=== PATIENT | male | born 1960 | race Caucasian/White ===

== ENCOUNTER 2023-10-08 18:15 | Inpatient (IN) | payer OTHER, SELFPAY ==
[2023-10-08] VITALS (28 sets, daily range): BP systolic 122–166; BP diastolic 83–121; PULSE 79–109; RESP 13–27; TEMP 36.3–37.8; O2SAT 91–95; BMI 25.8; BMI 25.7
--- NOTE | 2023-10-08 18:34 | ECG_ITS ---
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
--- NOTE | 2023-10-08 18:34 | XR_ITS ---
The [address] [address] Patient Name: CAYLA WORRELL MRN: [id number] date: 1960 Sex: M Assigned Patient Location: ER Current Patient Location: ED.MAIN Accession/Order Number: [id number] Exam Date: 10/08/2023 18:40 Report Date: 10/08/2023 19:39 At the request of: ERIC BURGESS Procedure: XR chest 1V EXAM: XR chest 1V REASON FOR EXAM: Male, 63 years, Chest pain. TECHNIQUE: A single AP view of the chest is performed. COMPARISON: None. FINDINGS: Cardiac monitoring leads overlie the chest. The lungs are underinflated. There appears to be mild bilateral lower lobe atelectasis. Normal pleura. Normal size heart. Normal mediastinum and dolly. Normal visualized pulmonary arteries. Normal visualized aortic arch and descending thoracic aorta. Normal visualized thoracic spine. Postoperative changes are seen to the proximal right humerus. There is no demonstrated abnormality of the visualized soft tissue structures of the upper abdomen. XR/XR chest 1V IMPRESSION: Low lung volumes with bibasilar atelectasis. Electronically authenticated by: DELORIS DING Date: 10/08/2023 19:39
--- NOTE | 2023-10-08 18:34 | ED.CHESTPAI1 ---
HPI - Chest Pain General Chief Complaint: Chest Pain Stated Complaint: Chest Pain Time Seen by Provider: 10/08/23 18:20 Source: patient and family Mode of arrival: Wheelchair Limitations: no limitations History of Present Illness HPI narrative: 63-year-old male presents to the emergency department for pain to the left upper chest area. It started about noon time today and was not precipitated by any injury. He has not had a fever or cough. No unusual activity. Its gotten worse as the day has gone on. He had a blood clot a few years ago following COVID and he was taken off of the blood thinner. The pain is severe and worse if he takes in a deep breath. Related Data Home Medications Medication Instructions Recorded Confirmed No Known Home Medications 10/08/23 10/08/23 Allergies Allergy/AdvReac Type Severity Reaction Status Date / Time No Known Drug Allergies Allergy Verified 10/08/23 18:25 Review of Systems ROS Narrative A ten point review of systems is negative except as noted above. PFSH PFSH Social History Smoking status: Never smoker Exam Narrative Exam Narrative: Nurses note and vital signs reviewed and patient is not hypoxic. General: The patient appears uncomfortable. He is frequently moving around on the cart. Skin: Warm, dry, no pallor noted. There is no rash noted. Head: Normocephalic, atraumatic Eye: Normal conjunctiva, no drainage Ears, Nose, Mouth, and Throat: oral mucosa is moist. Nares patent. Cardiovascular: Regular Rate and Rhythm; chest wall has no crepitus bruises rash or palpable tenderness Respiratory: Patient is in no distress, no accessory muscle use, lungs are clear to auscultation, no wheezing, rales or rhonchi; breath sounds are equal Back: non-tender GI: Soft and nontender Musculoskeletal: The patient has no evidence of calf tenderness, no pitting edema, symmetrical pulses noted bilaterally Neurological: A&O, normal speech Psychiatric: Cooperative Constitutional Vital Signs, click to edit/add: Last Vital Signs Temp 100.1 F 10/08/23 18:26 Pulse 108 H 10/08/23 18:26 Resp 26 H 10/08/23 18:26 BP 166/110 H 10/08/23 18:26 Pulse Ox 94 L 10/08/23 18:26 Course Vital Signs Vital signs: Vital Signs Temperature 100.1 F 10/08/23 18:26 Pulse Rate 108 H 10/08/23 18:26 Respiratory Rate 26 H 10/08/23 18:26 Blood Pressure 166/110 H 10/08/23 18:26 Pulse Oximetry 94 L 10/08/23 18:26 Temperature 100.1 F 10/08/23 18:26 Pulse Rate 108 H 10/08/23 18:26 Respiratory Rate 26 H 10/08/23 18:26 Blood Pressure 166/110 H 10/08/23 18:26 Pulse Oximetry 94 L 10/08/23 18:26 MDM - Chest Pain MDM Narrative Medical decision making narrative: Test are ordered and the patient is signed out to Dr. Do at change of shift. Differential Diagnosis Differential diagnosis: Likely pneumothorax, unstable angina pectoris, atypical chest pain, st elevation myocardial infarction, costochondritis and other (Pulmonary embolism) ECG Data Attestation: I personally reviewed and interpreted this ECG as follows: (EKG on my interpretation shows sinus tachycardia with a rate of 101.) Discharge Plan Discharge Patient Disposition: Still a Patient
[2023-10-08] MEDS: ACETAMINOPHEN 325 MG TABLET 650 MG PO (19:01)
[2023-10-08] MEDS: MORPHINE SULFATE 4 MG/ML VIAL IV (19:03)
[2023-10-08 19:15] LABS: Basophils Percent Auto 0.6 % (0.2-2.0); Eosinophils Absolute Auto 0.1 10^3/uL (0.0-0.7); Eosinophils Percent Auto 2.1 % (0.9-7.0); Hematocrit 43.6 % (42.0-54.0); Hemoglobin 14.7 g/dL (14.0-18.0); Immature Granulocytes Abs Auto 0.02 10^3/uL (0.00-0.03); Immature Granulocytes Pct Auto 0.3 % (0.0-0.5); Lymphocytes Absolute Auto 0.7 10^3/uL (1.2-3.8); Lymphocytes Percent Auto 10.7 % (20.5-60.0); Mean Corpuscular HGB Conc 33.7 g/dL (29.9-35.2); Mean Corpuscular Hemoglobin 31.5 pg (25.9-34.0); Mean Corpuscular Volume 93.4 fL (80.0-94.0); Mean Platelet Volume 9.3 fL (9.5-13.5); Monocytes Absolute Auto 0.7 10^3/uL (0.3-0.8); Monocytes Percent Auto 10.7 % (1.7-12.0); Neutrophils Percent Auto 75.6 % (43.0-75.0); Platelet Count 205 10^3/uL (150-450); Red Blood Count 4.67 10^6/uL (4.70-6.10); Red Cell Distribution Width 11.9 % (11.0-15.0); White Blood Count 6.6 10^3/uL (4.0-11.0)
[2023-10-08 19:16] LABS: Adenovirus NOT DETECTED (NOT DETECTE); Bordetella parapertussis NOT DETECTED (NOT DETECTE); Coronavirus 229E NOT DETECTED (NOT DETECTE); Coronavirus NL63 NOT DETECTED (NOT DETECTE); Coronavirus OC43 NOT DETECTED (NOT DETECTE); Human Metapneumovirus NOT DETECTED (NOT DETECTE); Human Rhinovirus/Enterovirus NOT DETECTED (NOT DETECTE); Influenza A NOT DETECTED (NOT DETECTE); Influenza B NOT DETECTED (NOT DETECTE); Mycoplasma pneumoniae NOT DETECTED (NOT DETECTE); Parainfluenza Virus 1 NOT DETECTED (NOT DETECTE); Parainfluenza Virus 2 NOT DETECTED (NOT DETECTE); Parainfluenza Virus 3 NOT DETECTED (NOT DETECTE); Parainfluenza Virus 4 NOT DETECTED (NOT DETECTE); Respiratory Syncytial Virus NOT DETECTED (NOT DETECTE); SARS-CoV-2 NOT DETECTED (NOT DETECTE)
--- NOTE | 2023-10-08 19:18 | PC.NURSE ---
complains of pain to left upper chest with inspiration and has SOB. Lungs sounds have crackles noted in left upper lobe. Improvement with pain and SOB after receiving Morphine.
[2023-10-08 19:37] LABS: Anion Gap 13.4; Calcium 8.9 mg/dL (8.5-10.1); Carbon Dioxide 24.5 mmol/L (21.0-32.0); Chloride 104 mmol/L (98-107); Estimated GFR (African America >60 (>=60); Estimated GFR (Non-African Ame >60 (>=60); Glucose 104 mg/dL (74-106); Potassium 3.9 mmol/L (3.5-5.1); Sodium 138 mmol/L (136-145); Troponin I High Sensitivity <4.0 pg/mL (4.0-76.1)
--- NOTE | 2023-10-08 19:46 | CT_ITS ---
The [address] [address] Patient Name: CAYLA WORRELL MRN: [id number] date: 1960 Sex: M Assigned Patient Location: ED.MAIN Current Patient Location: ED.MAIN Accession/Order Number: [id number] Exam Date: 10/08/2023 19:56 Report Date: 10/08/2023 20:39 At the request of: GRAEME DO Procedure: CT angio chest EXAM: CT angio chest HISTORY: chest pain COMPARISON: None available at the time of dictation. TECHNIQUE: CT angiography of the chest was performed without IV contrast followed by IV contrast, including 3D post processing CTA image reconstruction. CT dose reduction technique was used, including Automated Exposure Control. IV CONTRAST: 96 mL Omnipaque 350 FINDINGS: Diagnostic quality: Adequate Scattered subsegmental pulmonary emboli are seen throughout a few arteries of the lower lobes bilaterally, as well as involving a subsegmental artery in the lingula. Asymmetric dilation of the right ventricle relative to the left, with an RV/LV ratio of approximately 1.2. The heart does appear mildly grossly enlarged especially of the right cardiac chambers. There is no pericardial effusion. There are no abnormally enlarged hilar or mediastinal lymph nodes. No substantial coronary calcification detected. The central tracheobronchial tree is clear. No focal consolidation. There is bibasilar subsegmental atelectasis.. There is no pleural effusion. No acute process identified in the visualized upper abdomen. No destructive osseous changes are seen. CT/CT angio chest IMPRESSION: Pulmonary emboli involving the subsegmental arteries of the lower lobes and lingula. There is evidence of right heart strain, as above. Critical results were NOTIFIED by TELEPHONE BY Dr. Dr. Cristina Temple, DO to Dr. Do At 10/08/2023 8:31 PM EST. Electronically authenticated by: CRISTINA TEMPLE Date: 10/08/2023 20:39
[2023-10-08 20:11] LABS: Coronavirus HKU1 DETECTED (NOT DETECTE)
[2023-10-08] MEDS: HEPARIN SODIUM (PORCINE) 5,000 UNIT/ML VIAL 6700 UNIT IV (23:06)
[2023-10-08] MEDS: HEPARIN SODIUM,PORCINE/D5W 25,000 UNIT/500 ML IV.SOLN 30.209 UNIT IV (23:07)
[2023-10-09] VITALS (9 sets, daily range): BP systolic 135–148; BP diastolic 90–104; PULSE 80–98; RESP 16–18; TEMP 36.2–36.7; O2SAT 91–93
--- NOTE | 2023-10-09 04:00 | ECG_ITS ---
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
[2023-10-09 06:03] LABS: Basophils Percent Auto 0.5 % (0.2-2.0); Eosinophils Absolute Auto 0.1 10^3/uL (0.0-0.7); Eosinophils Percent Auto 2.3 % (0.9-7.0); Hematocrit 42.3 % (42.0-54.0); Hemoglobin 14.2 g/dL (14.0-18.0); Immature Granulocytes Abs Auto 0.02 10^3/uL (0.00-0.03); Immature Granulocytes Pct Auto 0.3 % (0.0-0.5); Lymphocytes Absolute Auto 0.7 10^3/uL (1.2-3.8); Lymphocytes Percent Auto 11.1 % (20.5-60.0); Mean Corpuscular HGB Conc 33.6 g/dL (29.9-35.2); Mean Corpuscular Hemoglobin 31.3 pg (25.9-34.0); Mean Corpuscular Volume 93.4 fL (80.0-94.0); Mean Platelet Volume 9.3 fL (9.5-13.5); Monocytes Absolute Auto 0.7 10^3/uL (0.3-0.8); Monocytes Percent Auto 10.6 % (1.7-12.0); Neutrophils Absolute Auto 4.6 10^3/uL (1.4-6.5); Neutrophils Percent Auto 75.2 % (43.0-75.0); Platelet Count 183 10^3/uL (150-450); Red Blood Count 4.53 10^6/uL (4.70-6.10); Red Cell Distribution Width 11.9 % (11.0-15.0); White Blood Count 6.1 10^3/uL (4.0-11.0)
[2023-10-09 06:16] LABS: Alanine Aminotransferase 24 U/L (16-63); Albumin Globulin Ratio 0.9; Albumin Level 3.1 g/dL (3.4-5.0); Alkaline Phosphatase 100 U/L (46-116); Aspartate Amino Transferase 15 U/L (15-37); BUN Creatinine Ratio 21.6; Bilirubin Total 0.9 mg/dL (0.2-1.0); Calcium 8.8 mg/dL (8.5-10.1); Carbon Dioxide 26.6 mmol/L (21.0-32.0); Chloride 104 mmol/L (98-107); Estimated GFR (African America >60 (>=60); Estimated GFR (Non-African Ame >60 (>=60); Globulin 3.6 g/dL; Glucose 112 mg/dL (74-106); Potassium 3.6 mmol/L (3.5-5.1); Sodium 138 mmol/L (136-145); Total Protein 6.7 g/dL (6.4-8.2)
--- NOTE | 2023-10-09 06:20 | CA_ITS ---
Patient Name: CAYLA WORRELL MR#: [id number] : 1960 Exam Date: 10/09/2023 Ordering Doctor: DR MADDY VARGAS . ECHOCARDIOGRAM REPORT PROCEDURE: CA ECHO DOPPLER COMPLETE INDICATIONS: Pulmonary Embolism, Chest pain, Covid positive COMPARISON: None. DESCRIPTION: COMPLETE ECHOCARDIOGRAM Real-time transthoracic echocardiography with 2D, M-mode, spectral and color flow Doppler performed. QUALITY: Technical quality was good. LEFT VENTRICLE: Normal chamber size. Moderate concentric left ventricular hypertrophy. LV EF: Global left ventricular systolic function is normal. Visual estimation of left ventricular ejection fraction is 60-65%. No wall motion abnormalities. DIASTOLIC: Normal diastolic function. ATRIAL SEPTUM: Inadequately seen. LEFT ATRIUM: Normal chamber size. RIGHT ATRIUM: Normal chamber size. RIGHT VENTRICLE: Normal chamber size. Normal right ventricular systolic function. TRICUSPID VALVE: Normal mobility and thickness. No stenosis with trivial regurgitation. No evidence of pulmonary hypertension. RVSP 23mmHg MITRAL VALVE: Normal mobility and thickness. No evidence of mitral valve stenosis. There is no mitral annular calcification. Trivial mitral regurgitation. AORTIC VALVE: Normal trileaflet appearance. No visible sclerosis. Normal leaflet mobility. No evidence of aortic valve stenosis. Trivial aortic regurgitation. AORTIC ROOT: Normal diameter and appearance. PULMONIC VALVE: Normal thickness and mobility. No stenosis. No regurgitation. PERICARDIUM: No evidence of pericardial effusion. IVC: Collapses with inspirations. Normal size. CONCLUSION: 1. Global left ventricular systolic function is normal; visually estimated ejection fraction is 60 to 65% 2. Normal right ventricular size and systolic function 3. Moderately increased left ventricular wall thickness 4. Normal diastolic function 5. No significant valvular abnormalities Adult Echocardiography Procedure Report Left Ventricle LVEDD (3.7 - 5.6 cm): 4.64 cm LVESD (2.2 - 4.0 cm): 2.98 cm LVIVS thickness (0.6 - 1.2 cm): 1.55 cm LVPW thickness (0.5 - 1.0 cm): 1.50 cm e': 0.11 m/s E - e': 5.29 LVOT Max Gradient: 2.33 mm[Hg] LVOT Area (cm2): 0.76 m/s Peak Velocity (LVOT): 0.76 m/s Mean Velocity (LVOT): 0.49 m/s LVOT Diameter 2.20 cm Left Ventricular Ejection Fraction: 71.32 % Left Atrium LA Volume Index (2D A2C): 29.58 ml/m2 Left Atrium Systolic Dimension: 3.93 cm Mitral Valve MV E to A Ratio: 0.94 Mitral Valve A-Wave Peak Velocity: 0.60 m/s Mitral Valve E-Wave Peak Velocity: 0.57 m/s Right Ventricle RV Internal Diastolic Dimension: 3.62 cm Aorta AO Root Diam: 3.61 cm Ascending Ao Diam: 3.40 cm Aortic Valve AoV Area (Peak Fadi): 2.81 cm2, 2.76 cm2 AoV Area (VTI): 2.85 cm2, 2.78 cm2 Peak Velocity(Antegrade Flow): 1.05 m/s, 1.02 m/s Peak Gradient(Antegrade Flow): 4.39 mm[Hg], 4.13 mm[Hg] Mean Velocity(Antegrade Flow): 0.74 m/s, 0.70 m/s Mean Gradient(Antegrade Flow): 2.52 mm[Hg], 2.24 mm[Hg] Velocity Time Integral: 20.97 cm, 19.92 cm Tricuspid Valve Peak Velocity (Regurgitant Flow): 2.05 m/s, 2.25 m/s Pulmonic Valve Mean Gradient: 1.31 mm[Hg], 1.38 mm[Hg] Mean Velocity: 0.54 m/s, 0.55 m/s Peak Velocity: 0.82 m/s Peak Gradient: 2.59 mm[Hg], 2.80 mm[Hg] Right Atrium Right Atrium Systolic Pressure: 37.30 ml, 37.30 ml Dictated by: Amber Kaye M.D. on 10/09/2023 at 11:57 Approved by: Amber Kaye M.D. on 10/09/2023 at 12:00
[2023-10-09 06:22] LABS: INR 0.97; Prothrombin Time 10.3 sec (9.0-11.6)
[2023-10-09 06:41] LABS: Troponin I High Sensitivity 5.7 pg/mL (4.0-76.1)
[2023-10-09 06:44] LABS: PTT Heparin Monitor 77.7 sec (48.2-68.6)
--- NOTE | 2023-10-09 08:34 | CM.NOTE ---
Rounds made with Dr. Lozada, pt continues on IV Heparin. Discussed with pt about starting Eliquis. Pt verbalizes understanding. Consult mover helper for further recommendations.
--- NOTE | 2023-10-09 08:46 | P.HP_ITS ---
H&P: HPI History of Present Illness Chief complaint: CHEST PAIN/PE Narrative: Patient with a history of pulmonary embolism while he had COVID has been off his anticoagulant for some time. Had increasing shortness of breath and left-sided chest pain. In ER workup found patient to have recurrence of his subsegmental pulmonary emboli. Question of right heart strain. Will check on echocardiogram later this morning. Patient currently on heparin protocol. I saw patient up in the ICU. He is breathing was overall improved. But still having some left-sided chest wall pain. Especially with rotating to the left side. Review of Systems ROS Status of ROS 10 or more systems reviewed and unremark able except as noted in history and below [facility] Medical History (Updated 10/09/23 @ 13:15 by LAYLA COVARRUBIAS) COVID ?U07.1 - COVID-19 (ICD-10) Fracture dislocation of cervical spine ?S12.9XXA - Fracture of neck, unspecified, initial encounter (ICD-10) ACL injury tear ?S83.519A - Sprain of anterior cruciate ligament of unspecified knee, initial encounter (ICD-10) Surgical History (Updated 10/09/23 @ 02:39 by Valentina Albright) History of rotator cuff surgery ?Z98.890 - Other specified postprocedural states (ICD-10) Social History (Updated 10/09/23 @ 00:16 by Valentina Albright) Within the past year, how often did you have a drink containing alcohol: never Score interpretation: A score less than 4 is consistent with normal alcohol consumption. 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 Highest level of school completed/degree received: high school graduate Are you now , , , , never or living with a partner: Little interest or pleasure in doing things: not at all Feeling down, depressed, or hopeless: not at all Feel stressed/tense/nervous/anxious/difficulty sleeping: not at all Meds Home Medications and Allergies Home Medications Medication Instructions Recorded Confirmed Type No Known Home Medications 10/08/23 10/08/23 History apixaban 5 mg tablet (Eliquis) 10 mg (2 x 5 mg) PO BID #60 tabs 10/09/23 Rx metoprolol tartrate 25 mg tablet 25 mg PO BID #60 tabs 10/09/23 Rx Allergies Allergy/AdvReac Type Severity Reaction Status Date / Time No Known Drug Allergies Allergy Verified 10/08/23 18:25 Exam Constitutional Vital Signs, click to edit/add: Last Vital Signs Temp 97.1 F L 10/09/23 06:16 Pulse 87 10/09/23 08:00 Resp 16 10/09/23 06:16 BP 148/104 H 10/09/23 06:16 Pulse Ox 91 L 10/09/23 06:16 O2 Del Method Room Air 10/09/23 06:16 Documenting provider has reviewed patient's vital signs: yes Common normals: no apparent distress Chest Common normals: inspection of chest normal Respiratory Common normals: normal respiratory effort and no retractions Cardio Common normals: regular rate and regular rhythm Extremity Common normals: normal to inspection, full ROM and no calf tenderness General: no edema Results Labs Labs: Short CBC 10/08/23 10/09/23 Range/Units 18:56 05:37 WBC 6.6 6.1 (4.0-11.0) 10^3/uL Hgb 14.7 14.2 (14.0-18.0) g/dL Hct 43.6 42.3 (42.0-54.0) % Plt Count 205 183 (150-450) 10^3/uL BMP 10/08/23 10/09/23 18:56 05:37 Sodium 138 138 Potassium 3.9 3.6 Chloride 104 104 Carbon Dioxide 24.5 26.6 BUN 23.0 H 19.0 H Creatinine 0.96 0.88 Glucose 104 112 H Calcium 8.9 8.8 Liver Function 10/09/23 Range/Units 05:37 Total Bilirubin 0.9 (0.2-1.0) mg/dL AST 15 (15-37) U/L ALT 24 (16-63) U/L Alkaline Phosphatase 100 (46-116) U/L Albumin 3.1 L (3.4-5.0) g/dL Assessment and Plan Assessment and Plan (1) Pulmonary embolism: Plan Uncontrolled hypertension, fever, sinus tachycardia, acute respiratory distress secondary to acute subsegmental pulmonary emboli complicated by acute coronavirus infection, not COVID. Echocardiogram did not show any significant strain. Case was discussed with cardiology who recommended going with oral anticoagulation. He does have a ultrasound of his lower extremities that showed DVT as well. Despite exam being normal. Treatment would be the same. Could do workup for coagulopathy as an outpatient. Patient remained stable and ambulating without difficulty or hypoxia he can be discharged home later today in improving condition. Medications see list. Recommend anticoagulation for life secondary to recurrent DVT and pulmonary emboli x 2. Fever likely secondary to acute coronavirus infection-just viral, continue to follow. Just supportive care. With patient regarding heparin drip and intensity of services patient was admitted to the intensive care unit due to the right heart strain noted on CT scan. By time echo was obtained and showed no right heart strain. Patient will be changed to oral medication. If tolerates that we will be discharged home later today. Follow-up with PCP within the next week.
[2023-10-09] MEDS: METOPROLOL TARTRATE 25 MG TABLET PO (09:59)
--- NOTE | 2023-10-09 10:02 | CM.NOTE ---
Spoke with pt regarding Eliquis and reason for Eliquis at discharge. Pt verbalizes understanding, pt states I was on Xarelto after my last blood clot. Pt given free 30 day trial for Eliquis and 10 dollar co-pay card. now at bedside and both verbalize understanding of use of 30 day free trial and co-pay card. Both verbalize if pt would need to be transferred they would prefer to go to [facility] if procedure could be done at [facility]. [place] txt sent to Dr. Lozada, he felt as procedure could not be done at [facility] and is waiting on echo to be completed before decision would be made. Information from Dr. Lozada discussed with pt and and they both verbalize understanding. Called Cardiopulmonary for time that echo would be completed, time would be around 11:00. Provided this information to pt and Dr. Lozada.
--- NOTE | 2023-10-09 10:51 | US_ITS ---
The [address] [address] Patient Name: CAYLA WORRELL MRN: [id number] date: 1960 Sex: M Assigned Patient Location: ICU Current Patient Location: MS Accession/Order Number: [id number] Exam Date: 10/09/2023 12:20 Report Date: 10/09/2023 13:00 At the request of: MADDY VARGAS Procedure: US venous doppler LE BI Ultrasound venous duplex scan, bilateral lower extremities CLINICAL: Pulmonary embolism, now currently complaints. TECHNIQUE: [place]-scale, color-flow, and Doppler examination of both legs was performed with and without provocative maneuvers. FINDINGS: Comparison: Chest CT 10/08/2023. There is normal compressibility and color flow of the right common femoral vein and the superficial femoral vein. Popliteal vein also demonstrates normal compressibility and color flow. Normal compressibility of the proximal deep femoral vein and the greater saphenous vein. There is lack of compressibility and color flow involving the peroneal vein throughout the right calf. There is normal compressibility of the posterior tibial vein and the anterior tibial vein. There is normal compressibility of the small saphenous vein in the calf. Ultrasound of the left lower extremity deep venous system to include the common femoral, superficial femoral and popliteal veins, demonstrates normal compressibility, color-flow, respiratory variation, and augmentation. The origin of the greater saphenous vein demonstrates normal compression, and there is normal color-flow in the proximal profunda femoral vein. There is normal color-flow in the peroneal, posterior tibial, and anterior tibial veins. US/US venous doppler LE BI IMPRESSION: 1. Positive for below-knee deep venous thrombosis of the right peroneal vein. The posterior tibial and anterior tibial veins in the right calf are patent. Negative for above-knee deep venous thrombosis in the right leg. 2. Negative for deep venous thrombosis in the left leg. Remarks: Patient has known positive pulmonary emboli by chest CT yesterday and currently being treated. Report placed into call report status for the radiology operations staff to notify referring clinician of results. Electronically authenticated by: VIRIDIANA NUR Date: 10/09/2023 13:00
--- NOTE | 2023-10-09 11:43 | P.CACN_ITS ---
<Statement entered by Sree Angelo MD - 11/06/23 12:51> This documentation has been reviewed and approved. .Agree with statement above History of Present Illness History of Present Illness Chief complaint: CHEST PAIN/PE Narrative: Is a 63-year-old male with past medical history of dilated aortic root, htn, DVT provoked by COVID, recent left upper shoulder repair about 2 months ago and was treated with aspirin for DVT prophylaxis which she was post to be on for 3 weeks but only took it for 2 weeks, presented to the [facility] complaining of chest pain and shortness of breath. He had CT of his chest was found to have subsegmental PE with concerns for RV strain TTE done 10/09/2023 shows normal RV function and size with no concerns for strain, LVEF is normal as well, no valvular concerns and actually aortic diameter appears normal He has been on heparin infusion and has been slightly hypoxic with sats sitting in low 90s and patient's not on any O2. He states he does still feel little bit of chest pain and feels as though he cannot take deep breaths and has been takin g shallow breaths. Discussed with patient given his recurrent DVT issue he may need to be on long- term low-dose anticoagulation once PE is resolved Review of Systems ROS Cardiovascular Reports: chest pain; Denies: edema or lightheadedness Respiratory Reports: shortness of breath [facility] Medical History (Updated 10/09/23 @ 13:15 by LAYLA COVARRUBIAS) COVID ?U07.1 - COVID-19 (ICD-10) Fracture dislocation of cervical spine ?S12.9XXA - Fracture of neck, unspecified, initial encounter (ICD-10) ACL injury tear ?S83.519A - Sprain of anterior cruciate ligament of unspecified knee, initial encounter (ICD-10) Surgical History (Updated 10/09/23 @ 02:39 by Valentina Albright) History of rotator cuff surgery ?Z98.890 - Other specified postprocedural states (ICD-10) Social History (Updated 10/09/23 @ 00:16 by Valentina Albright) Within the past year, how often did you have a drink containing alcohol: never Score interpretation: A score less than 4 is consistent with normal alcohol consumption. 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 Highest level of school completed/degree received: high school graduate Are you now , , , , never or living with a partner: Little interest or pleasure in doing things: not at all Feeling down, depressed, or hopeless: not at all Feel stressed/tense/nervous/anxious/difficulty sleeping: not at all Meds Home Medications and Allergies Home Medications Medication Instructions Recorded Confirmed Type No Known Home Medications 10/08/23 10/08/23 History apixaban 5 mg tablet (Eliquis) 10 mg (2 x 5 mg) PO BID #60 tabs 10/09/23 Rx metoprolol tartrate 25 mg tablet 25 mg PO BID #60 tabs 10/09/23 Rx Allergies Allergy/AdvReac Type Severity Reaction Status Date / Time No Known Drug Allergies Allergy Verified 10/08/23 18:25 Exam Constitutional Vital Signs, click to edit/add: Last Vital Signs Temp 97.1 F L 10/09/23 06:16 Pulse 85 10/09/23 09:59 Resp 16 10/09/23 06:16 BP 148/104 H 10/09/23 06:16 Pulse Ox 91 L 10/09/23 06:16 O2 Del Method Room Air 10/09/23 06:16 Common normals: no apparent distress and oriented x3 Orientation/consciousness: Yes awake, Yes oriented to person, Yes oriented to place and Yes oriented to time Respiratory Effort & inspection: able to speak in complete sentences and tachypneic; no retractions Auscultation: clear to auscultation bilaterally Cardio Common normals: no JVD, regular rate and regular rhythm Rate: regular rate Rhythm: regular rhythm Results Labs and Meds Lab results: Cardiac Enzymes 10/09/23 Range/Units 05:37 AST 15 (15-37) U/L Coagulation 10/09/23 Range/Units 05:37 PT 10.3 (9.0-11.6) sec CBC 10/08/23 10/09/23 Range/Units 18:56 05:37 WBC 6.6 6.1 (4.0-11.0) 10^3/uL RBC 4.67 L 4.53 L (4.70-6.10) 10^6/uL Hgb 14.7 14.2 (14.0-18.0) g/dL Hct 43.6 42.3 (42.0-54.0) % Plt Count 205 183 (150-450) 10^3/uL Neut # (Auto) 5.0 4.6 (1.4-6.5) 10^3/uL Lymph # (Auto) 0.7 L 0.7 L (1.2-3.8) 10^3/uL [place] # (Auto) 0.7 0.7 (0.3-0.8) 10^3/uL Eos # (Auto) 0.1 0.1 (0.0-0.7) 10^3/uL Baso # (Auto) 0.0 0.0 (0.0-0.1) 10^3/uL Comprehensive Metabolic Panel 10/08/23 10/09/23 Range/Units 18:56 05:37 Sodium 138 138 (136-145) mmol/L Potassium 3.9 3.6 (3.5-5.1) mmol/L Chloride 104 104 (98-107) mmol/L Carbon Dioxide 24.5 26.6 (21.0-32.0) mmol/L BUN 23.0 H 19.0 H (7.0-18.0) mg/dL Creatinine 0.96 0.88 (0.70-1.30) mg/dL Glucose 104 112 H (74-106) mg/dL Calcium 8.9 8.8 (8.5-10.1) mg/dL AST 15 (15-37) U/L ALT 24 (16-63) U/L Alkaline Phosphatase 100 (46-116) U/L Total Protein 6.7 (6.4-8.2) g/dL Albumin 3.1 L (3.4-5.0) g/dL Intake and Output 10/08/23 10/09/23 10/09/23 23:59 07:59 15:59 Intake Total 500 / 750 250 / 750 Output Total 500 / 500 350 / 350 Balance 500 / 250 -250 / 250 -350 / -350 Intake: Oral 500 / 750 250 / 750 Output: Urine 500 / 500 350 / 350 Other: # Voids 1 # Bowel Movements 1 Weight 83.7 kg Assessment and Plan Assessment and Plan (1) Pulmonary embolism: Plan PE -Will transition to Eliquis 10 mg twice daily for 7 days and then 5 mg twice daily for minimum of 3 months -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 anticoagulation as long as he is able to get out of bed and continue with basic ADLs prior to discharge, this would be my only concern for discharge, would not recommend unless patient is stable enough to maintain O2 sats and able to do basic ADLs; if for some reason this becomes a concern would consider transfer for vascular consult -Patient may likely be on lifelong anticoagulation given recurrent blood clots despite the first being provoked and this current one being questionably provoked -will schedule follow up in with our clinic
[2023-10-09 13:20] LABS: PTT Heparin Monitor 58.1 sec (48.2-68.6)
[2023-10-09] MEDS: APIXABAN 5 MG TABLET 10 MG PO (14:31)
== END 2023-10-09 15:51 | disposition home or self-care (01) | DRG 176 ==
LOC: ER 20:10 → ICU 23:34 → MS 10-09 13:00
PROVIDERS: Emergency Medicine; Nurse Practitioner Acute Care; Admitting Provider Family Medicine; Emergency Provider Internal Medicine; Visit Provider Family Medicine
DX: I26.94 Multiple subsegmental thrombotic pulmonary emboli without acute cor pulmonale (principal); I82.451 Acute embolism and thrombosis of right peroneal vein; Z86.16 Personal history of COVID-19; Z86.711 Personal history of pulmonary embolism; I10 Essential (primary) hypertension; R06.03 Acute respiratory distress; B97.29 Other coronavirus as the cause of diseases classified elsewhere
CPT/HCPCS: 0202U; 36415; 71045; 71275; 80048; 80053; 83880; 84484; 85025; 85610; 85730; 93005; 93306; 93970; 96365; 96375; 96376; 99285; J1644; J2270; Q9967

== ENCOUNTER 2023-10-31 18:57 | Emergency (ER) | payer OTHER, SELFPAY ==
[2023-10-31 19:03] VITALS: BP 140/80; PULSE 60; RESP 16; TEMP 36.4; O2SAT 95; BMI 25.7
--- OUTSIDE RECORDS SUMMARY | 2023-10-31 19:46 | XMS_ITS | CCD ---
Author Name Unknown Address [address] [place] [address] Organization [facility] Care Team Providers Care Solar Energy Installation Manager Name Role Phone ELIA, DR JUNE Primary Care Unavailable LACHO AMBRIZ Admitting Unavailable DIMITRY REGAN Consulting Unavailable LACHO AMBRIZ Attending Unavailable HUBERT REYES Consulting Unavailable CLARA, DR CHACHO Amos Attending Unavailable CLARA, DR CHACHO Amos Admitting Unavailable GWEN, DR MACY Trejo Consulting Unavailable ELIA, DR JUNE Primary Care Unavailable CLARA, DR CHACHO Amos Consulting Unavailable Rolando Cortes Unavailable DO Rolando Cortes Primary Care Provider [phone] DO Rolando Cortes Attending Provider [phone] MD Jorge Luis Tompkins Attending Provider [phone] DO Rolando Cortes Primary Care Provider [phone] DO Rolando Cortes Attending Provider [phone] Rolando Cortes Amarjit Primary Care Unavailable DO Rolando Cortes Primary Care Provider MD Jorge Luis Tompkins Attending Provider DO Rolando Cortes Attending Provider [phone] DO Rolando Cortes Primary Care Provider MD Tyra Panda Attending Provider Tyra Panda Unavailable Kelli Doss Unavailable DO Rolando Cortes Primary Care Provider [phone] MD Kushal Bateman Attending Provider Olexa, Kushal Unavailable DO Rolando Cortes Primary Care Provider [phone] MD Kushal Bateman Attending Provider [phone] JAY Lerner Emergency Provider MD Orion Mondragon Emergency Provider Kuns, Rolando Primary Care Unavailable Olexa, Kushal Admitting Unavailable Olexa, Kushal Attending Unavailable Olexa, Kushal Admitting Unavailable Olexa, Kushal Attending Unavailable Kuns, Orlando Primary Care Unavailable Olexa, Kushal Admitting Unavailable Kuns, Rolando Primary Care Unavailable Olexa, Kushal Attending Unavailable Kuns, Rolando Primary Care Unavailable Olexa, Kushal Admitting Unavailable Olexa, Kushal Attending Unavailable Olexa, Kushal Admitting Unavailable Olexa, Kushal Attending Unavailable Kuns, Rolando Primary Care Unavailable Kuns, Rolando Primary Care Unavailable Asaad, Imad Admitting Unavailable Asaad, Imad Attending Unavailable Olexa, Kushal Admitting Unavailable Olexa, Kushal Attending Unavailable Jeralds, Rolando Primary Care Unavailable Lisa Lerner Admitting Unavailable Lisa Lerner Attending Unavailable Kuns, Rolando Primary Care Unavailable Orion Mondragon Admitting Unavailable Giancarlo, Orion Attending Unavailable Kuns, Rolando Primary Care Unavailable Kuns, Rolando Attending Unavailable Kuns, Rolando Admitting Unavailable Kuns, Rolando Primary Care Unavailable Unavailable Primary Care Provider Unavailabl e NIKITA NICOLE Attending Unavailable OLEXA, KUSHAL Referring Unavailable SALLIE ESPINAL Attending Unavailable OLEXA, KUSHAL Referring Unavailable NIKITA NICOLE Attending Unavailable OLEXA, KUSHAL Referring Unavailable RUBY VERA Attending Unavailable OLEXA, KUSHAL Referring Unavailable NIKITA NICOLE Attending Unavailable OLEXA, KUSHAL Referring Unavailable DO Rolando Cortes Primary Care Provider MD Kushal Bateman Attending Provider [phone] Allergies Allergy Classification Reported Allergen(s) Allergy Type Date of Onset Reaction(s) Facility (9 sources) patient allergy list reviewed by nurse or physicia Propensity to adverse reactions 7 Comment:Done enGreet Other (9 sources) Allergies Reconciled Propensity to adverse reactions Unknown enGreet Other (3 sources) Cephalexin; Translations: [cephalexin] Drug Allergy 3 [facility] Medications Current Medications Medication Drug Class(es) Dates Sig (Normalized) Sig (Original) acetaminophen 325 mg / oxyCODONE hydrochloride 5 mg oral tablet (1 source) Opioid Agonist Start: 08-06-2023 take 1 tablet by mouth every four hours as needed for pain Percocet 5-325 MG 1 tablet as needed for pain Orally up to every 4 hrs for 5 days AKASH: [id number] Jul, Active cephalexin 500 mg oral capsule (2 sources) Cephalosporin Antibacterial Start: 08-06-2023 take 1 capsule by mouth every eight hours Cephalexin 500 MG 1 capsule Orally every 8 hrs for 2 days Jul, Active Start: 07-24-2023 take 1 capsule by mo uth every eight hours Cephalexin 500 MG 1 capsule Orally TID for 10 days Jun, Active metoprolol tartrate 25 mg oral tablet (2 sources) beta-Adrenergic Maria Luisa Start: 10-18-2023 End: 10-18-2023 take 25 mg by mouth twice daily Metoprolol Tartrate Active 25 MG PO Twice daily October 18, 2023 2:53pm [place] (No Known Home Meds) (3 sources) Start: 10-23-2022 [place] (No Kn own Home Meds) Active October 23, 2022 1:00am Start: 10-23-2022 [place] (No Kn own Home Meds) Active October 23, 2022 12:00am Completed/Discontinued Medications Medication Drug Class(es) Dates Sig (Normalized) Sig (Original) acetaminophen 325 mg / HYDROcodone bitartrate 5 mg oral tablet (14 sources) Opioid Agonist Start: 06-03-2021 End: 08-17-2021 take 1 tablet by mouth every six hours Hydrocodone-Acetam inophen Discontinued 1 TAB PO Q6H 15 4 June 03, 2021 August 17, 2021 2:56pm [id number] 200 actuat albuterol 0.09 mg/actuat metered dose inhaler (14 sources) beta2-Adrenergic Agonist Start: 05-04-2021 End: 06-03-2021 Albuterol Sulfate (Ventolin Hfa) 90 mcg/actuation HFA aerosol inhaler Discontinued 2 INH INHALATION EVERY 4-6 HOURS 6.7 May 03, 2021 11:00pm June 03, 2021 2:50am amoxicillin 500 mg oral capsule (11 sources) Penicillin-class Antibacterial Start: 07-26-2023 End: 10-11-2023 take 500 mg by mouth twice daily Amoxicillin Discontinued 500 MG PO Twice daily July 26, 2023 12:00am October 11, 2023 11:51am Start: 07-25-2023 take 1 tablet by srinivasan th every twelve hours Amoxicillin 500 MG 1 tablet Orally Twice a day for 10 days Jun, Active apixaban 5 mg oral tablet (3 sources) Factor Xa Inhibitor Start: 10-11-2023 End: 10-18-2023 take 1 tablet by mouth twice daily Apixaban (Eliquis) 5 mg tablet Discontinued 5 MG PO Twice daily October 18, 2023 2:52pm October 18, 2023 3:23pm aspirin 81 mg delayed release oral tablet (3 sources) Platelet Aggregation Inhibitor, Nonsteroidal Anti-inflammatory Drug Start: 10-11-2023 End: 10-18-2023 take 81 mg by mouth once daily Aspirin Discontinued 81 MG PO Daily October 11, 2023 12:00am October 18, 2023 2:53pm Aspirin Active doxycycline hyclate 100 mg oral tablet (20 sources) Tetracycline-class Drug Start: 08-17-2021 End: 10-23-2022 take 100 mg by mouth twice daily Doxycycline Hyclate Discontinued 100 MG PO Twice daily 14 August 17, 2021 12:00am October 23, 2022 10:25am Start: 05-04-2021 End: 06-03-2021 take 100 mg by mouth twice daily Doxycycline Hyclate Discontinued 100 MG PO Twice daily 14 May 03, 2021 11:00pm June 03, 2021 2:51am ibuprofen 200 mg oral capsule (7 sources) Nonsteroidal Anti-inflammatory Drug Start: 07-26-2023 End: 10-11-2023 take 600 mg by mouth every six hours Ibuprofen Discontinued 600 MG PO Q6H July 26, 2023 12:00am October 11, 2023 11:51am ondansetron 4 mg disintegrating oral tablet (20 sources) Serotonin-3 Receptor Antagonist Start: 07-26-2023 End: 08-08-2023 take 4 mg by mouth every eight hours Ondansetron Discontinued 4 MG PO Q8H 9 July 26, 2023 12:00am August 08, 2023 7:16am Start: 05-04-2021 End: 06-03-2021 Ondansetron Hcl (Zofran) 4 m g tablet Discontinued 4 MG PO every 6 to 8 hours May 03, 2021 11:00pm June 03, 2021 2:51am rivaroxaban 20 mg oral tablet (20 sources) Factor Xa Inhibitor Start: 08-17-2021 End: 10-23-2022 take 1 tablet by mouth once daily Rivaroxaban (Xarelto) 20 mg Tablet Discontinued 20 MG PO Daily August 17, 2021 12:00am October 23, 2022 10:25am Start: 06-20-2021 take 0.5 tablet by m outh once daily Xarelto 15 MG 1/2 tablet Orally Once a day May, Active Start: 06-20-2021 take 1 tablet by srinivasan th every twenty-four hours Xarelto 20 MG 1 tablet with food Orally Once a day May, Active Start: 06-03-2021 End: 08-17-2021 take 1 tablet by mouth twice daily at mealtime Rivaroxaban (Xarelto Dvt-Pe Treat 30d Start) 15 mg (42)- 20 mg (9) tablets,dose pack Discontinued 0 PO .COMPLEX 51 June 02, 2021 11:00pm August 17, 2021 2:56pm Take one-15 mg tablet twice daily for 21 days, then one-20 mg tablet once daily; must take with meal/food take 1 tablet by srinivasan th every twelve hours Xarelto 15 MG 1 tablet with food Orally Twice a day Active Problems Active Problems Problem Classification Problem Date Documented Da te Episodic/Chronic Acute bronchitis (14 sources) Acute bacterial bronchitis; Translations: [Acute bronchitis due to other specified organisms] 08-17-2021 Episodic Aortic; peripheral; and visceral artery aneurysms (20 sources) Aortic aneurysm; Translations: [Aortic aneurysm of unspecified site, without rupture] Onset: 08-29-2021 Resolved: 04-14-2022 Chronic Blindness and vision defects (17 sources) 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; 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, both eyes] Onset: 08-29-2021 Resolved: 08-29-2021 Chronic Disorders of lipid metabolism (20 sources) Hyperlipidemia; Translations: [Hyperlipidemia, unspecified] Onset: 09-18-2022 Chronic Malaise and fatigue (1 source) Other fatigue; Translations: [Other fatigue] Onset: 07-26-2023 Episodic Nausea and vomiting (14 sources) Nausea; Translations: [Nausea] 05-04-2021 Episodic Open wounds of head; neck; and trunk (20 sources) Laceration without foreign body of scalp, initial encounter; Translations: [Scalp laceration] Onset: 07-04-2021 Resolved: 07-11-2021 Episodic Osteoarthritis (20 sources) Arthritis of right wrist; Translations: [Primary osteoarthritis, 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 Other aftercare (18 sources) Surgical follow-up; Translations: [Encounter for removal of sutures] Episodic Other bone disease and musculoskeletal deformities (14 sources) Mass of chest wall; Translations: [Other specified disorders of bone, other site] Episodic Other circulatory disease (14 sources) Pulmonary congestion ; Translations: [Other specified symptoms and signs involving the circulatory and respiratory systems] 05-04-2021 Episodic Other circulatory disease (9 sources) Elevated blood-pressure reading without diagnosis of hypertension; Translations: [Elevated blood-pressure reading, without diagnosis of hypertension] Episodic Other connective tissue disease (1 source) History of left shoulder arthroplasty; Translations: [Presence of left artificial shoulder joint] 10-18-2023 Chronic Other connective tissue disease (2 sources) Pain in right foot; Translations: [PAIN IN RIGHT FOOT] Onset: 01-19-2022 Episodic Other connective tissue disease (1 source) Pain in right finger(s); Translations: [PAIN IN RIGHT FINGERS] Onset: 01-19-2022 Episodic Other connective tissue disease (20 sources) Supraspinatus tear; Translations: [Unspecified rotator cuff tear or rupture of left shoulder, not specified as traumatic] Episodic Other connective tissue disease (8 sources) Pain in right foot; Translations: [Pain in right foot] Episodic Other connective tissue disease (9 sources) Pain in limb; Translations: [Pain in right finger(s)] Episodic Other connective tissue disease (4 sources) Unspecified rotator cuff tear or rupture of left shoulder, not specified as traumatic Episodic Other ear and sense organ disorders (16 sources) Bilateral tinnitus; Translations: [Tinnitus, bilateral] Episodic Other lower respiratory disease (13 sources) Cough; Translations: [Subacute cough] Episodic Other lower respiratory disease (7 sources) History of bacterial infection; Translations: [Personal history of other diseases of the respiratory system] 07-26-2023 Episodic Other non-traumatic joint disorders (9 sources) Derangement of left shoulder joint; Translations: [Other specific joint derangements of left shoulder, not elsewhere classified] Chronic Other non-traumatic joint disorders (5 sources) Pain in unspecified joint; Translations: [PAIN IN UNSPECIFIED JOINT] Onset: 01-17-2022 Episodic Other non-traumatic joint disorders (7 sources) Pain in left shoulder; Translations: [Pain in joint, shoulder region] Episodic Other non-traumatic joint disorders (8 sources) Joint pain; Translations: [Pain in unspecified joint] Episodic Other nutritional; endocrine; and metabolic disorders (9 sources) Body mass index 25-29 - overweight; Translations: [Body mass index (BMI) 25.0-25.9, adult] Episodic Other skin disorders (12 sources) Night sweats; Translations: [Generalized hyperhidrosis] 07-26-2023 Episodic Other upper respiratory infections (9 sources) Chronic sinusitis; Translations: [Chronic sinusitis, unspecified] Chronic Phlebitis; thrombophlebitis and thromboembolism (2 sources) Deep venous thrombosis of peroneal vein; Translations: [Acute embolism and thrombosis of unspecified peroneal vein] 10-11-2023 Episodic Pneumonia (except that caused by tuberculosis or sexually transmitted disease) (14 sources) Pneumonia; Translations: [Pneumonia, unspecified organism] 05-04-2021 Episodic Pulmonary heart disease (20 sources) Acute pulmonary embolism; Translations: [Other pulmonary embolism without acute cor pulmonale] Onset: 06-03-2021 Resolved: 08-29-2021 Episodic Residual codes; unclassified (8 sources) Tobacco user; Translations: [Tobacco use] Episodic Residual codes; unclassified (8 sources) Family history of diabetes mellitus; Translations: [Family history of diabetes mellitus] Episodic Residual codes; unclassified (1 source) Tobacco use; Translations: [Tobacco use] Episodic Residual codes; unclassified (1 source) Family history of diabetes mellitus; Translations: [Family history of diabetes mellitus] Episodic Residual codes; unclassified (6 sources) Chill; Translations: [Chills (without fever)] Onset: 07-28-2023 07-28-2023 Episodic Residual codes; unclassified (3 sources) Other specified postprocedural states Episodic Skin and subcutaneous tissue infections (20 sources) Abscess; Translations: [Cellulitis and abscess of other specified site] Onset: 09-23-2014 Episodic Unclassified (9 sources) Multiple subsegmental pulmonary emboli without acute cor pulmonale; Translations: [Multiple subsegmental pulmonary emboli without acute cor pulmonale] Onset: 06-03-2021 Unclassified (1 source) Unspecified rotator cuff tear or rupture of left shoulder, not specified as traumatic; Translations: [Unspecified rotator cuff tear or rupture of left shoulder, not specified as traumatic] Onset: 08-16-2023 Unclassified (1 source) Encounter for other preprocedural examination; Translations: [Encounter for other preprocedural examination] Onset: 08-03-2023 Unclassified (1 source) Encounter for preprocedural laboratory examination; Translations: [Encounter for preprocedural laboratory examination] Onset: 07-26-2023 Unclassified (1 source) Other specific joint derangements of left shoulder, not elsewhere classified; Translations: [Other specific joint derangements of left shoulder, not elsewhere classified] Onset: 05-31-2023 Unclassified (1 source) Pain in left shoulder; Translations: [Pain in left shoulder] Onset: 03-12-2023 Unclassified (1 source) Encounter for screening for malignant neoplasm of colon; Translations: [Encounter for screening for malignant neoplasm of colon] Onset: 10-23-2022 Viral infection (15 sources) Disease caused by 2019-nCoV; Translations: [COVID-19] 06-03-2021 Episodic Viral infection (10 sources) COVID-19; Translations: [Disease caused by 2019-nCoV] Onset: 06-20-2021 Resolved: 06-20-2021 Past or Other Problems Problem Classification Problem Date Documented Da te Episodic/Chronic Administrative/social admission (1 source) Persons encountering health services in other specified circumstances; Translations: [Encounter to establish care with new doctor Z76.89] Onset: 06-20-2021 Resolved: 06-20-2021 Episodic Bacterial infection; unspecified site (8 sources) Bacterial infectious disease; Translations: [Bacterial infection, unspecified, in conditions classified elsewhere and of unspecified site] Onset: 11-24-2016 Episodic Chronic obstructive pulmonary disease and bronchiectasis (1 source) Bronchitis, not specified as acute or chronic Onset: 08-29-2021 Resolved: 08-29-2021 Episodic Conditions associated with dizziness or vertigo (1 source) Dizziness and giddiness Onset: 08-29-2021 Resolved: 08-29-2021 Episodic E Codes: Struck by; against (1 source) Striking against or struck by other objects, initial encounter; Translations: [STRIKING AGNST/STRUCK OTH OBJ INIT] Onset: 07-05-2021 Episodic Other aftercare (1 source) 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; Translations: [RESIDENTIAL CURRNT USE ANTICOAGULANTS] Onset: 07-05-2021 Episodic Other aftercare (2 sources) Encounter for removal of sutures Onset: 07-11-2021 Resolved: 08-29-2021 Episodic Other bone disease and musculoskeletal deformities (1 source) Other specified disorders of bone, other site Onset: 04-14-2022 Resolved: 04-14-2022 Episodic Other injuries and conditions due to external causes (1 source) Unspecified injury of head, initial encounter; Translations: [UNSPECIFIED INJURY HEAD INITIAL ENC] Onset: 07-05-2021 Episodic Other lower respiratory disease (1 source) Shortness of breath; Translations: [Shortness of breath R06.02] Onset: 06-20-2021 Resolved: 06-20-2021 Episodic Other lower respiratory disease (1 source) Other nonspecific abnormal finding of lung field Onset: 04-14-2022 Resolved: 04-14-2022 Episodic Other screening for suspected conditions (not mental disorders or infectious disease) (4 sources) Encounter for screening for malignant neoplasm of prostate; Translations: [Encounter for screening for malignant neoplasm of colon] Onset: 09-18-2022 Episodic Other skin disorders (8 sources) Localized superficial swelling of skin; Translations: [Localized superficial swelling, mass, or lump] Onset: 07-02-2013 Episodic Other upper respiratory infections (18 sources) Acute upper respiratory infection; Translations: [Acute upper respiratory infections of unspecified site] Onset: 10-29-2014 Resolved: 06-13-2021 Episodic Otitis media and related conditions (9 sources) Obstruction of Eustachian tube; Translations: [Unspecified obstruction of Eustachian tube] Onset: 10-29-2014 Episodic Unclassified (2 sources) History of COVID-19 Z86.16 Onset: 08-29-2021 Resolved: 04-14-2022 Unclassified (14 sources) Unclassified (1 source) Subacute cough R05.2 Unclassified (9 sources) Need for prophylactic vaccination with tetanus toxoid alone; Translations: [Need for prophylactic vaccination with tetanus toxoid alone] Onset: 04-06-2015 Unclassified (1 source) Localized superficial swelling, mass, or lump; Translations: [Localized superficial swelling, mass, or lump] Onset: 07-02-2013 Unclassified (1 source) Bacterial infection, unspecified, in conditions classified elsewhere and of unspecified site; Translations: [Bacterial infection, unspecified, in conditions classified elsewhere and of unspecified site] Onset: 11-24-2016 Results Test Name Value Interpretation Reference Range Facility XR shoulder LT min 2V*on XR shoulder LT min 2V* [facility] [place] [address] XRay Report Signed Patient: Cayla Worrell MR#: [id number] : 1960 Acct:[id number] Age/Sex: 63 / M ADM Date: 08/16/23 [place] [facility]: Type: [facility] Attending Dr: Kushal Bateman MD Copies to: Kushal Bateman MD Ordering Provider: Kushal Bateman MD Date of Service: 08/16/23 XR/XR shoulder LT min 2V*: Tear of left supraspinatus tendon XR shoulder LT min 2V* 08/16/2023 10:51 AM SIGNS AND SYMPTOMS: Tear of left supraspinatus tendon, status post repair PROTOCOL: Frontal, Grashey, and scapular Y views of the left shoulder COMPARISON: 03/12/2023 FINDINGS: There is mild hypertrophy of the acromioclavicular joint with mild narrowing of the glenohumeral joint. There is no evidence of fracture or dislocation. There is cortical irregularity along the greater tuberosity of the femoral head suspicious for prior rotator cuff abnormalities. This is consistent with the history of supraspinatus tendon repair. The visualized left hemithorax is grossly intact. XR/XR shoulder LT min 2V* IMPRESSION: No fracture or dislocation. Findings are consistent with underlying rotator cuff abnormalities with degenerative changes redemonstrated, as above. Impression dictated by: Flavio Dove M.D.08/16/2023 3:02 PM Dictation Location: RADIO-PC-14 Transcribed By: [facility] 08/16/23 1502 Dictated By: Flavio Dove II, MD 08/16/23 1500 Signed By: 08/16/23 150 [facility] XR chest 2V*on 08-03-2023 XR chest 2V* [facility] Main Agency [address] [place] [address] XRay Report Signed Patient: Cayla Worrell MR#: [id number] : 1960 Acct:[id number] Age/Sex: 63 / M ADM Date: 08/03/23 Loc: [facility] [place]: Type: [facility] Attending Dr: Kushal Bateman MD Copies to: Kushal Bateman MD Ordering Provider: Kushal Bateman MD Date of Service: 08/03/23 XR/XR chest 2V*: Pre-op exam;Personal history of pulmonary embolism PA AND LATERAL CHEST: CLINICAL HISTORY: Presurgical testing for shoulder surgery. History of pulmonary embolism. COMPARISON: 07/28/2023 There is no focal parenchymal consolidation, effusion or pneumothorax. The cardiac, hilar and mediastinal silhouettes are within normal limits. There is no vascular congestion. The visualized bony thorax is intact. Is mild endplate spurring at the spine. An anchor pin is again visualized at the right humeral head. XR/XR chest 2V* IMPRESSION: NO ACUTE CARDIOPULMONARY ABNORMALITY. Impression dictated by: Niki Parker M.D.08/03/2023 3:13 PM Dictation Location: RADIO-PC-12 Transcribed By: [facility] 08/03/23 151 Dictated By: Niki Parker MD 08/03/23 1512 Signed By: 08/03/231512 [facility] Alanine aminotransferase [En zymatic activity/volume] in Serum or PlasmaOrdered By: Orion Mondragon on 07-28-2023 ALT [Catalytic activity/Vol] 55 U/L 7-[address] [facility] Albumin [Mass/volume] in Ser um or Plasma by Bromocresol green (BCG) dye binding methoOrdered By: Orion Mondragon on 07-28-2023 Albumin BCG dye [Mass/Vol] 3.5 g/dL 3.5-5.[address] [facility] Alkaline phosphatase [Enzyma tic activity/volume] in Serum or PlasmaOrdered By: Orion Mondragon on 07-28-2023 ALP [Catalytic activity/Vol] 98 U/L 34-[address] [facility] Aspartate aminotransferase [ Enzymatic activity/volume] in Serum or PlasmaOrdered By: Orion Mondragon on 07-28-2023 AST [Catalytic activity/Vol] 29 U/L 13-[address] [facility] Bacterial blood cultureOrder ed By: Orion Mondragon on 07-28-2023 Bacteria identified Cx Nom (Bld) NO GROWTH [address] [facility] Bacteria identified Cx Nom (Bld) NO GROWTH [address] [facility] Basophils Auto (Bld) [#/Vol] Ordered By: Orion Mondragon on 07-28-2023 Basophils (Bld) [#/Vol] 0.1 10*3/uL 0.0-0.[address] [facility] Basophils/100 WBC Auto (Bld) Ordered By: Orion Mondragon on 07-28-2023 Basophils/100 WBC (Bld) 0.8 % . [facility] Bilirubin Test strip Ql (U)O rdered By: Orion Mondragon on 07-28-2023 Bilirubin Ql (U) Negative Negative [facility] Bilirubin.total [Mass/volume ] in Serum or PlasmaOrdered By: Orion Mondragon on 07-28-2023 Bilirubin [Mass/Vol] 0.8 mg/dL 0.3-1.0 [facility] BioFire Not Detectedon 07-28 BioFire Not Detected Not detected Normal Not Detecte [facility] Comment on above: Result Comment: This is a duplicate RP2.1 COVID (PCR) result to be used for statistical tracking purpose only. PERFORMED BY: [facility] [address] [place] [address] PATHOLOGIST FAN RUNNER ATRAH MAYER M.D. Performed By: #### R ANGELA PANEL UPP., BIOFIRECOVNOTDE ####[address] Blood Cultureon 07-28-2023 Bacteria identified Cx Nom (Bld) NO GROWTH 5 DAYS PERFORMED BY: [place] [address] PATHOLOGIST FAN RUNNER TARAH MAYER M.D. [facility] Comment on above: Performed By: #### C UBLD, CMP, CBC, ESR ####[address] Bacteria identified Cx Nom (Bld) NO GROWTH 5 DAYS PERFORMED BY: [place] [address] PATHOLOGIST FAN RUNNER TARAH MAYER M.D. [facility] Comment on above: Performed By: #### C UBLD, CMP, CBC, ESR ####[address] COVID-19 Detected/Not Detect edOrdered By: Orion Mondragon on 07-28-2023 SARS-CoV-2 (COVID-19) RNA CAROLINA+non-probe Ql (Nph) Not detected Not Detecte [facility] Comment on above: This is a duplicate RP2.1 COVID (PCR) result to be used for statistical tracking purpose only. Calcium [Mass/volume] in Ser um or PlasmaOrdered By: Orion Mondragon on 07-28-2023 Calcium [Mass/Vol] 8.6 mg/dL 8.6-10.3 [facility] Carbon dioxide, total [Moles /volume] in Serum or PlasmaOrdered By: Orion Mondragon on 07-28-2023 CO2 [Moles/Vol] 24.6 mmol/L 21.0-31.0 [facility] Chloride [Moles/volume] in S brad or PlasmaOrdered By: Orion Mondragon on 07-28-2023 Chloride [Moles/Vol] 106 mmol/L 98-107 [facility] Color Auto (U)Ordered By: Yessy Mondragon on 07-28-2023 Color (U) Yellow Yellow [facility] Complete Blood Count Auto Di ffon 07-28-2023 Basophils (Bld) [#/Vol] 0.1 10*3/uL Normal 0.0-0.[address] [facility] Comment on above: Performed By: #### C UBLD, CMP, CBC, ESR ####[address] Basophils/100 WBC (Bld) 0.8 % Normal . [facility] Comment on above: Performed By: #### C UBLD, CMP, CBC, ESR ####[address] Eosinophils (Bld) [#/Vol] 0.1 10*3/uL Normal 0.0-0.[address] [facility] Comment on above: Performed By: #### C UBLD, CMP, CBC, ESR ####[address] Eosinophils/100 WBC (Bld) 1.6 % Normal . [facility] Comment on above: Performed By: #### C UBLD, CMP, CBC, ESR ####[address] Erythrocyte distribution width (RBC) [Ratio] 12.4 % Normal 12.0-14.[address] [facility] Comment on above: Performed By: #### C UBLD, CMP, CBC, ESR ####[address] Hematocrit (Bld) [Volume fraction] 39.2 % Normal 38.8-50.[address] [facility] Comment on above: Performed By: #### C UBLD, CMP, CBC, ESR ####[address] Hemoglobin (Bld) [Mass/Vol] 13.8 g/dL Normal 13.0-17.[address] [facility] Comment on above: Performed By: #### C UBLD, CMP, CBC, ESR ####[address] Lymphocytes (Bld) [#/Vol] 0.9 10*3/uL Low 1.00-4.[address] [facility] Comment on above: Performed By: #### C UBLD, CMP, CBC, ESR ####[address] Lymphocytes/100 WBC (Bld) 11.5 % Normal . [facility] Comment on above: Performed By: #### C UBLD, CMP, CBC, ESR ####[address] MCH (RBC) [Entitic mass] 32.7 pg Normal 27.5-35.[address] [facility] Comment on above: Performed By: #### C UBLD, CMP, CBC, ESR ####[address] MCV (RBC) [Entitic vol] 93.0 fL Normal 83.5-101 [facility] Comment on above: Performed By: #### C UBLD, CMP, CBC, ESR ####[address] Mean Corpuscular HGB Conc 35.1 g/dL Normal 32.5-35.[address] [facility] Comment on above: Performed By: #### C UBLD, CMP, CBC, ESR ####[address] Monocytes (Bld) [#/Vol] 1.1 10*3/uL High 0.0-0.[address] [facility] Comment on above: Performed By: #### C UBLD, CMP, CBC, ESR ####[address] Monocytes/100 WBC (Bld) 22.65 % High 0.00-20.00 [facility] Comment on above: Result Comment: For adults in ED, MDW > 20.0 may be associated with a higher risk of sepsis during the first 12 hrs of hospital admission Performed By: #### C UBLD, CMP, CBC, ESR ####[address] Monocytes/100 WBC (Bld) 14.2 % Normal . [facility] Comment on above: Performed By: #### C UBLD, CMP, CBC, ESR ####[address] Neutrophils (Bld) [#/Vol] 5.6 10*3/uL Normal 1.8-7.[address] [facility] Comment on above: Performed By: #### C UBLD, CMP, CBC, ESR ####[address] Neutrophils/100 WBC (Bld) 71.9 % Normal . [facility] Comment on above: Performed By: #### C UBLD, CMP, CBC, ESR ####[address] NRBC% 0.1 /100{WBC} Normal 0-0.[address] [facility] Comment on above: Performed By: #### C UBLD, CMP, CBC, ESR ####[address] Platelet mean volume (Bld) [Entitic vol] 7.3 fL Normal 6.6-10.[address] [facility] Comment on above: Performed By: #### C UBLD, CMP, CBC, ESR ####[place] [id number] [facility] Platelets (Bld) [#/Vol] 282 10*3/uL Normal 150-[address] [facility] Comment on above: Performed By: #### C UBLD, CMP, CBC, ESR ####[place] [id number] [facility] RBC (Bld) [#/Vol] 4.22 10*6/uL Normal 3.90-5.60 [facility] Comment on above: Performed By: #### C UBLD, CMP, CBC, ESR ####[place] [id number] [facility] WBC (Bld) [#/Vol] 7.8 10*3/uL Normal 4.1-10.5 [facility] Comment on above: Performed By: #### C UBLD, CMP, CBC, ESR ####[place] [address] [place] [address] [facility] Comprehensive Metabolic Pane edna 07-28-2023 Albumin [Mass/Vol] 3.5 g/dL Normal 3.5-5.7 [facility] Comment on above: Performed By: #### C UBLD, CMP, CBC, ESR ####[place] [address] [place] [address] [facility] Albumin/Globulin [Mass ratio] 1.3 {ratio} Normal [facility] Comment on above: Performed By: #### C UBLD, CMP, CBC, ESR ####[place] [address] [place] [address] [facility] ALP [Catalytic activity/Vol] 98 U/L Normal 34-[address] [facility] Comment on above: Performed By: #### C UBLD, CMP, CBC, ESR ####[place] [address] [place] [address] [facility] ALT [Catalytic activity/Vol] 55 U/L High 7-[address] [facility] Comment on above: Performed By: #### C UBLD, CMP, CBC, ESR ####[place] [address] [place] [address] [facility] Anion gap [Moles/Vol] 14.5 mmol/L Normal 6.0-15.0 [facility] Comment on above: Performed By: #### C UBLD, CMP, CBC, ESR ####[address] [address] [facility] AST [Catalytic activity/Vol] 29 U/L Normal 13-[address] [facility] Comment on above: Performed By: #### C UBLD, CMP, CBC, ESR ####[place] [address] [place] [address] [facility] Bilirubin [Mass/Vol] 0.8 mg/dL Normal 0.3-1.0 [facility] Comment on above: Performed By: #### C UBLD, CMP, CBC, ESR ####[place] [address] [place] [address] [facility] Calcium [Mass/Vol] 8.6 mg/dL Normal 8.6-10.3 [facility] Comment on above: Performed By: #### C UBLD, CMP, CBC, ESR ####[place] [address] [place] [address] [facility] Chloride [Moles/Vol] 106 mmol/L Normal 98-107 [facility] Comment on above: Performed By: #### C UBLD, CMP, CBC, ESR ####[place] [address] [place] [address] [facility] CO2 [Moles/Vol] 24.6 mmol/L Normal 21.0-31.0 [facility] Comment on above: Performed By: #### C UBLD, CMP, CBC, ESR ####[place] [id number] [facility] Creatinine [Mass/Vol] 0.99 mg/dL Normal 0.70-1.30 [facility] Comment on above: Performed By: #### C UBLD, CMP, CBC, ESR ####[place] [id number] [facility] Creatinine Clr Calc Pharmacy 79.23 [facility] Comment on above: Result Comment: PERF ORMED BY: [facility] [address] [facility] [place] [address] PATHOLOGIST FAN RUNNER TARAH MAYER M.D. Performed By: #### C UBLD, CMP, CBC, ESR ####[place] [address] [place] [id number] [facility] GFR/1.73 sq M.predicted MDRD (S/P/Bld) [Vol rate/Area] mL/min/{1.73_m2} [facility] Comment on above: Performed By: #### C UBLD, CMP, CBC, ESR ####[place] [address] [place] [address] [facility] Globulin (S) [Mass/Vol] 2.7 g/dL Normal [facility] Comment on above: Performed By: #### C UBLD, CMP, CBC, ESR ####[facility] [address] [place] [address] [facility] Glucose [Mass/Vol] 99 mg/dL Normal 70-100 [facility] Comment on above: Result Comment: [place] Glucose Reference Range is dependent on time and content of last meal. Glucose of more than 200 mg/dL in a nonstressed, ambulatory subject supports the diagnosis of Diabetes Mellitus. ADA recommended reference range Performed By: #### C UBLD, CMP, CBC, ESR ####[facility] [address] [place] [address] [facility] Potassium [Moles/Vol] 4.1 mmol/L Normal 3.5-5.1 [facility] Comment on above: Performed By: #### C UBLD, CMP, CBC, ESR ####[place] [address] [place] [address] [facility] Protein [Mass/Vol] 6.2 g/dL Low 6.4-8.9 [facility] Comment on above: Performed By: #### C UBLD, CMP, CBC, ESR ####[place] [address] [place] [id number] [facility] Sodium [Moles/Vol] 141 mmol/L Significant change down 136-[address] [facility] Comment on above: Performed By: #### C UBLD, CMP, CBC, ESR ####[facility] [place] [address] [facility] Urea nitrogen [Mass/Vol] 21 mg/dL Normal 7-[address] [facility] Comment on above: Performed By: #### C UBLD, CMP, CBC, ESR ####[place] [address] [place] [address] [facility] Creatinine [Mass/volume] in Serum or PlasmaOrdered By: Orion Mondragon on 07-28-2023 Creatinine [Mass/Vol] 0.99 mg/dL 0.70-1.30 [facility] Eosinophils Auto (Bld) [#/Vo l]Ordered By: Orion Mondragon on 07-28-2023 Eosinophils (Bld) [#/Vol] 0.1 10*3/uL 0.0-0.[address] [facility] Eosinophils/100 WBC Auto (Bl d)Ordered By: Orion Mondragon on 07-28-2023 Eosinophils/100 WBC (Bld) 1.6 % . [facility] Erythrocyte Sedimentation Ra olga 07-28-2023 ESR (Bld) [Velocity] 28 mm/h High 0-19 [facility] Comment on above: Result Comment: PERF ORMED BY: [facility] [address] [facility] [place] [address] PATHOLOGIST FAN RUNNER TARAH MAYER M.D. Performed By: #### C UBLD, CMP, CBC, ESR ####[facility] Erythrocyte distribution wid th Auto (RBC) [Ratio]Ordered By: Orion Mondragon on 07-28-2023 Erythrocyte distribution width (RBC) [Ratio] 12.4 % 12.0-14.[address] [facility] Erythrocyte sedimentation ra te by Photometric methodOrdered By: Orion Mondragon on 07-28-2023 ESR Photometric method (Bld) [Velocity] 28 mm/hr 0-[address] [facility] Globulin Calc (S) [Mass/Vol] Ordered By: Orion Mondragon on 07-28-2023 Globulin (S) [Mass/Vol] 2.7 g/dL [facility] Glucose [Mass/volume] in Ser um or PlasmaOrdered By: Orion Mondragon on 07-28-2023 Glucose [Mass/Vol] 99 mg/dL 70-100 [facility] Comment on above: ADA recommended refe rence rangeRandom Glucose Reference Range is dependent on time and content of last meal. Glucose of more than 200 mg/dL in a nonstressed, ambulatory subject supports the diagnosis of Diabetes Mellitus. Hematocrit Auto (Bld) [Volum e fraction]Ordered By: Orion Mondragon on 07-28-2023 Hematocrit (Bld) [Volume fraction] 39.2 % 38.8-50.[address] [facility] Hemoglobin [Mass/volume] in BloodOrdered By: Orion Mondragon on 07-28-2023 Hemoglobin (Bld) [Mass/Vol] 13.8 g/dL 13.0-17.[address] [facility] Ketones Auto test strip (U) [Mass/Vol]Ordered By: Orion Mondragon on 07-28-2023 Ketones (U) [Mass/Vol] Negative Negative Fi [facility] Lactate [Moles/volume] in Se rum or PlasmaOrdered By: Orion Mondragon on 07-28-2023 Lactate [Moles/Vol] 0.9 mmol/L 0.5-2.2 [facility] Lactic Acidon 07-28-2023 Lactate [Moles/Vol] 0.9 mmol/L Normal 0.5-2.2 [facility] Comment on above: Result Comment: PERF ORMED BY: [facility] [address] [place] [address] PATHOLOGIST FAN RUNNER TARAH MAYER M.D. Performed By: #### L ACTIC ####[facility] [place] [id number] [facility] Leukocytes [#/volume] correc bere for nucleated erythrocytes in Blood by Automated counOrdered By: Orion Mondragon on 07-28-2023 WBC corrected for nucl RBC Auto (Bld) [#/Vol] 7.8 10*3/uL 4.1-10.[address] [facility] Lymphocytes Auto (Bld) [#/Vo l]Ordered By: Orion Mondragon on 07-28-2023 Lymphocytes (Bld) [#/Vol] 0.9 10*3/uL 1.00-4.[address] [facility] Lymphocytes/100 WBC Auto (Bl d)Ordered By: Orion Mondragon on 07-28-2023 Lymphocytes/100 WBC (Bld) 11.5 % . [facility] MCH Auto (RBC) [Entitic mass ]Ordered By: Orion Mondragon on 07-28-2023 MCH (RBC) [Entitic mass] 32.7 pg 27.5-35.[address] [facility] MCHC Auto (RBC) [Mass/Vol]Or dered By: Orion Mondragon on 07-28-2023 MCHC (RBC) [Mass/Vol] 35.1 g/dL 32.5-35.6 [facility] MCV Auto (RBC) [Entitic vol] Ordered By: Orion Mondragon on 07-28-2023 MCV (RBC) [Entitic vol] 93.0 fL 83.5-101 [facility] Monocyte distribution width [Entitic volume] in Blood by AutomatedOrdered By: Orion Mondragon on 07-28-2023 Monocyte distribution width Auto (Bld) [Entitic vol] 22.65 % 0.00-20.[address] [facility] Comment on above: For adults in ED, MD W > 20.0 may be associated with a higher risk of sepsis during the first 12 hrs of hospital admission Monocytes Auto (Bld) [#/Vol] Ordered By: Orion Mondragon on 07-28-2023 Monocytes (Bld) [#/Vol] 1.1 10*3/uL 0.0-0.[address] [facility] Monocytes/100 WBC Auto (Bld) Ordered By: Orion Mondragon on 07-28-2023 Monocytes/100 WBC (Bld) 14.2 % . [facility] Neutrophils Auto (Bld) [#/Vo l]Ordered By: Orion Mondragon on 07-28-2023 Neutrophils (Bld) [#/Vol] 5.6 10*3/uL 1.8-7.[address] [facility] Neutrophils/100 WBC Auto (Bl d)Ordered By: Orion Mondragon on 07-28-2023 Neutrophils/100 WBC (Bld) 71.9 % . [facility] Nitrite Test strip Ql (U)Ord ered By: Orion Mondragon on 07-28-2023 Nitrite Ql (U) Negative Negative [facility] No Panel InformationOrdered By: Orion Mondragon on 07-28-2023 Estimated GFR (CKD-EPI) > 60.0 mL/Min [facility] Creatinine Clearance (Chem 79.[address] [facility] Nucleated erythrocytes [Pres ence] in Blood by Automated countOrdered By: Orion Mondragon on 07-28-2023 Nucleated RBC Auto Ql (Bld) 0.1 /100{WBC} 0-0.[address] [facility] Platelet mean volume Auto (B ld) [Entitic vol]Ordered By: Orion Mondragon on 07-28-2023 Platelet mean volume (Bld) [Entitic vol] 7.3 fL 6.6-10.[address] [facility] Platelets Auto (Bld) [#/Vol] Ordered By: Orion Mondragon on 07-28-2023 Platelets (Bld) [#/Vol] 282 10*3/uL 150-[address] [facility] Potassium [Moles/volume] in Serum or PlasmaOrdered By: Orion Mondragon on 07-28-2023 Potassium [Moles/Vol] 4.1 mmol/L 3.5-5.1 [facility] Protein Auto test strip (U) [Mass/Vol]Ordered By: Orion Mondragon on 07-28-2023 Protein (U) [Mass/Vol] Negative Negative [facility] Protein [Mass/volume] in Ser um or PlasmaOrdered By: Orion Mondragon on 07-28-2023 Protein [Mass/Vol] 6.2 g/dL 6.4-8.9 [facility] RBC Auto (Bld) [#/Vol]Ordere d By: Orion Mondragon on 07-28-2023 RBC (Bld) [#/Vol] 4.22 10*6/uL 3.90-5.60 [facility] Respiratory (Upper) Panel, P CRon 07-28-2023 Respiratory (Upper) Panel, PCR Adenovirus Not detected Bordetella parapertussis Not detected Chlamydia pneumoniae Not detected Coronavirus 229E Not detected Coronavirus HKU1 Not detected Coronavirus NL63 Not detected Coronavirus OC43 Not detected Influenza A Not detected Influenza B Not detected Human Metapneumovirus Not detected Mycoplasma pneumoniae Not detected Parainfluenza Virus 1 Not detected Parainfluenza Virus 2 Not detected Parainfluenza Virus 3 Not detected Parainfluenza Virus 4 Not detected Bordetella pertussis-ptxP Not detected Human Rhino/Enterovirus Not detected Resp. Syncytial Virus Not detected COVID-19 Detected/Not Detected Not detected Blank Space FLUA TEST INCLUDES Influenza A tests for the following clinically FLUA TEST INCLUDES significant subtypes: FLUA TEST INCLUDES - Influenza A FLUA TEST INCLUDES - Influenza A H1 FLUA TEST INCLUDES - Influenza A H1 2008 FLUA TEST INCLUDES - Influenza A H3 Blank Space PERFORMED BY: [facility] [address] [place] [address] PATHOLOGIST FAN RUNNER TARAH MAYER M.D. Normal [facility] Comment on above: Performed By: #### R ANGELA PANEL UPP., BIOFIRECOVNOTDE ####[facility] [address] Respiratory pathogens DNA an d RNA panel - Nasopharynx by CAROLINA with non-probe detectionOrdered By: Orion Mondragon on 07-28-2023 Respiratory pathogens DNA and RNA panel CAROLINA+non-probe (Nph) [facility] Serum or plasma albumin/glob ulin mass ratioOrdered By: Orion Mondragon on 07-28-2023 Albumin/Globulin [Mass ratio] 1.3 {ratio} [facility] Serum or plasma anion gap de terminationOrdered By: Orion Mondragon on 07-28-2023 Anion gap [Moles/Vol] 14.5 mmol/L 6.0-15.0 [facility] Sodium [Moles/volume] in Ser um or PlasmaOrdered By: Orion Mondragon on 07-28-2023 Sodium [Moles/Vol] 141 mmol/L 136-145 [facility] Comment on above: Delta: 135 on -1336 Specific gravity Auto test s trip (U) [Rel density]Ordered By: Orion Mondragon on 07-28-2023 Specific gravity (U) [Rel density] 1.013 1.001-1.[address] [facility] Urea nitrogen [Mass/volume] in Serum or PlasmaOrdered By: Orion Mondragon on 07-28-2023 Urea nitrogen [Mass/Vol] 21 mg/dL 7-[address] [facility] Urinalysison 07-28-2023 Appearance (U) Clear Normal Clear [facility] Comment on above: Order Comment: Name Collection Type:: Clean-Voided Midstream Performed By: #### U A ####[facility] [address] Bilirubin,Urine Negative Normal Negative [facility] Comment on above: Order Comment: Name Collection Type:: Clean-Voided Midstream Performed By: #### U A ####[address] [address] [facility] Color (U) Yellow Normal Yellow [facility] Comment on above: Order Comment: Name Collection Type:: Clean-Voided Midstream Performed By: #### U A ####[address] [address] [facility] Glucose Ql (U) Normal Normal Normal [facility] Comment on above: Order Comment: Name Collection Type:: Clean-Voided Midstream Performed By: #### U A ####[address] [address] [facility] Ketones Ql (U) Negative Normal Negative [facility] Comment on above: Order Comment: Name Collection Type:: Clean-Voided Midstream Performed By: #### U A ####[address] [address] [facility] Leukocyte esterase Test strip Ql (U) Negative Normal Negative [facility] Comment on above: Order Comment: Name Collection Type:: Clean-Voided Midstream Performed By: #### U A ####[address] [address] [facility] Nitrite,Urine Negative Normal Negative [facility] Comment on above: Order Comment: Name Collection Type:: Clean-Voided Midstream Performed By: #### U A ####[address] [address] [facility] Occult Blood,Urine Negative Normal Negative [facility] Comment on above: Order Comment: Name Collection Type:: Clean-Voided Midstream Result Comment: PERF ORMED BY: [facility] [address] [place] [id number] PATHOLOGIST FAN RUNNER TARAH MAYER M.D. Performed By: #### U A ####[address] [address] [facility] pH (U) 6.0 [pH] Normal 5.0-9.[address] [facility] Comment on above: Order Comment: Name Collection Type:: Clean-Voided Midstream Performed By: #### U A ####[place] [address] [place] [address] [facility] Protein,Urine Negative Normal Negative [facility] Comment on above: Order Comment: Name Collection Type:: Clean-Voided Midstream Performed By: #### U A ####[place] [id number] [facility] Specificy [place],Urine 1.013 Normal 1.001-1.[address] [facility] Comment on above: Order Comment: Name Collection Type:: Clean-Voided Midstream Performed By: #### U A ####[place] [id number] [facility] Urobilinogen,Urine Normal Normal Normal [facility] Comment on above: Order Comment: Name Collection Type:: Clean-Voided Midstream Performed By: #### U A ####[place] [id number] [facility] Urine clarity by refractomet ry automatedOrdered By: Orion Mondragon on 07-28-2023 Clarity Refractometry automated (U) Clear Clear [facility] Urine glucose measurement by automated test strip (mass/volume)Ordered By: Orion Mondragon on 07-28-2023 Glucose Auto test strip (U) [Mass/Vol] Normal mg/dL Normal [facility] Urine hemoglobin detection b y automated test stripOrdered By: Orion Mondragon on 07-28-2023 Hemoglobin Auto test strip Ql (U) Negative Negative [facility] Urine leukocyte esterase det ection by automated test stripOrdered By: Orion Mondragon on 07-28-2023 Leukocyte esterase Auto test strip Ql (U) Negative Negative [facility] Urobilinogen Auto test strip (U) [Mass/Vol]Ordered By: Orion Mondragon on 07-28-2023 Urobilinogen (U) [Mass/Vol] Normal mg/dL Normal [facility] WBC Auto (Bld) [#/Vol]Ordere d By: Orion Mondragon on 07-28-2023 WBC (Bld) [#/Vol] 7.8 10*3/uL 4.1-10.5 [facility] XR chest 2V*on 07-28-2023 XR chest 2V* [facility] [place] [address] XRay Report Signed Patient: Cayla Worrell MR#: [id number] : 1960 Acct:[id number] Age/Sex: 63 / M ADM Date: 07/28/23 Loc: ER Room: Type: [facility] ER Attending Dr: Copies to: Orion Mondragon MD Ordering Provider: Orion Mondragon MD Date of Service: 07/28/23 XR/XR chest 2V*: Nausea/Vomiting/Diarr hea PA AND LATERAL CHEST: CLINICAL HISTORY: Nausea, vomiting, headache and chills. COMPARISON: 07/26/2023 A similar nodular asymmetry is noted at the right upper chest overlying the anterior first rib. There is minimal basilar scarring or atelectasis. There is no additional consolidation, effusion or pneumothorax. The cardiac, hilar and mediastinal silhouettes are within normal limits. There is no vascular congestion. The visualized bony thorax is intact. There is endplate spurring and scoliosis at the spine. There is an anchor pin at the right humeral head. XR/XR chest 2V* IMPRESSION: NO ACUTE CARDIOPULMONARY ABNORMALITY. Impression dictated by: Niki Parker M.D.07/28/2023 1:07 PM Dictation Location: [place] [address] Transcribed By: [facility] 07/28/23 1307 Dictated By: Niki Parker MD 07/28/23 1305 Signed By: 07/28/23 [address] [facility] pH Auto test strip (U)Ordere d By: Orion Mondragon on 07-28-2023 pH (U) 6.0 [pH] 5.0-9.[address] [facility] Alanine aminotransferase [En zymatic activity/volume] in Serum or PlasmaOrdered By: Lisa Lerner on 07-26-2023 ALT [Catalytic activity/Vol] 40 U/L [facility] Alanine aminotransferase [En zymatic activity/volume] in Serum or PlasmaOrdered By: Kushal Bateman on 07-26-2023 ALT [Catalytic activity/Vol] 42 U/L [facility] Albumin [Mass/volume] in Ser um or Plasma by Bromocresol green (BCG) dye binding methoOrdered By: Lisa Lerner on 07-26-2023 Albumin BCG dye [Mass/Vol] 3.8 g/dL 3.5-5.[address] [facility] Albumin [Mass/volume] in Ser um or Plasma by Bromocresol green (BCG) dye binding methoOrdered By: Kushal Bateman on 07-26-2023 Albumin BCG dye [Mass/Vol] 3.7 g/dL 3.5-5.[address] [facility] Alkaline phosphatase [Enzyma tic activity/volume] in Serum or PlasmaOrdered By: Lisa Lerner on 07-26-2023 ALP [Catalytic activity/Vol] 98 U/L 34-[address] [facility] Alkaline phosphatase [Enzyma tic activity/volume] in Serum or PlasmaOrdered By: Kushal Bateman on 07-26-2023 ALP [Catalytic activity/Vol] 98 U/L 34-[address] [facility] Aspartate aminotransferase [ Enzymatic activity/volume] in Serum or PlasmaOrdered By: Lisa Lerner on 07-26-2023 AST [Catalytic activity/Vol] 24 U/L 13-[address] [facility] Aspartate aminotransferase [ Enzymatic activity/volume] in Serum or PlasmaOrdered By: Kushal Bateman on 07-26-2023 AST [Catalytic activity/Vol] 25 U/L 13-[address] [facility] Automated erythrocytes count in urine sediment (number/area)Ordered By: Lisa Lerner on 07-26-2023 RBC Auto (Urine sed) [#/Area] 1-2 [HPF] 0-[address] [facility] Automated leukocytes count i n urine sediment (number/area)Ordered By: Lisa Lerner on 07-26-2023 WBC Auto (Urine sed) [#/Area] 0-1 [HPF] 0-[address] [facility] Basophils Auto (Bld) [#/Vol] Ordered By: Lisa Lerner on 07-26-2023 Basophils (Bld) [#/Vol] 0.0 10*3/uL 0.0-0.[address] [facility] Basophils Auto (Bld) [#/Vol] Ordered By: Kushal Batemna on 07-26-2023 Basophils (Bld) [#/Vol] 0.0 10*3/uL 0.0-0.[address] [facility] Basophils/100 WBC Auto (Bld) Ordered By: Lisa Lerner on 07-26-2023 Basophils/100 WBC (Bld) 0.5 % . [facility] Basophils/100 WBC Auto (Bld) Ordered By: Kushal Bateman on 07-26-2023 Basophils/100 WBC (Bld) 0.6 % . [facility] Bilirubin Test strip Ql (U)O rdered By: Lisa Lerner on 07-26-2023 Bilirubin Ql (U) Negative Negative [facility] Bilirubin.total [Mass/volume ] in Serum or PlasmaOrdered By: Lisa Lerner on 07-26-2023 Bilirubin [Mass/Vol] 1.1 mg/dL 0.3-1.0 [facility] Bilirubin.total [Mass/volume ] in Serum or PlasmaOrdered By: Kushal Bateman on 07-26-2023 Bilirubin [Mass/Vol] 1.0 mg/dL 0.3-1.0 [facility] CMP with reflex to A1Con Albumin [Mass/Vol] 3.7 g/dL Normal 3.5-5.7 [facility] Comment on above: Performed By: #### E BS A1C, CMP wRFX A1C, CBC #### [facility] [address] [place] [address] [place] Albumin/Globulin [Mass ratio] 1.5 {ratio} Normal [facility] Comment on above: Performed By: #### E BS A1C, CMP wRFX A1C, CBC #### [facility] [address] [place] [address] [place] ALP [Catalytic activity/Vol] 98 U/L Normal 34-[address] [facility] Comment on above: Result Comment: PERF ORMED BY: [address] [address] PATHOLOGIST FAN RUNNER TARAH MAYER M.D. Performed By: #### E BS A1C, CMP wRFX A1C, CBC #### [facility] [address] [place] [id number] [place] ALT [Catalytic activity/Vol] 42 U/L Normal 7-[address] [facility] Comment on above: Performed By: #### E BS A1C, CMP wRFX A1C, CBC #### [facility] [address] [place] [id number] [facility] Anion gap [Moles/Vol] 8.1 mmol/L Normal 6.0-15.0 [facility] Comment on above: Performed By: #### E BS A1C, CMP wRFX A1C, CBC #### [facility] [address] [place] [id number] [place] AST [Catalytic activity/Vol] 25 U/L Normal 13-[address] [facility] Comment on above: Performed By: #### E BS A1C, CMP wRFX A1C, CBC #### [facility] [address] [place] [address] [place] Bilirubin [Mass/Vol] 1.0 mg/dL Normal 0.3-1.0 [facility] Comment on above: Performed By: #### E BS A1C, CMP wRFX A1C, CBC #### [facility] [address] [place] [phone] [place] Calcium [Mass/Vol] 8.6 mg/dL Normal 8.6-10.3 [facility] Comment on above: Performed By: #### E BS A1C, CMP wRFX A1C, CBC #### [facility] [address] [place] [id number] [place] Chloride [Moles/Vol] 103 mmol/L Normal 98-107 [facility] Comment on above: Performed By: #### E BS A1C, CMP wRFX A1C, CBC #### [facility] [address] [place] [phone] [place] CO2 [Moles/Vol] 29.3 mmol/L Normal 21.0-31.0 [facility] Comment on above: Performed By: #### E BS A1C, CMP wRFX A1C, CBC #### [facility] [address] [place] [phone] [place] Creatinine [Mass/Vol] 1.02 mg/dL Normal 0.70-1.30 [facility] Comment on above: Performed By: #### E BS A1C, CMP wRFX A1C, CBC #### [facility] [address] [place] [address] [place] GFR/1.73 sq M.predicted MDRD (S/P/Bld) [Vol rate/Area] mL/min/{1.73_m2} Normal [facility] Comment on above: Performed By: #### E BS A1C, CMP wRFX A1C, CBC #### [facility] [address] Globulin (S) [Mass/Vol] 2.4 g/dL Normal [facility] Comment on above: Performed By: #### E BS A1C, CMP wRFX A1C, CBC #### [address] Glucose [Mass/Vol] 108 mg/dL High 70-100 [facility] Comment on above: Result Comment: ADA recommended reference range Performed By: #### E BS A1C, CMP wRFX A1C, CBC #### [address] Potassium [Moles/Vol] 4.4 mmol/L Normal 3.5-5.1 [facility] Comment on above: Performed By: #### E BS A1C, CMP wRFX A1C, CBC #### [place] [address] [place] Protein [Mass/Vol] 6.1 g/dL Low 6.4-8.9 [facility] Comment on above: Performed By: #### E BS A1C, CMP wRFX A1C, CBC #### [place] [address] [place] Sodium [Moles/Vol] 136 mmol/L Normal 136-145 [facility] Comment on above: Performed By: #### E BS A1C, CMP wRFX A1C, CBC #### [place] [address] [place] Urea nitrogen [Mass/Vol] 19 mg/dL Normal 7-[address] [facility] Comment on above: Performed By: #### E BS A1C, CMP wRFX A1C, CBC #### [facility] [address] Calcium [Mass/volume] in Ser um or PlasmaOrdered By: Lisa Lerner on 07-26-2023 Calcium [Mass/Vol] 8.8 mg/dL 8.6-10.3 [facility] Calcium [Mass/volume] in Ser um or PlasmaOrdered By: Kushal Bateman on 07-26-2023 Calcium [Mass/Vol] 8.6 mg/dL 8.6-10.3 [facility] Carbon dioxide, total [Moles /volume] in Serum or PlasmaOrdered By: Lisa Lerner on 07-26-2023 CO2 [Moles/Vol] 27.5 mmol/L 21.0-31.0 [facility] Carbon dioxide, total [Moles /volume] in Serum or PlasmaOrdered By: Kushal Bateman on 07-26-2023 CO2 [Moles/Vol] 29.3 mmol/L 21.0-31.0 [facility] Chloride [Moles/volume] in S brad or PlasmaOrdered By: Lisa Lerner on 07-26-2023 Chloride [Moles/Vol] 102 mmol/L 98-107 [facility] Chloride [Moles/volume] in S brad or PlasmaOrdered By: Kushal Bateman on 07-26-2023 Chloride [Moles/Vol] 103 mmol/L 98-107 [facility] Color Auto (U)Ordered By: Jignesh Lerner on 07-26-2023 Color (U) Dark yellow Yellow [facility] Complete Blood Count Auto Di ffon 07-26-2023 Basophils (Bld) [#/Vol] 0.0 10*3/uL Normal 0.0-0.[address] [facility] Comment on above: Result Comment: PERF ORMED BY: [place] [address] PATHOLOGIST FAN RUNNER TARAH MAYER M.D. Performed By: #### C BC, HS TROP, CMP #### [facility] [address] [place] [address] [place] Basophils/100 WBC (Bld) 0.5 % Normal . [facility] Comment on above: Performed By: #### C BC, HS TROP, CMP #### [facility] [address] [place] [address] [place] Eosinophils (Bld) [#/Vol] 0.2 10*3/uL Normal 0.0-0.[address] [facility] Comment on above: Performed By: #### C BC, HS TROP, CMP #### [facility] [address] Eosinophils/100 WBC (Bld) 1.9 % Normal . [facility] Comment on above: Performed By: #### C BC, HS TROP, CMP #### [address] Erythrocyte distribution width (RBC) [Ratio] 12.5 % Normal 12.0-14.[address] [facility] Comment on above: Performed By: #### C BC, HS TROP, CMP #### [address] Hematocrit (Bld) [Volume fraction] 42.3 % Normal 38.8-50.[address] [facility] Comment on above: Performed By: #### C BC, HS TROP, CMP #### [address] Hemoglobin (Bld) [Mass/Vol] 14.6 g/dL Normal 13.0-17.[address] [facility] Comment on above: Performed By: #### C BC, HS TROP, CMP #### [place] [address] [place] Lymphocytes (Bld) [#/Vol] 1.2 10*3/uL Normal 1.00-4.[address] [facility] Comment on above: Performed By: #### C BC, HS TROP, CMP #### [place] [address] [place] Lymphocytes/100 WBC (Bld) 14.0 % Normal . [facility] Comment on above: Performed By: #### C BC, HS TROP, CMP #### [facility] [address] MCH (RBC) [Entitic mass] 32.3 pg Normal 27.5-35.[address] [facility] Comment on above: Performed By: #### C BC, HS TROP, CMP #### [facility] [address] MCV (RBC) [Entitic vol] 93.6 fL Normal 83.5-101 [facility] Comment on above: Performed By: #### C BC, HS TROP, CMP #### [address] Mean Corpuscular HGB Conc 34.6 g/dL Normal 32.5-35.[address] [facility] Comment on above: Performed By: #### C BC, HS TROP, CMP #### [address] Monocytes (Bld) [#/Vol] 1.1 10*3/uL High 0.0-0.[address] [facility] Comment on above: Performed By: #### C BC, HS TROP, CMP #### [address] Monocytes/100 WBC (Bld) 20.40 % High 0.00-20.00 [facility] Comment on above: Result Comment: For adults in ED, MDW > 20.0 may be associated with a higher risk of sepsis during the first 12 hrs of hospital admission Performed By: #### C BC, HS TROP, CMP #### [address] Monocytes/100 WBC (Bld) 13.4 % Normal . [facility] Comment on above: Performed By: #### C BC, HS TROP, CMP #### [place] [address] [place] Neutrophils (Bld) [#/Vol] 5.9 10*3/uL Normal 1.8-7.[address] [facility] Comment on above: Performed By: #### C BC, HS TROP, CMP #### [place] [id number] [place] Neutrophils/100 WBC (Bld) 70.2 % Normal . [facility] Comment on above: Performed By: #### C BC, HS TROP, CMP #### [address] NRBC% 0.1 /100{WBC} Normal 0-0.[address] [facility] Comment on above: Performed By: #### C BC, HS TROP, CMP #### [address] Platelet mean volume (Bld) [Entitic vol] 7.1 fL Normal 6.6-10.[address] [facility] Comment on above: Performed By: #### C BC, HS TROP, CMP #### [address] Platelets (Bld) [#/Vol] 252 10*3/uL Normal 150-[address] [facility] Comment on above: Performed By: #### C BC, HS TROP, CMP #### [address] RBC (Bld) [#/Vol] 4.51 10*6/uL Normal 3.90-5.60 [facility] Comment on above: Performed By: #### C BC, HS TROP, CMP #### [address] WBC (Bld) [#/Vol] 8.4 10*3/uL Normal 4.1-10.5 [facility] Comment on above: Performed By: #### C BC, HS TROP, CMP #### [place] [address] [place] Basophils (Bld) [#/Vol] 0.0 10*3/uL Normal 0.0-0.[address] [facility] Comment on above: Result Comment: PERF ORMED BY: [place] [address] PATHOLOGIST FAN RUNNER TARAH MAYER M.D. Performed By: #### E BS A1C, CMP wRFX A1C, CBC #### [facility] [address] Basophils/100 WBC (Bld) 0.6 % Normal . [facility] Comment on above: Performed By: #### E BS A1C, CMP wRFX A1C, CBC #### [address] Eosinophils (Bld) [#/Vol] 0.1 10*3/uL Normal 0.0-0.[address] [facility] Comment on above: Performed By: #### E BS A1C, CMP wRFX A1C, CBC #### [address] Eosinophils/100 WBC (Bld) 1.1 % Normal . [facility] Comment on above: Performed By: #### E BS A1C, CMP wRFX A1C, CBC #### [address] Erythrocyte distribution width (RBC) [Ratio] 12.4 % Normal 12.0-14.[address] [facility] Comment on above: Performed By: #### E BS A1C, CMP wRFX A1C, CBC #### [address] Hematocrit (Bld) [Volume fraction] 41.1 % Normal 38.8-50.[address] [facility] Comment on above: Performed By: #### E BS A1C, CMP wRFX A1C, CBC #### [place] [address] [place] Hemoglobin (Bld) [Mass/Vol] 14.3 g/dL Normal 13.0-17.[address] [facility] Comment on above: Performed By: #### E BS A1C, CMP wRFX A1C, CBC #### [place] [address] [place] Lymphocytes (Bld) [#/Vol] 1.0 10*3/uL Normal 1.00-4.[address] [facility] Comment on above: Performed By: #### E BS A1C, CMP wRFX A1C, CBC #### [place] [address] [place] Lymphocytes/100 WBC (Bld) 12.9 % Normal . [facility] Comment on above: Performed By: #### E BS A1C, CMP wRFX A1C, CBC #### [facility] [address] MCH (RBC) [Entitic mass] 32.5 pg Normal 27.5-35.[address] [facility] Comment on above: Performed By: #### E BS A1C, CMP wRFX A1C, CBC #### [facility] [address] MCV (RBC) [Entitic vol] 93.3 fL Normal 83.5-101 [facility] Comment on above: Performed By: #### E BS A1C, CMP wRFX A1C, CBC #### [facility] [address] Mean Corpuscular HGB Conc 34.8 g/dL Normal 32.5-35.[address] [facility] Comment on above: Performed By: #### E BS A1C, CMP wRFX A1C, CBC #### [facility] [address] [place] [address] [place] Monocytes (Bld) [#/Vol] 1.3 10*3/uL High 0.0-0.[address] [facility] Comment on above: Performed By: #### E BS A1C, CMP wRFX A1C, CBC #### [place] [address] [place] Monocytes/100 WBC (Bld) 15.6 % Normal . [facility] Comment on above: Performed By: #### E BS A1C, CMP wRFX A1C, CBC #### [facility] [address] [place] [address] [place] Neutrophils (Bld) [#/Vol] 5.6 10*3/uL Normal 1.8-7.[address] [facility] Comment on above: Performed By: #### E BS A1C, CMP wRFX A1C, CBC #### [facility] [address] [place] [address] [place] Neutrophils/100 WBC (Bld) 69.8 % Normal . [facility] Comment on above: Performed By: #### E BS A1C, CMP wRFX A1C, CBC #### [facility] [address] [place] [address] NRBC% 0.1 /100{WBC} Normal 0-0.[address] [facility] Comment on above: Performed By: #### E BS A1C, CMP wRFX A1C, CBC #### [facility] [address] [place] [address] Platelet mean volume (Bld) [Entitic vol] 7.3 fL Normal 6.6-10.[address] [facility] Comment on above: Performed By: #### E BS A1C, CMP wRFX A1C, CBC #### [address] Platelets (Bld) [#/Vol] 241 10*3/uL Normal 150-[address] [facility] Comment on above: Performed By: #### E BS A1C, CMP wRFX A1C, CBC #### [address] RBC (Bld) [#/Vol] 4.41 10*6/uL Normal 3.90-5.60 [facility] Comment on above: Performed By: #### E BS A1C, CMP wRFX A1C, CBC #### [address] WBC (Bld) [#/Vol] 8.0 10*3/uL Normal 4.1-10.5 [facility] Comment on above: Performed By: #### E BS A1C, CMP wRFX A1C, CBC #### [facility] [address] [place] [address] Comprehensive Metabolic Pane edna 07-26-2023 Albumin [Mass/Vol] 3.8 g/dL Normal 3.5-5.7 [facility] Comment on above: Performed By: #### C BC, HS TROP, CMP #### [facility] [address] [place] [address] Albumin/Globulin [Mass ratio] 1.3 {ratio} Normal [facility] Comment on above: Performed By: #### C BC, HS TROP, CMP #### [facility] [address] [place] [phone] [place] ALP [Catalytic activity/Vol] 98 U/L Normal 34-[address] [facility] Comment on above: Performed By: #### C BC, HS TROP, CMP #### [facility] [address] [place] [address] [place] ALT [Catalytic activity/Vol] 40 U/L Normal 7-[address] [facility] Comment on above: Performed By: #### C BC, HS TROP, CMP #### [facility] [address] [place] [phone] [facility] Anion gap [Moles/Vol] 9.7 mmol/L Normal 6.0-15.0 [facility] Comment on above: Performed By: #### C BC, HS TROP, CMP #### [facility] [address] AST [Catalytic activity/Vol] 24 U/L Normal 13-[address] [facility] Comment on above: Performed By: #### C BC, HS TROP, CMP #### [facility] [address] [place] [address] [place] Bilirubin [Mass/Vol] 1.1 mg/dL High 0.3-1.0 [facility] Comment on above: Performed By: #### C BC, HS TROP, CMP #### [facility] [address] [place] [phone] [place] Calcium [Mass/Vol] 8.8 mg/dL Normal 8.6-10.3 [facility] Comment on above: Performed By: #### C BC, HS TROP, CMP #### [facility] [address] [place] [phone] [place] Chloride [Moles/Vol] 102 mmol/L Normal 98-107 [facility] Comment on above: Performed By: #### C BC, HS TROP, CMP #### [facility] [address] [place] [phone] [place] CO2 [Moles/Vol] 27.5 mmol/L Normal 21.0-31.0 [facility] Comment on above: Performed By: #### C BC, HS TROP, CMP #### [facility] [address] Creatinine [Mass/Vol] 0.99 mg/dL Normal 0.70-1.30 [facility] Comment on above: Performed By: #### C BC, HS TROP, CMP #### [facility] [address] [place] [address] [place] Creatinine Clr Calc Pharmacy 76.[address] [facility] Comment on above: Result Comment: PERF ORMED BY: [place] [address] PATHOLOGIST FAN RUNNER TARAH MAYER M.D. Performed By: #### C BC, HS TROP, CMP #### [address] GFR/1.73 sq M.predicted MDRD (S/P/Bld) [Vol rate/Area] mL/min/{1.73_m2} [facility] Comment on above: Performed By: #### C BC, HS TROP, CMP #### [facility] [address] Globulin (S) [Mass/Vol] 2.9 g/dL Normal [facility] Comment on above: Performed By: #### C BC, HS TROP, CMP #### [address] Glucose [Mass/Vol] 103 mg/dL High 70-100 [facility] Comment on above: Result Comment: [place] Glucose Reference Range is dependent on time and content of last meal. Glucose of more than 200 mg/dL in a nonstressed, ambulatory subject supports the diagnosis of Diabetes Mellitus. ADA recommended reference range Performed By: #### C BC, HS TROP, CMP #### [facility] [address] Potassium [Moles/Vol] 4.2 mmol/L Normal 3.5-5.1 [facility] Comment on above: Performed By: #### C BC, HS TROP, CMP #### [facility] [address] Protein [Mass/Vol] 6.7 g/dL Normal 6.4-8.9 [facility] Comment on above: Performed By: #### C BC, HS TROP, CMP #### [facility] [address] [place] [address] [place] Sodium [Moles/Vol] 135 mmol/L Low 136-145 [facility] Comment on above: Performed By: #### C BC, HS TROP, CMP #### [facility] [address] [place] [address] [place] Urea nitrogen [Mass/Vol] 19 mg/dL Normal 7-[address] [facility] Comment on above: Performed By: #### C BC, HS TROP, CMP #### [facility] [address] [place] [address] [place] Creatinine [Mass/volume] in Serum or PlasmaOrdered By: Lisa Lerner on 07-26-2023 Creatinine [Mass/Vol] 0.99 mg/dL 0.70-1.30 [facility] Creatinine [Mass/volume] in Serum or PlasmaOrdered By: Kushal Bateman on 07-26-2023 Creatinine [Mass/Vol] 1.02 mg/dL 0.70-1.30 [facility] Dipstick and Microscopicon 1 09-25-2022 Appearance (U) Clear Normal Clear [facility] Comment on above: Order Comment: Name Collection Type:: Clean-Voided Midstream Performed By: #### A DDONUAPLUS #### [facility] [address] [place] [address] [place] Bacteria,Urine None Seen Normal None Seen [facility] Comment on above: Order Comment: Name Collection Type:: Clean-Voided Midstream Performed By: #### A DDONUAPLUS #### [place] [address] [place] Bilirubin,Urine Negative Normal Negative [facility] Comment on above: Order Comment: Name Collection Type:: Clean-Voided Midstream Performed By: #### A DDONUAPLUS #### [facility] [address] [place] [address] [place] Color (U) Dark Yellow Critically abnormal Yellow [facility] Comment on above: Order Comment: Name Collection Type:: Clean-Voided Midstream Performed By: #### A DDONUAPLUS #### [place] [address] [place] Glucose Ql (U) Normal Normal Normal [facility] Comment on above: Order Comment: Name Collection Type:: Clean-Voided Midstream Performed By: #### A DDONUAPLUS #### [place] [address] [place] Hyaline Casts,Urine 0-8 Normal 0-8 [facility] Comment on above: Order Comment: Name Collection Type:: Clean-Voided Midstream Result Comment: PERF ORMED BY: [place] [address] PATHOLOGIST FAN RUNNER TARAH MAYER M.D. Performed By: #### A DDONUAPLUS #### [facility] [address] [place] [address] [place] Ketones Ql (U) Trace High Negative [facility] Comment on above: Order Comment: Name Collection Type:: Clean-Voided Midstream Performed By: #### A DDONUAPLUS #### [facility] [address] [place] [address] Leukocyte esterase Test strip Ql (U) Negative Normal Negative [facility] Comment on above: Order Comment: Name Collection Type:: Clean-Voided Midstream Performed By: #### A DDONUAPLUS #### [facility] [address] [place] [address] [place] Nitrite,Urine Negative Normal Negative [facility] Comment on above: Order Comment: Name Collection Type:: Clean-Voided Midstream Performed By: #### A DDONUAPLUS #### [place] [address] [place] Occult Blood,Urine Negative Normal Negative [facility] Comment on above: Order Comment: Name Collection Type:: Clean-Voided Midstream Result Comment: PERF ORMED BY: [place] [address] PATHOLOGIST FAN RUNNER TARAH MAYER M.D. Performed By: #### A DDONUAPLUS #### [address] pH (U) 5.5 [pH] Normal 5.0-9.[address] [facility] Comment on above: Order Comment: Name Collection Type:: Clean-Voided Midstream Performed By: #### A DDONUAPLUS #### [address] Protein,Urine Trace High Negative [facility] Comment on above: Order Comment: Name Collection Type:: Clean-Voided Midstream Performed By: #### A DDONUAPLUS #### [address] RBC,Urine 1-2 Normal 0-[address] [facility] Comment on above: Order Comment: Name Collection Type:: Clean-Voided Midstream Performed By: #### A DDONUAPLUS #### [address] Specificy [place],Urine 1.023 Normal 1.001-1.[address] [facility] Comment on above: Order Comment: Name Collection Type:: Clean-Voided Midstream Performed By: #### A DDONUAPLUS #### [address] Squamous Epithelial Cell,Urine None Seen Normal 0-[address] [facility] Comment on above: Order Comment: Name Collection Type:: Clean-Voided Midstream Performed By: #### A DDONUAPLUS #### [address] Urobilinogen,Urine Normal Normal Normal [facility] Comment on above: Order Comment: Name Collection Type:: Clean-Voided Midstream Performed By: #### A DDONUAPLUS #### [address] WBC LM.HPF (Urine sed) [#/Area] 0 /[HPF] Normal 0-[address] [facility] Comment on above: Order Comment: Name Collection Type:: Clean-Voided Midstream Performed By: #### A DDONUAPLUS #### [facility] [address] EBS A1C with Estimated Avbette valdovinos 07-26-2023 Glucose [Mass/Vol] 120 mg/dL Normal [facility] Comment on above: Result Comment: PERF ORMED BY: [address] [place] [address] PATHOLOGIST FAN RUNNER TARAH MAYER M.D. Performed By: #### E BS A1C, CMP wRFX A1C, CBC #### [facility] [address] HbA1c (Bld) [Mass fraction] 5.8 % High 4.3-5.[address] [facility] Comment on above: Result Comment: Incr eased risk for diabetes: 5.7 - 6.4 diabetes: >6.4 glycemic control for adults with diabetes: <7.0 Performed By: #### E BS A1C, CMP wRFX A1C, CBC #### [facility] [address] ECG 12 lead ECGon 07-26-2023 ECG 12 lead ECG [facility] Main Agency [address] [place] [address] Electrocardiograph Report Signed Patient: Cayla Worrell MR#: [id number] 945 : 1960 Acct:[id number] Age/Sex: 63 / M ADM Date: 07/26/23 Loc: ER Room: Type: [facility] ER Attending Dr: Ordering Provider: Lisa Lerner APRN Date of Service: 07/26/23 ECG/ECG 12 lead ECG: Recheck/Abnormal Lab/Rx Copies to: Test Reason : Blood Pressure : 141/069 mmHG Vent. Rate : 095 BPM Atrial Rate : 095 BPM P-R Int : 146 ms QRS Dur : 082 ms QT Int : 336 ms P-R-T Axes : 034 002 054 degrees QTc Int : 422 ms Normal sinus rhythm Normal ECG When compared with ECG of 26-JUL-2023 10:39, (Unconfirmed) No significant change was found Confirmed by JEAN-PIERRE LE DO ([id number]) on 07/26/2023 3:51:38 PM Referred By: Electronically Signed By:JEAN-PIERRE LE DO Transcribed By: CAMILO Signed By Jean-Pierre Le DO 07/26 1551 [facility] ECG 12 lead ECG [facility] Main Agency [address] [place], [place] [id number] Electrocardiograph Report Signed Patient: Cayla Worrell MR#: [id number] 945 : 1960 Acct:[id number] Age/Sex: 63 / M ADM Date: 07/26/23 Loc: PS Room: Type: [facility] Attending Dr: Kushal Bateman MD Ordering Provider: Kushal Bateman MD Date of Service: 07/26/23 ECG/ECG 12 lead ECG: Pre op Copies to: Test Reason : Blood Pressure : / mmHG Vent. Rate : 098 BPM Atrial Rate : 098 BPM P-R Int : 150 ms QRS Dur : 090 ms QT Int : 332 ms P-R-T Axes : 029 -01 042 degrees QTc Int : 423 ms Normal sinus rhythm Normal ECG When compared with ECG of 17-AUG-2021 15:11, No significant change was found Confirmed by LILA PANG [facility] ([id number]) on 07/26/2023 2:23:00 PM Referred By: LEÓN Electronically Signed By:AMARJIT SHARP MD FAC Transcribed By: CAMILO Signed By Elijah Sharp MD 07/26/23 1423 [facility] Eosinophils Auto (Bld) [#/Vo l]Ordered By: Lisa Lerner on 07-26-2023 Eosinophils (Bld) [#/Vol] 0.2 10*3/uL 0.0-0.[address] [facility] Eosinophils Auto (Bld) [#/Vo l]Ordered By: Kushal Bateman on 07-26-2023 Eosinophils (Bld) [#/Vol] 0.1 10*3/uL 0.0-0.[address] [facility] Eosinophils/100 WBC Auto (Bl d)Ordered By: Lisa Lerner on 07-26-2023 Eosinophils/100 WBC (Bld) 1.9 % . [facility] Eosinophils/100 WBC Auto (Bl d)Ordered By: Kushal Bateman on 07-26-2023 Eosinophils/100 WBC (Bld) 1.1 % . [facility] Erythrocyte distribution wid th Auto (RBC) [Ratio]Ordered By: Lisa Lerner on 07-26-2023 Erythrocyte distribution width (RBC) [Ratio] 12.5 % 12.0-14.[address] [facility] Erythrocyte distribution wid th Auto (RBC) [Ratio]Ordered By: Kushal Bateman on 07-26-2023 Erythrocyte distribution width (RBC) [Ratio] 12.4 % 12.0-14.[address] [facility] Globulin Calc (S) [Mass/Vol] Ordered By: Lisa Lerner on 07-26-2023 Globulin (S) [Mass/Vol] 2.9 g/dL [facility] Globulin Calc (S) [Mass/Vol] Ordered By: Kushal Bateman on 07-26-2023 Globulin (S) [Mass/Vol] 2.4 g/dL [facility] Glucose [Mass/volume] in Ser um or PlasmaOrdered By: Lisa Lerner on 07-26-2023 Glucose [Mass/Vol] 103 mg/dL 70-100 [facility] Comment on above: ADA recommended refe rence rangeRandom Glucose Reference Range is dependent on time and content of last meal. Glucose of more than 200 mg/dL in a nonstressed, ambulatory subject supports the diagnosis of Diabetes Mellitus. Glucose [Mass/volume] in Ser um or PlasmaOrdered By: Kushal Bateman on 07-26-2023 Glucose [Mass/Vol] 108 mg/dL 70-100 [facility] Comment on above: ADA recommended refe rence range Glucose mean value [Mass/vol ume] in Blood Estimated from glycated hemoglobinOrdered By: Kushal Bateman on 07-26-2023 Average glucose Estimated from glycated hemoglobin (Bld) [Mass/Vol] 120 mg/dL [facility] Hematocrit Auto (Bld) [Volum e fraction]Ordered By: Lisa Lerner on 07-26-2023 Hematocrit (Bld) [Volume fraction] 42.3 % 38.8-50.[address] [facility] Hematocrit Auto (Bld) [Volum e fraction]Ordered By: Kushal Bateman on 07-26-2023 Hematocrit (Bld) [Volume fraction] 41.1 % 38.8-50.[address] [facility] Hemoglobin [Mass/volume] in BloodOrdered By: Lisa Lerner on 07-26-2023 Hemoglobin (Bld) [Mass/Vol] 14.6 g/dL 13.0-17.[address] [facility] Hemoglobin [Mass/volume] in BloodOrdered By: Kushal Bateman on 07-26-2023 Hemoglobin (Bld) [Mass/Vol] 14.3 g/dL 13.0-17.[address] [facility] Ketones Auto test strip (U) [Mass/Vol]Ordered By: Lisa Lerner on 07-26-2023 Ketones (U) [Mass/Vol] Trace Negative [facility] Laboratory - Hematology and Cell countsOrdered By: Kushal Bateman on 07-26-2023 HbA1c (Bld) [Mass fraction] 5.8 % 4.3-5.[address] [facility] Comment on above: Increased risk for d iabetes: 5.7 - 6.4diabetes: >6.4glycemic control for adults with diabetes: <7.0 Laboratory - UrinalysisOrder ed By: Lisa Lerner on 07-26-2023 Hyaline casts LM Ql (Urine sed) 0-8 [LPF] 0-[address] [facility] Leukocytes [#/volume] correc bere for nucleated erythrocytes in Blood by Automated counOrdered By: Lisa Lerner on 07-26-2023 WBC corrected for nucl RBC Auto (Bld) [#/Vol] 8.4 10*3/uL 4.1-10.[address] [facility] Leukocytes [#/volume] correc bere for nucleated erythrocytes in Blood by Automated counOrdered By: Kushal Bateman on 07-26-2023 WBC corrected for nucl RBC Auto (Bld) [#/Vol] 8.0 10*3/uL 4.1-10.[address] [facility] Lymphocytes Auto (Bld) [#/Vo l]Ordered By: Lisa Lerner on 07-26-2023 Lymphocytes (Bld) [#/Vol] 1.2 10*3/uL 1.00-4.[address] [facility] Lymphocytes Auto (Bld) [#/Vo l]Ordered By: Kushal Bateman on 07-26-2023 Lymphocytes (Bld) [#/Vol] 1.0 10*3/uL 1.00-4.[address] [facility] Lymphocytes/100 WBC Auto (Bl d)Ordered By: Lisa Lerner on 07-26-2023 Lymphocytes/100 WBC (Bld) 14.0 % . [facility] Lymphocytes/100 WBC Auto (Bl d)Ordered By: Kushal Bateman on 07-26-2023 Lymphocytes/100 WBC (Bld) 12.9 % . [facility] MCH Auto (RBC) [Entitic mass ]Ordered By: Lisa Lerner on 07-26-2023 MCH (RBC) [Entitic mass] 32.3 pg 27.5-35.[address] [facility] MCH Auto (RBC) [Entitic mass ]Ordered By: Kushal Bateman on 07-26-2023 MCH (RBC) [Entitic mass] 32.5 pg 27.5-35.[address] [facility] MCHC Auto (RBC) [Mass/Vol]Or dered By: Lisa Lerner on 07-26-2023 MCHC (RBC) [Mass/Vol] 34.6 g/dL 32.5-35.6 [facility] MCHC Auto (RBC) [Mass/Vol]Or dered By: Kushal Bateman on 07-26-2023 MCHC (RBC) [Mass/Vol] 34.8 g/dL 32.5-35.6 [facility] MCV Auto (RBC) [Entitic vol] Ordered By: Lisa Lerner on 07-26-2023 MCV (RBC) [Entitic vol] 93.6 fL 83.5-101 [facility] MCV Auto (RBC) [Entitic vol] Ordered By: Kushal Bateman on 07-26-2023 MCV (RBC) [Entitic vol] 93.3 fL 83.5-101 [facility] Monocyte distribution width [Entitic volume] in Blood by AutomatedOrdered By: Lisa Lerner on 07-26-2023 Monocyte distribution width Auto (Bld) [Entitic vol] 20.40 % 0.00-20.[address] [facility] Comment on above: For adults in ED, MD W > 20.0 may be associated with a higher risk of sepsis during the first 12 hrs of hospital admission Monocytes Auto (Bld) [#/Vol] Ordered By: Lisa Lerner on 07-26-2023 Monocytes (Bld) [#/Vol] 1.1 10*3/uL 0.0-0.[address] [facility] Monocytes Auto (Bld) [#/Vol] Ordered By: Kushal Bateman on 07-26-2023 Monocytes (Bld) [#/Vol] 1.3 10*3/uL 0.0-0.[address] [facility] Monocytes/100 WBC Auto (Bld) Ordered By: Lisa Lerner on 07-26-2023 Monocytes/100 WBC (Bld) 13.4 % . [facility] Monocytes/100 WBC Auto (Bld) Ordered By: Kushal Bateman on 07-26-2023 Monocytes/100 WBC (Bld) 15.6 % . [facility] Neutrophils Auto (Bld) [#/Vo l]Ordered By: Lisa Lerner on 07-26-2023 Neutrophils (Bld) [#/Vol] 5.9 10*3/uL 1.8-7.[address] [facility] Neutrophils Auto (Bld) [#/Vo l]Ordered By: Kushal Bateman on 07-26-2023 Neutrophils (Bld) [#/Vol] 5.6 10*3/uL 1.8-7.[address] [facility] Neutrophils/100 WBC Auto (Bl d)Ordered By: Lisa Lerner on 07-26-2023 Neutrophils/100 WBC (Bld) 70.2 % . [facility] Neutrophils/100 WBC Auto (Bl d)Ordered By: Kushal Bateman on 07-26-2023 Neutrophils/100 WBC (Bld) 69.8 % . [facility] Nitrite Test strip Ql (U)Ord ered By: Lisa Lerner on 07-26-2023 Nitrite Ql (U) Negative Negative [facility] No Panel InformationOrdered By: Lisa Lerner on 07-26-2023 Estimated GFR (CKD-EPI) > 60.0 mL/Min [facility] Creatinine Clearance (Chem 76.[address] [facility] No Panel InformationOrdered By: Kushal Bateman on 07-26-2023 Estimated GFR (CKD-EPI) > 60.0 mL/Min [facility] Creatinine Clearance (Chem N/A [facility] Nucleated erythrocytes [Pres ence] in Blood by Automated countOrdered By: Lisa Lerner on 07-26-2023 Nucleated RBC Auto Ql (Bld) 0.1 /100{WBC} 0-0.[address] [facility] Nucleated erythrocytes [Pres ence] in Blood by Automated countOrdered By: Kushal Bateman on 07-26-2023 Nucleated RBC Auto Ql (Bld) 0.1 /100{WBC} 0-0.[address] [facility] Platelet mean volume Auto (B ld) [Entitic vol]Ordered By: Lisa Lerner on 07-26-2023 Platelet mean volume (Bld) [Entitic vol] 7.1 fL 6.6-10.[address] [facility] Platelet mean volume Auto (B ld) [Entitic vol]Ordered By: Kushal Bateman on 07-26-2023 Platelet mean volume (Bld) [Entitic vol] 7.3 fL 6.6-10.[address] [facility] Platelets Auto (Bld) [#/Vol] Ordered By: Lisa Lerner on 07-26-2023 Platelets (Bld) [#/Vol] 252 10*3/uL 150-[address] [facility] Platelets Auto (Bld) [#/Vol] Ordered By: Kushal Bateman on 07-26-2023 Platelets (Bld) [#/Vol] 241 10*3/uL 150-[address] [facility] Potassium [Moles/volume] in Serum or PlasmaOrdered By: Lisa Lerner on 07-26-2023 Potassium [Moles/Vol] 4.2 mmol/L 3.5-5.1 [facility] Potassium [Moles/volume] in Serum or PlasmaOrdered By: Kushal Bateman on 07-26-2023 Potassium [Moles/Vol] 4.4 mmol/L 3.5-5.1 [facility] Protein Auto test strip (U) [Mass/Vol]Ordered By: Lisa Lerner on 07-26-2023 Protein (U) [Mass/Vol] Trace mg/dL [facility] Protein [Mass/volume] in Ser um or PlasmaOrdered By: Lisa Lerner on 07-26-2023 Protein [Mass/Vol] 6.7 g/dL 6.4-8.9 [facility] Protein [Mass/volume] in Ser um or PlasmaOrdered By: Kushal Bateman on 07-26-2023 Protein [Mass/Vol] 6.1 g/dL 6.4-8.9 [facility] RBC Auto (Bld) [#/Vol]Ordere d By: Lisa Lerner on 07-26-2023 RBC (Bld) [#/Vol] 4.51 10*6/uL 3.90-5.60 [facility] RBC Auto (Bld) [#/Vol]Ordere d By: Kushal Bateman on 07-26-2023 RBC (Bld) [#/Vol] 4.41 10*6/uL 3.90-5.60 [facility] Serum or plasma albumin/glob ulin mass ratioOrdered By: Lisa Lerner on 07-26-2023 Albumin/Globulin [Mass ratio] 1.3 {ratio} [facility] Serum or plasma albumin/glob ulin mass ratioOrdered By: Kushal Bateman on 07-26-2023 Albumin/Globulin [Mass ratio] 1.5 {ratio} [facility] Serum or plasma anion gap de terminationOrdered By: Lisa Lerner on 07-26-2023 Anion gap [Moles/Vol] 9.7 mmol/L 6.0-15.0 [facility] Serum or plasma anion gap de terminationOrdered By: Kushal Bateman on 07-26-2023 Anion gap [Moles/Vol] 8.1 mmol/L 6.0-15.0 [facility] Sodium [Moles/volume] in Ser um or PlasmaOrdered By: Lisa Lerner on 07-26-2023 Sodium [Moles/Vol] 135 mmol/L 136-145 [facility] Sodium [Moles/volume] in Ser um or PlasmaOrdered By: Kushal Bateman on 07-26-2023 Sodium [Moles/Vol] 136 mmol/L 136-145 [facility] Specific gravity Auto test s trip (U) [Rel density]Ordered By: Lisa Lerner on 07-26-2023 Specific gravity (U) [Rel density] 1.023 1.001-1.[address] [facility] Squamous epithelial cells de tection in urine sediment by light microscopyOrdered By: Lisa Lerner on 07-26-2023 Epithelial cells.squamous LM Ql (Urine sed) None seen [HPF] 0-[address] [facility] Troponin I High Sensitivityo n 07-26-2023 Troponin I High Sensitivity 4.2 pg/mL Normal 0.0-20.[address] [facility] Comment on above: Result Comment: PERF ORMED BY: [place] [address] PATHOLOGIST FAN RUNNER TARAH MAYER M.D. Performed By: #### C BC, HS TROP, CMP #### [address] Troponin I.cardiac [Mass/vol ume] in Serum or Plasma by Detection limit <= 0.01 ng/Ordered By: Lisa Lerner on 07-26-2023 Troponin I.cardiac DL <= 0.01 ng/mL [Mass/Vol] 4.2 pg/mL 0.0-20.[address] [facility] Urea nitrogen [Mass/volume] in Serum or PlasmaOrdered By: Lisa Lerner on 07-26-2023 Urea nitrogen [Mass/Vol] 19 mg/dL 03-[address] [facility] Urea nitrogen [Mass/volume] in Serum or PlasmaOrdered By: Kushal Bateman on 07-26-2023 Urea nitrogen [Mass/Vol] 19 mg/dL 03-[address] [facility] Urine bacteria detection by automated methodOrdered By: Lisa Lerner on 07-26-2023 Bacteria Auto Ql (U) None seen None Seen [facility] Urine clarity by refractomet ry automatedOrdered By: Lisa Lerner on 07-26-2023 Clarity Refractometry automated (U) Clear Clear [facility] Urine glucose measurement by automated test strip (mass/volume)Ordered By: Lisa Lerner on 07-26-2023 Glucose Auto test strip (U) [Mass/Vol] Normal mg/dL Normal [facility] Urine hemoglobin detection b y automated test stripOrdered By: Lisa Lerner on 07-26-2023 Hemoglobin Auto test strip Ql (U) Negative Negative [facility] Urine leukocyte esterase det ection by automated test stripOrdered By: Lisa Lerenr on 07-26-2023 Leukocyte esterase Auto test strip Ql (U) Negative Negative [facility] Urobilinogen Auto test strip (U) [Mass/Vol]Ordered By: Lisa Lerner on 07-26-2023 Urobilinogen (U) [Mass/Vol] Normal mg/dL Normal [facility] WBC Auto (Bld) [#/Vol]Ordere d By: Lisa Lerner on 07-26-2023 WBC (Bld) [#/Vol] 8.4 10*3/uL 4.1-10.5 [facility] WBC Auto (Bld) [#/Vol]Ordere d By: Kushal Bateman on 07-26-2023 WBC (Bld) [#/Vol] 8.0 10*3/uL 4.1-10.5 [facility] XR chest 1V portableon 07-26 XR chest 1V portable [facility] [place] [address] XRay Report Signed Patient: Cayla Worrell MR#: [id number] 945 : 1960 Acct:[id number] Age/Sex: 63 / M ADM Date: 07/26/23 Loc: ER Room: Type: [facility] ER Attending Dr: Copies to: Lisa Lerner APRN Ordering Provider: Lisa Lerner APRN Date of Service: 07/26/23 XR/XR chest 1V portable: Recheck/Abnormal Lab/Rx SINGLE VIEW CHEST CLINICAL HISTORY: Strep throat on Sunday COMPARISON: Chest 05/09/2022 FINDINGS: Heart normal in size. Mild lung scarring. No consolidation pneumothorax pleural effusion or free air. XR/XR chest 1V portable IMPRESSION: NO ACUTE FINDINGS Impression dictated by: Ketan Dover Jr., DDustinODustin07/26/2023 2:06 PM Dictation Location: [facility]--15 Transcribed By: [facility] 07/26/231405 Dictated By: Ketan Dover Jr, DO 07/26/231404 Signed By: 07/26/[address] [facility] pH Auto test strip (U)Ordere d By: Lisa Lerner on 07-26-2023 pH (U) 5.5 [pH] 5.0-9.[address] [facility] MR shoulder LT wo conon 10-0 MR shoulder LT wo con [facility] [place] [address] MRI Report Signed Patient: Cayla Worrell MR#: [id number] 945 : 1960 Acct:[id number] Age/Sex: 63 / M ADM Date: 05/31/23 [facility]: [facility] Room: Type: [facility] Attending Dr: Kushal Bateman MD Copies to: Kushal Bateman MD Ordering Provider: Kushal Bateman MD Date of Service: 05/31/23 MR/MR shoulder LT wo con: Internal derangement of left shoulder MRI LEFT Shoulder without contrast TECHNIQUE: Multiplanar T1 and T2-weighted imaging obtained without contrast. HISTORY: Chronic LEFT shoulder pain. Limited range of motion. COMPARISON: 03/12/23 BONE MARROW EDEMA: None FRACTURE: None AC JOINT: Moderate degeneration SHOULDER ROOF LIGAMENTS: The coracoacromial and coracoclavicular ligaments are intact. ROTATOR CUFF: Mildly retracted full-thickness tear of the anterior portion of supraspinatus tendon near the greater tuberosity insertion present. Retraction is approximately 1 cm. Infraspinatus, teres minor and subscapularis tendons intact. ROTATOR CUFF INTERVAL: Unremarkable BURSAL FLUID: No subacromial subdeltoid bursal fluid identified. GLENOID: Intact BICEPS LABRAL COMPLEX: Intact LONG HEAD OF BICEPS TENDON: Intact GLENOHUMERAL LIGAMENTS: The superior glenohumeral ligament is intact. The middle glenohumeral ligament is intact. The anterior and posterior glenohumeral ligaments are intact. JOINT EFFUSION: No significant joint effusion is seen. MUSCLES: Normal signal intensity of the muscles. NO SUBCUTANEOUS TISSUES: No subcutaneous abnormalities identified. MR/MR shoulder LT wo con IMPRESSION: Mildly retracted full-thickness tear of the anterior portion of supraspinatus tendon arising from the greater tuberosity insertion. 1 cm retraction. Moderate acromioclavicular degeneration. Impression dictated by: Sudhir Vega M.D.05/31/2023 1:20 PM Dictation Location: [facility]01 Transcribed By: [facility] 05/31/23 1320 Dictated By: Sudhir Vega DO 05/31/23 1304 Signed By: 05/31/231319 [facility] XR shoulder LT min 2V*on XR shoulder LT min 2V* [facility] [place] [address] XRay Report Signed Patient: Cayla Worrell MR#: [id number] 945 : 1960 Acct:[id number] Age/Sex: 63 / M ADM Date: 03/12/23 Loc: [facility] Room: Type: [facility] Attending Dr: Kushal Bateman MD Copies to: Kushal Bateman MD Ordering Provider: Kushal Bateman MD Date of Service: 03/12/23 XR/XR shoulder LT min 2V*: Acute pain of left shoulder LEFT SHOULDER - - 4 views CLINICAL HISTORY: Chronic left shoulder pain with limited range of motion. COMPARISON: Left shoulder 03/31/2021 FINDINGS: Mild degenerative changes of the AC and glenohumeral joints without acute bony process. XR/XR shoulder LT min 2V* IMPRESSION: MILD DEGENERATIVE CHANGES WITHOUT ACUTE BONY PROCESS. Impression dictated by: Ketan Dover Jr., D.ODustin03/12/2023 3:49 PM Dictation Location: [facility]15 Transcribed By: [facility] 03/12/23 1549 Dictated By: Ketan Dover Jr, DO 03/12/23 1549 Signed By: 03/12/23 1549 [facility] Albumin [Mass/volume] in Ser um or PlasmaOrdered By: Rolando Cortes on 09-18-2022 Albumin [Mass/Vol] 4.1 g/dL 3.2-5.5 [facility] Basophils Auto (Bld) [#/Vol] Ordered By: Rolando Cortes on 09-18-2022 Basophils (Bld) [#/Vol] 0.0 10*3/uL 0.0-0.[address] [facility] Basophils/100 WBC Auto (Bld) Ordered By: Rolando Cortes on 09-18-2022 Basophils/100 WBC (Bld) 0.8 % . [facility] Cholesterol [Mass/volume] in Serum or PlasmaOrdered By: Rolando Cortes on 09-18-2022 Cholesterol [Mass/Vol] 215 mg/dL High 140-2 00 mg/dL [facility] Comment on above: Chol less than 200 m g/dl low riskChol 201-239 mg/dl borderline riskChol 240 mg/dl and greater high risk Cholesterol in LDL Calc [Mas s/Vol]Ordered By: Rolando Cortes on 09-18-2022 Cholesterol in LDL [Mass/Vol] 157 mg/dL 0-[address] [facility] Comment on above: LDL ATP III CLASSIFI CATIONLDL less than 100 mg/dL OptimalLDL 100-129 mg/dL Near or above optimalLDL 130-159 mg/dL Borderline highLDL 160-189 mg/dL HighLDL greater than 189 mg/dL Very high Cholesterol in VLDL Calc [Ma ss/Vol]Ordered By: Rolando Cortes on 09-18-2022 Cholesterol in VLDL [Mass/Vol] 9 mg/dL [facility] Complete Blood Count Auto Di ffon 09-18-2022 Basophils (Bld) [#/Vol] 0.602572211 10*3/uL Normal 0.0-0.2 10*3/uL [employer] Other Basophils/100 WBC (Bld) 0.800 % . % [employer] Other Eosinophils (Bld) [#/Vol] 0.075031890 10*3/uL Normal 0.0-0.45 10*3/uL [employer] Other Eosinophils/100 WBC (Bld) 5.100 % . % [employer] Other Erythrocyte distribution width (RBC) [Ratio] 13.000 % Normal 12.0-14.8 % [employer] Other Hematocrit (Bld) [Volume fraction] 48.000 % Normal 38.8-50.0 % [employer] Other Hemoglobin (Bld) [Mass/Vol] 16.783819 g/dL Normal 13.0-17.0 g/dL [employer] Other Lymphocytes (Bld) [#/Vol] 0.841440069 10*3/uL Low 1.00-4.8 10*3/uL [employer] Other Lymphocytes/100 WBC (Bld) 17.100 % . % [employer] Other MCH (RBC) [Entitic mass] 32.0000 pg Normal 27.5-35.2 pg [employer] Other MCV (RBC) [Entitic vol] 95.2000 fL Normal 83.5-101 fL [employer] Other Monocytes (Bld) [#/Vol] 0.927901627 10*3/uL Normal 0.0-0.8 10*3/uL [employer] Other Monocytes/100 WBC (Bld) 9.400 % . % [facility] [employer] Other Neutrophils (Bld) [#/Vol] 2.117015471 10*3/uL Normal 1.8-7.7 10*3/uL [employer] Other Neutrophils/100 WBC (Bld) 67.600 % . % [employer] Other Platelet mean volume (Bld) [Entitic vol] 8.0000 fL Normal 6.6-10.1 fL [employer] Other WBC (Bld) [#/Vol] 4.499095945 10*3/uL Normal 4.1 -10.5 10*3/uL [employer] Other Complete Blood Count Auto Diff 4.1 10*3/uL Normal 4.1-10.5 10*3/uL [employer] Other Complete Blood Count Auto Diff 33.7 g/dL Normal 32.5-35.6 g/dL [employer] Other Complete Blood Count Auto Diff 0.1 /100{WBC} Normal 0-0.5 /100{WBC} [facility] [employer] Other Basophils (Bld) [#/Vol] 0.0 10*3/uL Normal 0.0-0.[address] [facility] Comment on above: Order Comment: Reaso n for Exam Hyperlipidemia, unspecified hyperlipidemia type;Wellness exa Result Comment: PERF ORMED BY: [facility] [address] [facility] [place] [address] PATHOLOGIST FAN RUNNER TARAH MAYER M.D. Performed By: #### L IPID, PSAS, TSH3, CBC, CMP ####[place] [id number] [facility] Basophils/100 WBC (Bld) 0.8 % Normal . [facility] Comment on above: Order Comment: Reaso n for Exam Hyperlipidemia, unspecified hyperlipidemia type;Wellness exa Performed By: #### L IPID, PSAS, TSH3, CBC, CMP ####[place] [id number] [place] [id number] [place] Eosinophils (Bld) [#/Vol] 0.2 10*3/uL Normal 0.0-0.[address] [facility] Comment on above: Order Comment: Reaso n for Exam Hyperlipidemia, unspecified hyperlipidemia type;Wellness exa Performed By: #### L IPID, PSAS, TSH3, CBC, CMP ####[facility] [place] [id number] [place] Eosinophils/100 WBC (Bld) 5.1 % Normal . [facility] Comment on above: Order Comment: Reaso n for Exam Hyperlipidemia, unspecified hyperlipidemia type;Wellness exa Performed By: #### L IPID, PSAS, TSH3, CBC, CMP ####[address] Erythrocyte distribution width (RBC) [Ratio] 13.0 % Normal 12.0-14.[address] [facility] Comment on above: Order Comment: Reaso n for Exam Hyperlipidemia, unspecified hyperlipidemia type;Wellness exa Performed By: #### L IPID, PSAS, TSH3, CBC, CMP ####[address] Hematocrit (Bld) [Volume fraction] 48.0 % Normal 38.8-50.[address] [facility] Comment on above: Order Comment: Reaso n for Exam Hyperlipidemia, unspecified hyperlipidemia type;Wellness exa Performed By: #### L IPID, PSAS, TSH3, CBC, CMP ####[address] Hemoglobin (Bld) [Mass/Vol] 16.1 g/dL Normal 13.0-17.[address] [facility] Comment on above: Order Comment: Reaso n for Exam Hyperlipidemia, unspecified hyperlipidemia type;Wellness exa Performed By: #### L IPID, PSAS, TSH3, CBC, CMP ####[address] Lymphocytes (Bld) [#/Vol] 0.7 10*3/uL Low 1.00-4.[address] [facility] Comment on above: Order Comment: Reaso n for Exam Hyperlipidemia, unspecified hyperlipidemia type;Wellness exa Performed By: #### L IPID, PSAS, TSH3, CBC, CMP ####[address] Lymphocytes/100 WBC (Bld) 17.1 % Normal . [facility] Comment on above: Order Comment: Reaso n for Exam Hyperlipidemia, unspecified hyperlipidemia type;Wellness exa Performed By: #### L IPID, PSAS, TSH3, CBC, CMP ####[address] MCH (RBC) [Entitic mass] 32.0 pg Normal 27.5-35.[address] [facility] Comment on above: Order Comment: Reaso n for Exam Hyperlipidemia, unspecified hyperlipidemia type;Wellness exa Performed By: #### L IPID, PSAS, TSH3, CBC, CMP ####[address] MCV (RBC) [Entitic vol] 95.2 fL Normal 83.5-101 [facility] Comment on above: Order Comment: Reaso n for Exam Hyperlipidemia, unspecified hyperlipidemia type;Wellness exa Performed By: #### L IPID, PSAS, TSH3, CBC, CMP ####[address] Mean Corpuscular HGB Conc 33.7 g/dL Normal 32.5-35.[address] [facility] Comment on above: Order Comment: Reaso n for Exam Hyperlipidemia, unspecified hyperlipidemia type;Wellness exa Performed By: #### L IPID, PSAS, TSH3, CBC, CMP ####[address] Monocytes (Bld) [#/Vol] 0.4 10*3/uL Normal 0.0-0.[address] [facility] Comment on above: Order Comment: Reaso n for Exam Hyperlipidemia, unspecified hyperlipidemia type;Wellness exa Performed By: #### L IPID, PSAS, TSH3, CBC, CMP ####[address] Monocytes/100 WBC (Bld) 9.4 % Normal . [facility] Comment on above: Order Comment: Reaso n for Exam Hyperlipidemia, unspecified hyperlipidemia type;Wellness exa Performed By: #### L IPID, PSAS, TSH3, CBC, CMP ####[address] Neutrophils (Bld) [#/Vol] 2.8 10*3/uL Normal 1.8-7.[address] [facility] Comment on above: Order Comment: Reaso n for Exam Hyperlipidemia, unspecified hyperlipidemia type;Wellness exa Performed By: #### L IPID, PSAS, TSH3, CBC, CMP ####[place] [id number] [facility] Neutrophils/100 WBC (Bld) 67.6 % Normal . [facility] Comment on above: Order Comment: Reaso n for Exam Hyperlipidemia, unspecified hyperlipidemia type;Wellness exa Performed By: #### L IPID, PSAS, TSH3, CBC, CMP ####[address] NRBC% 0.1 /100{WBC} Normal 0-0.[address] [facility] Comment on above: Order Comment: Reaso n for Exam Hyperlipidemia, unspecified hyperlipidemia type;Wellness exa Performed By: #### L IPID, PSAS, TSH3, CBC, CMP ####[address] Platelet mean volume (Bld) [Entitic vol] 8.0 fL Normal 6.6-10.[address] [facility] Comment on above: Order Comment: Reaso n for Exam Hyperlipidemia, unspecified hyperlipidemia type;Wellness exa Performed By: #### L IPID, PSAS, TSH3, CBC, CMP ####[address] Platelets (Bld) [#/Vol] 247 10*3/uL Normal 150-[address] [facility] Comment on above: Order Comment: Reaso n for Exam Hyperlipidemia, unspecified hyperlipidemia type;Wellness exa Performed By: #### L IPID, PSAS, TSH3, CBC, CMP ####[address] RBC (Bld) [#/Vol] 5.04 10*6/uL Normal 3.90-5.60 [facility] Comment on above: Order Comment: Reaso n for Exam Hyperlipidemia, unspecified hyperlipidemia type;Wellness exa Performed By: #### L IPID, PSAS, TSH3, CBC, CMP ####[address] [address] [facility] WBC (Bld) [#/Vol] 4.1 10*3/uL Normal 4.1-10.5 [facility] Comment on above: Order Comment: Reaso n for Exam Hyperlipidemia, unspecified hyperlipidemia type;Wellness exa Performed By: #### L IPID, PSAS, TSH3, CBC, CMP ####[facility] [id number] [place] [address] [facility] Comprehensive Metabolic Pane [facility] 09-18-2022 Albumin [Mass/Vol] 4.448040 g/dL Normal 3.2-5.5 g/dL [facility] Other Bilirubin [Mass/Vol] 0.8316707 mg/dL Normal 0.3- 1.2 mg/dL [facility] Other Calcium [Mass/Vol] 9.4900273 mg/dL Normal 8.2-10 .2 mg/dL [facility] Other CO2 [Moles/Vol] 26.74518227 mmol/L Normal 22.0-3 0.0 mmol/L [facility] Other Creatinine [Mass/Vol] 1.31359830 mg/dL Normal 0. 64-1.27 mg/dL [facility] Other Potassium [Moles/Vol] 4.57644921 mmol/L Normal 3 .5-5.1 mmol/L [facility] Other Protein [Mass/Vol] 6.317213 g/dL Normal 6.1-7.9 g/dL [facility] Other Comprehensive Metabolic Panel > 60 [facility] Other Comprehensive Metabolic Panel 2.3 g/dL [facility] Other Albumin [Mass/Vol] 4.1 g/dL Normal 3.2-5.5 [facility] Comment on above: Order Comment: Reaso n for Exam Hyperlipidemia, unspecified hyperlipidemia type;Wellness exa Performed By: #### L IPID, PSAS, TSH3, CBC, CMP ####[facility] [id number] [place] [address] [facility] Albumin/Globulin [Mass ratio] 1.8 {ratio} Normal [facility] Comment on above: Order Comment: Reaso n for Exam Hyperlipidemia, unspecified hyperlipidemia type;Wellness exa Performed By: #### L IPID, PSAS, TSH3, CBC, CMP ####[place] [id number] [place] [address] [facility] ALP [Catalytic activity/Vol] 73 U/L Normal 32-[address] [facility] Comment on above: Order Comment: Reaso n for Exam Hyperlipidemia, unspecified hyperlipidemia type;Wellness exa Performed By: #### L IPID, PSAS, TSH3, CBC, CMP ####[place] [id number] [place] [id number] [facility] ALT [Catalytic activity/Vol] 25 U/L Normal 10-60 [facility] Other Comment on above: Order Comment: Reaso n for Exam Hyperlipidemia, unspecified hyperlipidemia type;Wellness exa Performed By: #### L IPID, PSAS, TSH3, CBC, CMP ####[place] [id number] [facility] Anion gap [Moles/Vol] 11.7 mmol/L Normal 6.0-15.0 [facility] Comment on above: Order Comment: Reaso n for Exam Hyperlipidemia, unspecified hyperlipidemia type;Wellness exa Performed By: #### L IPID, PSAS, TSH3, CBC, CMP ####[place] [id number] [facility] AST [Catalytic activity/Vol] 23 U/L Normal 10-[address] [facility] Comment on above: Order Comment: Reaso n for Exam Hyperlipidemia, unspecified hyperlipidemia type;Wellness exa Performed By: #### L IPID, PSAS, TSH3, CBC, CMP ####[place] [id number] [facility] Bilirubin [Mass/Vol] 0.8 mg/dL Normal 0.3-1.2 [facility] Comment on above: Order Comment: Reaso n for Exam Hyperlipidemia, unspecified hyperlipidemia type;Wellness exa Performed By: #### L IPID, PSAS, TSH3, CBC, CMP ####[place] [id number] [facility] Calcium [Mass/Vol] 9.3 mg/dL Normal 8.2-10.2 [facility] Comment on above: Order Comment: Reaso n for Exam Hyperlipidemia, unspecified hyperlipidemia type;Wellness exa Performed By: #### L IPID, PSAS, TSH3, CBC, CMP ####[place] [id number] [facility] Chloride [Moles/Vol] 106 mmol/L Normal 95-114 [facility] Comment on above: Order Comment: Reaso n for Exam Hyperlipidemia, unspecified hyperlipidemia type;Wellness exa Performed By: #### L IPID, PSAS, TSH3, CBC, CMP ####[address] CO2 [Moles/Vol] 26.6 mmol/L Normal 22.0-30.0 [facility] Comment on above: Order Comment: Reaso n for Exam Hyperlipidemia, unspecified hyperlipidemia type;Wellness exa Performed By: #### L IPID, PSAS, TSH3, CBC, CMP ####[address] Creatinine [Mass/Vol] 1.03 mg/dL Normal 0.64-1.27 [facility] Comment on above: Order Comment: Reaso n for Exam Hyperlipidemia, unspecified hyperlipidemia type;Wellness exa Performed By: #### L IPID, PSAS, TSH3, CBC, CMP ####[place] [id number] [facility] Estimated GFR ( Zoraida > [address] [facility] Comment on above: Order Comment: Reaso n for Exam Hyperlipidemia, unspecified hyperlipidemia type;Wellness exa Result Comment: GFR estimated reference range: According to KDOQI guidelines, <60 ml/min/1.73m2 is sufficient to diagnose a patient with chronic kidney disease. Performed By: #### L IPID, PSAS, TSH3, CBC, CMP ####[place] [id number] [facility] Estimated GFR (Non- Am > [address] [facility] Comment on above: Order Comment: Reaso n for Exam Hyperlipidemia, unspecified hyperlipidemia type;Wellness exa Performed By: #### L IPID, PSAS, TSH3, CBC, CMP ####[facility] [id number] [place] [address] [facility] Globulin (S) [Mass/Vol] 2.3 g/dL Normal [facility] Comment on above: Order Comment: Reaso n for Exam Hyperlipidemia, unspecified hyperlipidemia type;Wellness exa Performed By: #### L IPID, PSAS, TSH3, CBC, CMP ####[place] [id number] Glucose [Mass/Vol] 99 mg/dL Normal 70-100 [facility] Comment on above: Order Comment: Reaso n for Exam Hyperlipidemia, unspecified hyperlipidemia type;Wellness exa Result Comment: [facility] Glucose Reference Range is dependent on time and content of last meal. Glucose of more than 200 mg/dL in a nonstressed, ambulatory subject supports the diagnosis of Diabetes Mellitus. ADA recommended reference range Performed By: #### L IPID, PSAS, TSH3, CBC, CMP ####[place] [address] [place] [id number] [facility] Potassium [Moles/Vol] 4.3 mmol/L Normal 3.5-5.1 [facility] Comment on above: Order Comment: Reaso n for Exam Hyperlipidemia, unspecified hyperlipidemia type;Wellness exa Performed By: #### L IPID, PSAS, TSH3, CBC, CMP ####[facility] [place] [id number] [facility] Protein [Mass/Vol] 6.4 g/dL Normal 6.1-7.9 [facility] Comment on above: Order Comment: Reaso n for Exam Hyperlipidemia, unspecified hyperlipidemia type;Wellness exa Performed By: #### L IPID, PSAS, TSH3, CBC, CMP ####[place] [address] [place] [id number] [facility] Sodium [Moles/Vol] 140 mmol/L Normal 136-146 [facility] Comment on above: Order Comment: Reaso n for Exam Hyperlipidemia, unspecified hyperlipidemia type;Wellness exa Performed By: #### L IPID, PSAS, TSH3, CBC, CMP ####[facility] [id number] [place] [id number] [facility] Urea nitrogen [Mass/Vol] 20 mg/dL Normal 05-[address] [facility] Comment on above: Order Comment: Reaso n for Exam Hyperlipidemia, unspecified hyperlipidemia type;Wellness exa Performed By: #### L IPID, PSAS, TSH3, CBC, CMP ####[facility] [id number] Creatinine and Glomerular fi ltration rate.predicted panel (S/P/Bld)Ordered By: Rolando Cortes on 09-18-2022 Creatinine [Mass/Vol] 1.03 mg/dL 0.64-1.27 [facility] Eosinophils Auto (Bld) [#/Vo l]Ordered By: Rolando Cortes on 09-18-2022 Eosinophils (Bld) [#/Vol] 0.2 10*3/uL 0.0-0.[address] [facility] Eosinophils/100 WBC Auto (Bl d)Ordered By: Rolando Cortes on 09-18-2022 Eosinophils/100 WBC (Bld) 5.1 % . [facility] Erythrocyte distribution wid th Auto (RBC) [Ratio]Ordered By: Rolando Cortes on 09-18-2022 Erythrocyte distribution width (RBC) [Ratio] 13.0 % 12.0-14.[address] [facility] Erythrocytes [#/volume] in B lood by Automated countOrdered By: Rolando Cortes on 09-18-2022 RBC (Bld) [#/Vol] 5.04 10*6/uL Normal 3.90-5.60 [facility] Estimated glomerular filtrat ion rate (GFR) non- AmericanOrdered By: Rolando Cortes on 09-18-2022 GFR/1.73 sq M.predicted among non-blacks MDRD (S/P/Bld) [Vol rate/Area] > 60 mL/Min [facility] Globulin Calc (S) [Mass/Vol] Ordered By: Rolando Cortes on 09-18-2022 Globulin (S) [Mass/Vol] 2.3 g/dL [facility] Hematocrit Auto (Bld) [Volum e fraction]Ordered By: Rolando Cortes on 09-18-2022 Hematocrit (Bld) [Volume fraction] 48.0 % 38.8-50.[address] [facility] Hemoglobin [Mass/volume] in BloodOrdered By: Rolando Cortes on 09-18-2022 Hemoglobin (Bld) [Mass/Vol] 16.1 g/dL 13.0-17.[address] [facility] Leukocytes [#/volume] correc bere for nucleated erythrocytes in Blood by Automated counOrdered By: Rolando Cortes on 09-18-2022 WBC corrected for nucl RBC Auto (Bld) [#/Vol] 4.1 10*3/uL 4.1-10.[address] [facility] Lipid Panelon 09-18-2022 Cholesterol in LDL Elph Qn 157 mg/dL High 0-100 mg/dL [facility] [employer] Other Lipid Panel 45 mg/dL Normal 35-149 mg/dL [facility] [employer] Other Lipid Panel 9 mg/dL [facility] [employer] Other Cholesterol [Mass/Vol] 215 mg/dL High 140-200 [facility] Comment on above: Order Comment: Reaso n for Exam Hyperlipidemia, unspecified hyperlipidemia type;Wellness exa Result Comment: Chol less than 200 mg/dl low risk Chol 201-239 mg/dl borderline risk Chol 240 mg/dl and greater high risk Performed By: #### L IPID, PSAS, TSH3, CBC, CMP ####[facility] [id number] [place] [id number] [facility] Cholesterol in HDL [Mass/Vol] 49 mg/dL Normal 29-[address] [facility] Comment on above: Order Comment: Reaso n for Exam Hyperlipidemia, unspecified hyperlipidemia type;Wellness exa Result Comment: HDL CHOL ATP-III CLASSIFICATION Cardiovascular Risk HDL > or equal to 60 mg/dL LOW HDL < 40 mg/dL HIGH Performed By: #### L IPID, PSAS, TSH3, CBC, CMP ####[facility] [id number] Cholesterol.total/Karishma sterol in HDL [Mass ratio] 4.4 {ratio} Normal <5.[address] [facility] Comment on above: Order Comment: Reaso n for Exam Hyperlipidemia, unspecified hyperlipidemia type;Wellness exa Performed By: #### L IPID, PSAS, TSH3, CBC, CMP ####[facility] [id number] LDL Cholesterol,Calculated 157 mg/dL High 0-[address] [facility] Comment on above: Order Comment: Reaso n for Exam Hyperlipidemia, unspecified hyperlipidemia type;Wellness exa Result Comment: LDL ATP III CLASSIFICATION LDL less than 100 mg/dL Optimal LDL 100-129 mg/dL Near or above optimal LDL 130-159 mg/dL Borderline high LDL 160-189 mg/dL High LDL greater than 189 mg/dL Very high Performed By: #### L IPID, PSAS, TSH3, CBC, CMP ####[place] [id number] Triglyceride w/Reflex 45 mg/dL Normal 35-149 [facility] Comment on above: Order Comment: Reaso n for Exam Hyperlipidemia, unspecified hyperlipidemia type;Wellness exa Result Comment: TRIG ATP III CLASSIFICATION TRIG less than 150 mg/dL Normal TRIG 150-199 mg/dL Borderline high TRIG 200-500 mg/dL High TRIG greater than 500 mg/dL Very high Standard traceable to the Center for Disease Conrtrol and Prevention (CDC) test method. Performed By: #### L IPID, PSAS, TSH3, CBC, CMP ####[facility] [place] [id number] [facility] VLDL CHOLESTEROL 9 mg/dL Normal [facility] Comment on above: Order Comment: Reaso n for Exam Hyperlipidemia, unspecified hyperlipidemia type;Wellness exa Performed By: #### L IPID, PSAS, TSH3, CBC, CMP ####[facility] [id number] [place] [id number] [facility] Lymphocytes Auto (Bld) [#/Vo l]Ordered By: Rolando Cortes on 09-18-2022 Lymphocytes (Bld) [#/Vol] 0.7 10*3/uL 1.00-4.[address] [facility] Lymphocytes/100 WBC Auto (Bl d)Ordered By: Rolando Cortes on 09-18-2022 Lymphocytes/100 WBC (Bld) 17.1 % . [facility] MCH Auto (RBC) [Entitic mass ]Ordered By: Rolando Cortes on 09-18-2022 MCH (RBC) [Entitic mass] 32.0 pg 27.5-35.[address] [facility] MCHC Auto (RBC) [Mass/Vol]Or dered By: Rolando Cortes on 09-18-2022 MCHC (RBC) [Mass/Vol] 33.7 g/dL 32.5-35.6 [facility] MCV Auto (RBC) [Entitic vol] Ordered By: Rolando Cortes on 09-18-2022 MCV (RBC) [Entitic vol] 95.2 fL 83.5-101 [facility] Monocytes Auto (Bld) [#/Vol] Ordered By: Rolando Cortes on 09-18-2022 Monocytes (Bld) [#/Vol] 0.4 10*3/uL 0.0-0.[address] [facility] Monocytes/100 WBC Auto (Bld) Ordered By: Rolando Cortes on 09-18-2022 Monocytes/100 WBC (Bld) 9.4 % . [facility] Neutrophils Auto (Bld) [#/Vo l]Ordered By: Rolando Cortes on 09-18-2022 Neutrophils (Bld) [#/Vol] 2.8 10*3/uL 1.8-7.[address] [facility] Neutrophils/100 WBC Auto (Bl d)Ordered By: Rolando Cortes on 09-18-2022 Neutrophils/100 WBC (Bld) 67.6 % . [facility] No Panel InformationOrdered By: Rolando Cortes on 09-18-2022 Estimated GFR () > 60 mL/Min [facility] Comment on above: GFR estimated refere nce range: According to KDOQI guidelines, <60 ml/min/1.73m2 is sufficient to diagnose a patient with chronic kidney disease. Pharmacy Creatinine Clearance (Chem N/A [facility] Prostate Specific Antigen Screen 1.780 ng/mL 0.000-4.[address] [facility] Nucleated erythrocytes [Pres ence] in Blood by Automated countOrdered By: Rolando Cortes on 09-18-2022 Nucleated RBC Auto Ql (Bld) 0.1 /100{WBC} 0-0.[address] [facility] PSA Screen (Yearly Only)on 0 09-18-2022 PSA Screen (Yearly Only) 1.780 ng/mL Normal 0.000-4.000 ng/mL [facility] Other PSA Screen (Yearly Only) 1.780 ng/mL Normal 0.000-4.[address] [facility] Comment on above: Order Comment: Reaso n for Exam Screening for prostate cancer Is patient <50 yrs? Medicare does not pay <50.: N What is the date of the last PSA Screen?: NONE Is Medicare the insurance?: N Did you verify eligibility (Dx Time) check TestViewGp: YES TO ALL Result Comment: PERF ORMED BY: [facility] [address] [facility] [place] [address] PATHOLOGIST FAN RUNNER TARAH MAYER M.D. Performed By: #### L IPID, PSAS, TSH3, CBC, CMP ####[facility] [id number] [place] [id number] [facility] Platelet mean volume Auto (B ld) [Entitic vol]Ordered By: Rolando Cortes on 09-18-2022 Platelet mean volume (Bld) [Entitic vol] 8.0 fL 6.6-10.[address] [facility] Platelets [#/volume] in Bloo d by Automated countOrdered By: Rolando Cortes on 09-18-2022 Platelets (Bld) [#/Vol] 247 10*3/uL Normal 150- 450 10*3/uL [facility] Protein [Mass/volume] in Ser um or PlasmaOrdered By: Rolando Cortes on 09-18-2022 Protein [Mass/Vol] 6.4 g/dL 6.1-7.9 [facility] Serum or plasma alanine alatorre otransferase measurement without P-5'-P (enzymatic activiOrdered By: Rolando Cortes on 09-18-2022 ALT No additional P-5'-P [Catalytic activity/Vol] 25 U/L 10-[address] [facility] Serum or plasma albumin/glob ulin mass ratioOrdered By: Rolando Cortes on 09-18-2022 Albumin/Globulin [Mass ratio] 1.8 {ratio} [facility] Serum or plasma alkaline yehuda sphatase measurement (enzymatic activity/volume)Ordered By: Rolando Cortes on 09-18-2022 ALP [Catalytic activity/Vol] 73 U/L Normal 32-92 U/L [facility] Serum or plasma anion gap de terminationOrdered By: Rolando Cortes on 09-18-2022 Anion gap [Moles/Vol] 11.7 mmol/L 6.0-15.0 [facility] Serum or plasma aspartate am inotransferase measurement (enzymatic activity/volume)Ordered By: Rolando Cortes on 09-18-2022 AST [Catalytic activity/Vol] 23 U/L Normal 10-42 U/L [facility] Serum or plasma calcium haydee urement (mass/volume)Ordered By: Rolando Cortes on 09-18-2022 Calcium [Mass/Vol] 9.3 mg/dL 8.2-10.2 [facility] Serum or plasma chloride stacie surement (moles/volume)Ordered By: Rolando Cortes on 09-18-2022 Chloride [Moles/Vol] 106 mmol/L Normal 95-114 mmol/L [facility] Serum or plasma glucose haydee urement (mass/volume)Ordered By: Rolando Cortes on 09-18-2022 Glucose [Mass/Vol] 99 mg/dL Normal 70-100 mg/dL [facility] Comment on above: ADA recommended refe rence rangeRandom Glucose Reference Range is dependent on time and content of last meal. Glucose of more than 200 mg/dL in a nonstressed, ambulatory subject supports the diagnosis of Diabetes Mellitus. Serum or plasma high density lipoprotein (HDL) cholesterol measurementOrdered By: Rolando Cortes on 09-18-2022 Cholesterol in HDL [Mass/Vol] 49 mg/dL Normal 29-71 mg/dL [facility] Comment on above: HDL CHOL ATP-III CLA SSIFICATION Cardiovascular RiskHDL > or equal to 60 mg/dL LOWHDL < 40 mg/dL HIGH Serum or plasma potassium me asurement (moles/volume)Ordered By: Rolando Cortes on 09-18-2022 Potassium [Moles/Vol] 4.3 mmol/L 3.5-5.1 [facility] Serum or plasma sodium measu rement (moles/volume)Ordered By: Rolando Cortes on 09-18-2022 Sodium [Moles/Vol] 140 mmol/L Normal 136-146 mmol/L [facility] Serum or plasma total biliru bin measurement (mass/volume)Ordered By: Rolando Cortes on 09-18-2022 Bilirubin [Mass/Vol] 0.8 mg/dL 0.3-1.2 [facility] Serum or plasma total carbon dioxide measurement (moles/volume)Ordered By: Rolando Cortes on 09-18-2022 CO2 [Moles/Vol] 26.6 mmol/L 22.0-30.0 [facility] Serum or plasma total choles terol/high density lipoprotein (HDL) cholesterol mass ratOrdered By: Rolando Cortes on 09-18-2022 Cholesterol.total/Karishma sterol in HDL [Mass ratio] 4.4 {ratio} <5.[address] [facility] Serum or plasma urea nitroge n measurement (mass/volume)Ordered By: Rolando Cortes on 09-18-2022 Urea nitrogen [Mass/Vol] 20 mg/dL Normal 9-23 mg/dL [facility] TSH DL <= 0.005 mIU/L QnOrde red By: Rolando Cortes on 09-18-2022 TSH Qn 4.99 m[IU]/L 0.45-5.[address] [facility] Thyroid Stimulating Hormoneo n 09-18-2022 TSH Qn 4.98948533777 m[IU]/L Normal 0.45-5 .33 u[iU]/mL [facility] Other TSH Qn 4.99 m[IU]/L Normal 0.45-5.[address] [facility] Comment on above: Order Comment: Reaso n for Exam Hyperlipidemia, unspecified hyperlipidemia type;Wellness exa Result Comment: PERF ORMED BY: [facility] [address] [place] [address] PATHOLOGIST FAN RUNNER TARAH MAYER M.D. Performed By: #### L IPID, PSAS, TSH3, CBC, CMP ####[facility] [id number] Triglyceride [Mass/volume] i n Serum or PlasmaOrdered By: Rolando Cortes on 09-18-2022 Triglyceride [Mass/Vol] 45 mg/dL 35-149 [facility] Comment on above: TRIG ATP III CLASSIF ICATIONTRIG less than 150 mg/dL NormalTRIG 150-199 mg/dL Borderline highTRIG 200-500 mg/dL High TRIG greater than 500 mg/dL Very highStandard traceable to the Center for Disease Conrtrol and Prevention (CDC) test method. WBC Auto (Bld) [#/Vol]Ordere d By: Rolando Cortes on 09-18-2022 WBC (Bld) [#/Vol] 4.1 10*3/uL 4.1-10.5 [facility] LYME DISEASE, WESTERN BLOTon 02-01-2022 IgG P18 Ab. Absent Normal [facility] Comment on above: Performed By: #### L YMWB #### [facility] [address] [place] [address] [address] Castillo Brown IgG P23 Ab. Absent [facility] Comment on above: Performed By: #### L YMWB #### [facility] [address] [address] [address] Castillo Brown IgG P28 Ab. Absent [facility] Comment on above: Performed By: #### L YMWB #### [facility] [address] [address] [address] Castillo Brown IgG P30 Ab. Absent [facility] Comment on above: Performed By: #### L YMWB #### [facility] [address] [address] [address] Castillo Brown IgG P39 Ab. Absent Normal [facility] Comment on above: Performed By: #### L YMWB #### [facility] [address] [address] [address] Castillo Brown IgG P41 Ab. Present Abnormal [facility] Comment on above: Performed By: #### L YMWB #### [facility] [address] [place] [address] Dr. Castillo Brown IgG P45 Ab. Absent Normal [facility] Comment on above: Performed By: #### L YMWB #### [facility] [address] [place] [address] Dr. Castillo Brown IgG P58 Ab. Absent Normal [facility] Comment on above: Performed By: #### L YMWB #### [facility] [address] [place] [address] Dr. Castillo Brown IgG P66 Ab. Absent [facility] Comment on above: Performed By: #### L YMWB #### [facility] [address] [place] [address] Dr. Castillo Brown IgG P93 Ab. Absent [facility] Comment on above: Performed By: #### L YMWB #### [facility] [address] [place] [address] Dr. Castillo Brown IgM P23 Ab. Absent [facility] Comment on above: Performed By: #### L YMWB #### [facility] [address] [place] [address] Dr. Castillo Brown IgM P39 Ab. Absent [facility] Comment on above: Performed By: #### L YMWB #### [facility] [address] [place] [address] Dr. Castillo Brown IgM P41 Ab. Absent [facility] Comment on above: Performed By: #### L YMWB #### [facility] [address] [place] [address] Dr. Castillo Brown Lyme IgG WB Interp. Negative Normal [facility] Comment on above: Result Comment: Posi tive: 5 of the following Borrelia-specific bands: 18,23,28,30,39,41,45,58, 66, and 93. Negative: No bands or banding patterns which do not meet positive criteria. Performed By: #### L YMWB #### [facility] [address] [place] [address] Dr. Castillo Brown Lyme IgM WB Interp. Negative Normal [facility] Comment on above: Result Comment: Note : An equivocal or positive EIA result followed by a negative Line Blot result is considered NEGATIVE. An equivocal or positive EIA result followed by a positive Line Blot is considered POSITIVE by the CDC. . Positive: 2 of the following bands: 23,39 or 41 Negative: No bands or banding patterns which do not meet positive criteria. Criteria for positivity are those recommended by CDC/ASTPHLD. p23=Osp C, a04=wxwuwplvs . Note: Sera from individuals with the following may cross react in the Lyme Line Blot assays: other spirochetal diseases (periodontal disease, leptospirosis, relapsing fever, yaws, and pinta); connective autoimmune (Rheumatoid Arthritis and Systemic Lupus Erythematosus and also individuals with Antinuclear Antibody); other infections ([place] Spotted Fever; Lizbeth-Rocha Virus, and Cytomegalovirus). . Please Note: Lyme immunoblot alone is not recommended for the diagnosis of Lyme disease. Current guidelines recommend the use of a two-tiered approach to Lyme serology testing to improve the sensitivity and specificity of testing. [facility] 694702 Lyme Disease Serology with Reflex to aid in the diagnosis of Lyme Disease. Performed By: #### L YMWB #### [facility] [address] [place] [address] Dr. Castillo Brown CBC AUTO DIFFon 01-17-2022 BASO # 0.0 103/ul Normal 0.0-0.1 [facility] Comment on above: Performed By: #### C BC #### [facility] [address] [place] [address] Dr. Castillo Brown Basophils/100 WBC (Bld) 0.5 % Normal 0.2-2.0 [facility] Comment on above: Performed By: #### C BC #### [facility] [address] [place] [address] Dr. Castillo Brown EO # 0.1 103/ul Normal 0.0-0.7 [facility] Comment on above: Performed By: #### C BC #### [facility] [address] [place] [address] Dr. Castillo Brown Eosinophils/100 WBC (Bld) 2.7 % Normal 0.9-7.0 [facility] Comment on above: Performed By: #### C BC #### [facility] [address] [place] [address] Dr. Castillo Brown Erythrocyte distribution width (RBC) [Ratio] 12.0 % Normal 11.0-15.0 [facility] Comment on above: Performed By: #### C BC #### [facility] [address] [place] [address] Dr. Castillo Brown Hematocrit (Bld) [Volume fraction] 47.5 % Normal 42.0-54.0 [facility] Comment on above: Performed By: #### C BC #### [facility] [address] [place] [address] Dr. Castillo Brown Hemoglobin (Bld) [Mass/Vol] 16.1 g/dL Normal 14.0-18.0 [facility] Comment on above: Performed By: #### C BC #### [facility] [address] [place] [address] Dr. Castillo Brown IG # 0.00 10e3/ul Normal 0.00-0.03 [facility] Comment on above: Performed By: #### C BC #### [facility] [address] [place] [address] Dr. Castillo Brown IG % 0.0 % Normal 0.0-0.5 [facility] Comment on above: Performed By: #### C BC #### [facility] [address] [place] [address] Dr. Castillo Brown LYMPH # 0.5 103/ul Critically low 1.2-3.8 [facility] Comment on above: Performed By: #### C BC #### [facility] [address] [place] [address] Dr. Castillo Brown Lymphocytes/100 WBC (Bld) 11.5 % Critically low 20.5-60.0 [facility] Comment on above: Performed By: #### C BC #### [facility] [address] [place] [address] Dr. Castillo Brown MANUAL DIFF REQ NO Normal [facility] Comment on above: Performed By: #### C BC #### [facility] [address] [place] [address] Dr. Castillo Brown MCH (RBC) [Entitic mass] 32.5 pg Normal 25.9-34.0 [facility] Comment on above: Performed By: #### C BC #### [facility] [address] [place] [address] Dr. Castillo Brown MCHC (RBC) [Mass/Vol] 33.9 g/dL Normal 29.9-35.2 [facility] Comment on above: Performed By: #### C BC #### [facility] [address] [place] [address] Dr. Castillo Brown MCV (RBC) [Entitic vol] 96.0 fL Critically high 80.0-94 .0 [facility] Comment on above: Performed By: #### C BC #### [facility] [address] [place] [address] Dr. Castillo Brown MONO # 0.4 103/ul Normal 0.3-0.8 [facility] Comment on above: Performed By: #### C BC #### [facility] [address] [place] [address] Dr. Castillo Brown Monocytes/100 WBC (Bld) 9.2 % Normal 1.7-12.0 [facility] Comment on above: Performed By: #### C BC #### [facility] [address] [place] [address] Dr. Castillo Brown NEUT # 3.1 103/ul Normal 1.4-6.5 [facility] Comment on above: Performed By: #### C BC #### [facility] [address] [place] [address] Dr. Castillo Brown Neutrophils/100 WBC (Bld) 76.1 % Critically high 43.0-75.0 [facility] Comment on above: Performed By: #### C BC #### [facility] [address] [place] [address] Dr. Castillo Brown Platelet mean volume (Bld) [Entitic vol] 9.0 fL Critically low 9.5-13.5 [facility] Comment on above: Performed By: #### C BC #### [facility] [address] [place] [address] Dr. Castillo Brown PLT 229 103/ul Normal 150-450 [facility] Comment on above: Performed By: #### C BC #### [facility] [address] [place] [address] Dr. Castillo Brown RBC 4.95 106/ul Normal 4.70-6.10 [facility] Comment on above: Performed By: #### C BC #### [facility] [address] [place] [address] Dr. Castillo Brown WBC 4.0 103/ul Normal 4.0-11.0 [facility] Comment on above: Performed By: #### C BC #### [facility] [address] [place] [address] Dr. Castillo Brown CRPon 01-17-2022 CRP [Mass/Vol] mg/L Normal <=1.0 [facility] Comment on above: Performed By: #### C RP #### [facility] [address] [place] [address] Dr. Castillo Brown [facility] 4 mm/hr Normal <=20 [facility] Comment on above: Performed By: #### S EDR #### [facility] [address] [place] [address] HEAD WO CONon 07-04-2021 CT HEAD WO CON EXAMINATION: CT HEAD WO CON HISTORY: HEADACHE COMPARISON: None. TECHNIQUE: CT examination of the head without IV contrast. Dose reduction techniques were achieved by using automated exposure control and/or adjustment of mA and/or kV according to patient size and/or use of iterative reconstruction technique. FINDINGS: No evidence of acute trauma. The ventricles, sulci, and basilar cisterns are normal in appearance. The cerebral hemispheres, brain stem and cerebellar hemispheres are normal. Herndon-white interface is intact. No evidence of acute infarct. No evidence of mass, hemorrhage or density abnormality. The osseous structures are intact. Orbital apices normal. IMPRESSION: Normal examination. Electronically authenticated by: Flaco REYES Date: 2021-07-04 20:34 Normal [facility] Vital Signs Date Time Vital Sign Value Performing Clinician Facility 10-18-2023 14:57-0500 Body height 180.34 cm DO Rolando Kuns Work Phone: [facility] 10-18-2023 14:57-0500 Body mass index (BMI) [Ratio] 25.7 kg/m2 DO Rolando Kuns Work Phone: [facility] 10-18-2023 14:57-0500 Body weight 83.46 kg DO Rolando Kuns Work Phone: [facility] 10-18-2023 14:57-0500 Diastolic blood pressure 76 mm[Hg] DO Rolando Kuns Work Phone: [facility] 10-18-2023 14:57-0500 Heart rate 71 /min DO Rolando Kuns Work Phone: [facility] 10-18-2023 14:57-0500 Respiratory rate 16 /min DO Rolando Kuns Work Phone: [facility] 10-18-2023 14:57-0500 SaO2% (BldA) [Mass fraction] 97 % DO Rolando Kuns Work Phone: [facility] 10-18-2023 14:57-0500 Systolic blood pressure 120 mm[Hg] DO Rolando Kuns Work Phone: [facility] 08-08-2023 12:33-0500 Diastolic blood pressure 92 mm[Hg] DO Rolando Kuns Work Phone: [facility] 08-08-2023 12:33-0500 Heart rate 78 /min DO Rolando Kuns Work Phone: [facility] 08-08-2023 12:33-0500 Respiratory rate 16 /min DO Rolando Kuns Work Phone: [facility] 08-08-2023 12:33-0500 SaO2% (BldA) [Mass fraction] 94 % DO Rolando Cortes Work Phone: [facility] 08-08-2023 12:33-0500 Systolic blood pressure 126 mm[Hg] DO Rolando Cortes Work Phone: [facility] 08-08-2023 11:20-0500 Inhaled oxygen flow rate 4 L/min DO Rolando Cortes Work Phone: [facility] 08-08-2023 11:10-0500 Body temperature 97 [degF] DO Rolando Cortes Work Phone: [facility] 08-08-2023 07:43-0500 Body height 177.8 cm DO Rolando Cortes Work Phone: [facility] 08-08-2023 07:43-0500 Body mass index (BMI) [Ratio] 25.9 kg/m2 DO Rolando Cortes Work Phone: [facility] 08-08-2023 07:43-0500 Body weight 82 kg DO Rolando Cortes Work Phone: [facility] 07-31-2023 09:15-0500 Body height 180.34 cm Kushal Olexa Other [facility] 07-28-2023 10:52-0500 Diastolic blood pressure 80 mm[Hg] DO Rolando Cortes Work Phone: [facility] 07-28-2023 10:52-0500 Heart rate 76 /min DO Rolando Cortes Work Phone: [facility] 07-28-2023 10:52-0500 Respiratory rate 18 /min DO Rolando Cortes Work Phone: [facility] 07-28-2023 10:52-0500 SaO2% (BldA) [Mass fraction] 96 % DO Rolando Kuns Work Phone: [facility] 07-28-2023 10:52-0500 Systolic blood pressure 130 mm[Hg] DO Rolando Kuns Work Phone: [facility] 07-28-2023 08:37-0500 Body temperature 98.2 [degF] DO Rolando Kuns Work Phone: [facility] 07-28-2023 08:36-0500 Body height 180.34 cm DO Rolando Kuns Work Phone: [facility] 07-28-2023 08:36-0500 Body weight 82.75 kg DO Rolando Kuns Work Phone: [facility] 07-26-2023 14:54-0500 Diastolic blood pressure 89 mm[Hg] DO Rolando Kuns Work Phone: [facility] 07-26-2023 14:54-0500 Heart rate 90 /min DO Rolando Kuns Work Phone: [facility] 07-26-2023 14:54-0500 Respiratory rate 18 /min DO Rolando Kuns Work Phone: [facility] 07-26-2023 14:54-0500 SaO2% (BldA) [Mass fraction] 97 % DO Rolando Kuns Work Phone: [facility] 07-26-2023 14:54-0500 Systolic blood pressure 137 mm[Hg] DO Rolando Kuns Work Phone: [facility] 07-26-2023 11:38-0500 Body height 177.8 cm DO Rolando Kuns Work Phone: [facility] 07-26-2023 11:38-0500 Body weight 82.4 kg DO Rolando Kuns Work Phone: [facility] 07-26-2023 11:37-0500 Body temperature 99.5 [degF] DO Rolando Kuns Work Phone: [facility] 06-18-2023 11:15-0400 Body height 180.34 cm Kushal Olexa Other [employer] Other 06-18-2023 11:15-0400 Body mass index (BMI) [Ratio] 25.1 kg/m2 Kushal Olexa Other [employer] Other 06-18-2023 11:15-0400 Body weight 81.65 kg Kushal Olexa Other [employer] Other 03-12-2023 12:00-0400 Body height 180.34 cm Kelli Doss Other [employer] Other 03-12-2023 12:00-0400 Body mass index (BMI) [Ratio] 25.1 kg/m2 Kelli Doss Other [employer] Other 03-12-2023 12:00-0400 Body weight 81.65 kg Kelli Doss Other [employer] Other 10-23-2022 11:38-0500 Diastolic blood pressure 84 mm[Hg] DO Rolando KargoCards Work Phone: [facility] 10-23-2022 11:38-0500 Heart rate 68 /min DO Rolando [employer]argo[employer]ards Work Phone: [facility] 10-23-2022 11:38-0500 Respiratory rate 16 /min DO Rolando Kuns Work Phone: [facility] 10-23-2022 11:38-0500 SaO2% (BldA) [Mass fraction] 98 % DO Rolando Kuns Work Phone: [facility] 10-23-2022 11:38-0500 Systolic blood pressure 111 mm[Hg] DO Rolando Kuns Work Phone: [facility] 10-23-2022 10:17-0500 Body height 180.34 cm DO Rolando Cortes Work Phone: [facility] 10-23-2022 10:17-0500 Body temperature 97.9 [degF] DO Rolando Cortes Work Phone: [facility] 10-23-2022 10:17-0500 Body weight 81.64 kg DO Rolando Cortes Work Phone: [facility] 09-20-2022 08:30-0500 Body height 180.34 cm Rolando Marqueskimmie Other [facility] [employer] Other 09-20-2022 08:30-0500 Body mass index (BMI) [Ratio] 25.8 kg/m2 Rolando Cortes Other [employer] Other 09-20-2022 08:30-0500 Body weight 83.92 kg Rolando Sophia Other [employer] Other 09-20-2022 08:30-0500 Diastolic blood pressure 83 mm[Hg] Rolando Cortes Other [employer] Other 09-20-2022 08:30-0500 Respiratory rate 16 /min Rolando Cortes Other [employer] Other 09-20-2022 08:30-0500 SaO2% (BldA) [Mass fraction] 95 % Rolando Cortes Other [employer] Other 09-20-2022 08:30-0500 Systolic blood pressure 122 mm[Hg] Rolando Cortes Other [employer] Other 04-14-2022 10:45-0400 Body height 180.34 cm Rolandopradeep Marqueskimmie Other [employer] Other 04-14-2022 10:45-0400 Body mass index (BMI) [Ratio] 24.68 kg/m2 Rolando Sophia Other [employer] Other 04-14-2022 10:45-0400 Body weight 80.29 kg Rolando Sophia Other [employer] Other 04-14-2022 10:45-0400 Diastolic blood pressure 78 mm[Hg] Rolando Cortes Other [employer] Other 04-14-2022 10:45-0400 Respiratory rate 16 /min Rolando Cortes Other [employer] Other 04-14-2022 10:45-0400 SaO2% (BldA) [Mass fraction] 95 % Rolando Cortes Other [employer] Other 04-14-2022 10:45-0400 Systolic blood pressure 118 mm[Hg] Rolando Cortes Other [employer] Other 08-29-2021 11:00-0500 Body height 180.34 cm Rolando Cortes Other [employer] Other 08-29-2021 11:00-0500 Body mass index (BMI) [Ratio] 25.66 kg/m2 Rolando Cortes Other [employer] Other 08-29-2021 11:00-0500 Body weight 83.46 kg Rolando Cortes Other [employer] Other 08-29-2021 11:00-0500 Diastolic blood pressure 80 mm[Hg] Rolando Cortes Other [employer] Other 08-29-2021 11:00-0500 Respiratory rate 16 /min Rolando Cortes Other [employer] Other 08-29-2021 11:00-0500 SaO2% (BldA) [Mass fraction] 96 % Rolando Cortes Other [employer] Other 08-29-2021 11:00-0500 Systolic blood pressure 126 mm[Hg] Rolando Cortes Other [employer] Other 07-11-2021 12:00-0500 Body height 180.34 cm Rolando Cortes Other [employer] Other 07-11-2021 12:00-0500 Body mass index (BMI) [Ratio] 24.82 kg/m2 Rolando Cortes Other [employer] Other 07-11-2021 12:00-0500 Body weight 80.74 kg Rolando Cortes Other [employer] Other 07-11-2021 12:00-0500 Diastolic blood pressure 58 mm[Hg] Rolando Cortes Other [employer] Other 07-11-2021 12:00-0500 Respiratory rate 16 /min Rolando Cortes Other [employer] Other 07-11-2021 12:00-0500 SaO2% (BldA) [Mass fraction] 97 % Rolando Cortes Other [employer] Other 07-11-2021 12:00-0500 Systolic blood pressure 116 mm[Hg] Rolando Cortes Other [employer] Other 06-20-2021 10:30-0400 Body height 180.34 cm Rolando Cortes Other [employer] Other 06-20-2021 10:30-0400 Body mass index (BMI) [Ratio] 24.96 kg/m2 Rolando Cortes Other [employer] Other 06-20-2021 10:30-0400 Body weight 81.19 kg Rolando Cortes Other [employer] Other 06-20-2021 10:30-0400 Diastolic blood pressure 76 mm[Hg] Rolando Cortes Other [employer] Other 06-20-2021 10:30-0400 Respiratory rate 16 /min Rolando Cortes Other [employer] Other 06-20-2021 10:30-0400 SaO2% (BldA) [Mass fraction] 98 % Rolando Cortes Other [employer] Other 06-20-2021 10:30-0400 Systolic blood pressure 110 mm[Hg] Rolando Cortes Other [employer] Other Encounters Encounter Date Encounter Type Care Provider Facility Start: 10-23-2023 ambulatory RUBY Goins A cody Start: 10-18-2023 End: 10-18-2023 ambulatory DO Rolando Cortes Work Phone: [facility] Work Phone: Start: 10-18-2023 End: 10-18-2023 Patient encounter procedure DO Rolando Cortes Work Phone: [facility] [place] Work Phone: Start: 10-17-2023 End: 10-17-2023 ambulatory NIKITA NICOLE Not Available Start: 10-11-2023 Non-patient / Non-visit DO Ernesto Cortes Work Phone: [facility] [employer] Work Phone: Start: 10-10-2023 Non-patient / Non-visit DO Ernesto Cortes Work Phone: [facility] [employer] Work Phone: Start: 10-09-2023 Telephone encounter Ruby coughlin [employer] [facility] Comment on above: re: PT today (She ca lled noting Don is currently in hospital and not going to be in today; I noted and as of now she confirmed 10/16. She said she'd keep us updated.) Start: 10-04-2023 End: 10-04-2023 ambulatory SALLIE ESPINAL Not Available Start: 10-04-2023 End: 10-04-2023 ambulatory Sallie Espinal [employer] [facility] Comment on above: Acute pain of left s houlder (Primary Dx); S/P left rotator cuff repair; Status post left rotator cuff repair Start: 10-03-2023 End: 10-03-2023 ambulatory NIKITA NICOLE Not Available Start: 10-02-2023 End: 10-03-2023 ambulatory Nikita Nicole PT Work Phone: [facility] Comment on above: Acute pain of left s houlder (Primary Dx); S/P left rotator cuff repair Start: 09-20-2023 End: 09-20-2023 ambulatory Kelli Doss Other [facility] [employer] Other Start: 09-20-2023 Postop follow up vis it related to original px Kelli Doss [facility] Start: 08-16-2023 Postop follow up vis it related to original px Kushal Vincentxa [facility] Start: 08-16-2023 End: 08-16-2023 ambulatory Kushal Olexa Facility:[facility] Start: 08-16-2023 End: 08-16-2023 ambulatory DO Rolando Cortes Work Phone: [facility] Work Phone: Start: 08-16-2023 End: 08-16-2023 Patient encounter procedure DO Rolando Cortes Work Phone: [facility] Start: 08-16-2023 Patient encounter procedure DO Rolando Cortes Work Phone: [facility]- Start: 08-09-2023 End: 08-09-2023 ambulatory NIKITA NICOLE Not Available Start: 08-08-2023 End: 08-08-2023 ambulatory Kushal Olexa Facility:[facility] Start: 08-08-2023 End: 08-08-2023 Admission to same day surgery center DO Rolando Cortes Work Phone: [facility] Start: 08-08-2023 End: 08-08-2023 ambulatory DO Rolando Cortes Work Phone: [facility] Work Phone: Start: 08-06-2023 End: 08-06-2023 ambulatory Kushal Olexa Other [employer] Other Start: 08-06-2023 Telephone encounter Kushal Vincentxa [facility] Start: 08-03-2023 End: 08-03-2023 ambulatory Kushal Olexa Facility:[facility] Start: 08-03-2023 End: 08-03-2023 ambulatory DO Rolando Cortes Work Phone: [facility] Work Phone: Start: 08-03-2023 End: 08-03-2023 Patient encounter procedure DO Rolando Cortes Work Phone: [facility] Start: 07-31-2023 End: 07-31-2023 ambulatory Kushal Bateman Other [employer] Other Start: 07-31-2023 Encounter for other preprocedural examination Kushal Bateman [facility] Start: 07-31-2023 Office outpatient vi sit 25 minutes Kushal Kaurfigueroa [facility] Start: 07-31-2023 End: 07-31-2023 Patient encounter procedure DO Rolandopradeep Cortes Work Phone: [facility] Work Phone: Start: 07-28-2023 End: 07-28-2023 Emergency department patient visit Orion Mondragon Facility:[facility] Start: 07-28-2023 End: 07-28-2023 Emergency department patient visit DO Rolando Cortes Work Phone: [facility] Work Phone: Start: 07-26-2023 Telephone encounter Rolando Cortes [facility] [place] Start: 07-26-2023 End: 07-26-2023 Emergency department patient visit Lisa Lerner Facility:[facility] Start: 07-26-2023 End: 07-26-2023 Emergency department patient visit DO Rolando Jeraldkimmie Work Phone: [facility] Work Phone: Start: 07-26-2023 End: 07-26-2023 ambulatory DO Rolandopradeep Cortes Work Phone: [employer] Other Start: 07-26-2023 End: 07-26-2023 Patient encounter procedure DO Rolandopradeep Cortes Work Phone: [facility] Work Phone: Start: 07-25-2023 End: 07-25-2023 ambulatory Rolando Cortes Other [employer] Other Start: 07-25-2023 Telephone encounter Rolandopradeep Cortes [facility] [place] Start: 07-24-2023 End: 07-24-2023 ambulatory Rolandopradeep Cortes Other [employer] Other Start: 07-24-2023 Telephone encounter Rolando Cortes [facility] [place] Start: 06-18-2023 End: 06-18-2023 ambulatory Kushal Bateman Other [employer] Other Start: 06-18-2023 Encounter for other preprocedural examination Kushal Vincentfigueroa [facility] Start: 06-18-2023 Office outpatient vi sit 25 minutes Kushal Vincetnfigueroa [facility] Start: 05-31-2023 End: 05-31-2023 ambulatory Rolandopradeep Cortes Facility:[facility] Start: 05-31-2023 End: 05-31-2023 ambulatory DO Rolando Cortes Work Phone: [facility] Work Phone: Start: 05-31-2023 End: 05-31-2023 Patient encounter procedure DO Rolando Cortes Work Phone: [facility] [address] Work Phone: Start: 04-11-2023 End: 04-11-2023 ambulatory Kelli Doss Other [employer] Other Start: 04-11-2023 Telephone encounter Kelli Doss [facility] Start: 03-12-2023 Office outpatient vi sit 15 minutes Kelli Doss [facility] Start: 03-12-2023 End: 03-12-2023 ambulatory DO Rolandopradeep Cortes Work Phone: [facility] Work Phone: Start: 03-12-2023 End: 03-12-2023 Patient encounter procedure DO Rolando Cortes Work Phone: [facility] Start: 10-23-2022 End: 10-23-2022 ambulatory Rolando Cortes Facility:[facility] Start: 10-23-2022 End: 10-23-2022 Admission to same day surgery center DO Rolando Cortes Work Phone: [facility] Work Phone: Start: 10-23-2022 End: 10-23-2022 ambulatory DO Rolando Cortes Work Phone: [facility] Work Phone: Start: 10-03-2022 End: 10-03-2022 ambulatory Imad Asaad Other [facility] Other Start: 10-03-2022 Telephone encounter Imad Asaad [facility] Start: 09-20-2022 End: 09-20-2022 ambulatory Rolando Cortes Other [facility] Other Start: 09-20-2022 Encounter for genera l adult medical examination without abnormal findings Rolando Cortes [facility] [place] Start: 09-20-2022 Periodic preventive med est patient 40-64yrs Rolando Cortes [facility] [place] Start: 09-18-2022 End: 09-18-2022 ambulatory Rolando Cortes Facility:[facility] Start: 09-18-2022 Encounter for genera l adult medical examination without abnormal findings Rolando Cortes [facility] Start: 09-18-2022 End: 09-18-2022 ambulatory DO Rolando Cortes Work Phone: [facility] Work Phone: Start: 09-18-2022 End: 09-18-2022 Patient encounter procedure DO Rolando Cortes Work Phone: [facility] [place] Work Phone: Start: 09-15-2022 End: 09-15-2022 ambulatory Rolando Cortes Other [employer] Other Start: 09-15-2022 Encounter for genera l adult medical examination without abnormal findings Rolando Cortes [facility] Start: 09-15-2022 Telephone encounter Rolando Cortes [facility] Start: 06-27-2022 ambulatory Rolando Cortes Faci lity:[facility] Start: 06-26-2022 End: 06-26-2022 ambulatory DO Rolando Cortes Work Phone: [facility] Work Phone: Start: 06-26-2022 End: 06-26-2022 Patient encounter procedure DO Rolando Cortes Work Phone: [facility] Start: 06-26-2022 ambulatory Facility:9 0 Start: 05-09-2022 End: 05-09-2022 Patient encounter procedure DO Rolando Cortes Work Phone: [facility] Start: 04-14-2022 End: 04-14-2022 ambulatory Rolando Cortes Other [employer] Other Start: 04-14-2022 Office outpatient vi sit 15 minutes Rolando Cortes [facility] Start: 04-05-2022 ambulatory Facility:[facility] Start: 04-04-2022 End: 04-04-2022 Patient encounter procedure DO Rolando Cortes Work Phone: [facility] Start: 04-04-2022 ambulatory Facility:9 0 Start: 03-01-2022 End: 03-01-2022 ambulatory Rolando Cortes Other [employer] Other Start: 03-01-2022 Telephone encounter Rolando Cortes [facility] Start: 02-28-2022 End: 02-28-2022 Patient encounter procedure DO Rolando Sophia Work Phone: [facility] Start: 01-17-2022 End: 01-18-[address] CHACHO ELIZABETH Facility:[facility] Start: 08-29-2021 End: 08-29-2021 ambulatory Rolando Cortes Other [employer] Other Start: 08-29-2021 Office outpatient vi sit 25 minutes Rolando Cortes [facility] Start: 07-29-2021 End: 07-29-2021 ambulatory Rolando Cortes Other [employer] Other Start: 07-29-2021 Telephone encounter Rolando Cortes [facility] Start: 07-11-2021 End: 07-11-2021 ambulatory Rolando Cortes Other [employer] Other Start: 07-11-2021 Office outpatient vi sit 15 minutes Rolando Cortes [facility] [place] Start: 07-04-2021 End: 07-04-[address] SLADE PATEL Facility:[facility] Start: 06-21-2021 Telephone encounter Rolando Cortes [facility] Start: 06-20-2021 Office outpatient ne w 30 minutes Rolando Cortes [facility] Procedures Date Procedure Procedure Detail Performing Clinician Start: 08-16-2023 Plain X-ray of left shoulder DO Rolando smyth Work Phone: Start: 08-08-2023 Procedure on shoulder joint DO Rolando burks Work Phone: Start: 08-03-2023 Plain chest X-ray DO Rolando Cortes Work Phone: Start: 07-28-2023 Blood culture for bacteria, including anaerobic screen DO Rolando Cortes Work Phone: Start: 07-28-2023 Respiratory Panel (PCR) DO Rolando Cortes Work Phone: Start: 07-28-2023 Plain chest X-ray DO Rolando Cortes Work Phone: Start: 07-26-2023 Plain chest X-ray DO Rolando Cortes Work Phone: Start: 05-31-2023 MRI of left shoulder DO Rolando Cortes Work Phone: Start: 03-12-2023 Plain X-ray of left shoulder DO Rolando smyth Work Phone: Start: 10-23-2022 Screening colonoscopy DO Rolando Cortes Work Phone: Start: 06-26-2022 CT of chest without contrast DO Rolando smyth Work Phone: Start: 05-09-2022 Plain chest X-ray DO Rolando Cortes Work Phone: Start: 02-28-2022 CT of chest without contrast DO Rolando smyth Work Phone: History of repair of musculotendinous cuff of shoulder S/P left rotator cuff repair Nikita Nicole PT Work Phone: History of repair of musculotendinous cuff of shoulder S/P left rotator cuff repair Sallie Sharadbley [employer] Screening for malign ant neoplasm of colon Rolando Cortes Other Screening for malign ant neoplasm of prostate Rolando Cortes Other Viral screening Kelli singh Other Plan of Treatment Date Care Activity Detail Author Start: 10-18-2023 Patient referral [facility] Work Phone: Start: 10-16-2023 End: 10-16-2023 ambulatory 10/16/2023 5:30 PM EST Treatment [facility] [address] [facility] [address] [place] [address] Nikita Nicole, PT [address] [place] [address] [facility] Start: 10-11-2023 End: 10-11-2023 ambulatory 10/11/2023 4:00 PM EST Treatment [facility] [address] [facility] [address] [place] [id number] Nikita Nicole, PT [address] [facility] [address] [place] [address] [facility] Start: 10-09-2023 End: 10-09-2023 ambulatory 10/09/2023 4:00 PM EST Treatment [facility] [address] [facility] [address] [place] [id number] Ruby Vear, EMPLOYMENT LAW ATTORNEY [facility] Start: 10-04-2023 End: 10-04-2023 ambulatory 10/04/2023 2:30 PM EST Treatment [facility] [address] [facility] [address] [place] [id number] Sallie Espinal, EMPLOYMENT LAW ATTORNEY [facility] Start: 08-08-2023 End: 08-08-[address] [facility] Start: 07-28-2023 Bacteria identified in Blood by Culture [facility] Start: 07-28-2023 Plain chest X-ray XR chest 2V* [facility] Start: 07-28-2023 XR Chest 2 Views [facility] Start: 10-23-[address] [facility] Patient Education [facility] Work Phone: Patient referral [facility] Work Phone: [facility] Immunizations Immunization Date Immunization Notes Care Provider Fa boaz 04-06-2015 diphtheria, tetanus toxoids and acellular pertussis vaccine, unspecified formulation Kelli Doss Other [facility] Payers Date Payer Category Payer Private Health Insurance [id number] 2023 Unknown [employer] [id number] 2023-Present [address] [place] [address] [id number] 2022 Self-pay [id number] 1959 Unknown [id number] 1958 Unknown [id number] 2.16.840.1.136812.3.579.2 .593 1958 Unknown [id number] 2.16.840.1.578762.3.579.2 .593 1958 Unknown [id number] 2.16.840.1.875029.3.579.2 .356 1958 Unknown [id number] 2.16.840.1.889159.3.579.2 .356 1958 Unknown [id number] 2.16.840.1.344266.3.579.2 .1259 1958 Unknown [id number] 2.16.840.1.144911.3.579.2 .1259 1958 Unknown [id number] 2.16.840.1.465428.3.579.2 .1259 1958 Unknown [id number] 2.16.840.1.359001.3.579.2 .1259 1958 Unknown [id number] 2.16.840.1.630844.3.579.2 .1259 Unknown [id number] 2.16.840.1.902797.3.579.2 .531 Unknown [id number] 2.16.840.1.378693.3.579.2 .531 Unknown [id number] 2.16.840.1.363761.3.579.2 .531 Unknown [id number] 2.16.840.1.049465.3.579.2 .531 Unknown [id number] 2.16.840.1.511253.3.579.2 .531 Unknown [id number] 2.16.840.1.160136.3.579.2 .531 Unknown [id number] 2.16.840.1.453653.3.579.2 .531 Unknown [id number] 2.16.840.1.635204.3.579.2 .531 Unknown [id number] 2.16.840.1.929223.3.579.2 .531 Unknown [id number] 2.16.840.1.057155.3.579.2 .531 Social History Date Type Detail Facility Unknown if ever smoked [facility] [employer] Other Sex Assigned At [facility] [employer] Other Start: 08-17-2021 End: 08-08-2023 Tobacco smoking status [facility] Never smoked tobacco (finding) [facility] Start: 1960 Sex Assigned At Male [facility] Tobacco smoking status [facility] Tobacco smoking consumption unknown [facility] Start: 1960 Sex Assigned At Not on file [facility] Medical Equipment Procedure Code Equipment Code Equipment Origin al Text Equipment Identifier Dates Arthroscopy, shoulder Tendon/ligament bone anchor, bioabsorbable [id number] FDA Start: 08-08-2023 Arthroscopy, shoulder Tendon/ligament bone anchor, bioabsorbable [id number] FDA Start: 08-08-2023 Arthroscopy, shoulder Tendon/ligament bone anchor, bioabsorbable ()[id number] FDA Start: 08-08-2023 Arthroscopy, shoulder Tendon/ligament bone anchor, bioabsorbable ()[id number] FDA Start: 08-08-2023 Goals Date Patient Goal Desired Activity /State Clinical Notes 04-27-2021 to 10-18-2023 Telephone Encounter - Valentina Ramirez - 10/09/2023 8:46 AM ESTTelephone Encounter - Valentina Ashley - 10/09/2023 8:46 AM Chase Nicole, PT - 10/02/2023 6:00 PM EST Note Date & Type Note Facility 10-18-2023 Hospital Discharg e instructions Ambulatory OrdersReferral to Vascular Surgery Time Frame: 10/18/23, Location: None [facility] Work Phone: 10-09-2023 Telephone encounter Note Cx [facility] 10-09-2023 Miscellaneous Notes Cx documented in this encounter [facility] 10-02-2023 History of Presen t illness Narrative Physical Therapy Physical Therapy Evaluation Visit Patient Name: Cayla Worrell Today's Date: 10/03/2023 Encounter Diagnoses Name Primary? Acute pain of left shoulder Yes S/P left rotator cuff repair Visit number: 1 Supervised Time: 50 minutes Total Time: 50 minutes Time IN: 6:00 pm Time OUT: 6:50 pm History: Pt. Presents to PT PO left shoulder RCR. DOS 08/08/23. Pt. Has been compliant with home exercises. Precautions: RCR protocol Subjective/Pain: 0/10 to 4/10 Objective: PT Evaluation (10/02/23) Left shoulder AROM: flexion 150 deg, abduction 140 deg, ER C5, IR L5 Left shoulder PROM: flexion 160 deg, abduction 145 deg, ER 60 deg, IR 50 deg Joint: normal Flexibility: posterior should muscle tightness Strength: 3+/5 in left shoulder grossly Observation: pt. Demonstrates stick in left shoulder at 110 to 125 deg with shoulder elevation due to cuff muscle weakness UEFS: 34/80 Goals: To be met by 8 weeks 1) Pt. Will report of 0/10 left shoulder pain while reaching/lifting objects overhead to help improve his functional mobility and perform work tasks. 2) Pt. Will demonstrate normal left shoulder ROM grossly in all planes to allow him to perform daily work tasks without limitations. 3) Pt. Will demonstrate 5/5 left shoulder strength grossly in all planes to allow him to lift/carry objects to help him perform work tasks without limitations. 4) Pt. Will demonstrate normal left shoulder muscle flexibility to help him achieve full shoulder ROM in all planes to return to prior level of function. 5) Pt. Will score 70 or greater on UEFS to help improve his functional mobility. TREATMENT: PT evaluation (20 minutes) Manual: supine: MFR, PROM to left shoulder all planes (12 minutes) Therapeutic Exercise: guided patient through skilled therapeutic exercises, exercises in grid (16 minutes) Therapeutic Activity: Neuromuscular Re-education: Modalities: IFC with ice for pain/inflammation (PRN) Assessment: The patient has participated in 1 outpatient PT sessions since start of care on 10/02/23. Pt. Will benefit from skilled PT services. PT treatment to focus on improving shoulder ROM/flexibility/strength to return to PLOF. Plan: Recommend outpatient PT 1-2x/week for 6-8 weeks per above PT POC pending patient progress and medical necessity standards I hereby deem this POC medically necessary. Please sign below and fax back to the number below. Physician Signature: Date: documented in this encounter [facility] 09-20-2023 Evaluation note Encounter Date Diagnosis Assessment Notes Aug, Acute pain of left shoulder (ICD-10 - M25.512) Aug, Tear of left supraspinatus tendon (ICD-10 - M75.102) Patient instructed on discontinuing the sling. Begin gentle acitve assisted motion exercise including table and wall walks. This was demonstrated. Instructed on progression of motion exercise in flexion, internal rotation and external rotation. Instructed on use of heat to help with motion. PT ordered Examination and assessment of this patient was performed by Kelli Doss NP and patient will continue with the treatment plan per Dr. Bateman, who initiated this treatment plan. Dr. Bateman is present in the office today and providing supervision. Aug, Other specified postprocedural states (ICD-10 - Z98.890) Aug, Other This documentation is being amended on 09/24/23 due to an internal data corruption event that occurred on 09/20/23. This data corruption event was NOT the result of any breach, fraud, or malicious third constitution party actors and no personal patient information was compromised. [employer] Other 12-21-2023 Evaluation note* Encounter Date Diagnosis Assessment Notes Treatment Notes Treatment Clinical Notes Jul, Acute pain of left shoulder (ICD-10 - M25.512) Jul, Tear of left supraspinatus tendon (ICD-10 - M75.102) Intraoperative pictures and performed procedure reviewed in detail with patient. Patient instructed to continue use of sling. Instructed on gentle passive pendulum shoulder motion and active elbow and wrist exercise multiple times a day. Discussed limiting use of narcotic if possible. Discussed use of ice and heat for pain relief. Jul, Other specified postprocedural states (ICD-10 - Z98.890) [facility] Other 12-11-2023 Evaluation note* Encounter Date Diagnosis Assessment Notes Treatment Notes Treatment Clinical Notes Jul, Other specified postprocedural states (ICD-10 - Z98.890) [facility] Other 12-05-2023 Evaluation note* Encounter Date Diagnosis Assessment Notes Treatment Notes Treatment Clinical Notes Jul, Acute pain of left shoulder (ICD-10 - M25.512) Jul, Tear of left supraspinatus tendon (ICD-10 - M75.102) Previous MRI again reviewed in detail with patient as left supraspinatus tear with possible subscapularis injury as well. We will plan on arthroscopic rotator cuff repair, possible biceps tenodesis. The patient has stated that they do not want to live in this condition any longer and would like to proceed with surgery. I feel that this is a reasonable option at this point and we may be able to improve function and decrease pain. We have discussed the process and procedure in detail including not eating or drinking 8 hrs prior to surgery, the need for general anesthesia and associated respiratory, cardiac, and patient position complications (such as nerve traction and compression). The benefit of regional block anesthesia and complications of arm numbness and neck pain. We discussed that pain and stifffness can be expected after surgery for months. 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 Patient is fully aware that this shoulder may never be the same. We discussed that our team will do everything we can to help achieve the best outcome. 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 If not, would recommend a daily aspirin post op. Jul, Pre-op exam (ICD-10 - Z01.818) [facility] Other 11-30-2023 Hospital Discharge instructions Additional Instructions You can take Tylenol every 4-6 hours if needed for fever or pain You can take Motrin every 6-8 hours if needed for fever or pain Salt water gargles to soothe your throat Flonase may be beneficial Rest Push fluids Follow with your PCP for recheck in 3 to 5 days Please return here if you have any trouble swallowing, shortness of breath, chest pain or any other concerns Continue antibiotic amoxicillin as ordered [facility]: [phone]) 398-118010-23-2023 Evaluation note* Encounter Date Diagnosis Assessment Notes Treatment Notes Treatment Clinical Notes May, Acute pain of left shoulder (ICD-10 - M25.512) May, Tear of left supraspinatus tendon (ICD-10 - M75.102) MRI reviewed in detail with patient as left supraspinatus tear with possible subscapularis injury as well. We will plan on arthroscopic rotator cuff repair, possible biceps tenodesis. The patient has stated that they do not want to live in this condition any longer and would like to proceed with surgery. I feel that this is a reasonable option at this point and we may be able to improve function and decrease pain. We have discussed the process and procedure in detail including not eating or drinking 8 hrs prior to surgery, the need for general anesthesia and associated respiratory, cardiac, and patient position complications (such as nerve traction and compression). The benefit of regional block anesthesia and complications of arm numbness and neck pain. We discussed that pain and stifffness can be expected after surgery for months. The complications of infection, hardware pullout, cuff repair failure, fpc pain and stiffness are well known problems that can require repeat surgeries. Patient is fully aware that this shoulder may never be the same. We discussed that our team will do everything we can to help achieve the best outcome. Patient wishes to wait until July to have surgery. Continue motion and rotator cuff strengthening exercises in the meantime. May, Pre-op exam (ICD-10 - Z01.818) [facility] Other 07-17-2023 Evaluation note* Encounter Date Diagnosis Assessment Notes Treatment Notes Treatment Clinical Notes Feb, Acute pain of left shoulder (ICD-10 - M25.512) Cayla presents with complaints of left shoulder pain. Radiographs reviewed and discussed in detail with patient. I am concerned about partial or full thickness rotator cuff tear. MRI can be helpful in diagnosis as well as planning future surgical options. We will submit to patient's insurance for approval and follow up to review results. Patient voices understanding and is agreeable to treatment plan. [facility] Other 02-27-[address] [facility]* Encounter Date Diagnosis Assessment Notes Treatment Notes Treatment Clinical Notes Aug, Wellness examination (ICD-10 - Z00.00) Personalized health advice was given to the beneficiary to health education of preventative counseling services or programs aimed at reducing identified risk factors and improving self-management or community-based lifestyle interventions to reduce health risks and promote self-management and wellness, including physical activity and nutrition. A written plan for screenings was discussed, flu vaccination, routine lab studies, eye exams, as well as risk factors for other medical problems. I have reviewed all preventative health recommendations to include immunizations. He is current on PSA. I am ordering colonoscopy for him to have to done for colo-rectal cancer screening. Blood pressure is within normal limits. Aug, Hyperlipidemia, unspecified hyperlipidemia type (ICD-10 - E78.5) Lipid panel reviewed with patient. This has improved from the past testing. I have encouraged patient to work on diet, increase activity as tolerated. He admits to not really following a specific diet. Encouraged to decrease his dairy and egg intake as these are high in cholesterol. Low fat/ low cholesterol diet encouraged and provided for review.. Statin therapy was discussed and these levels will continue to be monitored. Remainder of lab results reviewed with patient and his thyroid level is normal, CBC looks good, chemestries are normal along with renal function and glucose. Aug, Screening for prostate cancer (ICD-10 - Z12.5) Review of PSA level which was WNL, therefore, we will continue to monitor. Pt denies any urinary issues at this time. Aug, Screening for colon cancer (ICD-10 - Z12.11) I have ordered screening colonoscopy Aug, Ascending aortic aneurysm (ICD-10 - I71.2) Patient has been following with vascular for this and he is stable at this time. Patient states vascular has turned case over to me to continue to monitor. I am okay with this, but I have educated patient that this will need to be monitored. Educated on s/s to watch for example sudden severe back pain or extreme fatigue or feeling faint. If any of those symptoms to happen he is to proceed to ER Aug, Subacute cough (ICD-10 - R05.2) Patient reports that he has been having a cough for over the past 2 weeks or so. Increase colored mucous. Patient reports this is improving. He is to monitor this and advise if anything changes. [facility] Other 01-20-2023 Evaluation note* Encounter Date Diagnosis Assessment Notes Treatment Notes Treatment Clinical Notes Aug, Hyperlipidemia, unspecified hyperlipidemia type (ICD-10 - E78.5) Aug, Screening for prostate cancer (ICD-10 - Z12.5) Aug, Wellness examination (ICD-10 - Z00.00) [facility] Other 08-19-2022 Evaluation note* Encounter Date Diagnosis Assessment Notes Treatment Notes Treatment Clinical Notes Mar, Ascending aortic aneurysm (ICD-10 - I71.2) The patient has consulted with vascular specialist and had an echocardogram 04/04/22, results reviewed today. Mar, Mass of sternum (ICD-10 - M89.8X8) At this time we will monitor for changes, upon examination this is likey a cyst. We will continue to monitor. Mar, History of COVID-19 (ICD-10 - Z86.16) Mar, Right pulmonary infiltrate on CXR (ICD-10 - R91.8) Review of chest CT obtained 02/28/22 noting right basilar infiltrate, the patient states he continues to bring up phlegm post covid. A repeat chest x-ray orderd to be done in the next two - three weeks. Will call back for the x-ray results 1 to 2 days after having the x-ray. [facility] Other 07-06-2022 Evaluation note* Encounter Date Diagnosis Assessment Notes Treatment Notes Treatment Clinical Notes Feb, Ascending aortic aneurysm (ICD-10 - I71.2) [facility] Other 05-24-2022 NotePROCEDURE: XR FOOT RT MIN 3 VIEWS HISTORY: Pain in right foot ; acute right heel pain without injury COMPARISON: None. FINDINGS: BONES:Slight cortical irregularity involving a small calcaneal plantar spur which may represent fracture. Unremarkable appearance of the rest of the foot. SOFT TISSUES:No visible soft tissue swelling. EFFUSION:None visible. OTHER: Negative. IMPRESSION: 1. Fracture of a small calcaneal plantar spur versus calcium deposition within the plantar aponeurosis at its insertion. Correlate for focal pain over this area. Electronically authenticated by: MACY HIDALGO Date: 2022-01-17 10:14[facility]05-24-2022 NotePROCEDURE: XR HAND RT MIN 3V HISTORY: Pain in finger of right hand ; acute right thumb pain without injury COMPARISON: None. FINDINGS: BONES:No fracture, acute abnormality, or significant arthropathy. SOFT TISSUES:No visible soft tissue swelling. EFFUSION:None visible. OTHER: Negative. IMPRESSION: 1. No acute bone abnormality or significant degenerative changes. Electronically authenticated by: MACY HIDALGO Date: 2022-01-17 10:12[facility] Encounter Date Diagnosis Assessment Notes Treatment Notes Treatment Clinical Notes Aug, Vision loss, bilateral (ICD-10 - H54.3) Symptoms are improving. He continues to follow up with [facility]. Aug, Light-headedness (ICD-10 - R42) Aug, History of COVID-19 (ICD-10 - Z86.16) Aug, Acute pulmonary embolism, unspecified pulmonary embolism type, unspecified whether acute cor pulmonale present (ICD-10 - I26.99) Reviewed CT scan from 08/17/21, there is no further evidence of PE. Due to the nature of the previous PE, patient is to stay on the xarelto for 6 months. I did provide samples of xarelto 15 mg to get him through october. Aug, Bronchitis (ICD-10 - J40) Reviewed ER report from 08/17/21. Patient had CT scan done. Patient was discharged on doxycycline . Patient is feeling significantly better. Aug, Aortic aneurysm (ICD-10 - I71.9) Reviewed CT scan with patient, this shows a brodeline ascending aortic aneurysm. Aug, Encounter for staple removal (ICD-10 - Z48.02) Aug, Other I did review his emergency room evaluation including blood work and a CTA of the chest. All is essentially within normal limits. He therefore is going to continue with the Xarelto for an additional 8 weeks and then discontinue that totally. Once again the pulmonary embolism appears to have resolved in the CTA of the chest that was performed in the emergency room [facility] Other 10-26-2021 Evaluation note* Encounter Date Diagnosis Assessment Notes Treatment Notes Treatment Clinical Notes May, Acute pulmonary embolism, unspecified pulmonary embolism type, unspecified whether acute cor pulmonale present (ICD-10 - I26.99) [facility] Other 10-25-2021 Evaluation note* Encounter Date Diagnosis Assessment Notes Treatment Notes Treatment Clinical Notes May, Acute pulmonary embolism, unspecified pulmonary embolism type, unspecified whether acute cor pulmonale present (ICD-10 - I26.99) [place] [facility] [place], patient did develop a right lung PE following COVID illness the beginning of 04/2021. Patient was started on Xarelto 15mg BID while in the ER and was recommended to stay on this for three months. He does admit he only took this once per day for the first two weeks starting BID last week. Patient does report some continued shortness of breath and mild pressure on the right side of his chest. I do recommend he start on Xarelto 20mg starting 06/24 and remain on this for six months at least. Samples provided. I did also recommend repeating a CT scan with PE protocol in six months to be sure his lungs have improved. Education provided with safety precautions while on a blood thinner. Patient is in agreement with the above treatment plan. We will continue to monitor. May, COVID-19 (ICD-10 - U07.1) Patient was diagnosed with COVID the beginning of April 2021. May, Shortness of breath (ICD-10 - R06.02) Patient does report ongoing shortness of breath since his covid diagnosis as well as his PE. I did order the above imaging to ensure this is resolved in six months. May, Encounter to establish care with new doctor (ICD-10 - Z76.89) Patient previously followed with Dr. Patel for his PCP. He has not had any recent blood work, I did suggest we hold off on any blood work until he is feeling better. We will discuss a colonocopy at that time as well. May, Other Very lengthy discussion was had discussing Anticoagulation therapy, COVID-19, prevention for further blood clots, etc. This discussion took place for around 15-20 minutes. [facility] Other 09-01-2021 History general Narrative - Reported* Type Description Date Medical History Right PE s/p Covid-19 illness Medical History Right rotator cuff tear with rep air Medical History arthritis of the right wrist Medical History COVID-19 04/2021 Medical History 06/03/2021 Right lung PE- xarelt o initiated Surgical History rotator cuff repair- right Surgical History left knee acl repair Surgical History low back surgery Surgical History c-spine surgery Hospitalization History surgeries [facility] Other 09-01-2021 History general Narrative - Reported* Type Description Date Medical History Right PE s/p Covid-19 illness Medical History Right rotator cuff tear with rep air Medical History arthritis of the right wrist Medical History COVID-19 04/2021 Medical History 06/03/2021 Right lung PE- xarelt o initiated Surgical History rotator cuff repair- right Surgical History left knee acl repair Surgical History low back surgery Surgical History c-spine surgery Surgical History left shoulder arthro scopy with supraspinatus rotator cuff repair 08/08/23 Hospitalization History surgeries [facility] [employer] Other Evaluation noteNort [employer] Other Evaluation noteNo InformationNortLancaster Rehabilitation Hospital [employer] Other Evaluation noteNo assessment information available [facility] Work Phone: Evaluation note* Diagnosis Acute pain of left shoulder- Primary S/P left rotator cuff repair documented in this encounter [facility] HealthcareEvaluation note* Diagnosis Acute pain of left shoulder- Primary S/P left rotator cuff repair Status post left rotator cuff repair documented in this encounter [facility] HealthcareEvaluation note* Diagnosis Onset Date Resolution Status Ascending aortic aneurysm ac [place] Deep vein thrombosis of peroneal vein acute Pulmonary embolism acute [facility] Work Phone: History and physical note Author Tyra Panda [facility] October 23, 2022 11:05am Note Date/Time October 23, 2022 10:46am [facility] [address] [place] [address] Gastroenterology H&P Signed Patient: Cayla Worrell MR#: [id number] : 1960 Acct:[id number] Age/Sex: 62 / M Adm Date: 3 Loc: Room: Type: [facility] Attending Dr: Tyra Panda MD Copies to: Rolando Cortes,DO Tyra Panda MD~ Date of Service: 10/23/2022 HISTORY & PHYSICAL: Patient's history with special attention to the cardiovascular, pulmonary systems and the current problem was reviewed with the patient immediately prior to the procedure. Present medications and doses reviewed in the EMR. Allergies and pertinent laboratory tests were also reviewedat this time in the EMR. The physical examination, as below, was then performed. Indication, assessment and HPI: 62-year-old man here for screening colonoscopy Family history of GI malignancy? No PHYSICAL EXAMINATION Mouth and Pharynx : Moist mucus membranes, normal dentition Cardiac: Regular rate, regular rhythm Pulmonary: Clear to auscultation bilaterally, no wheezing Neurological: Alert and oriented x3, no focal deficits noted Abdomen: Abdomen soft, non-tender REVIEW OF SYSTEMS Constitutional: Denies malaise, fevers Cardiovascular: Denies chest pain, palpitations Respiratory: Denies shortness of breath, wheezing Gastrointestinal: Per HPI Genitourinary: Denies dysuria, polyuria Musculoskeletal: Denies joint swelling, joint stiffness Neurological: Denies numbness, tingling Integumentary: Denies rashes, skin lesions Endocrine: Denies fatigue, weight loss Written informed consent obtained from the patient. Risks (including but not limited to perforation, infection, bloating, bleeding, need for emergent surgeryand loss of life), benefits and alternatives explained and questions answered. The patient verbalized understanding. Based on history patient is an appropriate candidate for the procedure. Tyra Panda M.D. Documented By: Tyra Panda MD 10/23/22 1045 Signed By: <Electronically signed by Tyra Panda MD> 10/23/[address] [facility] Work Phone: History general Narrative - ReportedNew [place] [employer] Other Hospital Discharge instructions Additional Instructions DISCHARGE INSTRUCTIONS FOR COLONOSCOPY WHAT TO EXPECT: - You may feel full, gassy or cramping after your procedure. In some cases, this may be from a few hours to a day. Walking may help relieve the discomfort. - If you have polyp(s) removed you may note some minor bloody discharge after your first bowel movements. - You should begin to recover from anesthesia within 1 hour of the procedure, however may feel groggy for the next 24 hours. DO's AND DON'Ts: - Call your doctor right away if you have a hard abdomen, severe pain, are passing lots of bright red blood or clots. - Call your doctor if you develop any rashes, hives or difficulty breathing. - Let your doctor know if you have not had a bowel movement by 3 days after your procedure. - If you take 81 mg aspirin for your heart it is safe to resume this medication. - If you take other blood thinner medications your doctor will instruct you when these can safely be resumed. - Do NOT drive for 24 hours. - Do NOT operate machinery such as power tools, lawn mowers, snow blowers, sewing machines, etc. for 24 hours. - Avoid alcoholic beverages and drugs for allergies, nerves, or sleep. - Do NOT stay alone. Do NOT leave your child unattended. - Do NOT make important personal or business decisions or sign any legal documents. - Eat solid foods and drink liquids in smaller amounts than usual until normal appetite returns. If you should experience an upset stomach, liquids high in sugar content (soda, Ronnie-Aid, non-acid juices) are recommended. - You can resume normal activities tomorrow. FOLLOW UP & RECOMMENDATIONS: -Notify the doctor if you have any problems. -Repeat colonoscopy in 10 years -Follow up with PCP. -Office number [phone]. [facility] Work Phone: Hospital Discharge instructions Additional Instructions HERE ARE SOME IMPORTANT POST-OPERATIVE INSTRUCTIONS FOR YOU: Rotator Cuff Repair/Labrum Repair ACTIVITY 1. Begin gentle shoulder pendulum exercises today. 2. Progress to active elbow/wrist motion as tolerated. 3. Utilize your sling during activity. It is ok to remove sling when sitting. 4. You may need to sleep sitting up to prevent pain. 5. Ice shoulder for 20 minutes every hour as tolerated. DRESSING 1. OK to remove dressings in 24 hours. Apply Band-Aids, and the OK to shower. 2. If there are tape strips over the incision line, do not remove them. MEDICATION 1. Take pain medications as directed every 4-6 hours as needed for pain. 2. Progressively decrease pain medication use as soon as possible. POST-OPERATIVE APPOINTMENT: 1. Return in ONE week for re-evaluation. 2. Call [phone] for further questions.[facility] Work Phone: Summary Purpose Family History Relationship Condition Age at Onset Recorded Date/T fernando father Diabetes mellitus Unknown Hypertension Unknown Atrial fibrillation Unknown Not Specified Atrial fibrillation Unknown Relationship Condition Age at Onset Recorded Date/T fernando father Diabetes mellitus Unknown Hypertension Unknown Atrial fibrillation Unknown Not Specified Atrial fibrillation Unknown Not Specified Heart disease Unknown Advance Directives Advance Directive Response Recorded Date/ Time Advance Directives No April 6:31pm Advance Directive Response Recorded Date/ Time Advance Directives No April 5:31pm Reason for Referral Reason [place]/23[place] [facility] [place] [place] Dimitry coral is needing screening colonoscopy. Please call patient to get scheduled. Thank you Diagnosis 1 Screening for colon cancer (Z12.11) Referral Organization [facility] [place] Referring Provider First Name Rolando Referring Provider Last Name Sophia Referring Provider Specialty Family Ulisses barrientos Referred Organization [facility] Gastroenterolo gy Referred Provider Tyra Panda Referred Address [address] [place] [address],[address] ,[place], [place],[address] Referred Provider Specialty Gastroentero logy Referral Priority Routine Referral Appointment Date 2022-10-23 General Notes [facility], [facility] 023 11:19:36 AM >Received today and sent P2P [facility] 10/05/2022 01:28:04 PM >Patient has been scheduled [facility] 10/23/2022 01:10:27 PM >Operative report in chart Reason *FU 03/09 consult and treat; ascending thoracic aortic aneurysm increased in size Diagnosis 1 Ascending aortic ane urysm (I71.2) Referral Organization [facility] [place] Referring Provider First Name Rolando Referring Provider Last Name Sophia Referring Provider Specialty [facility] Ulisses barrientos Referred Organization [facility], [facility] Referred Provider Jorge Luis Armas II Referred Address [address] [place] [address] [address],[place], [place],[address] Referred Provider Specialty Thoracic Britt soumya Referral Priority Routine General Notes [facility] 022 07:27:32 AM >Received today and sent referral P2P and fax. They will review and call patient to schedule Chief Complaint and Reason for Visit Chief Complaint Aortic Aneurysm i26.09 Chief Complaint Aortic Aneurysm i26.09 R91.8 Chief Complaint i26.09 R91.8 i71.2 i26.99 Chief Complaint i71.2 i26.99 Chief Complaint Hyperlipidemia, unsp ecified hyperlipidemia type, w Screening Chief Complaint M25.512 M24.812 Chief Complaint M24.812 Shoulder pain night sweats,vomiting,lightheaded Chief Complaint M24.812 Shoulder pain night sweats,vomiting,lightheaded chills, Chief Complaint M24.812 Shoulder pain night sweats,vomiting,lightheaded chills, Shoulder pain Chief Complaint M24.812 Shoulder pain night sweats,vomiting,lightheaded chills, Z01.818/Z86.711 Shoulder pain Chief Complaint Shoulder pain night sweats,vomiting,lightheaded chills, H & P Left Shoulder Arthroscopy With Rot Z01.818/Z86.711 Shoulder pain m75.102 Amb Documentation Amb Documentation Hospital f/u- dandy Reason for Visit Ascending aortic ane urysm Deep vein thrombosis of peroneal vein Pulmonary embolism Additional Source Comments (unrecognized sect ion and content) No Status Records FoundNo Status Records FoundNo Status Records FoundNo Status Records FoundNo Status Records Found INFORMATION SOURCE (unrecogn ized section and content) DATE CREATED AUTHOR 02/02/2022 [facility] DATE CREATED AUTHOR AUTHOR'S ORGANIZ ATION 06/28/2022 [facility] [place] DATE CREATED AUTHOR AUTHOR'S ORGANIZ ATION 07/06/2022 [facility] [place] DATE CREATED AUTHOR AUTHOR'S ORGANIZ ATION 09/10/2023 [facility] DATE CREATED AUTHOR AUTHOR'S ORGANIZ ATION 10/24/2023 [facility] dical Specialists EPIC REASON FOR VISIT (unrecogniz ed section and content) Specialty Diagnoses / Procedures Referred By Wendie wilson Referred To Contact Physical Therapy Diagnoses Unspecified rotator cuff tear or rupture of left shoulder, not specified as traumatic Pain in left shoulder Other specified postprocedural states Procedures ID PHYSICAL THERAPY EVALUATION LOW COMPLEX 20 MINS Kushal Bateman MD [address] [place] [address] Nikita Nicole, PT [address] [facility] [address] [place] [address] Referral ID Status Reason Start Date Expiration Date V isits Requested Visits Authorized [id number] Authorized 09/25/2023 03/23/2024 24 24 Reason Onset Date Comments re: PT today 10/09/2023 She called joon bowden Reji is currently in hospital and not going to be in today; I noted and as of now she confirmed 10/16. She said she'd keep us updated. Care Teams (unrecognized sec tion and content) Team Status: Inactive Member Role Status Dates Rolando Cortes , DO Primary Care Provider Active Jorge Luis Tompkins MD Attending Provider Active Team Status: Inactive Member Role Status Dates Rolando Cortes , DO Primary Care Provider, Attending Provi guy Active Team Status: Active Member Role Status Dates Rolando Cortes , DO Primary Care Provider Active Team Status: Inactive Member Role Status Dates Rolando Cortes , DO Primary Care Provider Active Tyra Panda MD Attending Provider Active Team Status: Inactive Member Role Status Dates Rolando Cortes , DO Primary Care Provider Active Kushal Bateman MD Attending Provider Active Team Status: Inactive Member Role Status Dates Rolando Cortes , DO Primary Care Provider Active Lisa Lerner APRN Emergency Provider Active Team Status: Active Member Role Status Dates Rolando Cortes , DO Primary Care Provider Active Kushal Bateman MD Attending Provider Active Team Status: Inactive Member Role Status Dates Rolando Cortes , DO Primary Care Provider Active Orion Mondragon MD Emergency Provider Active Team Status: Inactive Member Role Status Dates Rolando Cortes , DO Primary Care Provider Active Sta rt: July 26, 2023 End: July 26, 2023 Kushal Bateman MD Attending Provider Active Star t: July 26, 2023 End: July 26, 2023 Team Status: Inactive Member Role Status Dates Rolando Cortes , DO Primary Care Provider Active Sta rt: July 26, 2023 End: July 26, 2023 Lisa Lerner APRN Emergency Provider Active Start: July 26, 2023 End: July 26, 2023 Team Status: Inactive Member Role Status Dates Rolando Cortes DO Primary Care Provider Active Sta rt: July 28, 2023 End: July 28, 2023 Orion Mondragon MD Emergency Provider Active St art: July 28, 2023 End: July 28, 2023 Team Status: Inactive Member Role Status Dates Kushal Bateman MD Attending Provider Active Star t: July 31, 2023 End: July 31, 2023 Team Status: Inactive Member Role Status Dates Rolando Cortes DO Primary Care Provider Active Sta rt: August 03, 2023 End: August 03, 2023 Kushal Bateman MD Attending Provider Active Star t: August 03, 2023 End: August 03, 2023 Team Status: Inactive Member Role Status Dates Rolando Cortes , DO Primary Care Provider Active Sta rt: August 08, 2023 End: August 08, 2023 Kushal Bateman MD Attending Provider Active Star t: August 08, 2023 End: August 08, 2023 Team Status: Active Member Role Status Dates Provider Conversion Attending Provider Active St art: August 16, 2023 Team Status: Inactive Member Role Status Dates Rolando Cortes DO Primary Care Provider Active Sta rt: August 16, 2023 End: August 16, 2023 Kushal Bateman MD Attending Provider Active Star t: August 16, 2023 End: August 16, 2023 Team Status: Active Member Role Status Dates Rolando Cortes DO Primary Care Provider Active Sta rt: October 10, 2023 Jumana Horton LPN Attending Provider Active Sta rt: October 10, 2023 Team Status: Active Member Role Status Dates Rolando Cortes DO Primary Care Provider Active Sta rt: October 11, 2023 Jumana Horton LPN Attending Provider Active Sta rt: October 11, 2023 Team Status: Inactive Member Role Status Dates Rolando Cortes DO Primary Care Provide r, Attending Provider Active Start: October 18, 2023 End: October 18, 2023 Goals (unrecognized section and content) Goals may be documented in a n alternate section FOR RECORDS PERTAINING TO PATIENTS WHO ARE OR HAVE BEEN ENROLLED IN A CHEMICAL DEPENDENCY/SUBSTANCEABUSE PROGRAM, SOME INFORMATION MAY BE OMITTED. This clinical summary was aggregated from multiple sources. Caution should be exercised in using it in the provision of clinical care. This summary normalizes information from multiple sources, and as a consequence, information in this document may materially change the coding, format and clinical context of patient data. In addition, data may be omitted in some cases. CLINICAL DECISIONS SHOULD BE BASED ON THE PRIMARY CLINICAL RECORDS. [facility] [employer] [facility]. provides no warranty or guarantee of the accuracy or completeness of information in this document.
--- NOTE | 2023-10-31 20:02 | XR_ITS ---
The [address] [address] Patient Name: CAYLA WORRELL MRN: [id number] date: 1960 Sex: M Assigned Patient Location: ER Current Patient Location: ER Accession/Order Number: [id number] Exam Date: 10/31/2023 20:10 Report Date: 10/31/2023 20:38 At the request of: SYD WILL Procedure: XR hand RT min 3V EXAM: XR hand RT min 3V HISTORY: crush injury COMPARISON: None. TECHNIQUE: 3 views of the right hand FINDINGS: Linear lucency is seen involving the distal aspect of the distal phalanx of the right third digit, suggestive of an acute nondisplaced fracture. Additionally, a small linear lucency is seen about the radial base of the distal phalanx of the fourth digit, suspicious for a small nondisplaced intra-articular fracture. Joint alignment is normal. Joint spaces are preserved. Soft tissues appear unremarkable. XR/XR hand RT min 3V IMPRESSION: Linear lucency is seen involving the distal aspect of the distal phalanx of the right third digit, suggestive of an acute nondisplaced fracture. Additionally, a small linear lucency is seen about the radial base of the distal phalanx of the fourth digit, suspicious for a small nondisplaced intra-articular fracture. Electronically authenticated by: ASAD ALDANA Date: 10/31/2023 20:38
--- NOTE | 2023-10-31 20:28 | ED_ITS ---
HPI - Extremity Injury (Upper) General Chief Complaint: Extremity Injury, Upper Stated Complaint: Upper Extremity Injury Time Seen by Provider: 10/31/23 20:02 Source: patient Mode of arrival: walk-in History of Present Illness HPI narrative: Patient is a 63-year-old male who presents to the emergency department for the evaluation of an injury to the right hand. He reports a crushing injury from a barn door earlier today. He has no significant pain except in the left thumb where he is noted to have a large subungual hematoma of the entire fingernail. He is on Eliquis daily. No medications taken prior to arrival. Related Data Previous Rx's Medication Instructions Recorded apixaban 5 mg tablet (Eliquis) 10 mg (2 x 5 mg) PO BID #60 tabs 10/09/23 metoprolol tartrate 25 mg tablet 25 mg PO BID #60 tabs 10/09/23 cephalexin 500 mg capsule 500 mg PO Q8H 10 days #30 caps 10/31/23 hydrocodone 5 mg-acetaminophen 325 1 tab PO Q6H PRN pain 3 days #12 10/31/23 mg tablet tabs Allergies Allergy/AdvReac Type Severity Reaction Status Date / Time No Known Drug Allergies Allergy Verified 10/31/23 19:09 Review of Systems ROS Constitutional Denies: fever or chills Ears, nose, mouth, and throat Denies: throat pain Cardiovascular Denies: chest pain Respiratory Denies: shortness of breath or cough Gastrointestinal Denies: nausea or vomiting Musculoskeletal Reports: extremity pain; Denies: back pain or neck pain Integumentary/Breast Denies: rash Neurological Denies: headache Endocrine Denies: excessive urination Hematologic/Lymphatic Reports: easy bruising and easy bleeding PFSH PFS Medical History (Updated 10/31/23 @ 20:59 by DIMITRY Jerez) Chest pain ?R07.9 - Chest pain, unspecified (ICD-10) COVID ?U07.1 - COVID-19 (ICD-10) Fracture dislocation of cervical spine ?S12.9XXA - Fracture of neck, unspecified, initial encounter (ICD-10) ACL injury tear ?S83.519A - Sprain of anterior cruciate ligament of unspecified knee, initial encounter (ICD-10) Surgical History (Updated 10/09/23 @ 02:39 by Valentina Albright) History of rotator cuff surgery ?Z98.890 - Other specified postprocedural states (ICD-10) Social History Within the past year, how often did you have a drink containing alcohol: never Score interpretation: A score less than 4 is consistent with normal alcohol consumption. 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 Swelling and ecchymosis noted to the d istal phalanx of the right middle finger. 2 mm subungual hematoma noted of the right middle finger nail. No obvious deformity. No bleeding. Psych: Normal mood and affect Neuro: No focal neuro deficit Skin: Warm, dry, intact Constitutional Vital Signs, click to edit/add: Last Vital Signs Temp 97.5 F L 10/31/23 19:03 Pulse 60 10/31/23 19:03 Resp 16 10/31/23 19:03 BP 140/80 10/31/23 19:03 Pulse Ox 95 10/31/23 19:03 O2 Del Method Room Air 10/31/23 19:03 Course Vital Signs Vital signs: Vital Signs Temperature 97.5 F L 10/31/23 19:03 Pulse Rate 60 10/31/23 19:03 Respiratory Rate 16 10/31/23 19:03 Blood Pressure 140/80 10/31/23 19:03 Pulse Oximetry 95 10/31/23 19:03 Oxygen Delivery Method Room Air 10/31/23 19:03 Temperature 97.5 F L 10/31/23 19:03 Pulse Rate 60 10/31/23 19:03 Respiratory Rate 16 10/31/23 19:03 Blood Pressure 140/80 10/31/23 19:03 Pulse Oximetry 95 10/31/23 19:03 Oxygen Delivery Method Room Air 10/31/23 19:03 MDM - Extremity Injury (Upper) MDM Narrative Medical decision making narrative: The right thumb nail was trephinated with the Bovie, there was moderate bleeding and patient had instant improvement of pain. X-rays show a fracture of the distal phalanx of the right middle finger as well as a questionable lucency in the distal phalanx of the right fourth finger. Patient has no pain to the right fourth finger, no swelling or ecchymosis. He will be treated for fracture of the distal phalanx of the right third finger and subungual hematoma of the right thumb. Tetanus is updated and he was discharged home on pain medication and ant ibiotics. Follow-up with PCP and orthopedics and return to the ER if symptoms change or worsen. Medical Records Attestation: I reviewed the patient's medical records. Imaging Data XR Hand: Attestation: I have reviewed the pertinent imaging results. Radiologist's impression: ITS Impressions Hand X-Ray 10/31/23 20:02 IMPRESSION: Linear lucency is seen involving the distal aspect of the distal phalanx of the right third digit, suggestive of an acute nondisplaced fracture. Additionally, a small linear lucency is seen about the radial base of the distal phalanx of the fourth digit, suspicious for a small nondisplaced intra-articular fracture. Electronically authenticated by: ASAD ALDANA Date: 10/31/2023 20:38 Discharge Plan Discharge Chief Complaint: Extremity Injury, Upper Clinical Impression: Fracture of finger of right hand, Crushing injury of right hand, Subungual hematoma of finger Patient Disposition: Home, Self-Care Time of Disposition Decision: 20:58 Condition: Good Prescriptions / Home Meds: New hydrocodone-acetaminophen 5-325 mg tablet 1 tab PO Q6H PRN (Reason: pain) 3 Days Qty: 12 0RF Rx Instructions: DX: M79.641 cephalexin 500 mg capsule 500 mg PO Q8H 10 Days Qty: 30 0RF No Action Eliquis 5 mg Tablet 10 mg PO BID Qty: 60 11RF Rx Instructions: 2 po BID for 1 week then 1 po BID for life metoprolol tartrate 25 mg Tablet 25 mg PO BID Qty: 60 11RF Instructions: Subungual Hematoma (ED), Finger Fracture (ED), Crush Injury (ED) Referrals: Rolando Cortes DO [Primary Care Provider] - 1 week Kobe Benz MD [Physician] - 1 week Discharge Date/Time: 10/31/23 21:07 Stand Alone Forms: Portal Instructions
[2023-10-31] MEDS: ADACEL DIPH,PERTUSS(ACELL),TET VAC/PF 0.5 ML ADULT SYRINGE IM (20:37)
== END 2023-10-31 21:07 | disposition home or self-care (01) ==
PROVIDERS: Emergency Provider Internal Medicine; PCP Family Medicine
DX: S60.111A Contusion of right thumb with damage to nail, initial encounter (principal); S62.632A Displaced fracture of distal phalanx of right middle finger, initial encounter for closed fracture; S67.21XA Crushing injury of right hand, initial encounter; Z79.01 Long term (current) use of anticoagulants; Z86.16 Personal history of COVID-19; X58.XXXA Exposure to other specified factors, initial encounter; Z23 Encounter for immunization
CPT/HCPCS: 11740; 29130; 73130; 90471; 90715; 99284

== ENCOUNTER 2024-06-24 08:01 | Emergency (ER) | payer OTHER, SELFPAY ==
[2024-06-24 08:04] VITALS: BP 141/98; PULSE 69; TEMP 36.8; O2SAT 97; BMI 25.1
--- OUTSIDE RECORDS SUMMARY | 2024-06-24 08:12 | XMS_ITS | CCD ---
Author Organization [facility] Inform ion Partnership [facility] Care Team Providers Care Community Health Outreach Worker Name Role Phone ELIA, DR JUNE Primary [...] Unavailable DO Rolando Cortes Primary Care Provider DO Rolando Cortes Attending Provider [phone] MD Jorge Luis Tompkins Attending Provider DO Rolando Corets Primary Care Provider DO Rolando Cortes Attending Provider Rolando Cortes Primary Care Unavailable DO Rolando Cortes Primary Care Provider [phone] MD Jorge Luis Tompkins Attending Provider DO Rolando Cortes Attending Provider [phone] DO Rolando Cortes Primary Care Provider MD Tyra Panda Attending Provider [phone] Tyra Panda Unavailable Kelli Doss Unavailable DO Rolando Cortes Primary Care Provider MD Kushal Bateman Attending Provider Kushal Bateman Unavailable DO Rolando Cortes Primary Care Provider [phone] MD Kushal Bateman Attending Provider JAY Lerner Emergency Provider MD Orion Mondragon Emergency Provider Unavailable Primary Care Provider Unavailfang Cortes, Rolando Primary Care Provider MD Kushal Bateman Attending Provider [phone] MD Kushal Bateman Attending Provider Jeralds, Rolando Primary Care Provider [phone] DO Rolando Cortes Attending Provider Sophia, Rolando Primary Care Provider MD Gonzalo Oconnor Attending Provider Rolando Cortes Attending Unavailable Kuns, Rolando Admitting Unavailable Kuns, Rolando Primary Care Unavailable Olexa, Kushal Admitting Unavailable Kuns, Rolando Primary Care Unavailable Olexa, Kushal Attending Unavailable Olexa, Kushal Admitting Unavailable Kuns, Rolando Primary Care Unavailable Olexa, Kushal Attending Unavailable Olexa, Kushal Admitting Unavailable Olexa, Kushal Attending Unavailable Kuns, Rolando Primary Care Unavailable Kuns, Rolando Primary Care Unavailable Olexa, Kushal Admitting Unavailable Olexa, Kushal Attending Unavailable Olexa, Kushal Admitting Unavailable Olexa, Kushal Attending Unavailable Kuns, Rolando Primary Care Unavailable Kuns, Rolando Primary Care Unavailable Lisa Lerner Admitting Unavailable Lisa Lerner Attending Unavailable Orion Mondragon Admitting Unavailable Orion Mondragon Attending Unavailable Kuns, Rolando Primary Care Unavailable Kuns, Rolando Primary Care Unavailable Gonzalo Oconnor Admitting UnavailGonzalo Luna Attending Unavailabl e Jeralds, Orlando Primary Care Unavailable Olexa, Kushal Admitting Unavailable Olexa, Kushal Attending Unavailable NIKITA NICOLE Attending Unavailable OLEXA, KUSHAL Referring Unavailable SALLIE ESPINAL Attending Unavailable OLEXA, KUSHAL Referring Unavailable NIKITA NICOLE Attending Unavailable OLEXA, KUSHAL Referring Unavailable RUBY VERA Attending Unavailable OLEXA, KUSHAL Referring Unavailable RUBY VERA Attending Unavailable OLEXA, KUSHAL Referring Unavailable RUBY VERA Attending Unavailable OLEXA, KUSHAL Referring Unavailable NIKITA NICOLE Attending Unavailable OLEXA, KUSHAL Referring Unavailable NAPOLEON IVAN Attending Unavailable NAPOLEON IVAN Referring Unavailable NAPOLEON IVAN Attending Unavailable NIKITA NICOLE Attending Unavailable KUSHAL BATEMAN Referring Unavailable Allergies Allergy Classification Reported Allergen(s) Allergy Type Date of Onset Reaction(s) Facility (9 sources) patient allergy list reviewed by nurse or physicia Propensity to adverse reactions 7 Comment:Done [employer] Other (9 sources) Allergies Reconciled Propensity to adverse reactions Unknown [employer] Other (3 sources) Cephalexin; Translations: [cephalexin] Drug Allergy 3 [facility] Medications Current Medications Medication Drug Class(es) Dates Sig (Normalized) Sig (Original) acetaminophen 325 mg / oxyCODONE hydrochloride 5 mg oral tablet (1 source) Opioid Agonist Start: 08-06-2023 take 1 tablet by mouth every four hours as needed for pain Percocet 5-325 MG 1 tablet as needed for pain Orally up to every 4 hrs for 5 days AKASH: [id number] Jul, Active apixaban 5 mg oral tablet (20 sources) Factor Xa Inhibitor Start: 02-03-2024 take 1 tablet by mouth in the morning Eliquis 5 MG tablet Take 5 mg by mouth in the morning and 5 mg before bedtime. 02/03/2024 Active Start: 10-11-2023 End: 10-18-2023 take 1 tablet by mouth twice daily Apixaban (Eliquis) 5 mg tablet Discontinued 5 MG PO Twice daily October 18, 2023 3:52pm October 18, 2023 4:23pm cephalexin 500 mg oral capsule (2 sources) Cephalosporin Antibacterial Start: 08-06-2023 take 1 capsule by mouth every eight hours Cephalexin 500 MG 1 capsule Orally every 8 hrs for 2 days Jul, Active Start: 07-24-2023 take 1 capsule by mo [facility] every eight hours Cephalexin 500 MG 1 capsule Orally TID for 10 days Jun, Active meloxicam 15 mg oral tablet (3 sources) Nonsteroidal Anti-inflammatory Drug Start: 06-09-2024 take 1 tablet by mouth once daily meloxicam (Mobic) 15 MG tablet Indications: Capsulitis of metatarsophalangeal (MTP) joint of left foot TAKE 1 TABLET BY MOUTH EVERY DAY 30 tablet 06/09/2024 Active Start: 05-08-2024 End: 06-09-2024 Meloxicam Discontinued 15 MG PO May 12, 2024 12:00am May 12, 2024 8:51am methylPREDNISolone (1 source) Corticosteroid Start: 04-24-2024 methylPREDNISo lone (Medrol Dospak) 4 MG tablets Indications: Capsulitis of metatarsophalangeal (MTP) joint of left foot Follow schedule on MEDROL PACK package instructions to be used as directed 21 tablet 04/24/2024 Active [place] (No Known Home Meds) (3 sources) Start: 10-23-2022 [place] (No Kn own Home Meds) Active October 23, 2022 1:00am Start: 10-23-2022 [place] (No Kn own Home Meds) Active October 23, 2022 12:00am Completed/Discontinued Medications Medication Drug Class(es) Dates Sig (Normalized) Sig (Original) acetaminophen 325 mg / HYDROcodone bitartrate 5 mg oral tablet (20 sources) Opioid Agonist Start: 06-03-2021 End: 08-17-2021 take 1 tablet by mouth every six hours Hydrocodone-Acetam inophen Discontinued 1 TAB PO Q6H 15 4 June 03, 2021 August 17, 2021 3:56pm [id number] 200 actuat albuterol 0.09 mg/actuat metered dose inhaler (20 sources) beta2-Adrenergic Agonist Start: 05-04-2021 End: 06-03-2021 Albuterol Sulfate (Ventolin Hfa) 90 mcg/actuation HFA aerosol inhaler Discontinued 2 INH INHALATION EVERY 4-6 HOURS 6.7 May 04, 2021 12:00am June 03, 2021 3:50am Albuterol-Budesonide (Airsupra) 90-80 mcg/actuation HFA aerosol inhaler (7 sources) Start: 11-30-2023 End: 03-20-2024 Albuterol-Budesoni de (Airsupra) 90-80 mcg/actuation HFA aerosol inhaler Discontinued 2 INH INHALATION Twice daily 10.7 November 30, 2023 12:00am March 20, 2024 11:06am samples Start: 11-30-2023 Albuterol-[place] sonide (Airsupra) 90-80 mcg/actuation HFA aerosol inhaler Active 2 INH INHALATION Twice daily 10.7 November 30, 2023 12:00am samples amoxicillin 500 mg oral capsule (20 sources) Penicillin-class Antibacterial Start: 07-26-2023 End: 10-11-2023 take 500 mg by mouth twice daily Amoxicillin Discontinued 500 MG PO Twice daily July 26, 2023 1:00am October 11, 2023 12:51pm Start: 07-25-2023 take 1 tablet by srinivasan th every twelve hours Amoxicillin 500 MG 1 tablet Orally Twice a day for 10 days Jun, Active aspirin 81 mg delayed release oral tablet (13 sources) Platelet Aggregation Inhibitor, Nonsteroidal Anti-inflammatory Drug Start: 10-11-2023 End: 10-18-2023 take 81 mg by mouth once daily Aspirin Discontinued 81 MG PO Daily October 11, 2023 1:00am October 18, 2023 3:53pm Aspirin Active doxycycline hyclate 100 mg oral tablet (20 sources) Tetracycline-class Drug Start: 08-17-2021 End: 10-23-2022 take 100 mg by mouth twice daily Doxycycline Hyclate Discontinued 100 MG PO Twice daily 14 7 August 17, 2021 1:00am October 23, 2022 11:25am Start: 05-04-2021 End: 06-03-2021 take 100 mg by mouth twice daily Doxycycline Hyclate Discontinued 100 MG PO Twice daily 14 7 May 04, 2021 12:00am June 03, 2021 3:51am ibuprofen 200 mg oral capsule (17 sources) Nonsteroidal Anti-inflammatory Drug Start: 07-26-2023 End: 10-11-2023 take 600 mg by mouth every six hours Ibuprofen Discontinued 600 MG PO Q6H July 26, 2023 1:00am October 11, 2023 12:51pm metoprolol tartrate 25 mg oral tablet (20 sources) beta-Adrenergic Maria Luisa Start: 10-18-2023 End: 03-20-2024 take 25 mg by mouth twice daily Metoprolol Tartrate Discontinued 25 MG PO Twice daily October 18, 2023 3:53pm March 20, 2024 11:06am ondansetron 4 mg disintegrating oral tablet (20 sources) Serotonin-3 Receptor Antagonist Start: 07-26-2023 End: 08-08-2023 take 4 mg by mouth every eight hours Ondansetron Discontinued 4 MG PO Q8H 9 July 26, 2023 1:00am August 08, 2023 8:16am Start: 05-04-2021 End: 06-03-2021 Ondansetron Hcl (Zofran) 4 m g tablet Discontinued 4 MG PO every 6 to 8 hours May 04, 2021 12:00am June 03, 2021 3:51am rivaroxaban 20 mg oral tablet (20 sources) Factor Xa Inhibitor Start: 08-17-2021 End: 10-23-2022 take 1 tablet by mouth once daily Rivaroxaban (Xarelto) 20 mg Tablet Discontinued 20 MG PO Daily August 17, 2021 1:00am October 23, 2022 11:25am Start: 06-20-2021 take 0.5 tablet by m [...] (9) tablets,dose pack Discontinued 0 PO .COMPLEX June 03, 2021 12:00am August 17, 2021 3:56pm Take one-15 mg tablet twice daily for 21 days, then one-20 mg tablet once daily; must take with meal/food take 1 tablet by srinivasan th every twelve hours Xarelto 15 MG 1 tablet with food Orally Twice a day Active Problems Active Problems Problem Classification Problem Date Documented Date Episodic/Chronic Acute bronchitis (20 sources) Acute bacterial bronchitis; Translations: [Acute bronchitis due to other specified organisms] 08-17-2021 Episodic Aortic; peripheral; and visceral artery aneurysms (20 sources) Aortic aneurysm; Translations: [Aortic aneurysm of unspecified site, without rupture] Onset: 2 Resolved: 2 Chronic Blindness and vision defects (17 sources) 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; 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, both eyes] Onset: 2 Resolved: 2 Chronic Diabetes mellitus without complication (2 sources) Hyperglycemia; Translations: [Hyperglycemia, unspecified] 05-12-2024 Episodic Disorders of lipid metabolism (20 sources) Hyperlipidemia; Translations: [Hyperlipidemia, unspecified] Chronic Nausea and vomiting (20 sources) Nausea; Translations: [Nausea] 05-04-2021 Episodic Open wounds of head; neck; and trunk (20 sources) Laceration without foreign body of scalp, initial encounter; Translations: [Scalp laceration] Onset: 1 Resolved: 1 Episodic Osteoarthritis (20 sources) Arthritis of right wrist; Translations: [Primary osteoarthritis, 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 Other aftercare (18 sources) Surgical follow-up; Translations: [Encounter for removal of sutures] Episodic Other bone disease and musculoskeletal deformities (14 sources) Mass of chest wall; Translations: [Other specified disorders of bone, other site] Episodic Other circulatory disease (20 sources) Pulmonary congestion ; Translations: [Other specified [...] foot; Translations: [PAIN IN RIGHT FOOT] Onset: 2 Episodic Other connective tissue disease (1 source) Pain in right finger(s); Translations: [PAIN IN RIGHT FINGERS] Onset: 2 Episodic Other connective tissue disease (20 sources) Supraspinatus tear; Translations: [Unspecified rotator cuff tear or rupture of left shoulder, not specified as traumatic] 10-27-2023 Episodic Other connective tissue disease (8 sources) Pain in right foot; Translations: [Pain in right foot] Episodic Other connective tissue disease (9 sources) Pain in limb; Translations: [Pain in right finger(s)] Episodic Other connective tissue disease (20 sources) Unspecified rotator cuff tear or rupture of left shoulder, not specified as traumatic; Translations: [Supraspinatus (muscle) (tendon) sprain] Onset: 4 Episodic Other connective tissue disease (10 sources) Tear of left rotator cuff; Translations: [Unspecified rotator cuff tear or rupture of left shoulder, not specified as traumatic] 10-27-2023 Episodic Other connective tissue disease (1 source) Capsulitis of metatarsophalangeal joint of left foot; Translations: [Other enthesopathy of left foot and ankle] 06-08-2024 Episodic Other ear and sense organ disorders (16 sources) Bilateral tinnitus; Translations: [Tinnitus, bilateral] Episodic Other lower respiratory disease (13 sources) Cough; Translations: [Subacute cough] Episodic Other lower respiratory disease (17 sources) History of bacterial infection; Translations: [Personal history of other diseases of the respiratory system] 07-26-2023 Episodic Other non-traumatic joint disorders (9 sources) Derangement of left shoulder joint; Translations: [Other specific joint derangements of left shoulder, not elsewhere classified] Chronic Other non-traumatic joint disorders (5 sources) Pain in unspecified joint; Translations: [PAIN IN UNSPECIFIED JOINT] Onset: 2 Episodic Other non-traumatic joint disorders (7 sources) Pain in left shoulder; Translations: [Pain in joint, shoulder region] Episodic Other non-traumatic joint disorders (8 sources) Joint pain; Translations: [Pain in unspecified joint] Episodic Other nutritional; endocrine; and metabolic disorders (9 sources) Body mass index 25-29 - overweight; Translations: [Body mass index (BMI) 25.0-25.9, adult] Episodic Other screening for suspected conditions (not mental disorders or infectious disease) (4 sources) Encounter for screening for malignant neoplasm of prostate; Translations: [Encounter for screening for malignant neoplasm of colon] Episodic Other skin disorders (20 sources) Night sweats; Translations: [Generalized hyperhidrosis] 07-26-2023 Episodic Other upper respiratory infections (9 sources) Chronic sinusitis; Translations: [Chronic sinusitis, unspecified] Chronic Phlebitis; thrombophlebitis and thromboembolism (20 sources) Deep venous thrombosis of peroneal vein; Translations: [Acute embolism and thrombosis of unspecified peroneal vein] 10-11-2023 Episodic Pneumonia (except that caused by tuberculosis or sexually transmitted disease) (20 sources) Pneumonia; Translations: [Pneumonia, unspecified organism] 05-04-2021 Episodic Pulmonary heart disease (20 sources) Acute pulmonary embolism; Translations: [Other pulmonary embolism without acute cor pulmonale] Onset: 1 Resolved: 2 Episodic Residual codes; unclassified (8 sources) Tobacco user; Translations: [Tobacco use] Episodic Residual codes; unclassified (8 sources) Family history of diabetes mellitus; Translations: [Family history of diabetes mellitus] Episodic Residual codes; unclassified (1 source) Tobacco use; Translations: [Tobacco use] Episodic Residual codes; unclassified (1 source) Family history of diabetes mellitus; Translations: [Family history of diabetes mellitus] Episodic Residual codes; unclassified (16 sources) Chill; Translations: [Chills (without fever)] Onset: 3 07-28-2023 Episodic Residual codes; unclassified (20 sources) Other specified postprocedural states; Translations: [Other postprocedural status] Episodic Skin and subcutaneous tissue infections (20 sources) Abscess; Translations: [Cellulitis and abscess of other specified site] Onset: 5 Episodic Unclassified (9 sources) Multiple subsegmental pulmonary emboli without acute cor pulmonale; Translations: [Multiple subsegmental pulmonary emboli without acute cor pulmonale] Onset: 1 Unclassified (1 source) Acute embolism and thrombosis of unspecified peroneal vein; Translations: [Acute embolism and thrombosis of unspecified peroneal vein] Onset: 4 Unclassified (1 source) Unspecified rotator cuff tear or rupture of left shoulder, not specified as traumatic; Translations: [Unspecified rotator cuff tear or rupture of left shoulder, not specified as traumatic] Onset: 3 Unclassified (1 source) Encounter for other preprocedural examination; Translations: [Encounter for other preprocedural examination] Onset: 3 Unclassified (1 source) Encounter for preprocedural laboratory examination; Translations: [Encounter for preprocedural laboratory examination] Onset: 3 Unclassified (1 source) Other specific joint derangements of left shoulder, not elsewhere classified; Translations: [Other specific joint derangements of left shoulder, not elsewhere classified] Onset: 3 Viral infection (20 sources) Disease caused by 2019-nCoV; Translations: [COVID-19] 06-03-2021 Episodic Viral infection (10 sources) COVID-19; Translations: [Disease caused by 2019-nCoV] Onset: 1 Resolved: 1 Past or Other Problems Problem Classification Problem [...] AGNST/STRUCK OTH OBJ INIT] Onset: 07-05-2021 Episodic Malaise and fatigue (1 source) Other fatigue; Translations: [Other fatigue] Onset: 07-26-2023 Episodic Other aftercare (1 source) 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; Translations: [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 USE ANTICOAGULANTS] Onset: 07-05-2021 Episodic Other [...] field Onset: 04-14-2022 Resolved: 04-14-2022 Episodic Other skin disorders (8 sources) Localized [...] Test Name Value Interpretation Reference Range Facility US venous duplex LE RTon US venous duplex LE RT [facility] [address] [place] [address] Ultrasound Report Signed Patient: David Ozuna MR#: [id number] : 1960 Acct:[id number] Age/Sex: 64 / M ADM Date: 03/20/24 Loc: [facility] Room: Type: [facility] Attending Dr: Gonzalo Oconnor MD Ordering Provider: Gonzalo Oconnor MD Date of Service: 03/20/24 US/US venous duplex LE RT: I82.459 - Acute embolism and thrombosis of unspecified pe... Copies to: Gonzalo Oconnor MD RIGHT LOWER EXTREMITY VENOUS DUPLEX INDICATION: Right leg swelling and shortness of breath. Unilateral right lower extremity venous duplex Doppler study was obtained utilizing B-mode, color- flow and spectral Doppler. FINDINGS: The right common femoral, femoral, and popliteal veins showed adequate compressibility, color-flow and augmentation. The right posterior tibial and peroneal veins were compressible, as well as proximal greater saphenous vein. The contralateral left common femoral vein was compressible with color-flow and augmentation. US/US venous duplex LE RT IMPRESSION: NO EVIDENCE OF DEEP VENOUS THROMBOSIS IN THE RIGHT LOWER EXTREMITY. NO SUPERFICIAL THROMBOPHLEBITIS WAS NOTED. Impression dictated by: Gonzalo Oconnor MD03/26/2024 2:48 PM Dictation Location: [place] [address] Tech: Kelli Vincenzo Transcribed By: MARIA DEL CARMEN 03/26/24 1448 Dictated By: Gonzalo Oconnor MD 03/26/24 1448 Signed By: 03/26/24 1448 Normal [facility] A1C with Estimated Average [facility] 11-30-2023 Glucose [Mass/Vol] 117 mg/dL Normal [facility] Comment on above: Result Comment: PERF ORMED BY: [place] [address] PATHOLOGIST GLOST TILE SORTER TARAH MAYER M.D. Performed By: #### A 1C WT eA, PP #### [facility] [address] [place] [address] [place] #### FACV LEIDM #### [facility] , Activated partial thrombopla stin time (aPTT) in platelet poor plasma by coagulation aOrdered By: Rolando Cortes on 11-30-2023 aPTT Coag (PPP) [Time] 33.5 s 25.1-36.5 [facility] Comment on above: A hematocrit value g reater than 55% may lead to inaccurate results in coagulation testing. Patients having hematocrit values >55% require a special collection tube for coagulation studies. Please contact the laboratory at [phone] for redraw instructions. Alanine aminotransferase [En zymatic activity/volume] in Serum or PlasmaOrdered By: Rolando Cortes on 11-30-2023 ALT [Catalytic activity/Vol] 20 U/L Normal 7-52 [facility] Comment on above: Order Comment: Reaso n for Exam Wellness examination;Hyperlipidemia, unspecified hyperlipide Performed By: #### C MP, LIPID, TSH3 #### [address] Albumin [Mass/volume] in Ser um or Plasma by Bromocresol green (BCG) dye binding methoOrdered By: Rolando Cortes on 11-30-2023 Albumin BCG dye [Mass/Vol] 4.2 g/dL 3.5-5.7 [facility] Alkaline phosphatase [Enzyma tic activity/volume] in Serum or PlasmaOrdered By: Rolando Cortes on 11-30-2023 ALP [Catalytic activity/Vol] 78 U/L Normal 34-104 [facility] Comment on above: Order Comment: Reaso n for Exam Wellness examination;Hyperlipidemia, unspecified hyperlipide Performed By: #### C MP, LIPID, TSH3 #### [address] Aspartate aminotransferase [ Enzymatic activity/volume] in Serum or PlasmaOrdered By: Rolando Cortes on 11-30-2023 AST [Catalytic activity/Vol] 19 U/L Normal 13-39 [facility] Comment on above: Order Comment: Reaso n for Exam Wellness examination;Hyperlipidemia, unspecified hyperlipide Performed By: #### C MP, LIPID, TSH3 #### [facility] [address] [place] [address] [place] Automated basophil %Ordered By: Rolando Cortes on 11-30-2023 Basophils/100 WBC (Bld) 0.6 % Normal . [facility] Comment on above: Order Comment: Reaso n for Exam Wellness examination;Hyperlipidemia, unspecified hyperlipide Performed By: #### C MP, LIPID, TSH3 #### [place] [address] [place] Automated basophil countOrde red By: Rolando Cortes on 11-30-2023 Basophils (Bld) [#/Vol] 0.0 10*3/uL Normal 0.0-0.2 [facility] Comment on above: Order Comment: Reaso n for Exam Wellness examination;Hyperlipidemia, unspecified hyperlipide Result Comment: PERF ORMED BY: [place] [address] PATHOLOGIST GLOST TILE SORTER TARAH MAYER M.D. Performed By: #### C MP, LIPID, TSH3 #### [address] Automated blood monocyte cou ntOrdered By: Rolando Cortes on 11-30-2023 Monocytes (Bld) [#/Vol] 0.4 10*3/uL Normal 0.0-0.8 [facility] Comment on above: Order Comment: Reaso n for Exam Wellness examination;Hyperlipidemia, unspecified hyperlipide Performed By: #### C MP, LIPID, TSH3 #### [address] Automated eosinophil %Ordere d By: Rolando Cortes on 11-30-2023 Eosinophils/100 WBC (Bld) 1.8 % Normal . [facility] Comment on above: Order Comment: Reaso n for Exam Wellness examination;Hyperlipidemia, unspecified hyperlipide Performed By: #### C MP, LIPID, TSH3 #### [address] Automated eosinophil countOr dered By: Rolando Cortes on 11-30-2023 Eosinophils (Bld) [#/Vol] 0.1 10*3/uL Normal 0.0-0.45 [facility] Comment on above: Order Comment: Reaso n for Exam Wellness examination;Hyperlipidemia, unspecified hyperlipide Performed By: #### C MP, LIPID, TSH3 #### [address] Automated monocyte %Ordered By: Rolando Cortes on 11-30-2023 Monocytes/100 WBC (Bld) 8.6 % Normal . [facility] Comment on above: Order Comment: Reaso n for Exam Wellness examination;Hyperlipidemia, unspecified hyperlipide Performed By: #### C MP, LIPID, TSH3 #### [address] [place] [address] [place] Automated neutrophil %Ordere d By: Rolando Cortes on 11-30-2023 Neutrophils/100 WBC (Bld) 73.3 % Normal . [facility] Comment on above: Order Comment: Reaso n for Exam Wellness examination;Hyperlipidemia, unspecified hyperlipide Performed By: #### C MP, LIPID, TSH3 #### [facility] [address] Bilirubin.total [Mass/volume ] in Serum or PlasmaOrdered By: Rolando Cortes on 11-30-2023 Bilirubin [Mass/Vol] 0.8 mg/dL Normal 0.3-1.0 [facility] Comment on above: Order Comment: Reaso n for Exam Wellness examination;Hyperlipidemia, unspecified hyperlipide Performed By: #### C MP, LIPID, TSH3 #### [place] [address] [place] Calcium [Mass/volume] in Ser um or PlasmaOrdered By: Rolando Cortes on 11-30-2023 Calcium [Mass/Vol] 9.3 mg/dL Normal 8.6-10.3 [facility] Comment on above: Order Comment: Reaso n for Exam Wellness examination;Hyperlipidemia, unspecified hyperlipide Performed By: #### C MP, LIPID, TSH3 #### [address] Carbon dioxide, total [Moles /volume] in Serum or PlasmaOrdered By: Rolando Cortes on 11-30-2023 CO2 [Moles/Vol] 28.2 mmol/L Normal 21.0-31.0 [facility] Comment on above: Order Comment: Reaso n for Exam Wellness examination;Hyperlipidemia, unspecified hyperlipide Performed By: #### C MP, LIPID, TSH3 #### [facility] [address] [place] [address] [place] Chloride [Moles/volume] in S brad or PlasmaOrdered By: Rolando Cortes on 11-30-2023 Chloride [Moles/Vol] 108 mmol/L High 98-107 [facility] Comment on above: Order Comment: Reaso n for Exam Wellness examination;Hyperlipidemia, unspecified hyperlipide Performed By: #### C MP, LIPID, TSH3 #### [facility] [address] [id number] [facility] Cholesterol [Mass/volume] in Serum or PlasmaOrdered By: Rolando Cortes on 11-30-2023 Cholesterol [Mass/Vol] 204 mg/dL High 140-200 [facility] Comment on above: Chol less than 200 m g/dl low riskChol 201-239 mg/dl borderline riskChol 240 mg/dl and greater high risk Order Comment: Reaso n for Exam Wellness examination;Hyperlipidemia, unspecified hyperlipide Result Comment: Chol less than 200 mg/dl low risk Chol 201-239 mg/dl borderline risk Chol 240 mg/dl and greater high risk Performed By: #### C MP, LIPID, TSH3 #### [facility] [address] [place] [address] [place] Cholesterol in LDL Calc [Mas s/Vol]Ordered By: Rolando Cortes on 11-30-2023 Cholesterol in LDL [Mass/Vol] 141 mg/dL 0-100 [facility] Comment on above: LDL ATP III CLASSIFI CATIONLDL less than 100 mg/dL OptimalLDL 100-129 mg/dL Near or above optimalLDL 130-159 mg/dL Borderline highLDL 160-189 mg/dL HighLDL greater than 189 mg/dL Very high Cholesterol in VLDL Calc [Ma ss/Vol]Ordered By: Rolando Cortes on 11-30-2023 Cholesterol in VLDL [Mass/Vol] 14 mg/dL [facility] Coagulation Profileon 2023 aPTT Coag (Bld) [Time] 33.5 s Normal 25.1-36.5 [facility] Comment on above: Result Comment: A he matocrit value greater than 55% may lead to inaccurate results in coagulation testing. Patients having hematocrit values >55% require a special collection tube for coagulation studies. Please contact the laboratory at [phone] for redraw instructions. PERFORMED BY: [address] [place] [address] PATHOLOGIST GLOST TILE SORTER TARAH MAYER M.D. Performed By: #### A 1C [facility] eA, PP #### [address] #### FACV LEIDM #### [facility] , Complete Blood Count Auto Di ffon 11-30-2023 Mean Corpuscular HGB Conc 34.3 g/dL Normal 32.5-35.6 [facility] Comment on above: Order Comment: Reaso n for Exam Wellness examination;Hyperlipidemia, unspecified hyperlipide Performed By: #### C MP, LIPID, TSH3 #### [address] NRBC% 0.0 /100{WBC} Normal 0-0.5 [facility] Comment on above: Order Comment: Reaso n for Exam Wellness examination;Hyperlipidemia, unspecified hyperlipide Performed By: #### C MP, LIPID, TSH3 #### [address] Comprehensive Metabolic Pane edna 11-30-2023 Albumin [Mass/Vol] 4.2 g/dL Normal 3.5-5.7 [facility] Comment on above: Order Comment: Reaso n for Exam Wellness examination;Hyperlipidemia, unspecified hyperlipide Performed By: #### C MP, LIPID, TSH3 #### [address] GFR/1.73 sq M.predicted MDRD (S/P/Bld) [Vol rate/Area] mL/min/{1.73_m2} Normal [facility] Comment on above: Order Comment: Reaso n for Exam Wellness examination;Hyperlipidemia, unspecified hyperlipide Performed By: #### C MP, LIPID, TSH3 #### [address] Creatinine [Mass/volume] in Serum or PlasmaOrdered By: Rolando Cortes on 11-30-2023 Creatinine [Mass/Vol] 0.99 mg/dL Normal 0.70-1.30 [facility] Comment on above: Order Comment: Reaso n for Exam Wellness examination;Hyperlipidemia, unspecified hyperlipide Performed By: #### C MP, LIPID, TSH3 #### [address] [place] [address] [facility] Erythrocyte distribution wid th [Ratio] by Automated countOrdered By: Rolando Cortes on 11-30-2023 Erythrocyte distribution width (RBC) [Ratio] 13.5 % Normal 12.0-14.8 [facility] Comment on above: Order Comment: Reaso n for Exam Wellness examination;Hyperlipidemia, unspecified hyperlipide Performed By: #### C MP, LIPID, TSH3 #### [facility] [address] [id number] [facility] Erythrocytes [#/volume] in B lood by Automated countOrdered By: Rolando Cortes on 11-30-2023 RBC (Bld) [#/Vol] 4.95 10*6/uL Normal 3.90-5.60 [facility] Comment on above: Order Comment: Reaso n for Exam Wellness examination;Hyperlipidemia, unspecified hyperlipide Performed By: #### C MP, LIPID, TSH3 #### [facility] [address] [id number] [facility] F5 gene mutations found [Kelsey ntifier] in Blood or Tissue by Molecular genetics methodOrdered By: Rolando Cortes on 11-30-2023 F5 gene targeted mutation analysis [employer] Nom (Bld/Tiss) See comment . [facility] Comment on above: Result: c.1601G>A (p .[id number]) - Not DetectedThis result is not associated with an increased risk for venousthromboembolism. See Additional Clinical Information andComments.Additional Clinical Information:Venous thromboembolism is a multifactorial diseaseinfluenced by genetic, environmental, and circumstantialrisk factors. The c.1601G>A (p. [id number]) variant in theF5 gene, commonly referred to as Factor V Leiden, is agenetic risk factor for venous thromboembolism.Heterozygous carriers of this variant have a 6- to 8-foldincreased risk for venous thromboembolism. Individualshomozygous for this variant (ie, with a copy of the varianton each chromosome) have an approximately 80-fold increasedrisk for venous thromboembolism. Individuals who carry kyaw c.*97G>A variant in the F2 gene and Factor V Leiden havean approximately 20-fold increased risk for venousthromboembolism. Risks are likely to be even higher in morecomplex genotype combinations involving the F2 c.*97G>Avariant and Factor V Leiden (PMID: 54309308). Additionalrisk factors include but are not limited to: deficiency ofprotein C, protein S, or antithrombin III, age, male sex,personal or family history of deep vein thromboembolism,smoking, surgery, prolonged immobilization, malignantneoplasm, tamoxifen treatment, raloxifene treatment, oralcontraceptive use, hormone replacement therapy, andpregnancy. Management of thrombotic risk and thromboticevents should follow established guidelines and fit theclinical circumstance. This result cannot predict theoccurrence or recurrence of a thrombotic event.Comment:Genetic counseling is recommended to discuss thepotential clinical implications of positive results, aswell as recommendations for testing family members.Genetic Coordinators are available for health careproviders to discuss results at [phone] ([phone]).Test Details:Variant Analyzed: c.1601G>A (p. [id number]), referred toas Factor V LeidenMethods/Limitations:DNA analysis of the F5 gene (NM_000130.5) was performedby PCR amplification followed by restriction enzymeanalysis. The diagnostic sensitivity is >99%. Results mustbe combined with clinical information for the most accurateinterpretation. Molecular-based testing is highly accurate,but as in any laboratory test, diagnostic errors may occur.False positive or false negative results may occur forreasons that include genetic variants, blood transfusions,bone marrow transplantation, somatic or tissue-specificmosaicism, mislabeled samples, or erroneous representationof family relationships.This test was developed and its performance characteristicsdetermined by [employer]. It has not been cleared orapproved by the Food and Drug Administration.References:Steven S, Alvina AK, Luke R, Santos WW, Willem JH; ACMGProfessional Practice and Guidelines Committee. Addendum:[employer] consensus statement onfactor V Leiden mutation testing. Kinjal Med. 2020Oct 29.doi: 10.1038/[id number]-w. PMID: 21532908.Darrick BARRIENTOS. Factor V Leiden Thrombophilia. 1998January 07(Updated 2017Aug 30). In: Charlie MP, Butch HH, Simon RA,et al., editors. Nikko(MayaZodio (Internet). [employer]erinx ([place]):[facility], Nerinx; 3644-4098. Availablefrom: https://www.ncbi.nlm.nih.gov/books/YUJ3141/Bk S, Alvina AK, Uriel X, Young B, Giovanny EB, Suzan P,Ronan CS; ACMG Laboratory Cooker Loader Committee.Venous thromboembolism laboratory testing (factor V Leidenand factor II c.*97G>A), 2018 update: a technical standardof the [employer] and Genomics(ACMG). Kinjal Med. 2018 Jul;20(12):5386-5663. doi:10.1038/[id number]-s. Epub 2017May 31. PMID: 71804399. Factor V Leiden Mutationon 0 11-30-2023 Factor V Leiden Normal . The On license of [facility] Comment on above: Result Comment: Resu lt: c.1601G>A (p.[id number]) - Not Detected This result is not associated with an increased risk for venous thromboembolism. See Additional Clinical Information and Comments. Additional Clinical Information: Venous thromboembolism is a multifactorial disease influenced by genetic, environmental, and circumstantial risk factors. The c.1601G>A (p. Ktu409Jhl) variant in the F5 gene, commonly referred to as Factor V Leiden, is a genetic risk factor for venous thromboembolism. Heterozygous carriers of this variant have a 6- to 8-fold increased risk for venous thromboembolism. Individuals homozygous for this variant (ie, with a copy of the variant on each chromosome) have an approximately 80-fold increased risk for venous thromboembolism. Individuals who carry both a c.*97G>A variant in the F2 gene and Factor V Leiden have an approximately 20-fold increased risk for venous thromboembolism. Risks are likely to be even higher in more complex genotype combinations involving the F2 c.*97G>A variant and Factor V Leiden (PMID: 40195004). Additional risk factors include but are not limited to: deficiency of protein C, protein S, or antithrombin III, age, male sex, personal or family history of deep vein thromboembolism, smoking, surgery, prolonged immobilization, malignant neoplasm, tamoxifen treatment, raloxifene treatment, oral contraceptive use, hormone replacement therapy, and . Management of thrombotic risk and thrombotic events should follow established guidelines and fit the clinical circumstance. This result cannot predict the occurrence or recurrence of a thrombotic event. Comment: Genetic counseling is recommended to discuss the potential clinical implications of positive results, as well as recommendations for testing family members. Genetic Coordinators are available for health care providers to discuss results at [phone] Test Details: Variant Analyzed: c.1601G>A (p. [id number]), referred to as Factor V Leiden Methods/Limitations: DNA analysis of the F5 gene (NM_000130.5) was performed by PCR amplification followed by restriction enzyme analysis. The diagnostic sensitivity is >99%. Results must be combined with clinical information for the most accurate interpretation. Molecular-based testing is highly accurate, but as in any laboratory test, diagnostic errors may occur. False positive or false negative results may occur for reasons that include genetic variants, blood transfusions, bone marrow transplantation, somatic or tissue-specific mosaicism, mislabeled samples, or erroneous representation of family relationships. This test was developed and its performance characteristics determined by [employer]. It has not been cleared or approved by the Food and Drug Administration. References: Steven Burks, Alvina RUBIO, Luke R, Santos WW, Willem JH; ACMG Professional Practice and Guidelines Committee. Addendum: [employer] consensus statement on factor V Leiden mutation testing. Kinjal Med. 2020Oct 29. doi: 10.1038/[id number]-h. PMID: 41050866. Darrick BARRIENTOS. Factor V Leiden Thrombophilia. 1998January 07 (Updated 2017Aug 30). In: Charlie MP, Butch HH, Simon RA, et al., editors. Nikko(R) (Internet). [employer] ([place]): [facility], Nerinx; 7482-8841. Available from: https://www.ncbi.nlm.nih.gov/books/LSR4891/ Bk Burks, Alvina RUBIO, Uriel X, Young B, Giovanny EB, Suzan P, Ronan CS; ACMG Laboratory Cooker Loader Committee. Venous thromboembolism laboratory testing (factor V Leiden and factor II c.*97G>A), 2018 update: a technical standard of the [employer] and Genomics (ACMG). Kinjal Med. 2018 Jul;20(12):5687-7527. doi: 10.1038/[id number]-h. Epub 2017May 31. PMID: 22963092. Performed By: #### A 1C WT Cheri, PP #### [address] #### FACV LEIDM #### [facility] , Reviewed by: Lizzette . [facility] Comment on above: Result Comment: Tech [facility] Professional Component performed by: Narcisa Flores, Ph.D., [facility] Director, Molecular Genetics [address] [place] [address] [facility] [address] Performed at: - [facility] [address] [place], [place] [id number] Sulky Driver: Jesus Hernandez [facility], Phone: [phone] PERFORMED BY: [place] [address] PATHOLOGIST GLOST TILE SORTER TARAH MAYER M.D. Performed By: #### A 1C [facility] Cheri, PP #### [address] #### FACV LEIDM #### [facility] , Glucose [Mass/volume] in Ser um or PlasmaOrdered By: Rolando Cortes on 11-30-2023 Glucose [Mass/Vol] 89 mg/dL Normal 70-100 [facility] Comment on above: ADA recommended refe rence rangeRandom Glucose Reference Range is dependent on time and content of last meal. Glucose of more than 200 mg/dL in a nonstressed, ambulatory subject supports the diagnosis of Diabetes Mellitus. Order Comment: Reaso n for Exam Wellness examination;Hyperlipidemia, unspecified hyperlipide Result Comment: [place] om Glucose Reference Range is dependent on time and content of last meal. Glucose of more than 200 mg/dL in a nonstressed, ambulatory subject supports the diagnosis of Diabetes Mellitus. ADA recommended reference range Performed By: #### C MP, LIPID, TSH3 #### [address] Glucose mean value [Mass/vol ume] in Blood Estimated from glycated hemoglobinOrdered By: Rolando Cortes on 11-30-2023 Average glucose Estimated from glycated hemoglobin (Bld) [Mass/Vol] 117 mg/dL [facility] Hematocrit [Volume Fraction] of Blood by Automated countOrdered By: Rolando Cortes on 11-30-2023 Hematocrit (Bld) [Volume fraction] 46.0 % Normal 38.8-50.0 [facility] Comment on above: Order Comment: Reaso n for Exam Wellness examination;Hyperlipidemia, unspecified hyperlipide Performed By: #### C MP, LIPID, TSH3 #### [address] Hemoglobin A1c percentageOrd ered By: Rolando Cortes on 11-30-2023 HbA1c (Bld) [Mass fraction] 5.7 % High 4.3-5.6 [facility] Comment on above: Increased risk for d iabetes: 5.7 - 6.4diabetes: >6.4glycemic control for adults with diabetes: <7.0 Result Comment: Incr eased risk for diabetes: 5.7 - 6.4 diabetes: >6.4 glycemic control for adults with diabetes: <7.0 Performed By: #### A 1C [facility] eA, PP #### [address] #### FACV LEIDM #### [facility] , Hemoglobin [Mass/volume] in BloodOrdered By: Rolando Cortes on 11-30-2023 Hemoglobin (Bld) [Mass/Vol] 15.8 g/dL Normal 13.0-17.0 [facility] Comment on above: Order Comment: Reaso n for Exam Wellness examination;Hyperlipidemia, unspecified hyperlipide Performed By: #### C MP, LIPID, TSH3 #### [address] INR in Platelet poor plasma by Coagulation assayOrdered By: Rolando Cortes on 11-30-2023 INR Coag (PPP) [Relative time] 1.2 {INR} Normal [facility] Comment on above: INR Therapeutic Rang e A) Pre- and Peroperative OAT started two weeks before surgery. NOT HIP SURGERY: 1.5 - 2.5 HIP SURGERY: 2 - 3B) Primary and secondary prevention of venous THROMBOSIS: 2 - 3C) Active venous thrombosis, pulmonary embolismand prevention of recurrent venous thrombosis: 2 - 3D) Prevention of arterial thromboembolismincluding patients with mechanical heart valves: 3 - 4.5 Result Comment: INR Therapeutic Range A) Pre- and Peroperative OAT started two weeks before surgery. NOT HIP SURGERY: 1.5 - 2.5 HIP SURGERY: 2 - 3 B) Primary and secondary prevention of venous THROMBOSIS: 2 - 3 C) Active venous thrombosis, pulmonary embolism and prevention of recurrent venous thrombosis: 2 - 3 D) Prevention of arterial thromboembolism including patients with mechanical heart valves: 3 - 4.5 Performed By: #### A 1C [facility] eA, PP #### [facility] [address] #### FACV LEIDM #### [facility] , Leukocytes [#/volume] correc bere for nucleated erythrocytes in Blood by Automated counOrdered By: Rolando Cortes on 11-30-2023 WBC corrected for nucl RBC Auto (Bld) [#/Vol] 4.6 10*3/uL 4.1-10.5 [facility] Leukocytes [#/volume] in Blo od by Automated countOrdered By: Rolando Cortes on 11-30-2023 WBC (Bld) [#/Vol] 4.6 10*3/uL Normal 4.1-10.5 [facility] Comment on above: Order Comment: Reaso n for Exam Wellness examination;Hyperlipidemia, unspecified hyperlipide Performed By: #### C MP, LIPID, TSH3 #### [facility] [address] [place] [address] Lipid Panelon 11-30-2023 LDL Cholesterol,Calculate d 141 mg/dL High 0-100 [facility] Comment on above: Order Comment: Reaso n for Exam Wellness examination;Hyperlipidemia, unspecified hyperlipide Result Comment: LDL ATP III CLASSIFICATION LDL less than 100 mg/dL Optimal LDL 100-129 mg/dL Near or above optimal LDL 130-159 mg/dL Borderline high LDL 160-189 mg/dL High LDL greater than 189 mg/dL Very high Performed By: #### C MP, LIPID, TSH3 #### [facility] [address] Triglyceride w/Reflex 71 mg/dL Normal 0-149 [facility] Comment on above: Order Comment: Reaso n for Exam Wellness examination;Hyperlipidemia, unspecified hyperlipide Result Comment: TRIG ATP III CLASSIFICATION TRIG less than 150 mg/dL Normal TRIG 150-199 mg/dL Borderline high TRIG 200-500 mg/dL High TRIG greater than 500 mg/dL Very high Standard traceable to the Center for Disease Conrtrol and Prevention (CDC) test method. Performed By: #### C MP, LIPID, TSH3 #### [address] VLDL CHOLESTEROL 14 mg/dL Normal [facility] Comment on above: Order Comment: Reaso n for Exam Wellness examination;Hyperlipidemia, unspecified hyperlipide Performed By: #### C MP, LIPID, TSH3 #### [address] Lymphocytes [#/volume] in Bl ood by Automated countOrdered By: Rolando Cortes on 11-30-2023 Lymphocytes (Bld) [#/Vol] 0.7 10*3/uL Low 1.00-4.8 [facility] Comment on above: Order Comment: Reaso n for Exam Wellness examination;Hyperlipidemia, unspecified hyperlipide Performed By: #### C MP, LIPID, TSH3 #### [place] [address] [place] Lymphocytes/100 leukocytes i n Blood by Automated countOrdered By: Rolando Cortes on 11-30-2023 Lymphocytes/100 WBC (Bld) 15.7 % Normal . [facility] Comment on above: Order Comment: Reaso n for Exam Wellness examination;Hyperlipidemia, unspecified hyperlipide Performed By: #### C MP, LIPID, TSH3 #### [place] [address] [place] MCH [Entitic mass] by Automa bere countOrdered By: Rolando Cortes on 11-30-2023 MCH (RBC) [Entitic mass] 31.9 pg Normal 27.5-35.2 [facility] Comment on above: Order Comment: Reaso n for Exam Wellness examination;Hyperlipidemia, unspecified hyperlipide Performed By: #### C MP, LIPID, TSH3 #### [address] MCHC Auto (RBC) [Mass/Vol]Or dered By: Rolando Cortes on 11-30-2023 MCHC (RBC) [Mass/Vol] 34.3 g/dL 32.5-35.6 [facility] MCV [Entitic volume] by Auto mated countOrdered By: Rolando Cortes on 11-30-2023 MCV (RBC) [Entitic vol] 92.9 fL Normal 83.5-101 [facility] Comment on above: Order Comment: Reaso n for Exam Wellness examination;Hyperlipidemia, unspecified hyperlipide Performed By: #### C MP, LIPID, TSH3 #### [facility] [address] [place] [address] Neutrophils [#/volume] in Bl ood by Automated countOrdered By: Rolando Cortes on 11-30-2023 Neutrophils (Bld) [#/Vol] 3.4 10*3/uL Normal 1.8-7.7 [facility] Comment on above: Order Comment: Reaso n for Exam Wellness examination;Hyperlipidemia, unspecified hyperlipide Performed By: #### C MP, LIPID, TSH3 #### [facility] [address] [place] [address] No Panel InformationOrdered By: Rolando Cortes on 11-30-2023 Estimated GFR (CKD-EPI) > 60.0 mL/Min [facility] Factor V Leiden Interpretation See comment . [facility] Comment on above: Technical Component performed at [facility] RTPProfessional Component performed by:Narcisa Flores, Ph.D., FACMGDirector, Molecular Swihlega3090 [facility] Gretchen [place] [id number] at: - [facility] [id number] [facility], [facility], [place] [id number] Director: Jesus Hernandez [facility], Phone: [phone] Pharmacy Creatinine Clearance (Chem N/A [facility] Nucleated erythrocytes [Pres ence] in Blood by Automated countOrdered By: Rolando Cortes on 11-30-2023 Nucleated RBC Auto Ql (Bld) 0.0 /100{WBC} 0-0.5 [facility] PSA Screen (Yearly Only)on 0 11-30-2023 PSA Screen (Yearly Only) 1.650 ng/mL Normal 0.000-4.00 0 [facility] Comment on above: Order Comment: Reaso n for Exam Wellness examination;Hyperlipidemia, unspecified hyperlipide Result Comment: Seri al tumor marker results determined by assays using different manufacturers or methods may not be comparable. [facility] ornamental bronze worker and method: [employer] DXI, CHEMILUMINESCENT IMMUNOASSAY. PERFORMED BY: [place] [address] PATHOLOGIST GLOST TILE SORTER TARAH MAYER M.D. Performed By: #### C MP, LIPID, TSH3 #### [address] Platelet mean volume [Entiti c volume] in Blood by Automated countOrdered By: Rolando Cortes on 11-30-2023 Platelet mean volume (Bld) [Entitic vol] 7.7 fL Normal 6.6-10.1 [facility] Comment on above: Order Comment: Reaso n for Exam Wellness examination;Hyperlipidemia, unspecified hyperlipide Performed By: #### C MP, LIPID, TSH3 #### [facility] [address] [place] [address] [place] Platelets [#/volume] in Bloo d by Automated countOrdered By: Rolando Cortes on 11-30-2023 Platelets (Bld) [#/Vol] 234 10*3/uL Normal 150-450 [facility] Comment on above: Order Comment: Reaso n for Exam Wellness examination;Hyperlipidemia, unspecified hyperlipide Performed By: #### C MP, LIPID, TSH3 #### [facility] [address] [place] [address] [place] Potassium [Moles/volume] in Serum or PlasmaOrdered By: Rolando Cortes on 11-30-2023 Potassium [Moles/Vol] 4.4 mmol/L Normal 3.5-5.1 [facility] Comment on above: Order Comment: Reaso n for Exam Wellness examination;Hyperlipidemia, unspecified hyperlipide Performed By: #### C MP, LIPID, TSH3 #### [facility] [address] Prostate specific Ag [Mass/v olume] in Serum or PlasmaOrdered By: Rolando Cortes on 11-30-2023 Prostate specific Ag [Mass/Vol] 1.650 ng/mL 0.000-4.00 0 [facility] Comment on above: Serial tumor marker results determined by assays using different manufacturers or methods may not be comparable.[facility] ornamental bronze worker and method:[employer], CHEMILUMINESCENT IMMUNOASSAY. Protein [Mass/volume] in Ser um or PlasmaOrdered By: Rolando Cortes on 11-30-2023 Protein [Mass/Vol] 6.3 g/dL Low 6.4-8.9 [facility] Comment on above: Order Comment: Reaso n for Exam Wellness examination;Hyperlipidemia, unspecified hyperlipide Performed By: #### C MP, LIPID, TSH3 #### [address] Prothrombin time (PT)Ordered By: Rolando Cortes on 11-30-2023 PT Coag (PPP) [Time] 13.9 s High 9.0-12.9 [facility] Comment on above: A hematocrit value g reater than 55% may lead to inaccurate results in coagulation testing. Patients having hematocrit values >55% require a special collection tube for coagulation studies. Please contact the laboratory at [phone] for redraw instructions. Result Comment: A he matocrit value greater than 55% may lead to inaccurate results in coagulation testing. Patients having hematocrit values >55% require a special collection tube for coagulation studies. Please contact the laboratory at [phone] for redraw instructions. Performed By: #### A 1C WTH eA, PP #### [address] #### FACV LEIDM #### [facility] , Serum globulin measurement b y calculation (mass/volume)Ordered By: Rolando Cortes on 11-30-2023 Globulin (S) [Mass/Vol] 2.1 g/dL [facility] Comment on above: Order Comment: Reaso n for Exam Wellness examination;Hyperlipidemia, unspecified hyperlipide Performed By: #### C MP, LIPID, TSH3 #### [facility] [address] [place] [address] Serum or plasma albumin/glob ulin mass ratioOrdered By: Rolando Cortes on 11-30-2023 Albumin/Globulin [Mass ratio] 2.0 {ratio} [facility] Comment on above: Order Comment: Reaso n for Exam Wellness examination;Hyperlipidemia, unspecified hyperlipide Performed By: #### C MP, LIPID, TSH3 #### [facility] [address] [place] [address] Serum or plasma anion gap de terminationOrdered By: Rolando Cortes on 11-30-2023 Anion gap [Moles/Vol] 7.2 mmol/L Normal 6.0-15.0 [facility] Comment on above: Order Comment: Reaso n for Exam Wellness examination;Hyperlipidemia, unspecified hyperlipide Performed By: #### C MP, LIPID, TSH3 #### [facility] [address] [place] [address] Serum or plasma high density lipoprotein (HDL) cholesterol measurementOrdered By: Rolando Cortes on 11-30-2023 Cholesterol in HDL [Mass/Vol] 49 mg/dL Normal 23-92 [facility] Comment on above: HDL CHOL ATP-III CLA SSIFICATION Cardiovascular RiskHDL > or equal to 60 mg/dL LOWHDL < 40 mg/dL HIGH Order Comment: Reaso n for Exam Wellness examination;Hyperlipidemia, unspecified hyperlipide Result Comment: HDL CHOL ATP-III CLASSIFICATION Cardiovascular Risk HDL > or equal to 60 mg/dL LOW HDL < 40 mg/dL HIGH Performed By: #### C MP, LIPID, TSH3 #### [facility] [address] [place] [address] Serum or plasma total choles terol/high density lipoprotein (HDL) cholesterol mass ratOrdered By: Rolando Cortes on 11-30-2023 Cholesterol.total/Cho lesterol in HDL [Mass ratio] 4.2 {ratio} Normal <5.0 [facility] Comment on above: Order Comment: Reaso n for Exam Wellness examination;Hyperlipidemia, unspecified hyperlipide Performed By: #### C MP, LIPID, TSH3 #### [facility] [address] [place] [address] Sodium [Moles/volume] in Ser um or PlasmaOrdered By: Rolando Cortes on 11-30-2023 Sodium [Moles/Vol] 139 mmol/L Normal 136-145 [facility] Comment on above: Order Comment: Reaso n for Exam Wellness examination;Hyperlipidemia, unspecified hyperlipide Performed By: #### C MP, LIPID, TSH3 #### [facility] [address] [place] [address] Thyrotropin [Units/volume] i n Serum or PlasmaOrdered By: Rolando Cortes on 11-30-2023 TSH Qn 3.26 m[IU]/L Normal 0.45-5.33 [facility] Comment on above: Order Comment: Reaso n for Exam Wellness examination;Hyperlipidemia, unspecified hyperlipide Result Comment: PERF ORMED BY: [place] [address] PATHOLOGIST GLOST TILE SORTER TARAH MAYER M.D. Performed By: #### C MP, LIPID, TSH3 #### [address] Triglyceride [Mass/volume] i n Serum or PlasmaOrdered By: Rolando Cortes on 11-30-2023 Triglyceride [Mass/Vol] 71 mg/dL 0-149 [facility] Comment on above: TRIG ATP III CLASSIF ICATIONTRIG less than 150 mg/dL NormalTRIG 150-199 mg/dL Borderline highTRIG 200-500 mg/dL High TRIG greater than 500 mg/dL Very highStandard traceable to the Center for Disease Conrtrol and Prevention (CDC) test method. Urea nitrogen [Mass/volume] in Serum or PlasmaOrdered By: Rolando Cortes on 11-30-2023 Urea nitrogen [Mass/Vol] 20 mg/dL Normal 7-25 [facility] Comment on above: Order Comment: Reaso n for Exam Wellness examination;Hyperlipidemia, unspecified hyperlipide Performed By: #### C MP, LIPID, TSH3 #### [facility] [address] XR shoulder LT min 2V*on XR shoulder LT min 2V* [facility] [address] [place] [address] XRay Report Signed Patient: David Ozuna MR#: [id number] [id number] : 1960 Acct:[id number] Age/Sex: 63 / M ADM Date: 11/22/23 [facility]: [facility] Room: Type: REG CLI Attending Dr: Kushal Bateman MD Copies to: Kushal Bateman MD Ordering Provider: Kushal Bateman MD Date of Service: 11/22/23 XR/XR shoulder LT min 2V*: M75.102 - Unspecified rotator cuff tear or rupture of lef... 4 views left shoulder plain film HISTORY: Increasing left shoulder pain. Painful range of motion. COMPARISON: 08/16/2023 ACUTE FINDINGS: None DEGENERATIVE CHANGE: Marginal spurring. SOFT TISSUE FINDINGS: Unremarkable JOINT EFFUSION: None POSTOP CHANGES: None BONY MINERALIZATION: Adequate XR/XR shoulder LT min 2V* IMPRESSION: Degenerative change. Impression dictated by: Sudhir Vega M.D.11/22/2023 2:33 PM Dictation Location: [place] [address] Transcribed By: [facility] 11/22/23 1433 Dictated By: Sudhir Vega DO 11/22/23 1432 Signed By: 11/22/23 1433 Normal [facility] XR shoulder LT min 2V*on XR shoulder LT min 2V* [facility] [place] [address] [place] [id number] XRay Report Signed Patient: David Ozuna MR#: [id number] : 1960 Acct:[id number] Age/Sex: 63 / M ADM Date: 08/16/23 Loc: [facility] Room: Type: REG CLI Attending Dr: Kushal Bateman MD Copies to: [...] Flavio Dove M.D.08/16/2023 3:02 PM Dictation Location: [place] [address] Transcribed By: [facility] 08/16/23 1502 Dictated By: Flavio Dove II, MD 08/16/23 1500 Signed By: 08/16/23 1502 Normal [facility] XR chest 2V*on 08-03-2023 XR chest 2V* [facility] [place] [address] [place] [address] XRay Report Signed Patient: David Ozuna MR#: [id number] : 1960 Acct:[id number] Age/Sex: 63 / M ADM Date: 08/03/23 Loc: [facility] [place] [place] Room: Type: [facility] CLI Attending Dr: Kushal Bateman MD Copies to: [...] Niki Parker M.D.08/03/2023 3:13 PM Dictation Location: [place] [address] Transcribed By: MARIA DEL CARMEN 08/03/231512 Dictated By: Niki Parker MD 08/03/231511 Signed By: 08/03/231512 Normal [facility] Alanine aminotransferase [En zymatic activity/volume] in Serum or PlasmaOrdered By: Orion Mondragon on 07-28-2023 ALT [Catalytic activity/Vol] 55 U/L High 7-52 [facility] Comment on above: Performed By: #### C MP, LIPID, TSH3 #### [facility] [address] [place] [id number] [place] Albumin [Mass/volume] in Ser um or Plasma by Bromocresol green (BCG) dye binding methoOrdered By: Orion Mondragon on 07-28-2023 Albumin BCG dye [Mass/Vol] 3.5 g/dL 3.5-5.7 [facility] Alkaline phosphatase [Enzyma tic activity/volume] in Serum or PlasmaOrdered By: Orion Mondragon on 07-28-2023 ALP [Catalytic activity/Vol] 98 U/L Normal 34-104 [facility] Comment on above: Performed By: #### C MP, LIPID, TSH3 #### [facility] [address] [place] [address] [place] Aspartate aminotransferase [ Enzymatic activity/volume] in Serum or PlasmaOrdered By: Orion Mondragon on 07-28-2023 AST [Catalytic activity/Vol] 29 U/L Normal 13-39 [facility] Comment on above: Performed By: #### C MP, LIPID, TSH3 #### [facility] [address] [place] [id number] [place] Automated basophil %Ordered By: Orion Mondragon on 07-28-2023 Basophils/100 WBC (Bld) 0.8 % Normal . [facility] Comment on above: Performed By: #### C MP, LIPID, TSH3 #### [address] Automated basophil countOrde red By: Orion Mondragon on 07-28-2023 Basophils (Bld) [#/Vol] 0.1 10*3/uL Normal 0.0-0.2 [facility] Comment on above: Performed By: #### C MP, LIPID, TSH3 #### [address] Automated blood monocyte cou ntOrdered By: Orion Mondragon on 07-28-2023 Monocytes (Bld) [#/Vol] 1.1 10*3/uL High 0.0-0.8 [facility] Comment on above: Performed By: #### C MP, LIPID, TSH3 #### [address] Automated eosinophil %Ordere d By: Orion Mondragon on 07-28-2023 Eosinophils/100 WBC (Bld) 1.6 % Normal . [facility] Comment on above: Performed By: #### C MP, LIPID, TSH3 #### [address] Automated eosinophil countOr dered By: Orion Mondragon on 07-28-2023 Eosinophils (Bld) [#/Vol] 0.1 10*3/uL Normal 0.0-0.45 [facility] Comment on above: Performed By: #### C MP, LIPID, TSH3 #### [address] Automated monocyte %Ordered By: Orion Mondragon on 07-28-2023 Monocytes/100 WBC (Bld) 14.2 % Normal . [facility] Comment on above: Performed By: #### C MP, LIPID, TSH3 #### [address] Automated neutrophil %Ordere d By: Orion Mondragon on 12-02-2023 Neutrophils/100 WBC (Bld) 71.9 % Normal . [facility] Comment on above: Performed By: #### C MP, LIPID, TSH3 #### [address] Automated urine color determ inationOrdered By: Orion Mondragon on 07-28-2023 Color (U) Yellow Normal Yellow [facility] Comment on above: Order Comment: Name Collection Type:: Clean-Voided Midstream Performed By: #### U A #### [address] Bacterial blood cultureOrder ed By: Orion Mondragon on 07-28-2023 Bacteria identified Cx Nom (Bld) NO GROWTH 5 DAYS [facility] Bacteria identified Cx Nom (Bld) NO GROWTH 5 DAYS [facility] Bilirubin Test strip Ql (U)O rdered By: Orion Mondragon on 07-28-2023 Bilirubin Ql (U) Negative Negative [facility] Bilirubin.total [Mass/volume ] in Serum or PlasmaOrdered By: Orion Mondragon on 07-28-2023 Bilirubin [Mass/Vol] 0.8 mg/dL Normal 0.3-1.0 [facility] Comment on above: Performed By: #### C MP, LIPID, TSH3 #### [address] BioFire Not Detectedon 07-28 BioFire Not Detected Not detected Normal Not Detecte [facility] Comment on above: Result Comment: This is a duplicate RP2.1 COVID (PCR) result to be used for statistical tracking purpose only. PERFORMED BY: [place] [address] PATHOLOGIST GLOST TILE SORTER TARAH MAYER M.D. Performed By: #### R ANGELA PANEL UPP., BIOFIRECOVNOTDE #### [address] Blood Cultureon 07-28-2023 Bacteria identified Cx Nom (Bld) NO GROWTH 5 DAYS PERFORMED BY: [place] [address] PATHOLOGIST GLOST TILE SORTER TARAH MAYER M.D. Normal [facility] Comment on above: Performed By: #### C MP, LIPID, TSH3 #### [address] Bacteria identified Cx Nom (Bld) NO GROWTH 5 DAYS PERFORMED BY: [place] [address] PATHOLOGIST GLOST TILE SORTER TARAH MAYER M.D. Normal [facility] Comment on above: Performed By: #### C MP, LIPID, TSH3 #### [address] COVID-19 Detected/Not Detect edOrdered By: Orion Mondragon on 07-28-2023 SARS-CoV-2 (COVID-19) RNA CAROLINA+non-probe Ql (Nph) Not detected Not Detecte [facility] Comment on above: This is a duplicate RP2.1 COVID (PCR) result to be used for statistical tracking purpose only. Calcium [Mass/volume] in Ser um or PlasmaOrdered By: Orion Mondragon on 07-28-2023 Calcium [Mass/Vol] 8.6 mg/dL Normal 8.6-10.3 [facility] Comment on above: Performed By: #### C MP, LIPID, TSH3 #### [address] Carbon dioxide, total [Moles /volume] in Serum or PlasmaOrdered By: Orion Mondragon on 07-28-2023 CO2 [Moles/Vol] 24.6 mmol/L Normal 21.0-31.0 [facility] Comment on above: Performed By: #### C MP, LIPID, TSH3 #### [address] Chloride [Moles/volume] in S brad or PlasmaOrdered By: Orion Mondragon on 07-28-2023 Chloride [Moles/Vol] 106 mmol/L Normal 98-107 [facility] Comment on above: Performed By: #### C MP, LIPID, TSH3 #### [address] Complete Blood Count Auto Di ffon 07-28-2023 Mean Corpuscular HGB Conc 35.1 g/dL Normal 32.5-35.6 [facility] Comment on above: Performed By: #### C MP, LIPID, TSH3 #### [address] Monocytes/100 WBC (Bld) 22.65 % High 0.00-20.00 [facility] Comment on above: Result Comment: For adults in ED, MDW > 20.0 may be associated with a higher risk of sepsis during the first 12 hrs of hospital admission Performed By: #### C MP, LIPID, TSH3 #### [address] NRBC% 0.1 /100{WBC} Normal 0-0.5 [facility] Comment on above: Performed By: #### C MP, LIPID, TSH3 #### [address] Comprehensive Metabolic Pane edna 07-28-2023 Albumin [Mass/Vol] 3.5 g/dL Normal 3.5-5.7 [facility] Comment on above: Performed By: #### C MP, LIPID, TSH3 #### [address] Creatinine Clr Calc Pharmacy 79.23 Normal [facility] Comment on above: Result Comment: PERF ORMED BY: [place] [address] PATHOLOGIST GLOST TILE SORTER TARAH MAYER M.D. Performed By: #### C MP, LIPID, TSH3 #### [place] [address] [place] GFR/1.73 sq M.predicted MDRD (S/P/Bld) [Vol rate/Area] mL/min/{1.73_m2} Normal [facility] Comment on above: Performed By: #### C MP, LIPID, TSH3 #### [address] Creatinine [Mass/volume] in Serum or PlasmaOrdered By: Orion Mondragon on 07-28-2023 Creatinine [Mass/Vol] 0.99 mg/dL Normal 0.70-1.30 [facility] Comment on above: Performed By: #### C MP, LIPID, TSH3 #### [address] Erythrocyte Sedimentation Ra olga 07-28-2023 ESR (Bld) [Velocity] 28 mm/h High 0-19 [facility] Comment on above: Result Comment: PERF ORMED BY: [place] [address] PATHOLOGIST GLOST TILE SORTER TARAH MAYER M.D. Performed By: #### C MP, LIPID, TSH3 #### [address] Erythrocyte distribution wid th [Ratio] by Automated countOrdered By: Orion Mondragon on 07-28-2023 Erythrocyte distribution width (RBC) [Ratio] 12.4 % Normal 12.0-14.8 [facility] Comment on above: Performed By: #### C MP, LIPID, TSH3 #### [address] Erythrocyte sedimentation ra te by Photometric methodOrdered By: Orion Mondragon on 07-28-2023 ESR Photometric method (Bld) [Velocity] 28 mm/hr 0-19 [facility] Erythrocytes [#/volume] in B lood by Automated countOrdered By: Orion Mondragon on 07-28-2023 RBC (Bld) [#/Vol] 4.22 10*6/uL Normal 3.90-5.60 [facility] Comment on above: Performed By: #### C MP, LIPID, TSH3 #### [address] Glucose [Mass/volume] in Ser um or PlasmaOrdered By: Orion Mondragon on 07-28-2023 Glucose [Mass/Vol] 99 mg/dL Normal 70-100 [facility] Comment on above: ADA recommended refe rence rangeRandom Glucose Reference Range is dependent on time and content of last meal. Glucose of more than 200 mg/dL in a nonstressed, ambulatory subject supports the diagnosis of Diabetes Mellitus. Result Comment: [facility] Glucose Reference Range is dependent on time and content of last meal. Glucose of more than 200 mg/dL in a nonstressed, ambulatory subject supports the diagnosis of Diabetes Mellitus. ADA recommended reference range Performed By: #### C MP, LIPID, TSH3 #### [address] Hematocrit [Volume Fraction] of Blood by Automated countOrdered By: Orion Mondragon on 07-28-2023 Hematocrit (Bld) [Volume fraction] 39.2 % Normal 38.8-50.0 [facility] Comment on above: Performed By: #### C MP, LIPID, TSH3 #### [address] Hemoglobin [Mass/volume] in BloodOrdered By: Orion Mondragon on 07-28-2023 Hemoglobin (Bld) [Mass/Vol] 13.8 g/dL Normal 13.0-17.0 [facility] Comment on above: Performed By: #### C YOUNG LIPID, TSH3 #### [address] Ketones Auto test strip (U) [Mass/Vol]Ordered By: Orion Mondragon on 07-28-2023 Ketones (U) [Mass/Vol] Negative Negative [facility] Lactate [Moles/volume] in Se rum or PlasmaOrdered By: Orion Mondragon on 07-28-2023 Lactate [Moles/Vol] 0.9 mmol/L Normal 0.5-2.2 [facility] Comment on above: Result Comment: PERF ORMED BY: [place] [address] PATHOLOGIST GLOST TILE SORTER TARAH MAYER M.D. Performed By: #### C MP, LIPID, TSH3 #### [address] Leukocytes [#/volume] correc bere for nucleated erythrocytes in Blood by Automated counOrdered By: Orion Mnodragon on 07-28-2023 WBC corrected for nucl RBC Auto (Bld) [#/Vol] 7.8 10*3/uL 4.1-10.5 [facility] Leukocytes [#/volume] in Blo od by Automated countOrdered By: Orion Mondragon on 07-28-2023 WBC (Bld) [#/Vol] 7.8 10*3/uL Normal 4.1-10.5 [facility] Comment on above: Performed By: #### C MP, LIPID, TSH3 #### [facility] [address] [place] [address] Lymphocytes [#/volume] in Bl ood by Automated countOrdered By: Orion Mondragon on 07-28-2023 Lymphocytes (Bld) [#/Vol] 0.9 10*3/uL Low 1.00-4.8 [facility] Comment on above: Performed By: #### C MP, LIPID, TSH3 #### [address] Lymphocytes/100 leukocytes i n Blood by Automated countOrdered By: Orion Mondragon on 07-28-2023 Lymphocytes/100 WBC (Bld) 11.5 % Normal . [facility] Comment on above: Performed By: #### C MP, LIPID, TSH3 #### [address] MCH [Entitic mass] by Automa bere countOrdered By: Orion Mondragon on 07-28-2023 MCH (RBC) [Entitic mass] 32.7 pg Normal 27.5-35.2 [facility] Comment on above: Performed By: #### C MP, LIPID, TSH3 #### [address] MCHC Auto (RBC) [Mass/Vol]Or dered By: Orion Mondragon on 07-28-2023 MCHC (RBC) [Mass/Vol] 35.1 g/dL 32.5-35.6 [facility] MCV [Entitic volume] by Auto mated countOrdered By: Orion Mondragon on 07-28-2023 MCV (RBC) [Entitic vol] 93.0 fL Normal 83.5-101 [facility] Comment on above: Performed By: #### C MP, LIPID, TSH3 #### [facility] [address] Monocyte distribution width [Entitic volume] in Blood by AutomatedOrdered By: Orion Mondragon on 07-28-2023 Monocyte distribution width Auto (Bld) [Entitic vol] 22.65 % 0.00-20.00 [facility] Comment on above: For adults in ED, MD W > 20.0 may be associated with a higher risk of sepsis during the first 12 hrs of hospital admission Neutrophils [#/volume] in Bl ood by Automated countOrdered By: Orion Mondragon on 07-28-2023 Neutrophils (Bld) [#/Vol] 5.6 10*3/uL Normal 1.8-7.7 [facility] Comment on above: Performed By: #### C MP, LIPID, TSH3 #### [facility] [address] [place] [address] Nitrite Test strip Ql (U)Ord ered By: Orion Mondragon on 07-28-2023 Nitrite Ql (U) Negative Negative [facility] No Panel InformationOrdered By: Orion Mondragon on 07-28-2023 Estimated GFR (CKD-EPI) > 60.0 mL/Min [facility] Creatinine Clearance (Chem 79.23 [facility] Nucleated erythrocytes [Pres ence] in Blood by Automated countOrdered By: Orion Mondragon on 07-28-2023 Nucleated RBC Auto Ql (Bld) 0.1 /100{WBC} 0-0.5 [facility] Platelet mean volume [Entiti c volume] in Blood by Automated countOrdered By: Orion Mondragon on 07-28-2023 Platelet mean volume (Bld) [Entitic vol] 7.3 fL Normal 6.6-10.1 [facility] Comment on above: Performed By: #### C MP, LIPID, TSH3 #### [facility] [address] [place] [address] [place] Platelets [#/volume] in Bloo d by Automated countOrdered By: Orion Mondragon on 07-28-2023 Platelets (Bld) [#/Vol] 282 10*3/uL Normal 150-450 [facility] Comment on above: Performed By: #### C MP, LIPID, TSH3 #### [facility] [address] Potassium [Moles/volume] in Serum or PlasmaOrdered By: Orion Mondragon on 07-28-2023 Potassium [Moles/Vol] 4.1 mmol/L Normal 3.5-5.1 [facility] Comment on above: Performed By: #### C MP, LIPID, TSH3 #### [facility] [address] Protein Auto test strip (U) [Mass/Vol]Ordered By: Orion Mondragon on 07-28-2023 Protein (U) [Mass/Vol] Negative Negative [facility] Protein [Mass/volume] in Ser um or PlasmaOrdered By: Orion Mondragon on 07-28-2023 Protein [Mass/Vol] 6.2 g/dL Low 6.4-8.9 [facility] Comment on above: Performed By: #### C MP, LIPID, TSH3 #### [facility] [address] Respiratory (Upper) Panel, P CRon 07-28-2023 Respiratory [...] COVID-19 Detected/Not Detected Not detected Blank Space -- FLUA TEST INCLUDES Influenza A tests for the following clinically FLUA TEST INCLUDES significant subtypes: FLUA TEST INCLUDES - Influenza A FLUA TEST INCLUDES - Influenza A H1 FLUA TEST INCLUDES - Influenza A H1 2009 FLUA TEST INCLUDES - Influenza A H3 Blank Space -- PERFORMED BY: [place] [address] PATHOLOGIST GLOST TILE SORTER TARAH MAYER M.D. Normal [facility] Comment on above: Performed By: #### R ANGELA PANEL UPP., BIOFIRECOVNOTDE #### [address] Respiratory pathogens DNA an d RNA panel - Nasopharynx by CAROLINA with non-probe detectionOrdered By: Orion Mondragon on 07-28-2023 Respiratory pathogens DNA and RNA panel CAROLINA+non-probe (Nph) [facility] Serum globulin measurement b y calculation (mass/volume)Ordered By: Orion Mondragon on 07-28-2023 Globulin (S) [Mass/Vol] 2.7 g/dL [facility] Comment on above: Performed By: #### C MP, LIPID, TSH3 #### [address] Serum or plasma albumin/glob ulin mass ratioOrdered By: Orion Mondragon on 07-28-2023 Albumin/Globulin [Mass ratio] 1.3 {ratio} [facility] Comment on above: Performed By: #### C MP, LIPID, TSH3 #### [address] Serum or plasma anion gap de terminationOrdered By: Orion Mondragon on 07-28-2023 Anion gap [Moles/Vol] 14.5 mmol/L Normal 6.0-15.0 [facility] Comment on above: Performed By: #### C MP, LIPID, TSH3 #### [address] Sodium [Moles/volume] in Ser um or PlasmaOrdered By: Orion Mondragon on 07-28-2023 Sodium [Moles/Vol] 141 mmol/L Significant change down 136-145 [facility] Comment on above: Delta: 135 on Performed By: #### C MP, LIPID, TSH3 #### [address] Specific gravity Auto test s trip (U) [Rel density]Ordered By: Orion Mondragon on 07-28-2023 Specific gravity (U) [Rel density] 1.013 1.001-1.03 0 [facility] Urea nitrogen [Mass/volume] in Serum or PlasmaOrdered By: Orion Mondragon on 07-28-2023 Urea nitrogen [Mass/Vol] 21 mg/dL Normal 7-25 [facility] Comment on above: Performed By: #### C MP, LIPID, TSH3 #### [address] Urinalysison 07-28-2023 Appearance (U) Clear Normal Clear [facility] Comment on above: Order Comment: Name Collection Type:: Clean-Voided Midstream Performed By: #### U A #### [address] Bilirubin,Urine Negative Normal Negative [facility] Comment on above: Order Comment: Name Collection Type:: Clean-Voided Midstream Performed By: #### U A #### [address] Glucose Ql (U) Normal Normal Normal [facility] Comment on above: Order Comment: Name Collection Type:: Clean-Voided Midstream Performed By: #### U A #### [address] Ketones Ql (U) Negative Normal Negative [facility] Comment on above: Order Comment: Name Collection Type:: Clean-Voided Midstream Performed By: #### U A #### [address] Leukocyte esterase Test strip Ql (U) Negative Normal Negative [facility] Comment on above: Order Comment: Name Collection Type:: Clean-Voided Midstream Performed By: #### U A #### [address] Nitrite,Urine Negative Normal Negative [facility] Comment on above: Order Comment: Name Collection Type:: Clean-Voided Midstream Performed By: #### U A #### [address] Occult Blood,Urine Negative Normal Negative [facility] Comment on above: Order Comment: Name Collection Type:: Clean-Voided Midstream Result Comment: PERF ORMED BY: [place] [address] PATHOLOGIST GLOST TILE SORTER TARAH MAYER M.D. Performed By: #### U A #### [address] Protein,Urine Negative Normal Negative [facility] Comment on above: Order Comment: Name Collection Type:: Clean-Voided Midstream Performed By: #### U A #### [address] Specificy [place],Urine 1.013 Normal 1.001-1.03 0 [facility] Comment on above: Order Comment: Name Collection Type:: Clean-Voided Midstream Performed By: #### U A #### [address] Urobilinogen,Urine Normal Normal Normal [facility] Comment on above: Order Comment: Name Collection Type:: Clean-Voided Midstream Performed By: #### U A #### [address] Urine clarity by refractomet ry automatedOrdered By: Orion Mondragon on 07-28-2023 Clarity Refractometry automated (U) Clear Clear [facility] Urine glucose measurement by automated test strip (mass/volume)Ordered By: Orion Mondragon on 07-28-2023 Glucose Auto test strip (U) [Mass/Vol] Normal mg/dL Normal [facility] Urine hemoglobin detection b y automated test stripOrdered By: Orion Mondragon on 07-28-2023 Hemoglobin Auto test strip Ql (U) Negative Negative [facility] Urine leukocyte esterase det ection by automated test stripOrdered By: Orion Mondragon on 07-28-2023 Leukocyte esterase Auto test strip Ql (U) Negative Negative [facility] Urine pH measurement by auto mated test stripOrdered By: Orion Mondragon on 07-28-2023 pH (U) 6.0 [pH] Normal 5.0-9.0 [facility] Comment on above: Order Comment: Name Collection Type:: Clean-Voided Midstream Performed By: #### U A #### [address] Urobilinogen Auto test strip (U) [Mass/Vol]Ordered By: Orion Mondragon on 07-28-2023 Urobilinogen (U) [Mass/Vol] Normal mg/dL Normal [facility] XR chest 2V*on 07-28-2023 XR chest 2V* [facility] [place] [address] [place] [address] XRay Report Signed Patient: David Ozuna MR#: [id number] : 1960 Acct:[id number] Age/Sex: 63 / M ADM Date: 07/28/23 Loc: ER Room: Type: [facility] ER Attending Dr: Copies to: Orion Mondragon MD Ordering Provider: Orion Mondragon MD Date of Service: 07/28/23 XR/XR chest 2V*: Nausea/Vomiting/Diarrhea PA AND LATERAL CHEST: CLINICAL HISTORY: Nausea, [...] Niki Parker M.D.07/28/2023 1:07 PM Dictation Location: [place] [address] Transcribed By: MARIA DEL CARMEN 07/28/23 9945 Dictated By: Niki Parker MD 07/28/23 1305 Signed By: 07/28/23 1307 Normal [facility] Alanine aminotransferase [En zymatic activity/volume] in Serum or PlasmaOrdered By: Lisa Lerner on 07-26-2023 ALT [Catalytic activity/Vol] 40 U/L Normal [facility] Comment on above: Performed By: #### R ANGELA PANEL UPP., BIOFIRECOVNOTDE #### [facility] [address] [place] [address] [place] Alanine aminotransferase [En zymatic activity/volume] in Serum or PlasmaOrdered By: Kushal Bateman on 07-26-2023 ALT [Catalytic activity/Vol] 42 U/L Normal [facility] Comment on above: Performed By: #### C MP, LIPID, TSH3 #### [facility] [address] [place] [address] [place] Albumin [Mass/volume] in Ser um or Plasma by Bromocresol green (BCG) dye binding methoOrdered By: Lisa Lerner on 07-26-2023 Albumin BCG dye [Mass/Vol] 3.8 g/dL 3.5-5.7 [facility] Albumin [Mass/volume] in Ser um or Plasma by Bromocresol green (BCG) dye binding methoOrdered By: Kushal Bateman on 07-26-2023 Albumin BCG dye [Mass/Vol] 3.7 g/dL 3.5-5.7 [facility] Alkaline phosphatase [Enzyma tic activity/volume] in Serum or PlasmaOrdered By: Lisa Lerner on 07-26-2023 ALP [Catalytic activity/Vol] 98 U/L Normal 34-104 [facility] Comment on above: Performed By: #### R ANGELA PANEL UPP., BIOFIRECOVNOTDE #### [facility] [address] [place] [address] [place] Alkaline phosphatase [Enzyma tic activity/volume] in Serum or PlasmaOrdered By: Kushal Bateman on 07-26-2023 ALP [Catalytic activity/Vol] 98 U/L Normal 34-104 [facility] Comment on above: Result Comment: PERF ORMED BY: [place] [address] PATHOLOGIST GLOST TILE SORTER TARAH MAYER M.D. Performed By: #### C MP, LIPID, TSH3 #### [address] Aspartate aminotransferase [ Enzymatic activity/volume] in Serum or PlasmaOrdered By: Lisa Lerner on 07-26-2023 AST [Catalytic activity/Vol] 24 U/L Normal [facility] Comment on above: Performed By: #### R ANGELA PANEL UPP., BIOFIRECOVNOTDE #### [address] Aspartate aminotransferase [ Enzymatic activity/volume] in Serum or PlasmaOrdered By: Kushal Bateman on 07-26-2023 AST [Catalytic activity/Vol] 25 U/L Normal [facility] Comment on above: Performed By: #### C MP, LIPID, TSH3 #### [address] Automated basophil %Ordered By: Lisa Lerner on 07-26-2023 Basophils/100 WBC (Bld) 0.5 % Normal . [facility] Comment on above: Performed By: #### C MP, LIPID, TSH3 #### [address] Automated basophil %Ordered By: Kushal Bateman on 07-26-2023 Basophils/100 WBC (Bld) 0.6 % Normal . [facility] Comment on above: Performed By: #### C BC, CMP wRFX A1C, EBS A1C #### [address] Automated basophil countOrde red By: Lisa Lerner on 07-26-2023 Basophils (Bld) [#/Vol] 0.0 10*3/uL Normal 0.0-0.2 [facility] Comment on above: Result Comment: PERF ORMED BY: [place] [address] PATHOLOGIST GLOST TILE SORTER TARAH MAYER M.D. Performed By: #### C MP, LIPID, TSH3 #### [address] Automated basophil countOrde red By: Kushal Bateman on 07-26-2023 Basophils (Bld) [#/Vol] 0.0 10*3/uL Normal 0.0-0.2 [facility] Comment on above: Result Comment: PERF ORMED BY: [place] [address] PATHOLOGIST GLOST TILE SORTER TARAH MAYER M.D. Performed By: #### C BC, CMP wRFX A1C, EBS A1C #### [address] Automated blood monocyte cou ntOrdered By: Lisa Lerner on 07-26-2023 Monocytes (Bld) [#/Vol] 1.1 10*3/uL High 0.0-0.8 [facility] Comment on above: Performed By: #### C MP, LIPID, TSH3 #### [address] Automated blood monocyte cou ntOrdered By: Kushal Bateman on 07-26-2023 Monocytes (Bld) [#/Vol] 1.3 10*3/uL High 0.0-0.8 [facility] Comment on above: Performed By: #### C BC, CMP wRFX A1C, EBS A1C #### [address] Automated eosinophil %Ordere d By: Lisa Lerner on 07-26-2023 Eosinophils/100 WBC (Bld) 1.9 % Normal . [facility] Comment on above: Performed By: #### C MP, LIPID, TSH3 #### [address] Automated eosinophil %Ordere d By: Kushal Bateman on 07-26-2023 Eosinophils/100 WBC (Bld) 1.1 % Normal . [facility] Comment on above: Performed By: #### C BC, CMP wRFX A1C, EBS A1C #### [address] Automated eosinophil countOr dered By: Lisa Lerner on 07-26-2023 Eosinophils (Bld) [#/Vol] 0.2 10*3/uL Normal 0.0-0.45 [facility] Comment on above: Performed By: #### C MP, LIPID, TSH3 #### [address] Automated eosinophil countOr dered By: Kushal Bateman on 07-26-2023 Eosinophils (Bld) [#/Vol] 0.1 10*3/uL Normal 0.0-0.45 [facility] Comment on above: Performed By: #### C BC, CMP wRFX A1C, EBS A1C #### [address] Automated erythrocytes count in urine sediment (number/area)Ordered By: iLsa Lerner on 07-26-2023 RBC Auto (Urine sed) [#/Area] 1-2 [HPF] 0-4 [facility] Automated leukocytes count i n urine sediment (number/area)Ordered By: Lisa Lerner on 07-26-2023 WBC Auto (Urine sed) [#/Area] 0-1 [HPF] 0-4 [facility] Automated monocyte %Ordered By: Lisa Lerner on 07-26-2023 Monocytes/100 WBC (Bld) 13.4 % Normal . [facility] Comment on above: Performed By: #### C MP, LIPID, TSH3 #### [facility] [address] [place] [address] Automated monocyte %Ordered By: Kushal Bateman on 07-26-2023 Monocytes/100 WBC (Bld) 15.6 % Normal . [facility] Comment on above: Performed By: #### C BC, CMP wRFX A1C, EBS A1C #### [facility] [address] [place] [address] Automated neutrophil %Ordere d By: Lisa Lerner on 07-26-2023 Neutrophils/100 WBC (Bld) 70.2 % Normal . [facility] Comment on above: Performed By: #### C MP, LIPID, TSH3 #### [facility] [address] Automated neutrophil %Ordere d By: Kushal Bateman on 07-26-2023 Neutrophils/100 WBC (Bld) 69.8 % Normal . [facility] Comment on above: Performed By: #### C BC, CMP wRFX A1C, EBS A1C #### [facility] [address] Automated urine color determ inationOrdered By: Lisa Lerner on 07-26-2023 Color (U) Dark yellow Critically abnormal Yellow [facility] Comment on above: Order Comment: Name Collection Type:: Clean-Voided Midstream Performed By: #### R ANGELA PANEL UPP., BIOFIRECOVNOTDE #### [address] Bilirubin Test strip Ql (U)O rdered By: Lisa Lerner on 07-26-2023 Bilirubin Ql (U) Negative Negative [facility] Bilirubin.total [Mass/volume ] in Serum or PlasmaOrdered By: Lisa Lerner on 07-26-2023 Bilirubin [Mass/Vol] 1.1 mg/dL High 0.3-1.0 [facility] Comment on above: Performed By: #### R ANGELA PANEL UPP., BIOFIRECOVNOTDE #### [address] Bilirubin.total [Mass/volume ] in Serum or PlasmaOrdered By: Kushal Bateman on 07-26-2023 Bilirubin [Mass/Vol] 1.0 mg/dL Normal 0.3-1.0 [facility] Comment on above: Performed By: #### C MP, LIPID, TSH3 #### [address] CMP with reflex to A1Con Albumin [Mass/Vol] 3.7 g/dL Normal 3.5-5.7 [facility] Comment on above: Performed By: #### C MP, LIPID, TSH3 #### [facility] [address] [place] [address] [place] GFR/1.73 sq M.predicted MDRD (S/P/Bld) [Vol rate/Area] mL/min/{1.73_m2} Normal [facility] Comment on above: Performed By: #### C MP, LIPID, TSH3 #### [facility] [address] [place] [address] [place] Calcium [Mass/volume] in Ser um or PlasmaOrdered By: Lisa Lerner on 07-26-2023 Calcium [Mass/Vol] 8.8 mg/dL Normal 8.6-10.3 [facility] Comment on above: Performed By: #### R ANGELA PANEL UPP., BIOFIRECOVNOTDE #### [place] [address] [place] Calcium [Mass/volume] in Ser um or PlasmaOrdered By: Kushal Olexa on 07-26-2023 Calcium [Mass/Vol] 8.6 mg/dL Normal 8.6-10.3 [facility] Comment on above: Performed By: #### C MP, LIPID, TSH3 #### [place] [address] [place] Carbon dioxide, total [Moles /volume] in Serum or PlasmaOrdered By: Lisa Lerner on 07-26-2023 CO2 [Moles/Vol] 27.5 mmol/L Normal 21.0-31.0 [facility] Comment on above: Performed By: #### R ANGELA PANEL UPP., BIOFIRECOVNOTDE #### [place] [address] [place] Carbon dioxide, total [Moles /volume] in Serum or PlasmaOrdered By: Kushal Olexa on 07-26-2023 CO2 [Moles/Vol] 29.3 mmol/L Normal 21.0-31.0 [facility] Comment on above: Performed By: #### C MP, LIPID, TSH3 #### [place] [address] [place] Chloride [Moles/volume] in S brad or PlasmaOrdered By: Lisa Lerner on 07-26-2023 Chloride [Moles/Vol] 102 mmol/L Normal 98-107 [facility] Comment on above: Performed By: #### R ANGELA PANEL UPP., BIOFIRECOVNOTDE #### [address] Chloride [Moles/volume] in S brad or PlasmaOrdered By: Kushal Bateman on 07-26-2023 Chloride [Moles/Vol] 103 mmol/L Normal 98-107 [facility] Comment on above: Performed By: #### C MP, LIPID, TSH3 #### [address] Complete Blood Count Auto Di ffon 07-26-2023 Mean Corpuscular HGB Conc 34.6 g/dL Normal 32.5-35.6 [facility] Comment on above: Performed By: #### C MP, LIPID, TSH3 #### [address] Monocytes/100 WBC (Bld) 20.40 % High 0.00-20.00 [facility] Comment on above: Result Comment: For adults in ED, MDW > 20.0 may be associated with a higher risk of sepsis during the first 12 hrs of hospital admission Performed By: #### C MP, LIPID, TSH3 #### [address] NRBC% 0.1 /100{WBC} Normal 0-0.5 [facility] Comment on above: Performed By: #### C MP, LIPID, TSH3 #### [address] Mean Corpuscular HGB Conc 34.8 g/dL Normal 32.5-35.6 [facility] Comment on above: Performed By: #### C BC, CMP wRFX A1C, EBS A1C #### [address] NRBC% 0.1 /100{WBC} Normal 0-0.5 [facility] Comment on above: Performed By: #### C BC, CMP wRFX A1C, EBS A1C #### [place] [address] Comprehensive Metabolic Pane edna 07-26-2023 Albumin [Mass/Vol] 3.8 g/dL Normal 3.5-5.7 [facility] Comment on above: Performed By: #### R ANGELA PANEL UPP., BIOFIRECOVNOTDE #### [place] [address] [place] Creatinine Clr Calc Pharmacy 76.81 Normal [facility] Comment on above: Result Comment: PERF ORMED BY: [place] [address] PATHOLOGIST GLOST TILE SORTER TARAH MAYER M.D. Performed By: #### R ANGELA PANEL UPP., BIOFIRECOVNOTDE #### [address] GFR/1.73 sq M.predicted MDRD (S/P/Bld) [Vol rate/Area] mL/min/{1.73_m2} Normal [facility] Comment on above: Performed By: #### R ANGELA PANEL UPP., BIOFIRECOVNOTDE #### [place] [address] [place] Creatinine [Mass/volume] in Serum or PlasmaOrdered By: Lisa Lerner on 07-26-2023 Creatinine [Mass/Vol] 0.99 mg/dL Normal 0.70-1.30 [facility] Comment on above: Performed By: #### R ANGELA PANEL UPP., BIOFIRECOVNOTDE #### [place] [address] [place] Creatinine [Mass/volume] in Serum or PlasmaOrdered By: Kushal Bateman on 07-26-2023 Creatinine [Mass/Vol] 1.02 mg/dL Normal 0.70-1.30 [facility] Comment on above: Performed By: #### C MP, LIPID, TSH3 #### [place] [address] [place] Dipstick and Microscopicon 1 09-25-2022 Appearance (U) Clear Normal Clear [facility] Comment on above: Order Comment: Name Collection Type:: Clean-Voided Midstream Performed By: #### R ANGELA PANEL UPP., BIOFIRECOVNOTDE #### [address] Bacteria,Urine None Seen Normal None Seen [facility] Comment on above: Order Comment: Name Collection Type:: Clean-Voided Midstream Performed By: #### R ANGELA PANEL UPP., BIOFIRECOVNOTDE #### [address] Bilirubin,Urine Negative Normal Negative [facility] Comment on above: Order Comment: Name Collection Type:: Clean-Voided Midstream Performed By: #### R ANGELA PANEL UPP., BIOFIRECOVNOTDE #### [address] Glucose Ql (U) Normal Normal Normal [facility] Comment on above: Order Comment: Name Collection Type:: Clean-Voided Midstream Performed By: #### R ANGELA PANEL UPP., BIOFIRECOVNOTDE #### [address] Hyaline Casts,Urine 0-8 Normal 0-8 [facility] Comment on above: Order Comment: Name Collection Type:: Clean-Voided Midstream Result Comment: PERF ORMED BY: [place] [address] PATHOLOGIST GLOST TILE SORTER TARAH MAYER M.D. Performed By: #### R ANGELA PANEL UPP., BIOFIRECOVNOTDE #### [address] Ketones Ql (U) Trace High Negative [facility] Comment on above: Order Comment: Name Collection Type:: Clean-Voided Midstream Performed By: #### R ANGELA PANEL UPP., BIOFIRECOVNOTDE #### [address] Leukocyte esterase Test strip Ql (U) Negative Normal Negative [facility] Comment on above: Order Comment: Name Collection Type:: Clean-Voided Midstream Performed By: #### R ANGELA PANEL UPP., BIOFIRECOVNOTDE #### [place] [address] [place] Nitrite,Urine Negative Normal Negative [facility] Comment on above: Order Comment: Name Collection Type:: Clean-Voided Midstream Performed By: #### R ANGELA PANEL UPP., BIOFIRECOVNOTDE #### [address] Occult Blood,Urine Negative Normal Negative [facility] Comment on above: Order Comment: Name Collection Type:: Clean-Voided Midstream Result Comment: PERF ORMED BY: [place] [address] PATHOLOGIST GLOST TILE SORTER TARAH MAYER M.D. Performed By: #### R ANGELA PANEL UPP., BIOFIRECOVNOTDE #### [address] Protein,Urine Trace High Negative [facility] Comment on above: Order Comment: Name Collection Type:: Clean-Voided Midstream Performed By: #### R ANGELA PANEL UPP., BIOFIRECOVNOTDE #### [address] RBC,Urine 1-2 Normal 0-4 [facility] Comment on above: Order Comment: Name Collection Type:: Clean-Voided Midstream Performed By: #### R ANGELA PANEL UPP., BIOFIRECOVNOTDE #### [address] Specificy [place],Urine 1.023 Normal 1.001-1.03 0 [facility] Comment on above: Order Comment: Name Collection Type:: Clean-Voided Midstream Performed By: #### R ANGELA PANEL UPP., BIOFIRECOVNOTDE #### [address] Squamous Epithelial Cell,Urine None Seen Normal 0-2 [facility] Comment on above: Order Comment: Name Collection Type:: Clean-Voided Midstream Performed By: #### R ANGELA PANEL UPP., BIOFIRECOVNOTDE #### [address] Urobilinogen,Urine Normal Normal Normal [facility] Comment on above: Order Comment: Name Collection Type:: Clean-Voided Midstream Performed By: #### R ANGELA PANEL UPP., BIOFIRECOVNOTDE #### [address] WBC LM.HPF (Urine sed) [#/Area] 0 /[HPF] Normal 0-4 [facility] Comment on above: Order Comment: Name Collection Type:: Clean-Voided Midstream Performed By: #### R ANGELA PANEL UPP., BIOFIRECOVNOTDE #### [address] EBS A1C with Estimated Ave G luon 07-26-2023 Glucose [Mass/Vol] 120 mg/dL Normal [facility] Comment on above: Result Comment: PERF ORMED BY: [place] [address] PATHOLOGIST GLOST TILE SORTER TARAH MAYER M.D. Performed By: #### C MP, LIPID, TSH3 #### [address] EBS A1C with Estimated Ave G luOrdered By: Kushal Bateman on 07-26-2023 HbA1c (Bld) [Mass fraction] 5.8 % High 4.3-5.6 [facility] Comment on above: Increased risk for d iabetes: 5.7 - 6.4diabetes: >6.4glycemic control for adults with diabetes: <7.0 Result Comment: Incr eased risk for diabetes: 5.7 - 6.4 diabetes: >6.4 glycemic control for adults with diabetes: <7.0 Performed By: #### C MP, LIPID, TSH3 #### [address] ECG 12 lead ECGon 07-26-2023 ECG 12 lead ECG [facility] [address] [address] Electrocardiograph Report Signed Patient: David Ozuna MR#: [id number] : 1960 Acct:[id number] Age/Sex: 63 / M ADM Date: 07/26/23 Loc: ER Room: Type: [facility] ER Attending Dr: Ordering Provider: Lisa [...] was found Confirmed by JEAN-PIERRE LE DO ([id number]) on 07/26/2023 3:51:38 PM Referred By: Electronically Signed By:JEAN-PIERRE LE DO Transcribed By: MUS Signed By Jean-Pierre Le DO 07/26 1551 Normal [facility] ECG 12 lead ECG [place] [id number] Electrocardiograph Report Signed Patient: David Ozuna MR#: [id number] : 1960 Acct:[id number] Age/Sex: 63 / M ADM Date: 07/26/23 Loc: PS Room: Type: [facility] CLI Attending Dr: Kushal Bateman MD Ordering Provider: uKshal Bateman MD Date of Service: 07/26/23 ECG/ECG [...] change was found Confirmed by LILA PANG [facility], AMARJIT ([id number]) on 07/26/2023 2:23:00 PM Referred By: LEÓN Electronically Signed By:AMARJIT SHARP MD [facility] Transcribed By: MUS Signed By Elijah Sharp MD 07/26/23 1423 Normal [facility] Erythrocyte distribution wid th [Ratio] by Automated countOrdered By: Lisa Lerner on 07-26-2023 Erythrocyte distribution width (RBC) [Ratio] 12.5 % Normal 12.0-14.8 [facility] Comment on above: Performed By: #### C MP, LIPID, TSH3 #### [facility] [address] [place] [address] [place] Erythrocyte distribution wid th [Ratio] by Automated countOrdered By: Kushal Bateman on 07-26-2023 Erythrocyte distribution width (RBC) [Ratio] 12.4 % Normal 12.0-14.8 [facility] Comment on above: Performed By: #### C BC, CMP wRFX A1C, EBS A1C #### [facility] [address] [place] [id number] [place] Erythrocytes [#/volume] in B lood by Automated countOrdered By: Lisa Lerner on 07-26-2023 RBC (Bld) [#/Vol] 4.51 10*6/uL Normal 3.90-5.60 [facility] Comment on above: Performed By: #### C MP, LIPID, TSH3 #### [facility] [address] [place] [address] [place] Erythrocytes [#/volume] in B lood by Automated countOrdered By: Kushal Bateman on 07-26-2023 RBC (Bld) [#/Vol] 4.41 10*6/uL Normal 3.90-5.60 [facility] Comment on above: Performed By: #### C BC, CMP wRFX A1C, EBS A1C #### [facility] [address] [place] [id number] [place] Glucose [Mass/volume] in Ser um or PlasmaOrdered By: Lisa Lerner on 07-26-2023 Glucose [Mass/Vol] 103 mg/dL High 70-100 [facility] Comment on above: ADA recommended refe rence rangeRandom Glucose Reference Range is dependent on time and content of last meal. Glucose of more than 200 mg/dL in a nonstressed, ambulatory subject supports the diagnosis of Diabetes Mellitus. Result Comment: [place] om Glucose Reference Range is dependent on time and content of last meal. Glucose of more than 200 mg/dL in a nonstressed, ambulatory subject supports the diagnosis of Diabetes Mellitus. ADA recommended reference range Performed By: #### R ANGELA PANEL UPP., BIOFIRECOVNOTDE #### [facility] [address] [place] [address] [place] Glucose [Mass/volume] in Ser um or PlasmaOrdered By: Kushal Bateman on 07-26-2023 Glucose [Mass/Vol] 108 mg/dL High 70-100 [facility] Comment on above: ADA recommended refe rence range Result Comment: ADA recommended reference range Performed By: #### C MP, LIPID, TSH3 #### [facility] [address] [place] [address] [place] Glucose mean value [Mass/vol ume] in Blood Estimated from glycated hemoglobinOrdered By: Kushal Bateman on 07-26-2023 Average glucose Estimated from glycated hemoglobin (Bld) [Mass/Vol] 120 mg/dL [facility] Hematocrit [Volume Fraction] of Blood by Automated countOrdered By: Lisa Lerner on 07-26-2023 Hematocrit (Bld) [Volume fraction] 42.3 % Normal 38.8-50.0 [facility] Comment on above: Performed By: #### C MP, LIPID, TSH3 #### [place] [address] [place] Hematocrit [Volume Fraction] of Blood by Automated countOrdered By: Kushal Bateman on 07-26-2023 Hematocrit (Bld) [Volume fraction] 41.1 % Normal 38.8-50.0 [facility] Comment on above: Performed By: #### C BC, CMP wRFX A1C, EBS A1C #### [place] [id number] [place] Hemoglobin [Mass/volume] in BloodOrdered By: Lisa Lerner on 07-26-2023 Hemoglobin (Bld) [Mass/Vol] 14.6 g/dL Normal 13.0-17.0 [facility] Comment on above: Performed By: #### C MP, LIPID, TSH3 #### [facility] [address] [place] [address] [place] Hemoglobin [Mass/volume] in BloodOrdered By: Kushal Bateman on 07-26-2023 Hemoglobin (Bld) [Mass/Vol] 14.3 g/dL Normal 13.0-17.0 [facility] Comment on above: Performed By: #### C BC, CMP wRFX A1C, EBS A1C #### [facility] [address] Ketones Auto test strip (U) [Mass/Vol]Ordered By: Lisa Lerner on 07-26-2023 Ketones (U) [Mass/Vol] Trace Negative [facility] - UrinalysisOrder ed By: Lisa Lerner on 07-26-2023 Hyaline casts LM Ql (Urine sed) 0-8 [LPF] 0-8 [facility] Leukocytes [#/volume] correc bere for nucleated erythrocytes in Blood by Automated counOrdered By: Lisa Lerner on 07-26-2023 WBC corrected for nucl RBC Auto (Bld) [#/Vol] 8.4 10*3/uL 4.1-10.5 [facility] Leukocytes [#/volume] correc bere for nucleated erythrocytes in Blood by Automated counOrdered By: Kushal Bateman on 07-26-2023 WBC corrected for nucl RBC Auto (Bld) [#/Vol] 8.0 10*3/uL 4.1-10.5 [facility] Leukocytes [#/volume] in Blo od by Automated countOrdered By: Lisa Lerner on 07-26-2023 WBC (Bld) [#/Vol] 8.4 10*3/uL Normal 4.1-10.5 [facility] Comment on above: Performed By: #### C MP, LIPID, TSH3 #### [facility] [address] [place] [address] [place] Leukocytes [#/volume] in Blo od by Automated countOrdered By: Kushal Bateman on 07-26-2023 WBC (Bld) [#/Vol] 8.0 10*3/uL Normal 4.1-10.5 [facility] Comment on above: Performed By: #### C BC, CMP wRFX A1C, EBS A1C #### [facility] [address] [place] [address] [place] Lymphocytes [#/volume] in Bl ood by Automated countOrdered By: Lisa Lerner on 07-26-2023 Lymphocytes (Bld) [#/Vol] 1.2 10*3/uL Normal 1.00-4.8 [facility] Comment on above: Performed By: #### C MP, LIPID, TSH3 #### [place] [address] [place] Lymphocytes [#/volume] in Bl ood by Automated countOrdered By: Kushal Bateman on 07-26-2023 Lymphocytes (Bld) [#/Vol] 1.0 10*3/uL Normal 1.00-4.8 [facility] Comment on above: Performed By: #### C BC, CMP wRFX A1C, EBS A1C #### [place] [address] [place] Lymphocytes/100 leukocytes i n Blood by Automated countOrdered By: Lisa Lerner on 07-26-2023 Lymphocytes/100 WBC (Bld) 14.0 % Normal . [facility] Comment on above: Performed By: #### C MP, LIPID, TSH3 #### [facility] [address] [place] [address] [place] Lymphocytes/100 leukocytes i n Blood by Automated countOrdered By: Kushal Bateman on 07-26-2023 Lymphocytes/100 WBC (Bld) 12.9 % Normal . [facility] Comment on above: Performed By: #### C BC, CMP wRFX A1C, EBS A1C #### [place] [address] [place] MCH [Entitic mass] by Automa bere countOrdered By: Lisa Lerner on 07-26-2023 MCH (RBC) [Entitic mass] 32.3 pg Normal 27.5-35.2 [facility] Comment on above: Performed By: #### C MP, LIPID, TSH3 #### [facility] [address] [place] [address] MCH [Entitic mass] by Automa bere countOrdered By: Kushal Bateman on 07-26-2023 MCH (RBC) [Entitic mass] 32.5 pg Normal 27.5-35.2 [facility] Comment on above: Performed By: #### C BC, CMP wRFX A1C, EBS A1C #### [facility] [address] [place] [address] MCHC Auto (RBC) [Mass/Vol]Or dered By: Lisa Lerner on 07-26-2023 MCHC (RBC) [Mass/Vol] 34.6 g/dL 32.5-35.6 [facility] MCHC Auto (RBC) [Mass/Vol]Or dered By: Kushal Bateman on 07-26-2023 MCHC (RBC) [Mass/Vol] 34.8 g/dL 32.5-35.6 [facility] MCV [Entitic volume] by Auto mated countOrdered By: Lisa Lerner on 07-26-2023 MCV (RBC) [Entitic vol] 93.6 fL Normal 83.5-101 [facility] Comment on above: Performed By: #### C MP, LIPID, TSH3 #### [facility] [address] [place] [address] MCV [Entitic volume] by Auto mated countOrdered By: Kushal Bateman on 07-26-2023 MCV (RBC) [Entitic vol] 93.3 fL Normal 83.5-101 [facility] Comment on above: Performed By: #### C BC, CMP wRFX A1C, EBS A1C #### [address] Monocyte distribution width [Entitic volume] in Blood by AutomatedOrdered By: Lisa Lerner on 07-26-2023 Monocyte distribution width Auto (Bld) [Entitic vol] 20.40 % 0.00-20.00 [facility] Comment on above: For adults in ED, MD W > 20.0 may be associated with a higher risk of sepsis during the first 12 hrs of hospital admission Neutrophils [#/volume] in Bl ood by Automated countOrdered By: Lisa Lerner on 07-26-2023 Neutrophils (Bld) [#/Vol] 5.9 10*3/uL Normal 1.8-7.7 [facility] Comment on above: Performed By: #### C MP, LIPID, TSH3 #### [facility] [address] Neutrophils [#/volume] in Bl ood by Automated countOrdered By: Kushal Bateman on 07-26-2023 Neutrophils (Bld) [#/Vol] 5.6 10*3/uL Normal 1.8-7.7 [facility] Comment on above: Performed By: #### C BC, CMP wRFX A1C, EBS A1C #### [facility] [address] Nitrite Test strip Ql (U)Ord ered By: Lisa Lerner on 07-26-2023 Nitrite Ql (U) Negative Negative [facility] No Panel InformationOrdered By: Lisa Lerner on 07-26-2023 Estimated GFR (CKD-EPI) > 60.0 mL/Min [facility] Creatinine Clearance (Chem 76.81 [facility] No Panel InformationOrdered By: Kushal Bateman on 07-26-2023 Estimated GFR (CKD-EPI) > 60.0 mL/Min [facility] Creatinine Clearance (Chem N/A [facility] Nucleated erythrocytes [Pres ence] in Blood by Automated countOrdered By: Lisa Lerner on 07-26-2023 Nucleated RBC Auto Ql (Bld) 0.1 /100{WBC} 0-0.5 [facility] Nucleated erythrocytes [Pres ence] in Blood by Automated countOrdered By: Kushal Bateman on 07-26-2023 Nucleated RBC Auto Ql (Bld) 0.1 /100{WBC} 0-0.5 [facility] Platelet mean volume [Entiti c volume] in Blood by Automated countOrdered By: Lisa Lerner on 07-26-2023 Platelet mean volume (Bld) [Entitic vol] 7.1 fL Normal 6.6-10.1 [facility] Comment on above: Performed By: #### C MP, LIPID, TSH3 #### [place] [address] [place] Platelet mean volume [Entiti c volume] in Blood by Automated countOrdered By: Kushal Bateman on 07-26-2023 Platelet mean volume (Bld) [Entitic vol] 7.3 fL Normal 6.6-10.1 [facility] Comment on above: Performed By: #### C BC, CMP wRFX A1C, EBS A1C #### [place] [address] [place] Platelets [#/volume] in Bloo d by Automated countOrdered By: Lisa Lerner on 07-26-2023 Platelets (Bld) [#/Vol] 252 10*3/uL Normal 150-450 [facility] Comment on above: Performed By: #### C MP, LIPID, TSH3 #### [place] [address] [place] Platelets [#/volume] in Bloo d by Automated countOrdered By: Kushal Bateman on 07-26-2023 Platelets (Bld) [#/Vol] 241 10*3/uL Normal 150-450 [facility] Comment on above: Performed By: #### C BC, CMP wRFX A1C, EBS A1C #### [place] [address] [place] Potassium [Moles/volume] in Serum or PlasmaOrdered By: Lisa Lerner on 07-26-2023 Potassium [Moles/Vol] 4.2 mmol/L Normal 3.5-5.1 [facility] Comment on above: Performed By: #### R ANGELA PANEL UPP., BIOFIRECOVNOTDE #### [place] [address] [place] Potassium [Moles/volume] in Serum or PlasmaOrdered By: Kushal Bateman on 07-26-2023 Potassium [Moles/Vol] 4.4 mmol/L Normal 3.5-5.1 [facility] Comment on above: Performed By: #### C MP, LIPID, TSH3 #### [address] Protein Auto test strip (U) [Mass/Vol]Ordered By: Lisa Lerner on 07-26-2023 Protein (U) [Mass/Vol] Trace mg/dL Negative [facility] Protein [Mass/volume] in Ser um or PlasmaOrdered By: Lisa Lerner on 07-26-2023 Protein [Mass/Vol] 6.7 g/dL Normal 6.4-8.9 [facility] Comment on above: Performed By: #### R ANGELA PANEL UPP., BIOFIRECOVNOTDE #### [address] Protein [Mass/volume] in Ser um or PlasmaOrdered By: Kushal Bateman on 07-26-2023 Protein [Mass/Vol] 6.1 g/dL Low 6.4-8.9 [facility] Comment on above: Performed By: #### C MP, LIPID, TSH3 #### [address] Serum globulin measurement b y calculation (mass/volume)Ordered By: Lisa Lerner on 07-26-2023 Globulin (S) [Mass/Vol] 2.9 g/dL [facility] Comment on above: Performed By: #### R ANGELA PANEL UPP., BIOFIRECOVNOTDE #### [address] Serum globulin measurement b y calculation (mass/volume)Ordered By: Kushal Bateman on 07-26-2023 Globulin (S) [Mass/Vol] 2.4 g/dL [facility] Comment on above: Performed By: #### C MP, LIPID, TSH3 #### [address] Serum or plasma albumin/glob ulin mass ratioOrdered By: Lisa Lerner on 07-26-2023 Albumin/Globulin [Mass ratio] 1.3 {ratio} [facility] Comment on above: Performed By: #### R ANGELA PANEL UPP., BIOFIRECOVNOTDE #### [address] Serum or plasma albumin/glob ulin mass ratioOrdered By: Kushal Bateman on 07-26-2023 Albumin/Globulin [Mass ratio] 1.5 {ratio} [facility] Comment on above: Performed By: #### C MP, LIPID, TSH3 #### [address] Serum or plasma anion gap de terminationOrdered By: Lisa Lerner on 07-26-2023 Anion gap [Moles/Vol] 9.7 mmol/L Normal 6.0-15.0 [facility] Comment on above: Performed By: #### R ANGELA PANEL UPP., BIOFIRECOVNOTDE #### [address] Serum or plasma anion gap de terminationOrdered By: Kushal Bateman on 07-26-2023 Anion gap [Moles/Vol] 8.1 mmol/L Normal 6.0-15.0 [facility] Comment on above: Performed By: #### C MP, LIPID, TSH3 #### [address] Sodium [Moles/volume] in Ser um or PlasmaOrdered By: Lisa Lerner on 07-26-2023 Sodium [Moles/Vol] 135 mmol/L Low 136-145 [facility] Comment on above: Performed By: #### R ANGELA PANEL UPP., BIOFIRECOVNOTDE #### [place] [address] [place] Sodium [Moles/volume] in Ser um or PlasmaOrdered By: Kushal Olexa on 07-26-2023 Sodium [Moles/Vol] 136 mmol/L Normal 136-145 [facility] Comment on above: Performed By: #### C MP, LIPID, TSH3 #### [place] [address] [place] Specific gravity Auto test s trip (U) [Rel density]Ordered By: Lisa Chapmanmontse on 07-26-2023 Specific gravity (U) [Rel density] 1.023 1.001-1.03 0 [facility] Squamous epithelial cells de tection in urine sediment by light microscopyOrdered By: Lisatimo Lerner on 07-26-2023 Epithelial cells.squamous LM Ql (Urine sed) None seen [HPF] 0-2 [facility] Troponin I High Sensitivityo n 07-26-2023 Troponin I High Sensitivity 4.2 pg/mL Normal 0.0-20.0 [facility] Comment on above: Result Comment: PERF ORMED BY: [place] [address] PATHOLOGIST GLOST TILE SORTER TARAH MAYER M.D. Performed By: #### R ANGELA PANEL UPP., BIOFIRECOVNOTDE #### [facility] [address] [place] [address] Troponin I.cardiac [Mass/vol ume] in Serum or Plasma by Detection limit <= 0.01 ng/Ordered By: Lisa Lerner on 07-26-2023 Troponin I.cardiac DL <= 0.01 ng/mL [Mass/Vol] 4.2 pg/mL 0.0-20.0 [facility] Urea nitrogen [Mass/volume] in Serum or PlasmaOrdered By: Lisa Lerner on 07-26-2023 Urea nitrogen [Mass/Vol] 19 mg/dL Normal 03-20 [facility] Comment on above: Performed By: #### R ANGELA PANEL UPP., BIOFIRECOVNOTDE #### [facility] [address] [place] [address] Urea nitrogen [Mass/volume] in Serum or PlasmaOrdered By: Kushal Bateman on 07-26-2023 Urea nitrogen [Mass/Vol] 19 mg/dL Normal 03-20 [facility] Comment on above: Performed By: #### C MP, LIPID, TSH3 #### [facility] [address] [place] [address] Urine bacteria detection by automated methodOrdered By: Lisa Lerner on 07-26-2023 Bacteria Auto Ql (U) None seen None Seen [facility] Urine clarity by refractomet ry automatedOrdered By: Lisa Lerner on 07-26-2023 Clarity Refractometry automated (U) Clear Clear [facility] Urine glucose measurement by automated test strip (mass/volume)Ordered By: Lisa Lerner on 07-26-2023 Glucose Auto test strip (U) [Mass/Vol] Normal mg/dL Normal [facility] Urine hemoglobin detection b y automated test stripOrdered By: Lisa Lerner on 07-26-2023 Hemoglobin Auto test strip Ql (U) Negative Negative [facility] Urine leukocyte esterase det ection by automated test stripOrdered By: Lisa Lerner on 07-26-2023 Leukocyte esterase Auto test strip Ql (U) Negative Negative [facility] Urine pH measurement by auto mated test stripOrdered By: Lisa Lerner on 07-26-2023 pH (U) 5.5 [pH] Normal 5.0-9.0 [facility] Comment on above: Order Comment: Name Collection Type:: Clean-Voided Midstream Performed By: #### R ANGELA PANEL UPP., BIOFIRECOVNOTDE #### [address] Urobilinogen Auto test strip (U) [Mass/Vol]Ordered By: Lisa Lerner on 07-26-2023 Urobilinogen (U) [Mass/Vol] Normal mg/dL Normal [facility] XR chest 1V portableon 07-26 XR chest 1V portable [facility] [address] [place] [address] XRay Report Signed Patient: David Ozuna MR#: [id number] : 1960 Acct:[id number] Age/Sex: 63 / M ADM Date: 07/26/23 Loc: ER Room: Type: [facility] ER Attending Dr: Copies to: Lisa [...] FINDINGS Impression dictated by: Ketan Dover Jr., D.O.07/26/2023 2:06 PM Dictation Location: [id number] Transcribed By: [facility] 07/26/23 1406 Dictated By: Ketan Dover Jr, DO 07/26/23 1405 Signed By: 07/26/23 1406 Normal [facility] MR shoulder LT wo conon 10-0 MR shoulder LT wo con [facility] [address] [place] [address] MRI Report Signed Patient: David Ozuna MR#: [id number] : 1960 Acct:[id number] Age/Sex: 63 / M ADM Date: 05/31/23 Loc: [facility] Room: Type: [facility] Attending Dr: Kushal Bateman MD Copies to: [...] Sudhir Vega M.D.05/31/2023 1:20 PM Dictation Location: [place] [address] Transcribed By: MARIA DEL CARMEN 05/31/23 1320 Dictated By: Sudhir Vega DO 05/31/23 1304 Signed By: 05/31/23 1320 Normal [facility] Albumin [Mass/volume] in Ser um or PlasmaOrdered By: Rolando Cortes on 09-18-2022 Albumin [Mass/Vol] 4.1 g/dL 3.2-5.5 [facility] Basophils Auto (Bld) [#/Vol] Ordered By: Rolando Cortes on 09-18-2022 Basophils (Bld) [#/Vol] 0.0 10*3/uL 0.0-0.2 [facility] Basophils/100 WBC Auto (Bld) Ordered By: Rolando Cortes on 09-18-2022 Basophils/100 WBC (Bld) 0.8 % . [facility] Cholesterol [Mass/volume] in Serum or PlasmaOrdered By: Rolando Cortes on 09-18-2022 Cholesterol [Mass/Vol] 215 mg/dL High 140-200 mg/dL [facility] Comment on above: Chol less than 200 m g/dl low riskChol 201-239 mg/dl borderline riskChol 240 mg/dl and greater high risk Cholesterol in LDL Calc [Mas s/Vol]Ordered By: Rolando Cortes on 09-18-2022 Cholesterol in LDL [Mass/Vol] 157 mg/dL 0-100 [facility] Comment on above: LDL ATP III CLASSIFI CATIONLDL less than 100 mg/dL OptimalLDL 100-129 mg/dL Near or above optimalLDL 130-159 mg/dL Borderline highLDL 160-189 mg/dL HighLDL greater than 189 mg/dL Very high Cholesterol in VLDL Calc [Ma ss/Vol]Ordered By: Rolando Cortes on 09-18-2022 Cholesterol in VLDL [Mass/Vol] 9 mg/dL [facility] Complete Blood Count Auto Di ffon 09-18-2022 Basophils (Bld) [#/Vol] 0.866473807 10*3/uL Normal 0.0-0.2 10*3/uL [employer] Other Basophils/100 WBC (Bld) 0.800 % . % [employer] [facility] Eosinophils (Bld) [#/Vol] 0.622897127 10*3/uL Normal 0.0-0.45 10*3/uL [employer] [facility] Eosinophils/100 WBC (Bld) 5.100 % . % [employer] [facility] Erythrocyte distribution width (RBC) [Ratio] 13.000 % Normal 12.0-14.8 % [employer] [facility] Hematocrit (Bld) [Volume fraction] 48.000 % Normal 38.8-50.0 % [employer] [facility] Hemoglobin (Bld) [Mass/Vol] 16.156828 g/dL Normal 13.0-17.0 g/dL [employer] [facility] Lymphocytes (Bld) [#/Vol] 0.873725124 10*3/uL Low 1.00-4.8 10*3/uL [employer] [facility] Lymphocytes/100 WBC (Bld) 17.100 % . % [employer] [facility] MCH (RBC) [Entitic mass] 32.0000 pg Normal 27.5-35.2 pg [employer] [facility] MCV (RBC) [Entitic vol] 95.2000 fL Normal 83.5-101 fL [employer] [facility] Monocytes (Bld) [#/Vol] 0.221656744 10*3/uL Normal 0.0-0.8 10*3/uL [facility] Monocytes/100 WBC (Bld) 9.400 % . % [employer] [facility] Neutrophils (Bld) [#/Vol] 2.961688214 10*3/uL Normal 1.8-7.7 10*3/uL [employer] [facility] Neutrophils/100 WBC (Bld) 67.600 % . % [employer] [facility] Platelet mean volume (Bld) [Entitic vol] 8.0000 fL Normal 6.6-10.1 fL [employer] Other WBC (Bld) [#/Vol] 4.396298921 10*3/uL Normal 4.1 -10.5 10*3/uL [facility] Complete Blood Count Auto Diff 4.1 10*3/uL Normal 4.1-10.5 10*3/uL [facility] Complete Blood Count Auto Diff 33.7 g/dL Normal 32.5-35.6 g/dL [employer] [facility] Complete Blood Count Auto Diff 0.1 /100{WBC} Normal 0-0.5 /100{WBC} [employer] [facility] Comprehensive Metabolic Pane edna 09-18-2022 Albumin [Mass/Vol] 4.124261 g/dL Normal 3.2-5.5 g/dL [employer] [facility] ALT [Catalytic activity/Vol] 25 U/L Normal 10-60 U/L [employer] [facility] Bilirubin [Mass/Vol] 0.5208149 mg/dL Normal 0.3- 1.2 mg/dL [employer] [facility] Calcium [Mass/Vol] 9.3029079 mg/dL Normal 8.2-10 .2 mg/dL [employer] [facility] CO2 [Moles/Vol] 26.12317126 mmol/L Normal 22.0-3 0.0 mmol/L [employer] [facility] Creatinine [Mass/Vol] 1.79707679 mg/dL Normal 0. 64-1.27 mg/dL [employer] [facility] Potassium [Moles/Vol] 4.03760899 mmol/L Normal 3 .5-5.1 mmol/L [employer] [facility] Protein [Mass/Vol] 6.156507 g/dL Normal 6.1-7.9 g/dL [employer] [facility] Comprehensive Metabolic Panel > 60 [employer] [facility] Comprehensive Metabolic Panel 2.3 g/dL [employer] [facility] Creatinine and Glomerular fi ltration rate.predicted panel (S/P/Bld)Ordered By: Rolando Cortes on 09-18-2022 Creatinine [Mass/Vol] 1.03 mg/dL 0.64-1.27 [facility] Eosinophils Auto (Bld) [#/Vo l]Ordered By: Rolando Cortes on 09-18-2022 Eosinophils (Bld) [#/Vol] 0.2 10*3/uL 0.0-0.45 [facility] Eosinophils/100 WBC Auto (Bl d)Ordered By: Rolando Cortes on 09-18-2022 Eosinophils/100 WBC (Bld) 5.1 % . [facility] Erythrocyte distribution wid th Auto (RBC) [Ratio]Ordered By: Rolando Cortes on 09-18-2022 Erythrocyte distribution width (RBC) [Ratio] 13.0 % 12.0-14.8 [facility] Erythrocytes [#/volume] in B lood by Automated countOrdered By: Rolando Cortes on 09-18-2022 RBC (Bld) [#/Vol] 5.04 10*6/uL Normal 3.90-5.60 [facility] Estimated glomerular filtrat ion rate (GFR) non- AmericanOrdered By: Rolando Cortes on 09-18-2022 GFR/1.73 sq M.predicted among non-blacks MDRD (S/P/Bld) [Vol rate/Area] > 60 mL/Min [facility] Globulin Calc (S) [Mass/Vol] Ordered By: Rolando Cortes on 09-18-2022 Globulin (S) [Mass/Vol] 2.3 g/dL [facility] Hematocrit Auto (Bld) [Volum e fraction]Ordered By: Rolando Cortes on 09-18-2022 Hematocrit (Bld) [Volume fraction] 48.0 % 38.8-50.0 [facility] Hemoglobin [Mass/volume] in BloodOrdered By: Rolando Cortes on 09-18-2022 Hemoglobin (Bld) [Mass/Vol] 16.1 g/dL 13.0-17.0 [facility] Leukocytes [#/volume] correc bere for nucleated erythrocytes in Blood by Automated counOrdered By: Rolando Cortes on 09-18-2022 WBC corrected for nucl RBC Auto (Bld) [#/Vol] 4.1 10*3/uL 4.1-10.5 [facility] Lipid Panelon 09-18-2022 Cholesterol in LDL Elph Qn 157 mg/dL High 0-100 mg/dL [facility] [employer] Other Lipid Panel 45 mg/dL Normal 35-149 mg/dL [employer] Other Lipid Panel 9 mg/dL [facility] Other Lymphocytes Auto (Bld) [#/Vo l]Ordered By: Rolando Cortes on 09-18-2022 Lymphocytes (Bld) [#/Vol] 0.7 10*3/uL 1.00-4.8 [facility] Lymphocytes/100 WBC Auto (Bl d)Ordered By: Rolando Cortes on 09-18-2022 Lymphocytes/100 WBC (Bld) 17.1 % . [facility] MCH Auto (RBC) [Entitic mass ]Ordered By: Rolando Cortes on 09-18-2022 MCH (RBC) [Entitic mass] 32.0 pg 27.5-35.2 [facility] MCHC Auto (RBC) [Mass/Vol]Or dered By: Rolando Cortes on 09-18-2022 MCHC (RBC) [Mass/Vol] 33.7 g/dL 32.5-35.6 [facility] MCV Auto (RBC) [Entitic vol] Ordered By: Rolando Cortes on 09-18-2022 MCV (RBC) [Entitic vol] 95.2 fL 83.5-101 [facility] Monocytes Auto (Bld) [#/Vol] Ordered By: Rolando Cortes on 09-18-2022 Monocytes (Bld) [#/Vol] 0.4 10*3/uL 0.0-0.8 [facility] Monocytes/100 WBC Auto (Bld) Ordered By: Rolando Cortes on 09-18-2022 Monocytes/100 WBC (Bld) 9.4 % . [facility] Neutrophils Auto (Bld) [#/Vo l]Ordered By: Rolando Cortes on 09-18-2022 Neutrophils (Bld) [#/Vol] 2.8 10*3/uL 1.8-7.7 [facility] Neutrophils/100 WBC Auto (Bl d)Ordered By: Rolando Cortes on 09-18-2022 Neutrophils/100 WBC (Bld) 67.6 % . [facility] No Panel InformationOrdered By: Rolando Cortes on 09-18-2022 Estimated GFR () > 60 mL/Min [facility] Comment on above: GFR estimated refere nce range: According to KDOQI guidelines, <60 ml/min/1.73m2 is sufficient to diagnose a patient with chronic kidney disease. Pharmacy Creatinine Clearance (Chem N/A [facility] Prostate Specific Antigen Screen 1.780 ng/mL 0.000-4.00 0 [facility] Nucleated erythrocytes [Pres ence] in Blood by Automated countOrdered By: Rolando Cortes on 09-18-2022 Nucleated RBC Auto Ql (Bld) 0.1 /100{WBC} 0-0.5 [facility] PSA Screen (Yearly Only)on 0 09-18-2022 PSA Screen (Yearly Only) 1.780 ng/mL Normal 0.000-4.00 0 ng/mL [employer] Other Platelet mean volume Auto (B ld) [Entitic vol]Ordered By: Rolando Cortes on 09-18-2022 Platelet mean volume (Bld) [Entitic vol] 8.0 fL 6.6-10.1 [facility] Platelets [#/volume] in Bloo d by Automated countOrdered By: Rolando Cortes on 09-18-2022 Platelets (Bld) [#/Vol] 247 10*3/uL Normal 150-450 10*3/uL [facility] Protein [Mass/volume] in Ser um or PlasmaOrdered By: Rolando Cortes on 09-18-2022 Protein [Mass/Vol] 6.4 g/dL 6.1-7.9 [facility] Serum or plasma alanine alatorre otransferase measurement without P-5'-P (enzymatic activiOrdered By: Rolando Cortes on 09-18-2022 ALT No additional P-5'-P [Catalytic activity/Vol] 25 U/L 10-60 [facility] Serum or plasma albumin/glob ulin mass ratioOrdered By: Rolando Cortes on 09-18-2022 Albumin/Globulin [Mass ratio] 1.8 {ratio} [facility] Serum or plasma alkaline yehuda sphatase measurement (enzymatic activity/volume)Ordered By: Rolando Cortes on 09-18-2022 ALP [Catalytic activity/Vol] 73 U/L Normal 32-92 U/L [facility] Serum or plasma anion gap de terminationOrdered By: Rolando Cortes on 09-18-2022 Anion gap [Moles/Vol] 11.7 mmol/L 6.0-15.0 [facility] Serum or plasma aspartate am inotransferase measurement (enzymatic activity/volume)Ordered By: Rolando Cortes on 09-18-2022 AST [Catalytic activity/Vol] 23 U/L Normal 10-42 U/L [facility] Serum or plasma calcium haydee urement (mass/volume)Ordered By: Rolando Cortes on 09-18-2022 Calcium [Mass/Vol] 9.3 mg/dL 8.2-10.2 [facility] Serum or plasma chloride stacie surement (moles/volume)Ordered By: Rolando Cortes on 09-18-2022 Chloride [Moles/Vol] 106 mmol/L Normal 95-114 mmol/L [facility] Serum or plasma glucose haydee urement (mass/volume)Ordered By: Rolando Cortes on 09-18-2022 Glucose [Mass/Vol] 99 mg/dL Normal 70-100 mg/dL [facility] Comment on above: ADA recommended refe rence rangeRandom Glucose Reference Range is dependent on time and content of last meal. Glucose of more than 200 mg/dL in a nonstressed, ambulatory subject supports the diagnosis of Diabetes Mellitus. Serum or plasma high density lipoprotein (HDL) cholesterol measurementOrdered By: Rolando Cortes on 09-18-2022 Cholesterol in HDL [Mass/Vol] 49 mg/dL Normal 29-71 mg/dL [facility] Comment on above: HDL CHOL ATP-III CLA SSIFICATION Cardiovascular RiskHDL > or equal to 60 mg/dL LOWHDL < 40 mg/dL HIGH Serum or plasma potassium me asurement (moles/volume)Ordered By: Rolando Cortes on 09-18-2022 Potassium [Moles/Vol] 4.3 mmol/L 3.5-5.1 [facility] Serum or plasma sodium measu rement (moles/volume)Ordered By: Rolando Cortes on 09-18-2022 Sodium [Moles/Vol] 140 mmol/L Normal 136-146 mmol/L [facility] Serum or plasma total biliru bin measurement (mass/volume)Ordered By: Rolando Cortes on 09-18-2022 Bilirubin [Mass/Vol] 0.8 mg/dL 0.3-1.2 [facility] Serum or plasma total carbon dioxide measurement (moles/volume)Ordered By: Rolando Cortes on 09-18-2022 CO2 [Moles/Vol] 26.6 mmol/L 22.0-30.0 [facility] Serum or plasma total choles terol/high density lipoprotein (HDL) cholesterol mass ratOrdered By: Rolando Cortes on 09-18-2022 Cholesterol.total/Cho lesterol in HDL [Mass ratio] 4.4 {ratio} <5.0 [facility] Serum or plasma urea nitroge n measurement (mass/volume)Ordered By: Rolando Cortes on 09-18-2022 Urea nitrogen [Mass/Vol] 20 mg/dL Normal 9-23 mg/dL [facility] TSH DL <= 0.005 mIU/L QnOrde red By: Rolandopradeep Cortes on 09-18-2022 TSH Qn 4.99 m[IU]/L 0.45-5.33 [facility] Thyroid Stimulating Hormoneo n 09-18-2022 TSH Qn [id number] m[IU]/L Normal 0.45-5 .33 u[iU]/mL [employer] Other Triglyceride [Mass/volume] i n Serum or PlasmaOrdered By: Rolando Cortes on 09-18-2022 Triglyceride [Mass/Vol] 45 mg/dL 35-149 [facility] Comment on above: TRIG ATP III CLASSIF ICATIONTRIG less than 150 mg/dL NormalTRIG 150-199 mg/dL Borderline highTRIG 200-500 mg/dL High TRIG greater than 500 mg/dL Very highStandard traceable to the Center for Disease Conrtrol and Prevention (CDC) test method. WBC Auto (Bld) [#/Vol]Ordere d By: Rolando Cortes on 09-18-2022 WBC (Bld) [#/Vol] 4.1 10*3/uL 4.1-10.5 [facility] LYME DISEASE, WESTERN BLOTon 02-01-2022 IgG P18 Ab. Absent Normal [facility] Comment on above: Performed By: #### L YMWB #### [facility] [address] [place] [address] Dr. Castillo Brown IgG P23 Ab. Absent Normal [facility] Comment on above: Performed By: #### L YMWB #### [facility] [address] [address] [address] Castillo Brown IgG P28 Ab. Absent Normal [facility] Comment on above: Performed By: #### L YMWB #### [facility] [address] [address] [address] Castillo Brown IgG P30 Ab. Absent Normal [facility] Comment on above: Performed By: #### L YMWB #### [facility] [address] [address] [address] Castillo Brown IgG P39 Ab. Absent [facility] Comment on above: Performed By: #### L YMWB #### [facility] [address] [place] [address] Dr. Castillo Brown IgG P41 Ab. Present Abnormal [facility] Comment on above: Performed By: #### L YMWB #### [facility] [address] [place] [address] Dr. Castillo Brown IgG P45 Ab. Absent Normal [facility] Comment on above: Performed By: #### L YMWB #### [facility] [address] [place] [address] Dr. Castillo Brown IgG P58 Ab. Absent [facility] Comment on above: Performed By: #### L YMWB #### [facility] [address] [place] [address] Dr. Castillo Brown IgG P66 Ab. Absent [facility] Comment on above: Performed By: #### L YMWB #### [facility] [address] [place] [address] Dr. Castillo Brown IgG P93 Ab. Absent [facility] Comment on above: Performed By: #### L YMWB #### [facility] [address] [place] [address] Dr. Castillo Brown IgM P23 Ab. Absent [facility] Comment on above: Performed By: #### L YMWB #### [facility] [address] [place] [address] Dr. Castillo Brown IgM P39 Ab. Absent [facility] Comment on above: Performed By: #### L YMWB #### [facility] [address] [place] [address] Dr. Castillo Brown IgM P41 Ab. Absent [facility] Comment on above: Performed By: #### L YMWB #### [facility] [address] [place] [address] Dr. Castillo Brown Lyme IgG WB Interp. Negative Normal [facility] Comment on above: Result Comment: Posi tive: 5 of the following Borrelia-specific bands: 18,23,28,30,39,41,45,58, 66, and 93. Negative: No bands or banding patterns which do not meet positive criteria. Performed By: #### L YMWB #### [facility] [address] [place] [address] Dr. Castillo Brown Lyme IgM WB Interp. Negative Normal [facility] Comment on above: Result Comment: Note : [...] are those recommended by CDC/ASTPHLD. p23=Osp C, y06=[id number] . Note: Sera from individuals with the following may cross react in the Lyme Line Blot assays: other spirochetal diseases (periodontal disease, leptospirosis, relapsing fever, yaws, and pinta); connective autoimmune (Rheumatoid Arthritis and Systemic Lupus Erythematosus and also individuals with Antinuclear Antibody); other infections (Lihue Spotted Fever; Lizbeth-Rocha Virus, and Cytomegalovirus). . Please Note: Lyme immunoblot alone is not recommended for the diagnosis of Lyme disease. Current guidelines recommend the use of a two-tiered approach to Lyme serology testing to improve the sensitivity and specificity of testing. [facility] offers test code 599123 Lyme Disease Serology with Reflex to aid in the diagnosis of Lyme Disease. Performed By: #### L YMWB #### [facility] [address] [place] [address] Dr. Castillo Brown CBC AUTO DIFFon 01-17-2022 BASO # 0.0 103/ul Normal 0.0-0.1 [facility] Comment on above: Performed By: #### C BC #### [facility] [address] [place] [address] Dr. Castillo Brown Basophils/100 WBC (Bld) 0.5 % Normal 0.2-2.0 [facility] Comment on above: Performed By: #### C BC #### [facility] [address] [place] [address] Dr. Castillo Brown EO # 0.1 103/ul Normal 0.0-0.7 [facility] Comment on above: Performed By: #### C BC #### [facility] [address] [place] [address] Dr. Castillo Brown Eosinophils/100 WBC (Bld) 2.7 % Normal 0.9-7.0 [facility] Comment on above: Performed By: #### C BC #### [facility] [address] [place] [address] Dr. Castillo Bronw Erythrocyte distribution width (RBC) [Ratio] 12.0 % Normal 11.0-15.0 [facility] Comment on above: Performed By: #### C BC #### [facility] [address] [place] [address] Dr. Castillo Brown Hematocrit (Bld) [Volume fraction] 47.5 % Normal 42.0-54.0 [facility] Comment on above: Performed By: #### C BC #### [facility] [address] [place] [address] Dr. Castillo Brown Hemoglobin (Bld) [Mass/Vol] 16.1 g/dL Normal 14.0-18.0 [facility] Comment on above: Performed By: #### C BC #### [facility] [address] [place] [address] Dr. Castillo Brown IG # 0.00 10e3/ul Normal 0.00-0.03 [facility] Comment on above: Performed By: #### C BC #### [facility] [address] [place] [address] Dr. Castillo Brown IG % 0.0 % Normal 0.0-0.5 [facility] Comment on above: Performed By: #### C BC #### [facility] [address] [place] [address] Dr. Castillo Brown LYMPH # 0.5 103/ul Critically low 1.2-3.[address] [facility] Comment on above: Performed By: #### C BC #### [facility] [address] [place] [address] Dr. Castillo Brown Lymphocytes/100 WBC (Bld) 11.5 % Critically low 20.5-60.0 [facility] Comment on above: Performed By: #### C BC #### [facility] [address] [place] [address] Dr. Castillo Brown MANUAL DIFF REQ NO Normal [facility] Comment on above: Performed By: #### C BC #### [facility] [address] [place] [address] Dr. Castillo Brown MCH (RBC) [Entitic mass] 32.5 pg Normal 25.9-34.0 [facility] Comment on above: Performed By: #### C BC #### [facility] [address] [place] [address] Dr. Castillo Brown MCHC (RBC) [Mass/Vol] 33.9 g/dL Normal 29.9-35.2 [facility] Comment on above: Performed By: #### C BC #### [facility] [address] [place] [address] Dr. Castillo Brown MCV (RBC) [Entitic vol] 96.0 fL Critically high 80.0-94.0 [facility] Comment on above: Performed By: #### C BC #### [facility] [address] [place] [address] Dr. Castillo Brown MONO # 0.4 103/ul Normal 0.3-0.8 [facility] Comment on above: Performed By: #### C BC #### [facility] [address] [place] [address] Dr. Castillo Brown Monocytes/100 WBC (Bld) 9.2 % Normal 1.7-12.0 [facility] Comment on above: Performed By: #### C BC #### [facility] [address] [place] [address] Dr. Castillo Brown NEUT # 3.1 103/ul Normal 1.4-6.5 [facility] Comment on above: Performed By: #### C BC #### [facility] [address] [place] [address] Dr. Castillo Brown Neutrophils/100 WBC (Bld) 76.1 % Critically high 43.0-75.0 [facility] Comment on above: Performed By: #### C BC #### [facility] [address] [place] [address] Dr. Castillo Brown Platelet mean volume (Bld) [Entitic vol] 9.0 fL Critically low 9.5-13.5 [facility] Comment on above: Performed By: #### C BC #### [facility] [address] [place] [address] Dr. Castillo Brown PLT 229 103/ul Normal 150-450 [facility] Comment on above: Performed By: #### C BC #### [facility] [address] [place] [address] Dr. Castillo Brown RBC 4.95 106/ul Normal 4.70-6.10 [facility] Comment on above: Performed By: #### C BC #### [facility] [address] [place] [address] Dr. Castillo Brown WBC 4.0 103/ul Normal 4.0-11.0 [facility] Comment on above: Performed By: #### C BC #### [facility] [address] [place] [address] Dr. Castillo Brown CRPon 01-17-2022 CRP [Mass/Vol] mg/L Normal <=1.0 [facility] Comment on above: Performed By: #### C RP #### [facility] [address] [place] [address] Dr. Castillo Brown SED RATE [facility] 2021 SED RATE 4 mm/hr Normal <=20 [facility] Comment on above: Performed By: #### S EDR #### [facility] [address] [place] [address] HEAD WO CONon 07-04-2021 CT [...] by: Flaco REYES Date: 2021-07-04 20:34 Normal [facility] Vital Signs Date Time Vital Sign Value Performing Clinician Facility 05-12-2024 08:49-0400 Body height 180.34 cm DO Rolando Jeralds Work Phone: [facility] 05-12-2024 08:49-0400 Body mass index (BMI) [Ratio] 25.2 kg/m2 DO Rolando Kuns Work Phone: [facility] 05-12-2024 08:49-0400 Body weight 82.1 kg DO Rolando Jeralds Work Phone: [facility] 05-12-2024 08:49-0400 Diastolic blood pressure 82 mm[Hg] DO Rolando Kuns Work Phone: [facility] 05-12-2024 08:49-0400 Heart rate 84 /min DO Rolando Kuns Work Phone: [facility] 05-12-2024 08:49-0400 Respiratory rate 16 /min DO Rolando Kuns Work Phone: [facility] 05-12-2024 08:49-0400 SaO2% (BldA) [Mass fraction] 95 % DO Rolando Kuns Work Phone: [facility] 05-12-2024 08:49-0400 Systolic blood pressure 128 mm[Hg] DO Rolando Kuns Work Phone: [facility] 03-20-2024 11:10-0400 Body height 180.34 cm DO Rolando Kuns Work Phone: [facility] 03-20-2024 11:10-0400 Body mass index (BMI) [Ratio] 25.1 kg/m2 DO Rolando Jeralds Work Phone: [facility] 03-20-2024 11:10-0400 Body temperature 97.4 [degF] DO Rolando Kuns Work Phone: [facility] 03-20-2024 11:10-0400 Body weight 81.64 kg DO Rolando Jeralds Work Phone: [facility] 03-20-2024 11:10-0400 Diastolic blood pressure 78 mm[Hg] DO Rolando Kuns Work Phone: [facility] 03-20-2024 11:10-0400 Heart rate 71 /min DO Rolando Jeralds Work Phone: [facility] 03-20-2024 11:10-0400 SaO2% (BldA) [Mass fraction] 96 % DO Rolando Jeralds Work Phone: [facility] 03-20-2024 11:10-0400 Systolic blood pressure 120 mm[Hg] DO Rolando Jeralds Work Phone: [facility] 11-30-2023 08:27-0400 Body height 180.34 cm DO Rolando Jeralds Work Phone: [facility] 11-30-2023 08:27-0400 Body mass index (BMI) [Ratio] 25.7 kg/m2 DO Rolando Jeralds Work Phone: [facility] 11-30-2023 08:27-0400 Body weight 83.46 kg DO Rolando Kuns Work Phone: [facility] 11-30-2023 08:27-0400 Diastolic blood pressure 82 mm[Hg] DO Rolando Kuns Work Phone: [facility] 11-30-2023 08:27-0400 Heart rate 59 /min DO Rolando Kuns Work Phone: [facility] 11-30-2023 08:27-0400 Respiratory rate 16 /min DO Rolando Cortes Work Phone: [facility] 11-30-2023 08:27-0400 SaO2% (BldA) [Mass fraction] 95 % DO Rolando Cortes Work Phone: [facility] 11-30-2023 08:27-0400 Systolic blood pressure 120 mm[Hg] DO Rolando Cortes Work Phone: [facility] 11-08-2023 11:46-0400 Body height 180.34 cm [facility] 11-08-2023 11:46-0400 Body mass index (BMI) [Ratio] 25.7 kg/m2 [facility] 11-08-2023 11:46-0400 Body temperature 97.8 [degF] [facility] 11-08-2023 11:46-0400 Body weight 83.46 kg [facility] 11-08-2023 11:46-0400 Diastolic blood pressure 74 mm[Hg] [facility] 11-08-2023 11:46-0400 Heart rate 66 /min [facility] 11-08-2023 11:46-0400 Respiratory rate 16 /min [facility] 11-08-2023 11:46-0400 SaO2% (BldA) [Mass fraction] 98 % [facility] 11-08-2023 11:46-0400 Systolic blood pressure 118 mm[Hg] [facility] 10-18-2023 14:57-0500 Body height 180.34 cm DO Rolando Cortes Work Phone: [facility] 10-18-2023 14:57-0500 Body mass index (BMI) [Ratio] 25.7 kg/m2 DO Rolando Cortes Work Phone: [facility] 10-18-2023 14:57-0500 Body weight 83.46 kg DO Rolando Cortes Work Phone: [facility] 10-18-2023 14:57-0500 Diastolic blood pressure 76 mm[Hg] DO Rolandopradeep Marquess Work Phone: [facility] 10-18-2023 14:57-0500 Heart rate 71 /min DO Rolandopradeep Marquess Work Phone: [facility] 10-18-2023 14:57-0500 Respiratory rate 16 /min DO Rolandopradeep Marquess Work Phone: [facility] 10-18-2023 14:57-0500 SaO2% (BldA) [Mass fraction] 97 % DO Rolando Marquess Work Phone: [facility] 10-18-2023 14:57-0500 Systolic blood pressure 120 mm[Hg] DO Rolando Jeralds Work Phone: [facility] 08-08-2023 12:33-0500 Diastolic blood pressure 92 mm[Hg] DO Rolando Marquess Work Phone: [facility] 08-08-2023 12:33-0500 Heart rate 78 /min DO Rolando Marquess Work Phone: [facility] 08-08-2023 12:33-0500 Respiratory rate 16 /min DO Rolando Marquess Work Phone: [facility] 08-08-2023 12:33-0500 SaO2% (BldA) [Mass fraction] 94 % DO Rolando Marquess Work Phone: [facility] 08-08-2023 12:33-0500 Systolic blood pressure 126 mm[Hg] DO Rolandopradeep Marquess Work Phone: [facility] 08-08-2023 11:20-0500 Inhaled oxygen flow rate 4 L/min DO Rolandopradeep Marquess Work Phone: [facility] 08-08-2023 11:10-0500 Body temperature 97 [degF] DO Rolando Marquess Work Phone: [facility] 08-08-2023 07:43-0500 Body height 177.8 cm DO Rolando Kuns Work Phone: [facility] 08-08-2023 07:43-0500 Body mass index (BMI) [Ratio] 25.9 kg/m2 DO Rolando Kuns Work Phone: [facility] 08-08-2023 07:43-0500 Body weight 82 kg DO Rolando Kuns Work Phone: [facility] 07-31-2023 09:15-0500 Body height 180.34 cm Kushal Olexa Other [facility] 07-28-2023 10:52-0500 Diastolic blood pressure 80 mm[Hg] DO Rolando Kuns Work Phone: [facility] 07-28-2023 10:52-0500 Heart rate 76 /min DO Rolando Kuns Work Phone: [facility] 07-28-2023 10:52-0500 Respiratory rate 18 /min DO Rolando Kuns Work Phone: [facility] 07-28-2023 10:52-0500 SaO2% (BldA) [Mass fraction] 96 % DO Rolando Kuns Work Phone: [facility] 07-28-2023 10:52-0500 Systolic blood pressure 130 mm[Hg] DO Rolando Kuns Work Phone: [facility] 07-28-2023 08:37-0500 Body temperature 98.2 [degF] DO Rolando Kuns Work Phone: [facility] 07-28-2023 08:36-0500 Body height 180.34 cm DO Rolando Kuns Work Phone: [facility] 07-28-2023 08:36-0500 Body weight 82.75 kg DO Rolando Kuns Work Phone: [facility] 07-26-2023 14:54-0500 Diastolic blood pressure 89 mm[Hg] DO Rolando Kuns Work Phone: [facility] 07-26-2023 14:54-0500 Heart rate 90 /min DO Rolandopradeep Marquess Work Phone: [facility] 07-26-2023 14:54-0500 Respiratory rate 18 /min DO Rolando Cortes Work Phone: [facility] 07-26-2023 14:54-0500 SaO2% (BldA) [Mass fraction] 97 % DO Rolando Cortes Work Phone: [facility] 07-26-2023 14:54-0500 Systolic blood pressure 137 mm[Hg] DO Rolando Jeralds Work Phone: [facility] 07-26-2023 11:38-0500 Body height 177.8 cm DO Rolando Cortes Work Phone: [facility] 07-26-2023 11:38-0500 Body weight 82.4 kg DO Rolando Cortes Work Phone: [facility] 07-26-2023 11:37-0500 Body temperature 99.5 [degF] DO Rolando Cortes Work Phone: [facility] 06-18-2023 11:15-0400 Body height 180.34 cm Kushal Bateman Other [employer] Other 06-18-2023 11:15-0400 Body mass index (BMI) [Ratio] 25.1 kg/m2 Kushal Olexa Other [employer] Other 06-18-2023 11:15-0400 Body weight 81.65 kg Kushal Olexa Other [employer] Other 03-12-2023 12:00-0400 Body height 180.34 cm Kelli Doss Other [employer] Other 03-12-2023 12:00-0400 Body mass index (BMI) [Ratio] 25.1 kg/m2 Kelli Doss Other [facility] [employer] Other 03-12-2023 12:00-0400 Body weight 81.65 kg Kelli Doss Other [facility] [employer] Other 10-23-2022 11:38-0500 Diastolic blood pressure 84 mm[Hg] DO Rolando Kuns Work Phone: [facility] 10-23-2022 11:38-0500 Heart rate 68 /min DO Rolando Kuns Work Phone: [facility] 10-23-2022 11:38-0500 Respiratory rate 16 /min DO Rolando Kuns Work Phone: [facility] 10-23-2022 11:38-0500 SaO2% (BldA) [Mass fraction] 98 % DO Rolando Kuns Work Phone: [facility] 10-23-2022 11:38-0500 Systolic blood pressure 111 mm[Hg] DO Rolando Kuns Work Phone: [facility] 10-23-2022 10:17-0500 Body height 180.34 cm DO Rolando Kuns Work Phone: [facility] 10-23-2022 10:17-0500 Body temperature 97.9 [degF] DO Rolando Kuns Work Phone: [facility] 10-23-2022 10:17-0500 Body weight 81.64 kg DO Rolando Kuns Work Phone: [facility] 09-20-2022 08:30-0500 Body height 180.34 cm Rolando Jeralds Other [facility] [employer] Other 09-20-2022 08:30-0500 Body mass index (BMI) [Ratio] 25.8 kg/m2 Rolando Sophia Other [employer] Other 09-20-2022 08:30-0500 Body weight 83.92 kg Rolando Sophia Other [employer] Other 09-20-2022 08:30-0500 Diastolic blood pressure 83 mm[Hg] Rolando Cortes Other [employer] Other 09-20-2022 08:30-0500 Respiratory rate 16 /min Rolando Cortes Other [employer] Other 09-20-2022 08:30-0500 SaO2% (BldA) [Mass fraction] 95 % Rolando Cortes Other [employer] Other 09-20-2022 08:30-0500 Systolic blood pressure 122 mm[Hg] Rolando Cortes Other [employer] Other 04-14-2022 10:45-0400 Body height 180.34 cm Rolando Cortes Other [employer] Other 04-14-2022 10:45-0400 Body mass index (BMI) [Ratio] 24.68 kg/m2 Rolando Cortes Other [employer] Other 04-14-2022 10:45-0400 Body weight 80.29 kg Rolando Cortes Other [employer] Other 04-14-2022 10:45-0400 Diastolic blood pressure 78 mm[Hg] Rolando Cortes Other [employer] Other 04-14-2022 10:45-0400 Respiratory rate 16 /min Rolando Cortes Other [employer] Other 04-14-2022 10:45-0400 SaO2% (BldA) [Mass fraction] 95 % Rolando Cortes Other [employer] Other 04-14-2022 10:45-0400 Systolic blood pressure 118 mm[Hg] Rolando Cortes Other [employer] Other 08-29-2021 11:00-0500 Body height 180.34 cm Rolando Cortes Other [employer] Other 08-29-2021 11:00-0500 Body mass index (BMI) [Ratio] 25.66 kg/m2 Rolando Cortes Other [employer] Other 08-29-2021 11:00-0500 Body weight 83.46 kg Rolando Cortes Other [employer] Other 08-29-2021 11:00-0500 Diastolic blood pressure 80 mm[Hg] Rolando Cortes Other [employer] Other 08-29-2021 11:00-0500 Respiratory rate 16 /min Rolando Cortes Other [employer] Other 08-29-2021 11:00-0500 SaO2% (BldA) [Mass fraction] 96 % Rolando Cortes Other [employer] Other 08-29-2021 11:00-0500 Systolic blood pressure 126 mm[Hg] Rolando Cortes Other [employer] Other 07-11-2021 12:00-0500 Body height 180.34 cm Rolando Cortes Other [employer] Other 07-11-2021 12:00-0500 Body mass index (BMI) [Ratio] 24.82 kg/m2 Rolando Cortes Other [employer] Other 07-11-2021 12:00-0500 Body weight 80.74 kg Rolando Cortes Other [employer] Other 07-11-2021 12:00-0500 Diastolic blood pressure 58 mm[Hg] Rolando Cortes Other [employer] Other 07-11-2021 12:00-0500 Respiratory rate 16 /min Rolando Cortes Other [employer] Other 07-11-2021 12:00-0500 SaO2% (BldA) [Mass fraction] 97 % Rolando Cortes Other [employer] Other 07-11-2021 12:00-0500 Systolic blood pressure 116 mm[Hg] Rolando Cortes Other [employer] Other 06-20-2021 10:30-0400 Body height 180.34 cm Rolando Cortes Other [employer] Other 06-20-2021 10:30-0400 Body mass index (BMI) [Ratio] 24.96 kg/m2 Rolando Cortes Other [employer] Other 06-20-2021 10:30-0400 Body weight 81.19 kg Rolando Cortes Other [employer] Other 06-20-2021 10:30-0400 Diastolic blood pressure 76 mm[Hg] Rolando Cortes Other [employer] Other 06-20-2021 10:30-0400 Respiratory rate 16 /min Rolando Cortes Other [employer] Other 06-20-2021 10:30-0400 SaO2% (BldA) [Mass fraction] 98 % Rolando Cortes Other [employer] Other 06-20-2021 10:30-0400 Systolic blood pressure 110 mm[Hg] Rolando Cortes Other [employer] Other Encounters Encounter Date Encounter Type Care Provider Facility Start: 06-08-2024 End: 06-09-2024 Refill Napoleon Ivan DPM Work Phone: [facility] Comment on above: Capsulitis of metata rsophalangeal (MTP) joint of left foot Start: 05-12-2024 End: 05-12-2024 ambulatory DO Rolando Cortes Work Phone: [facility] Work Phone: Start: 05-12-2024 End: 05-12-2024 Patient encounter procedure DO Rolando Cortes Work Phone: [facility] [place] Work Phone: Start: 05-08-2024 End: 05-08-2024 ambulatory NAPOLEON IVAN Not Available Start: 04-24-2024 End: 04-25-2024 ambulatory NAPOLEON IVAN Not Available Start: 03-20-2024 End: 03-20-2024 ambulatory DO Rolando Cortes Work Phone: [facility] Work Phone: Start: 03-20-2024 End: 03-20-2024 Patient encounter procedure DO Rolando Cortes Work Phone: [facility] Vascular Surgery Work Phone: Start: 02-19-2024 End: 02-19-2024 ambulatory DO Rolando Cortes Work Phone: [facility] Work Phone: Start: 02-19-2024 End: 02-19-2024 Patient encounter procedure DO Rolando Cortes Work Phone: [facility] Physician [facility] Work Phone: Start: 12-20-2023 End: 12-20-2023 ambulatory DO Rolando Cortes Work Phone: [facility] Work Phone: Start: 12-20-2023 End: 12-20-2023 Patient encounter procedure DO Rolando Cortes Work Phone: [facility] Physician [facility] Work Phone: Start: 11-30-2023 End: 11-30-2023 Patient encounter procedure DO Rolando Cortes Work Phone: [facility] [place] Work Phone: Start: 11-30-2023 End: 11-30-2023 ambulatory DO Rolando Cortes Work Phone: [facility] Work Phone: Start: 11-30-2023 End: 11-30-2023 ambulatory DO Rolando Marquess Work Phone: [facility] Work Phone: Start: 11-30-2023 End: 11-30-2023 Patient encounter procedure DO Rolando Marquess Work Phone: [facility] Physician [facility] [place] Work Phone: Start: 11-22-2023 End: 11-22-2023 ambulatory DO Rolando Sophia Work Phone: [facility] Work Phone: Start: 11-22-2023 End: 11-22-2023 Patient encounter procedure DO Rolandopradeep Marqueskimmei Work Phone: [facility] Physician [facility] Work Phone: Start: 11-13-2023 End: 11-13-2023 ambulatory NIKITA NICOLE Not Available Start: 11-08-2023 End: 11-08-2023 ambulatory [facility] Work Phone: Start: 11-08-2023 End: 11-08-2023 [facility] Vascular Surgery Work Phone: Start: 11-06-2023 End: 11-08-2023 ambulatory RUBY TATTERSALL Not Available Start: 10-30-2023 End: 10-31-2023 ambulatory RUBY TATTERSALL Not Available Start: 10-30-2023 End: 10-30-2023 [facility] Work Phone: Start: 10-23-2023 ambulatory RUBY TATTERSALL Not A vailable Start: 10-18-2023 End: 10-18-2023 ambulatory DO Rolando Sophia Work Phone: [facility] Work Phone: Start: 10-18-2023 End: 10-18-2023 Patient encounter procedure DO Rolando Sophia Work Phone: [facility] Physician [facility] [place] Work Phone: Start: 10-17-2023 End: 10-17-2023 ambulatory NIKITA NICOLE Not Available Start: 10-11-2023 Non-patient / Non-visit DO Ernesto Cortes Work Phone: [facility] Physician [facility] Work Phone: Start: 10-10-2023 Non-patient / Non-visit DO Ernesto Cortes Work Phone: [facility] Physician [facility] Work Phone: Start: 10-09-2023 Telephone encounter Ruby fuentes STRATEGIC ADVISOR [facility] Comment on above: re: PT today (She ca lled noting Don is currently in hospital and not going to be in today; I noted and as of now she confirmed 10/16. She said she'd keep us updated.) Start: 10-09-2023 End: 10-09-2023 Non-patient / Non-visit DO Rolando Cortes Work Phone: [facility] Work Phone: Start: 10-04-2023 End: 10-04-2023 ambulatory Sallie Sharadraffy STRATEGIC ADVISOR [facility] Comment on above: Acute [...] 09-20-2023 End: 09-20-2023 ambulatory Kelli Doss Other [facility] [employer] Other Start: 09-20-2023 Postop follow up vis it related to original px Kelli Doss [facility] Start: 08-16-2023 Postop follow up vis it related to original px Kushal Bateman [facility] Start: 08-16-2023 End: 08-16-2023 Patient encounter procedure DO Rolando Cortes Work Phone: [facility] Start: 08-16-2023 End: 08-16-2023 ambulatory DO Rolando Cortes Work Phone: [facility] Work Phone: Start: 08-16-2023 Patient encounter procedure DO Rolando Cortes Work Phone: [facility]- Start: 08-09-2023 End: 08-09-2023 ambulatory NIKITA NICOLE Not Available Start: 08-08-2023 End: 08-08-2023 Admission to same day surgery center DO Rolando Cortes Work Phone: [facility] [place] Start: 08-08-2023 End: 08-08-2023 ambulatory DO Rolando Cortes Work Phone: [facility] Work Phone: Start: 08-06-2023 End: 08-06-2023 ambulatory Kushal Vincentxa Other [employer] Other Start: 08-06-2023 Telephone encounter Kushal Kaurxa [facility] Start: 08-03-2023 End: 08-03-2023 ambulatory DO Rolando Cortes Work Phone: [facility] Work Phone: Start: 08-03-2023 End: 08-03-2023 Patient encounter procedure DO Rolando Cortes Work Phone: [facility] [place] [facility] Start: 07-31-2023 End: 07-31-2023 ambulatory Kushal Olexa Other [employer] Other Start: 07-31-2023 Encounter for other preprocedural examination Kushal Kaurxa [facility] Start: 07-31-2023 Office outpatient vi sit 25 minutes Kushal Olexa [facility] Start: 07-31-2023 End: 07-31-2023 Patient encounter procedure DO Rolando Cortes Work Phone: [facility] Work Phone: Start: 07-28-2023 End: 07-28-2023 Emergency department patient visit DO Rolando Cortes Work Phone: [facility]-Emergency Room Work Phone: Start: 07-26-2023 Telephone encounter Rolandopradeep Marqueskimmie [facility] Start: 07-26-2023 End: 07-26-2023 Emergency department patient visit DO Rolando Cortes Work Phone: [facility]-Emergency Room Work Phone: Start: 07-26-2023 End: 07-26-2023 ambulatory DO Rolando Cortes Work Phone: [employer] Other Start: 07-26-2023 End: 07-26-2023 Patient encounter procedure DO Rolando Cortes Work Phone: [facility]-Pre-Surgical Testing Work Phone: Start: 07-25-2023 End: 07-25-2023 ambulatory Rolando Cortes Other [employer] Other Start: 07-25-2023 Telephone encounter Rolandopradeep Marqueskimmie [facility] Start: 07-24-2023 End: 07-24-2023 ambulatory Rolando Cortes Other [employer] Other Start: 07-24-2023 Telephone encounter Rolando Sophia [facility] Start: 06-18-2023 End: 06-18-2023 ambulatory Kushal Bateman Other [employer] Other Start: 06-18-2023 Encounter for other preprocedural examination Kushal Bateman [facility] Start: 06-18-2023 Office outpatient vi sit 25 minutes Kushal Bateman [facility] Start: 05-31-2023 End: 05-31-2023 Patient encounter procedure DO Rolando Cortes Work Phone: [facility]-MRI [address] Work Phone: Start: 05-31-2023 End: 05-31-2023 ambulatory DO Rolando Cortes Work Phone: [facility] Work Phone: Start: 04-11-2023 End: 04-11-2023 ambulatory Kelli Doss Other [employer] Other Start: 04-11-2023 Telephone encounter Kelli Doss [facility] Start: 03-12-2023 Office outpatient vi sit 15 minutes Kelli Doss [facility] Start: 03-12-2023 End: 03-12-2023 ambulatory DO Rolando Cortes Work Phone: [facility] Work Phone: Start: 03-12-2023 End: 03-12-2023 Patient encounter procedure DO Rolando Cortes Work Phone: [facility]-X[facility] [place] [facility] Start: 10-23-2022 End: 10-23-2022 Admission to same day surgery center DO Rolando Cortes Work Phone: [facility]-Digestive Health Work Phone: Start: 10-23-2022 End: 10-23-2022 ambulatory DO Rolando Cortes Work Phone: [facility] Work Phone: Start: 10-03-2022 End: 10-03-2022 ambulatory Imad Asaad Other [employer] Other Start: 10-03-2022 Telephone encounter Imad Asaad [facility] [employer] Start: 09-20-2022 End: 09-20-2022 ambulatory Rolando Cortes Other [employer] Other Start: 09-20-2022 Encounter for genera l adult medical examination without abnormal findings Rolando Cortes [facility] Start: 09-20-2022 Periodic preventive med est patient 40-64yrs Rolando Cortes [facility] Start: 09-18-2022 End: 09-18-2022 ambulatory DO Rolando Cortes Work Phone: [facility] Work Phone: Start: 09-18-2022 End: 09-18-2022 Patient encounter procedure DO Rolando Cortes Work Phone: [facility]-Lab [place] Work Phone: Start: 09-15-2022 End: 09-15-2022 ambulatory Rolando Cortes Other [employer] Other Start: 09-15-2022 Encounter for genera l adult medical examination without abnormal findings Rolando Cortes [facility] Start: 09-15-2022 Telephone encounter Rolando Cortes [facility] Start: 06-27-2022 ambulatory Rolando Cortes [facility]i [facility]ity:[facility] Start: 06-26-2022 End: 06-26-2022 ambulatory DO Rolando Cortes Work Phone: [facility] Work Phone: Start: 06-26-2022 End: 06-26-2022 Patient encounter procedure DO Rolando Cortes Work Phone: [facility]-CT Scan [place] Start: 06-26-2022 ambulatory Facility:[id number] Start: 05-09-2022 End: 05-09-2022 Patient encounter procedure DO Rolando Cortes Work Phone: [facility]-XRay [place] Start: 04-14-2022 End: 04-14-2022 ambulatory Rolando Cortes Other [employer] Other Start: 04-14-2022 Office outpatient vi sit 15 minutes Rolando Cortes [facility] [place] Start: 04-05-2022 ambulatory Facility:U Start: 04-04-2022 End: 04-04-2022 Patient encounter procedure DO Rolando Sophia Work Phone: [facility]-Electrodiagnosti cs Start: 04-04-2022 ambulatory Facility:[id number] Start: 03-01-2022 End: 03-01-2022 ambulatory Rolando Cortes Other [employer] Other Start: 03-01-2022 Telephone encounter Rolando Cortes [facility] [place] Start: 02-28-2022 End: 02-28-2022 Patient encounter procedure DO Rolando Cortes Work Phone: [facility]-CT [facility] [place] Start: 01-17-2022 End: 01-18-[address] CHACHO ELIZABETH Facility: Start: 08-29-2021 End: 08-29-2021 ambulatory Rolando Cortes Other [employer] Other Start: 08-29-2021 Office outpatient vi sit 25 minutes Rolando Cortes [facility] [place] Start: 07-29-2021 End: 07-29-2021 ambulatory Rolando Cortes Other [employer] Other Start: 07-29-2021 Telephone encounter Rolando Cortes [facility] [place] Start: 07-11-2021 End: 07-11-2021 ambulatory Rolando Cortes Other [employer] Other Start: 07-11-2021 Office outpatient vi sit 15 minutes Rolando Cortes [facility] [place] Start: 07-04-2021 End: 07-04-[address] HOLGER PTAEL Facility: Start: 06-21-2021 Telephone encounter Rolando Cortes [facility] [place] Start: 06-20-2021 Office outpatient ne w 30 minutes Rolando Cortes [facility] [place] Procedures Date Procedure Procedure Detail Performing Clinician Start: 03-20-2024 Duplex scan of lower limb veins DO Rolando Cortes Work Phone: Start: 11-22-2023 Plain X-ray of left shoulder DO Rolando smyth Work Phone: Start: 08-16-2023 Plain X-ray of left shoulder [...] shoulder S/P left rotator cuff repair Sallie Teddy STRATEGIC ADVISOR History of repair of musculotendinous cuff of shoulder History of repair of left rotator cuff DO Rolando Cortes Work Phone: Screening for malign ant neoplasm of colon Rolando Cortes Other Screening for malign ant neoplasm of prostate Rolando Cortes Other Viral screening Kelli singh Other Plan of Treatment Date Care Activity Detail Author Start: 03-20-2024 Duplex scan of lower limb veins US venous duplex LE RT [facility] Start: 11-30-2023 [facility] Start: 11-22-2023 Plain X-ray of left shoulder XR shoulder LT min 2V* [facility] Start: 11-22-2023 XR Shoulder - left Views [facility] Start: 10-18-2023 Patient referral [facility] Work Phone: Start: 10-16-2023 End: 10-16-2023 ambulatory 10/16/2023 5:30 PM EST Treatment [facility] [address] [facility] [address] [place] [address] Nikita Nicole, PT [address] [facility] [address] [place] [address] [facility] Start: 10-11-2023 End: 10-11-2023 ambulatory 10/11/2023 4:00 PM EST Treatment [facility] [address] [facility] [address] [place] [address] Nikita Nicole, PT [address] [facility] [address] [place] [address] [facility] Start: 10-09-2023 End: 10-09-2023 ambulatory 10/09/2023 4:00 PM EST Treatment [facility] [address] [facility] [address] [place] [id number] Ruby Vera, STRATEGIC ADVISOR [facility] Start: 10-04-2023 End: 10-04-2023 ambulatory 10/04/2023 2:30 PM EST Treatment [facility] [address] [place] [address] [place] [id number] Sallie Espinal, STRATEGIC ADVISOR [facility] Start: 08-08-2023 End: 08-08-2023 [facility] Start: 07-28-2023 Bacteria identified in Blood by Culture [facility] Start: 07-28-2023 Plain chest X-ray XR chest 2V* [facility] Start: 07-28-2023 XR Chest 2 Views [facility] Start: 10-23-2022 [facility] Comprehensive metabo lic 2000 panel - Serum or Plasma [facility] F5 gene mutations fo und [Identifier] in Blood or Tissue by Molecular genetics method Nominal [facility] Patient Education [facility] Work Phone: Patient referral [facility] Work Phone: [place] Lower extremity v ein - right [facility] Immunizations Immunization Date Immunization Notes Care Provider Derrek sandra 04-06-2015 diphtheria, tetanus toxoids and acellular pertussis vaccine, unspecified formulation Kelli Doss Other [facility] Payers Date Payer Category Payer Self-pay [id number] 2023 Private Health Insurance [employer] [id number] 2023 Unknown [employer] [id number] 2023-Present [address] [place] [address] [id number] [id number] 1959 Unknown [id number] 1958 Unknown [id number] 2.16.840.1.348840.3.579. 2.593 1958 Unknown [id number] 2.16.840.1.150588.3.579. 2.593 1958 Unknown [id number] 2.16.840.1.300294.3.579. 2.356 1958 Unknown [id number] 2.16.840.1.627381.3.579. 2.356 1958 Unknown [id number] 2.16.840.1.599449.3.579. 2.1259 1958 Unknown [id number] 2.16.840.1.559270.3.579. 2.1259 1958 Unknown [id number] 2.16.840.1.255680.3.579. 2.1259 1958 Unknown [id number] 2.16.840.1.953353.3.579. 2.1259 1958 Unknown [id number] 2.16.840.1.213315.3.579. 2.1259 1958 Unknown [id number] 2.16.840.1.543868.3.579. 2.1259 1958 Unknown [id number] 2.16.840.1.730884.3.579. 2.1259 1958 Unknown [id number] 2.16.840.1.978236.3.579. 2.1259 1958 Unknown [id number] 2.16.840.1.871639.3.579. 2.1259 1958 Unknown [id number] 2.16.840.1.968952.3.579. 2.1259 1958 Unknown [id number] 2.16.840.1.782853.3.579. 2.1259 Private Health Insurance [facility] [id number] Unknown [id number] 2.16.840.1.330535.3.579. 2.531 Unknown [id number] 2.16.840.1.611534.3.579. 2.531 Unknown [id number] 2.16.840.1.265447.3.579. 2.531 Unknown [id number] 2.16.840.1.903383.3.579. 2.531 Unknown [id number] 2.16.840.1.501691.3.579. 2.531 Unknown [id number] 2.16.840.1.313769.3.579. 2.531 Unknown [id number] 2.16.840.1.493574.3.579. 2.531 Unknown [id number] 2.16.840.1.688563.3.579. 2.531 Unknown [id number] 2.16.840.1.051239.3.579. 2.531 Unknown [id number] 2.16.840.1.677629.3.579. 2.531 Social History Date Type Detail Facility Unknown if ever smoked [employer] Other Sex Assigned At [employer] Other Start: 08-17-2021 End: 08-08-2023 Tobacco smoking status TNIS Never smoked tobacco (finding) [facility] Start: 1960 Sex Assigned At Male F [facility] Start: 04-24-2024 Tobacco smoking status TNIS Tobacco smoking consumption unknown [facility] Start: 1960 Sex Assigned At Not on file [facility] Start: 05-08-2024 Alcoholic beverage intake [facility] Medical Equipment Procedure Code Equipment Code Equipment Origin al Text Equipment Identifier Dates Arthroscopy, shoulder Tendon/ligament bone anchor, bioabsorbable [id number] FDA Start: 08-08-2023 Arthroscopy, shoulder Tendon/ligament bone anchor, bioabsorbable ()[id number] FDA Start: 08-08-2023 Arthroscopy, shoulder Tendon/ligament bone anchor, bioabsorbable ()[id number] FDA Start: 08-08-2023 Arthroscopy, shoulder Tendon/ligament bone anchor, bioabsorbable ()[id number] FDA Start: 08-08-2023 Goals Date Patient Goal Desired Activity /State Clinical Notes 04-27-2021 to 11-30-2023 Note Date & Type Note Facility 11-30-2023 Evaluation note Authored November 30, 2023 8:31 am The above note written by Curtis MARTINEZ acting as human recorder, note dictated by Dr. Rolando Cortes. [facility] Work Phone: [phone]) 427-502302-22-2024 Hospital Discharge instructionsAmbulatory Orders* Referral to Vascular Surgery Time Frame: 10/18/23, Location: None [facility] Work Phone: [phone]) 208-624302-13-2024 Telephone encounter Note* Telephone Encounter - Valentina Ramirez - 10/09/2023 8:46 AM EST [id number] Miscellaneous Notes* Telephone Encounter - Valentina Ramirez - 10/09/2023 8:46 AM EST Cx documented in this encounterSaint [facility] [id number] History of Present illness Narrative* Nikita Nicole, PT - 10/02/2023 6:00 PM EST Physical Therapy Physical Therapy Evaluation Visit Patient Name: David Ozuna Today's Date: 10/03/2023 Encounter Diagnoses Name Primary? [...] in all planes to allow him to lift/carryobjects to help him perform work tasks without [...] below. Physician Signature: Date: documented in this encounterSaint [facility] [id number] Evaluation note* Encounter Date Diagnosis Assessment Notes Treatment Notes Treatment Clinical Notes Aug, Acute pain of left shoulder [...] states (ICD-10 - Z98.890) Aug, Other This documentat ion is being amended on 09/24/23 due to an internal data corruption event that occurred on 09/20/23. This data corruption event was NOT the result of any breach, fraud, or malicious third alliance party actors and no personal patient information was compromised. [employer] Other 12-21-2023 Evaluation note* Encounter Date Diagnosis [...] Other specified postprocedural states (ICD-10 - Z98.890) [employer] Other 12-11-2023 Evaluation note* Encounter Date Diagnosis Assessment Notes Treatment Notes Treatment Clinical Notes Jul, Other specified postprocedural states (ICD-10 - Z98.890) [employer] Other 12-05-2023 Evaluation note* Encounter Date Diagnosis [...] of infection, hardware pullout, cuff repair failure, snf pain and stiffness are well known problems [...] op. 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 May, Pre-op exam (ICD-10 - Z01.818) [employer] Other 07-17-2023 Evaluation note* Encounter Date Diagnosis Assessment Notes Treatment Notes Treatment Clinical Notes Feb, Acute pain of left shoulder (ICD-10 - M25.512) David presents with complaints of left shoulder pain. Radiographs reviewed and discussed in detail with patient. I am concerned about partial or full thickness rotator cuff tear. MRI can be helpful in diagnosis as well as planning future surgical options. We will submit to patient's insurance for approval and follow up to review results. Patient voices understanding and is agreeable to treatment plan. [employer] Other [facility]* Encounter Date Diagnosis Assessment Notes [...] monitor this and advise if anything changes. [employer] Other 01-20-2023 Evaluation note* Encounter Date Diagnosis Assessment Notes Treatment Notes Treatment Clinical Notes Aug, Hyperlipidemia, unspecified hyperlipidemia type (ICD-10 - E78.5) Aug, Screening for prostate cancer (ICD-10 - Z12.5) Aug, Wellness examination (ICD-10 - Z00.00) [employer] Other 08-19-2022 Evaluation note* Encounter Date Diagnosis [...] to 2 days after having the x-ray. [employer] Other 07-06-2022 Evaluation note* Encounter Date Diagnosis Assessment Notes Treatment Notes Treatment Clinical Notes Feb, Ascending aortic aneurysm (ICD-10 - I71.2) [employer] Other [id number] NotePROCEDURE: XR FOOT RT MIN 3 VIEWS [...] Electronically authenticated by: MACY HIDALGO Date: 2022-01-17 10:14[facility]05-24-2022 NotePROCEDURE: XR HAND RT MIN 3V HISTORY: Pain in finger of right hand ; acute right thumb pain without injury COMPARISON: None. FINDINGS: BONES:No fracture, acute abnormality, or significant arthropathy. SOFT TISSUES:No visible soft tissue swelling. EFFUSION:None visible. OTHER: Negative. IMPRESSION: 1. No acute bone abnormality or significant degenerative changes. Electronically authenticated by: MACY HIDALGO Date: 2022-01-17 10:[address] [place], [place] 8232101-03-2022 Evaluation note* Encounter Date Diagnosis Assessment Notes Treatment Notes Treatment Clinical Notes Aug, Vision loss, bilateral (ICD-10 - H54.3) Symptoms are improving. He continues to follow up with [facility]. Aug, Light-headedness (ICD-10 - R42) Aug, [...] that was performed in the emergency room [facility] Other 10-26-2021 Evaluation note* Encounter Date Diagnosis Assessment Notes Treatment Notes Treatment Clinical Notes May, Acute pulmonary embolism, unspecified pulmonary embolism type, unspecified whether acute cor pulmonale present (ICD-10 - I26.99) [facility] Other 10-25-2021 Evaluation note* Encounter Date Diagnosis Assessment Notes Treatment Notes Treatment Clinical Notes May, Acute pulmonary embolism, unspecified pulmonary embolism type, unspecified whether acute cor pulmonale present (ICD-10 - I26.99) Review of [facility] report from 06/03, patient did develop [...] discussion took place for around 15-20 minutes. [facility] Other 09-01-2021 History general Narrative - Reported* [...] Surgical History c-spine surgery Hospitalization History surgeries [facility] Other 09-01-2021 History general Narrative - Reported* [...] rotator cuff repair 08/08/23 Hospitalization History surgeries [facility] Other Evaluation [employer] Other Evaluation noteNo InformationNortRipple [employer] Other Evaluation noteNo assessment information available [facility] Work Phone: Evaluation note* Diagnosis Acute pain of left shoulder- Primary S/P left rotator cuff repair documented in this encounter [facility]* Diagnosis Acute pain of left shoulder- Primary S/P left rotator cuff repair Status post left rotator cuff repair documented in this encounter [facility] HealthcareEvaluation note* Diagnosis Onset Date Resolution Status Ascending aortic aneurysm ac curtis Deep vein thrombosis of peroneal vein acute Pulmonary embolism acute [facility] Work Phone: Evaluation note* Diagnosis Onset Date Resolution Status Ascending aortic aneurysm ac curtis Pulmonary embolism acute Tear of left supraspinatus tendon acute Other specified postprocedural states noneactive [facility] Work Phone: Evaluation note* Diagnosis Onset Date Resolution Status Ascending aortic aneurysm ac curtis Deep vein thrombosis of peroneal vein acute Pulmonary embolism acute Tear of left supraspinatus tendon acute Other specified postprocedural states noneactive Deep vein thrombosis of peroneal vein acute Tear of left supraspinatus tendon acute Other specified postprocedural states noneactive [facility] Work Phone: Evaluation note* Author Gabriela Sykes [facility] Authored November 30, 2023 8:31 am The above note written by Curtis MARTINEZ acting as human recorder, note dictated by Dr. Rolando Cortes. [facility] Work Phone: Evaluation note* Diagnosis Onset Date Resolution Status Tear of left supraspinatus tendon acute Other specified postprocedural states noneactive [facility] Work Phone: Evaluation note* Diagnosis Onset Date Resolution Status Tear of left supraspinatus tendon acute Other specified postprocedural states noneactive Pulmonary embolism acute [facility] Work Phone: Evaluation note* Author Mikaela Steward [facility] Authored May 12, 2024 9:09am The above note written by Perla Steward LPN, acting as human recorder, note dictated by Dr. Rolando Cortes. [facility] Work Phone: Evaluation note* Diagnosis Capsulitis of metatarsophalangeal (MTP) joint of left foot documented in this encounter [facility] HealthcareHistory and physical note Author Tyra Panda [facility] October 23, 2022 11:05am Note Date/Time October 23, 2022 10:46am [facility] [address] [place] [address] Gastroenterology H&P Signed Patient: David Ozuna MR#: [id number] : 1960 Acct:[id number] Age/Sex: 62 / M Adm Date: 3 Loc: Room: Type: [facility] Attending Dr: Tyra Panda MD Copies to: [...] signed by Tyra Panda MD> 10/23/22 1105 [facility] Work Phone: [facility] - [facility] Discharge instructions Additional Instructions DISCHARGE [...] years -Follow up with PCP. -Office number [phone]. [facility] Work Phone: Hospital Discharge instructions Additional [...] in ONE week for re-evaluation. 2. Call [phone] for further questions.[facility] Work Phone: Summary Purpose Family History Relationship Condition Age at Onset Recorded Date/T fernando father Diabetes mellitus Unknown Hypertension Unknown Atrial fibrillation Unknown Not Specified Atrial fibrillation Unknown Relationship Condition Age at Onset Recorded Date/T fernando father Diabetes mellitus Unknown Hypertension Unknown Atrial fibrillation Unknown Not Specified Atrial fibrillation Unknown Not Specified Heart disease Unknown Relationship Condition Age at Onset Recorded Date/T fernando father Diabetes mellitus Unknown Hypertension Unknown Atrial fibrillation Unknown mother Atrial fibrillation Unknown mother Heart disease Unknown Relationship Condition Age at Onset Recorded Date/T fernando father Diabetes mellitus Unknown Hypertension Unknown Atrial fibrillation Unknown mother Atrial fibrillation Unknown Advance Directives Advance Directive Response Recorded Date/ Time Advance Directives No April 6:31pm Advance Directive Response Recorded Date/ Time Advance Directives No April 5:31pm Reason for Referral Reason 10/23/22 @ [facility] Dimitry coral is needing screening colonoscopy. Please call patient to get scheduled. Thank you Diagnosis 1 Screening for colon cancer (Z12.11) Referral Organization [facility] Family Medicin [facility] Referring Provider First Name Rolando Referring Provider Last Name Sophia Referring Provider Specialty Family Prac iliana Referred Organization [facility] Gastroenterolo gy Referred Provider Tyra Panda Referred Address [address] [address] ,[place], [place],[address] Referred Provider Specialty Gastroentero logy Referral Priority Routine Referral Appointment Date 2022-10-23 General Notes Ludy Lugo 023 11:19:36 AM >Received today and sent P2P Ludy Lugo 10/05/2022 01:28:04 PM >Patient has been scheduled Ludy Lugo 10/23/2022 01:10:27 PM >Operative report in chart Reason *FU 03/09 consult and treat; ascending thoracic aortic aneurysm increased in size Diagnosis 1 Ascending aortic ane urysm (I71.2) Referral Organization [facility] Family Rebeca Moncada Referring Provider First Name Rolando Referring Provider Last Name Sophia Referring Provider Specialty Family Prac iliana Referred Organization [facility] Referred Provider Jorge Luis Armas II Referred Address [address] [place] [address] [address],[place], [place] Referred Provider Specialty Thoracic Britt dooley Referral Priority Routine General Notes Ludy Lugo 022 07:27:32 AM >Received today and sent [...] vein thrombosis of peroneal vein Pulmonary embolism Chief Complaint Amb Documentation Amb Documentation Hospital f/u- [facility]andy 6 week recheck Referred for recurrent PE and recent DVT Reason for Visit Ascending aortic ane urysm Pulmonary embolism Tear of left supraspinatus tendon Other specified postprocedural states Chief Complaint Amb Documentation Amb Documentation Hospital f/u- dandy 6 week recheck Referred for recurrent PE and recent DVT op sp lt shoudler pain M75.102 - Unspecified rotator cuff tear or rupture Reason for Visit Ascending aortic ane urysm Deep vein thrombosis of peroneal vein Pulmonary embolism Tear of left supraspinatus tendon Other specified postprocedural states Deep vein thrombosis of peroneal vein Tear of left supraspinatus tendon Other specified postprocedural states Chief Complaint Amb Documentation Amb Documentation Hospital /[facility] 6 week recheck Referred for recurrent PE and recent DVT op sp lt shoudler pain M75.102 - Unspecified rotator cuff tear or rupture review labs Reason for Visit Ascending aortic ane urysm Deep vein thrombosis of peroneal vein Pulmonary embolism Tear of left supraspinatus tendon Other specified postprocedural states Deep vein thrombosis of peroneal vein Tear of left supraspinatus tendon Other specified postprocedural states Deep vein thrombosis of peroneal vein Pulmonary embolism Tear of left supraspinatus tendon Chief Complaint Amb Documentation Amb Documentation Hospital f/[facility] 6 week recheck Referred for recurrent PE and recent DVT op sp lt shoudler pain M75.102 - Unspecified rotator cuff tear or rupture review labs Z00.00 E78.5 Z12.5 Reason for Visit Ascending aortic ane urysm Deep vein thrombosis of peroneal vein Pulmonary embolism Tear of left supraspinatus tendon Other specified postprocedural states Deep vein thrombosis of peroneal vein Tear of left supraspinatus tendon Other specified postprocedural states Deep vein thrombosis of peroneal vein Pulmonary embolism Tear of left supraspinatus tendon Chief Complaint Amb Documentation Amb Documentation Hospital /[facility] 6 week recheck Referred for recurrent PE and recent DVT op sp lt shoudler pain M75.102 - Unspecified rotator cuff tear or rupture review labs Z00.00 E78.5 Z12.5 2 MONTH FOLLOW UP Reason for Visit Ascending aortic ane urysm Deep vein thrombosis of peroneal vein Pulmonary embolism Tear of left supraspinatus tendon Other specified postprocedural states Deep vein thrombosis of peroneal vein Tear of left supraspinatus tendon Other specified postprocedural states Deep vein thrombosis of peroneal vein Pulmonary embolism Tear of left supraspinatus tendon Tear of left supraspinatus tendon Other specified postprocedural states Chief Complaint op sp lt shoudler pa in M75.102 - Unspecified rotator cuff tear or rupture review labs Z00.00 E78.5 Z12.5 2 MONTH FOLLOW UP 2 MONTHS Reason for Visit Tear of left suprasp inatus tendon Other specified postprocedural states Deep vein thrombosis of peroneal vein Pulmonary embolism Tear of left supraspinatus tendon Tear of left supraspinatus tendon Other specified postprocedural states Tear of left supraspinatus tendon Other specified postprocedural states Chief Complaint 2 MONTHS 3 mo RT LEG U/S 9AM I82.459 Reason for Visit Tear of left suprasp inatus tendon Other specified postprocedural states Chief Complaint 2 MONTHS 3 mo RT LEG U/S 9AM I82.459 Reason for Visit Tear of left suprasp inatus tendon Other specified postprocedural states Pulmonary embolism Chief Complaint 2 MONTHS 3 mo RT LEG U/S 9AM I82.459 6 month follow up Reason for Visit Tear of left suprasp inatus tendon Other specified postprocedural states Pulmonary embolism Deep vein thrombosis of peroneal vein History of repair of left rotator cuff Hyperglycemia Hyperlipidemia Screening for prostate cancer Additional Source Comments (unrecognized sect ion and content) No Status Records FoundNo Status Records FoundNo Status Records FoundNo Status Records FoundNo Status Records Found INFORMATION SOURCE (unrecogn ized section and content) DATE CREATED AUTHOR 02/02/2022 [facility] DATE CREATED AUTHOR AUTHOR'S ORGANIZ ATION 06/28/2022 [facility] DATE CREATED AUTHOR AUTHOR'S ORGANIZ ATION 07/06/2022 [facility] DATE CREATED AUTHOR AUTHOR'S ORGANIZ ATION 03/29/2024 [facility] DATE CREATED AUTHOR AUTHOR'S ORGANIZ ATION 05/10/2024 [facility] EPIC REASON FOR VISIT (unrecogniz ed section and content) Specialty Diagnoses / Procedures Referred By Wendie wilson Referred To Contact Physical Therapy Diagnoses Unspecified rotator cuff tear or rupture of left shoulder, not specified as traumatic Pain in left shoulder Other specified postprocedural states Procedures [place] [facility] EVALUATION LOW COMPLEX 20 MINS Kushal Bateman MD [address] [place] [address] Nikita Nicole, PT [address] [address] Referral ID Status Reason Start Date Expiration Date V isits Requested Visits Authorized [id number] Authorized 09/25/2023 03/23/2024 24 24 Reason Onset Date Comments re: PT today 10/09/2023 She called joon Mendoza is currently in hospital and not going to be in today; I noted and as of now she confirmed 10/16. She said she'd keep us updated. Reason Comments Med Refill Care Teams (unrecognized sec tion and content) Team Status: Active Member Role Status Dates Rolando Cortes DO Primary Care Provider Active Team Status: Inactive Member Role Status Don Cortes DO Primary Care Provider Active Sta rt: November 22, 2023 End: November 22, 2023 Kushal Bateman MD Attending Provider Active Star t: November 22, 2023 End: November 22, 2023 Team Status: Inactive Member Role Status Dates Kushal Bateman MD Attending Provider Active Star t: November 22, 2023 End: November 22, 2023 Rolando Cortes DO Primary Care Provider Active Sta rt: November 22, 2023 End: November 22, 2023 Team Status: Inactive Member Role Status Don Cortes DO Primary Care Provide r, Attending Provider Active Start: November 30, 2023 End: November 30, 2023 Team Status: Inactive Member Role Status Don Cortes DO Primary Care Provider Active Sta rt: December 20, 2023 End: December 20, 2023 Kushal Bateman MD Attending Provider Active Star t: December 20, 2023 End: December 20, 2023 Team Status: Inactive Member Role Status Don Cortes DO Primary Care Provider Active Sta rt: February 19, 2024 End: February 19, 2024 Kushal Bateman MD Attending Provider Active Star t: February 19, 2024 End: February 19, 2024 Team Status: Active Member Role Status Don Cortes DO Primary Care Provider Active Sta rt: October 10, 2023 Jumana Horton LPN Attending Provider Active Sta rt: October 10, 2023 Team Status: Active Member Role Status Don Cortes DO Primary Care Provider Active Sta rt: October 11, 2023 Jumana Horton LPN Attending Provider Active Sta rt: October 11, 2023 Team Status: Inactive Member Role Status Dates Rolando Cortes DO Primary Care Provide r, Attending Provider Active Start: October 18, 2023 End: October 18, 2023 Team Status: Inactive Member Role Status Dates Rolando Cortes DO Primary Care Provider Active Sta rt: October 30, 2023 End: October 30, 2023 Kushal Bateman MD Attending Provider Active Star t: October 30, 2023 End: October 30, 2023 Team Status: Inactive Member Role Status Dates Rolando Cortes DO Primary Care Provide r, Referring Provider Active Start: November 08, 2023 End: November 08, 2023 Gonzalo Oconnor MD Attending Provider Active Start: November 08, 2023 End: November 08, 2023 Team Status: Inactive Member Role Status Dates Rolando Cortes DO Primary Care Provider Active Jorge Luis Tompkins MD Attending Provider Active Team Status: Inactive Member Role Status Dates Rolando Cortes DO Primary Care Provider, Attending Provi guy Active Team Status: Inactive Member Role Status Dates Rolando Cortes DO Primary Care Provider Active Tyra Panda MD Attending Provider Active Team Status: Inactive Member Role Status Dates Rolando Cortes DO Primary Care Provider Active Kushal Bateman MD Attending Provider Active Team Status: Inactive Member Role Status Dates Rolando Cortes DO Primary Care Provider Active Lisa Lerner APRN Emergency Provider Active Team Status: Active Member Role Status Dates Rolando Cortes DO Primary Care Provider Active Kushal Bateman MD Attending Provider Active Team Status: Inactive Member Role Status Dates Rolando Cortes DO Primary Care Provider Active Orion Mondragon [...] 2023 Team Status: Inactive Member Role Status Don Cortes DO Primary Care Provider Active Sta rt: August 03, 2023 End: August 03, 2023 Kushal Bateman MD Attending Provider Active Star t: August 03, 2023 End: August 03, 2023 Team Status: Inactive Member Role Status Don Cortes DO Primary Care Provider Active Sta rt: August 08, 2023 End: August 08, 2023 Kushal Bateman MD Attending Provider Active Star t: August 08, 2023 End: August 08, 2023 Team Status: Active Member Role Status Dates Provider Conversion Attending Provider Active St art: August 16, 2023 Team Status: Inactive Member Role Status Don Cortes DO Primary Care Provider Active Sta rt: August 16, 2023 End: August 16, 2023 Kushal Bateman MD Attending Provider Active Star t: August 16, 2023 End: August 16, 2023 Team Status: Active Member Role Status Don Bateman MD Attending Provider Active Star t: November 22, 2023 Rolando Cortes DO Primary Care Provider Active Sta rt: November 22, 2023 Team Status: Active Member Role Status Don Cortes DO Primary Care Provider Active Sta rt: October 09, 2023 End: October 09, 2023 Holger Patel DO Attending Provider Active Sta rt: October 09, 2023 End: October 09, 2023 Team Status: Inactive Member Role Status Don Cortes DO Primary Care Provider Active Sta rt: March 20, 2024 End: March 20, 2024 Gonzalo Oconnor MD Attending Provider Active Start: March 20, 2024 End: March 20, 2024 Team Status: Active Member Role Status Don Cortes DO Primary Care Provider Active Sta rt: March 20, 2024 Gonzalo Oconnor MD Attending Provider Active Start: March 20, 2024 Team Status: Inactive Member Role Status Don Cortes DO Primary Care Provide r, Attending Provider Active Start: May 12, 2024 End: May 12, 2024 Goals (unrecognized section and content) Goals may [...] BE BASED ON THE PRIMARY CLINICAL RECORDS. [facility] [employer] [facility]. provides no warranty or guarantee of the accuracy or completeness of information in this document.
--- NOTE | 2024-06-24 08:25 | ED.BACK1 ---
HPI HPI - Back Pain/Injury General Chief Complaint: Back Pain/Injury Stated Complaint: BACK PAIN Time Seen by Provider: 06/24/24 08:24 Source: patient Mode of arrival: walk-in Limitations: no limitations History of Present Illness HPI Narrative: This patient is here complaining of discomfort in his left scapular area. He is somewhat paranoid and concerned because he has had 2 episodes of this in the past that felt similar and both times he had blood clots in his lungs. He was told he needs to take blood thinners the rest of his life. Currently he is taking Eliquis. He does not have a short of breath with this episode. He has not had fever shakes or chills. There has been no swelling in his legs there is been no travel history. He is not clear that they ever did diagnose his exact underlying condition. He is not having any chest pain. He has had a cardiac echo that was essentially normal. Related Data Previous Rx's ?Medication ?Instructions ?Recorded apixaban 5 mg tablet (Eliquis) 10 mg (2 x 5 mg) PO BID #60 tabs 10/09/23 Allergies Allergy/AdvReac Type Severity Reaction Status Date / Time No Known Drug Allergies Allergy Verified 06/24/24 08:04 Opioid HPI Opioid Management Most Recent Opioid Data: Last Pain Scale 4 06/24/24 08:30 06/24/24 [facility] Medical History (Updated 06/24/24 @ 10:09 by Denzel Blackmon MD) Chest pain ?R07.9 - Chest pain, unspecified (ICD-10) COVID ?U07.1 - COVID-19 (ICD-10) Fracture dislocation of cervical spine ?S12.9XXA - Fracture of neck, unspecified, initial encounter (ICD-10) ACL injury tear ?S83.519A - Sprain of anterior cruciate ligament of unspecified knee, initial encounter (ICD-10) Surgical History (Updated 10/09/23 @ 02:39 by Valentina Albright) History of rotator cuff surgery ?Z98.890 - Other specified postprocedural states (ICD-10) Social History Within the past year, how often did you have a drink containing alcohol: never Score interpretation: A score less than 4 is consistent with normal alcohol consumption. 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 Vital signs are noted with a respiratory rate of 16 and pulse ox 97%. Heart sounds are regular with no tachycardia I hear no S3-S4 clicks rubs or murmurs. Lungs had good aeration bilaterally with normal pulse oximetry there is no cough congestion or respiratory distress. There is no evidence of skin lesions or shingles. Constitutional Vital Signs, click to edit/add: Last Vital Signs Temp 98.2 F 06/24/24 08:04 Pulse 69 06/24/24 08:04 Resp 16 06/24/24 08:04 BP 141/98 H 06/24/24 08:04 Pulse Ox 97 06/24/24 08:04 O2 Del Method Room Air 06/24/24 08:04 Course Vital Signs Vital signs: Vital Signs Temperature 98.2 F 06/24/24 08:04 Pulse Rate 69 06/24/24 08:04 Respiratory Rate 16 06/24/24 08:04 Blood Pressure 141/98 H 06/24/24 08:04 Pulse Oximetry 97 06/24/24 08:04 Oxygen Delivery Method Room Air 06/24/24 08:04 Temperature 98.2 F 06/24/24 08:04 Pulse Rate 69 06/24/24 08:04 Respiratory Rate 16 06/24/24 08:04 Blood Pressure 141/98 H 06/24/24 08:04 Pulse Oximetry 97 06/24/24 08:04 Oxygen Delivery Method Room Air 06/24/24 08:04 MDM - Back Pain/Injury MDM Narrative Medical decision making narrative: This patient's D-dimer is negative but because of the risk factors and clinical suspicion a CTA was ordered. Fortunately it is negative. These findings are most consistent and we have excluded pulmonary embolism. This is a musculoskeletal type of problem. He is continue his medications may use rybu-kqk-tdiidch analgesics but avoid NSAIDs. Lab Data Labs: Lab Results 06/24/24 Range/Units 08:24 WBC 4.4 (4.0-11.0) 10^3/uL RBC 5.00 (4.70-6.10) 10^6/uL Hgb 16.4 (14.0-18.0) g/dL Hct 46.6 (42.0-54.0) % MCV 93.2 (80.0-94.0) fL MCH 32.8 (25.9-34.0) pg MCHC 35.2 (29.9-35.2) g/dL RDW 11.7 (11.0-15.0) % Plt Count 219 (150-450) 10^3/uL MPV 9.4 L (9.5-13.5) fL Seg Neuts % (Manual) 75.0 (43.0-75.0) Lymphocytes % (Manual) 16.0 L (20.5-60.0) % Monocytes % (Manual) 6.0 (1.7-12.0) % Eosinophils % (Manual) 2.0 (0.9-7.0) % Basophils % (Manual) 1.0 (0.2-2.0) % Neutrophils # (Manual) 3.30 (1.4-6.5) 10^3/uL Lymphocytes # (Manual) 0.70 L (1.20-3.80) 10^3/uL Monocytes # (Manual) 0.26 L (0.30-0.80) 10^3/uL Eosinophils # (Manual) 0.08 (0.00-0.70) 10^3/uL Basophils # (Manual) 0.04 (0.00-0.10) 10^3/uL D-Dimer <0.19 (<=0.59) mg/L FEU Sodium 142 (136-145) mmol/L Potassium 4.1 (3.5-5.1) mmol/L Chloride 108 H (98-107) mmol/L Carbon Dioxide 24.6 (21.0-32.0) mmol/L Anion Gap 13.5 BUN 25.0 H (7.0-18.0) mg/dL Creatinine 1.12 (0.70-1.30) mg/dL Est GFR ( Amer) >60 (>=60 mL/min/1.73m^2) Est GFR (Non-Af Amer) >60 (>=60 mL/min/1.73m^2) BUN/Creatinine Ratio 22.3 Glucose 115 H (74-106) mg/dL Calcium 8.8 (8.5-10.1) mg/dL Discharge Plan Discharge Chief Complaint: Back Pain/Injury Clinical Impression: Acute left-sided thoracic back pain Patient Disposition: Home, Self-Care Time of Disposition Decision: 10:08 Prescriptions / Home Meds: No Action Eliquis 5 mg Tablet 10 mg PO BID Qty: 60 11RF Rx Instructions: 2 po BID for 1 week then 1 po BID for life Print Language: Persian Additional Instructions: Moist heat to the area/avoid NSAIDs while taking blood thinners Referrals: Rolando Cortes DO [Primary Care Provider] - 1 week
--- NOTE | 2024-06-24 08:26 | CT_ITS ---
[address] [address] Patient Name: CAYLA WORRELL MRN: [id number] date: 1960 Sex: M Assigned Patient Location: ER Current Patient Location: ER Accession/Order Number: [id number] Exam Date: 06/24/2024 08:50 Report Date: 06/24/2024 09:56 At the request of: MITCHELL BEAL Procedure: CT angio chest EXAMINATION: CT angio chest HISTORY: Left chest pain, recurrent pulmonary embolism , left back pain COMPARISON: CT chest 10/08/2023 TECHNIQUE: Multi-planar CT images were created with IV contrast. Axial, Coronal, and Sagittal images. Dose reduction techniques were achieved by using automated exposure control and/or adjustment of mA and/or kV according to patient size and/or use of iterative reconstruction technique. 3-D reconstruction was performed on a separate workstation. FINDINGS: VASCULATURE: No pulmonary embolism or abnormal opacity. LUNGS: 5 mm nodular opacity within anterior right upper lobe near minor fissure. Trace amount stranding within posterior right lung base favoring discoid atelectasis or scarring. Mild bibasilar dependent atelectasis. PLEURA: No mass, effusion, or pneumothorax. GREY: No mass or adenopathy. MEDIASTINUM: No mass or adenopathy. CARDIAC: No enlargement, pericardial effusion, or pericardial thickening. AORTA: No aneurysm or dissection. CHEST WALL: No mass or axillary adenopathy. BONES: No bone lesion or fracture. LIMITED ABDOMEN: No suspicious findings. Limited images of the upper abdomen. OTHER: Negative. CT/CT angio chest IMPRESSION: 1. No pulmonary embolism. 2. No acute infiltrates or convincing acute cardiopulmonary process. 3. Stable 5 mm nodular opacity within right upper lobe. Consider follow-up CT chest in one year to document stability. Electronically authenticated by: MACY HIDALGO Date: 06/24/2024 09:56
[2024-06-24 08:34] LABS: Hematocrit 46.6 % (42.0-54.0); Hemoglobin 16.4 g/dL (14.0-18.0); Mean Corpuscular HGB Conc 35.2 g/dL (29.9-35.2); Mean Corpuscular Hemoglobin 32.8 pg (25.9-34.0); Mean Corpuscular Volume 93.2 fL (80.0-94.0); Mean Platelet Volume 9.4 fL (9.5-13.5); Platelet Count 219 10^3/uL (150-450); Red Cell Distribution Width 11.7 % (11.0-15.0); White Blood Count 4.4 10^3/uL (4.0-11.0)
[2024-06-24 08:44] LABS: Anion Gap 13.5; BUN Creatinine Ratio 22.3; Calcium 8.8 mg/dL (8.5-10.1); Carbon Dioxide 24.6 mmol/L (21.0-32.0); Chloride 108 mmol/L (98-107); Estimated GFR (African America >60 (>=60 mL/min/1.73m^2); Estimated GFR (Non-African Ame >60 (>=60 mL/min/1.73m^2); Glucose 115 mg/dL (74-106); Potassium 4.1 mmol/L (3.5-5.1); Sodium 142 mmol/L (136-145)
[2024-06-24 09:11] LABS: Basophils Abs Manual 0.04 10^3/uL (0.00-0.10); Eosinophils Absolute Manual 0.08 10^3/uL (0.00-0.70); Monocytes Absolute Manual 0.26 10^3/uL (0.30-0.80)
[2024-06-24 09:14] LABS: D Dimer <0.19 mg/L FEU (<=0.59)
[2024-06-24 10:07] VITALS: BP 138/93; PULSE 74; O2SAT 96
== END 2024-06-24 10:20 | disposition home or self-care (01) ==
PROVIDERS: Emergency Provider Emergency Medicine Emergency Medical Services; PCP Family Medicine
DX: M54.6 Pain in thoracic spine (principal); Z79.01 Long term (current) use of anticoagulants
CPT/HCPCS: 36415; 71275; 80048; 85007; 85027; 85378; 99284; Q9967

== ENCOUNTER 2025-03-30 13:55 | Emergency (ER) | payer OTHER, SELFPAY ==
[2025-03-30 13:59] VITALS: BP 172/112; PULSE 96; TEMP 36.5; O2SAT 96; BMI 25.1
[2025-03-30] MEDS: LIDOCAINE HCL 1% 100 MG/10 ML MDV 20 ML INJ (14:21)
[2025-03-30] MEDS: ONDANSETRON 4 MG RAPDIS TABLET SL (14:21)
[2025-03-30] MEDS: MORPHINE SULFATE 4 MG/ML VIAL IM (14:21)
--- NOTE | 2025-03-30 14:25 | XR_ITS ---
The [address] [address] Patient Name: CAYLA WORRELL MRN: [id number] date: 1960 Sex: M Assigned Patient Location: ER Current Patient Location: ED.MAIN Accession/Order Number: [id number] Exam Date: 03/30/2025 14:55 Report Date: 03/30/2025 14:56 At the request of: MACIEJ MORAES Procedure: XR hand LT 2V XR hand LT 2V 03/30/2025 2:42 PM SIGNS AND SYMPTOMS: Laceration of the base of thumb across the palm of the hand PROTOCOL: Frontal lateral radiographs of the left hand COMPARISON: None FINDINGS: Degenerative changes are noted at the first carpal metacarpal junction. Degenerative changes are noted in the radiocarpal joint. Degenerative changes are noted along the junction of the scaphoid and trapezium. There is no fracture or dislocation. No abnormal radiopaque foreign body. XR/XR hand LT 2V IMPRESSION: No acute bony injury. No abnormal radiopaque foreign body. Degenerative changes are noted in the wrist and at the base of the thumb as above. Impression dictated by: Flavio Dove M.D. 03/30/2025 2:56 PM Dictation Location: [place] [address] Electronically authenticated by: [id number] Y Date: 03/30/2025 14:56
[2025-03-30 14:34] VITALS: BP 168/102
[2025-03-30 16:17] VITALS: BP 118/69; PULSE 65; O2SAT 96
[2025-03-30] MEDS: LIDOCAINE HCL 2% 400 MG/20 ML MDV INJ (16:54)
--- NOTE | 2025-03-30 16:57 | ED.WOUNDLAC1 ---
HPI - Wound/Laceration General Chief Complaint: Wound/Laceration Stated Complaint: HAND LACERATION Time Seen by Provider: 03/30/25 14:04 Source: patient Mode of arrival: walk-in Limitations: no limitations History of Present Illness HPI narrative: Patient presented to the ED with a complaint of a laceration of his left arm x 2. He got it stuck on a knife that he uses for bailed hay. Happened just prior to arrival. Patient currently has bleeding controlled. He has no other injury. Unsure of tetanus status. He good has good range of motion of all of his fingers. No numbness or tingling in the digits. He has no other injury. Patient is on Eliquis for history of PE. He has no other complaints at this time Onset (ago): hour(s) Extremity Location: Left: forearm (7 cm on the dorsal lateral aspect.) and wrist (Towards the lateral radial area 5 cm) Place: Reports home Patient tetanus UTD: No Context: Reports accidental Associated symptoms: Reports pain Treatments prior to arrival: Reports bandage Related Data Previous Rx's ?Medication ?Instructions ?Recorded apixaban 5 mg tablet (Eliquis) 10 mg (2 x 5 mg) PO BID #60 tabs 10/09/23 cephalexin 500 mg capsule 500 mg PO Q8H 7 days #21 caps 03/30/25 hydrocodone 5 mg-acetaminophen 325 1 tab PO Q6H #10 tabs 03/30/25 mg tablet ondansetron 4 mg disintegrating 4 mg PO Q6H PRN nausea and 03/30/25 tablet vomiting #10 tabs Allergies Allergy/AdvReac Type Severity Reaction Status Date / Time No Known Drug Allergies Allergy Verified 03/30/25 14:01 [facility] Medical History (Updated 03/30/25 @ 17:22 by DIMITRY CERVANTES) Chest pain ?R07.9 - Chest pain, unspecified (ICD-10) COVID ?U07.1 - COVID-19 (ICD-10) Fracture dislocation of cervical spine ?S12.9XXA - Fracture of neck, unspecified, initial encounter (ICD-10) ACL injury tear ?S83.519A - Sprain of anterior cruciate ligament of unspecified knee, initial encounter (ICD-10) Surgical History (Updated 10/09/23 @ 02:39 by Valentina Albright) History of rotator cuff surgery ?Z98.890 - Other specified postprocedural states (ICD-10) Social History Within the past year, how often did you have a drink containing alcohol: never Score interpretation: A score less than 4 is consistent with normal alcohol consumption. 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 Highest level of school completed/degree received: high school graduate Are you now , , , , never or living with a partner: Little interest or pleasure in doing things: not at all Feeling down, depressed, or hopeless: not at all Feel stressed/tense/nervous/anxious/difficulty sleeping: not at all Exam Constitutional Vital Signs, click to edit/add: Last Vital Signs Temp 97.7 F 03/30/25 13:59 Pulse 72 03/30/25 17:49 Resp 18 03/30/25 17:49 BP 132/89 03/30/25 17:49 Pulse Ox 97 03/30/25 17:49 O2 Del Method Room Air 03/30/25 13:59 Extremity Common normals: full ROM and normal capillary refill Left upper extremity: lower arm (Laceration) and wrist (2 large lacerations) Left wrist: ROM and neurovascular exam Extremity image (front):  1. 5 cm deep laceration. Heavy bleeding Good ROM of phalanx. Good cap refill. Unable to visualize all tendons. 2. 7 cm deep laceration. Unable to completely visualize tendons, but suspect at least partial laceration ? Neuro Common normals: oriented x3 Speech: speech normal Sensory exam: extremities Motor exam: strength 5/5 throughout Psych Appearance: grossly normal Attitude: calm and engaged Course Vital Signs Vital signs: Vital Signs Temperature 97.7 F 03/30/25 13:59 Pulse Rate 96 H 03/30/25 13:59 Respiratory Rate 20 03/30/25 13:59 Blood Pressure 172/112 H 03/30/25 13:59 Pulse Oximetry 96 03/30/25 13:59 Oxygen Delivery Method Room Air 03/30/25 13:59 Temperature 97.7 F 03/30/25 13:59 Pulse Rate 72 03/30/25 17:49 Respiratory Rate 18 03/30/25 17:49 Blood Pressure 132/89 03/30/25 17:49 Pulse Oximetry 97 03/30/25 17:49 Oxygen Delivery Method Room Air 03/30/25 13:59 MDM - Wound/Laceration MDM Narrative Medical decision making narrative: Patient presented to the ED with a complaint of a laceration of his left arm x 2. He got it stuck on a knife that he uses for bailed hay. Happened just prior to arrival. Patient currently has bleeding controlled. He has no other injury. Unsure of tetanus status. He good has good range of motion of all of his fingers. No numbness or tingling in the digits. He has no other injury. Patient is on Eliquis for history of PE. He has no other complaints at this time Has 2 lacerations first laceration is on the left dorsal lateral forearm approximately an inch above the wrist. He has mild amount of bleeding. It is approximately 7 cm. It is linear. Second laceration is just distal to that more over the wrist into the dorsal hand aspect. It is fairly deep however. He had some moderate bleeding to this initially it did resolve with a pressure dressing. Patient has good range of motion of all phalanx which were each isolated. He has good thumb opposition and good implementation coordinator strength. He has good sensation in the fingers distally. Good cap refill in all fingers. X-rays were performed and did not show any acute bony process. Tetanus shot was updated Wounds were repaired as noted in the procedure note Patient was given Keflex for home use which causes stomach upset so he was given Zofran as well. Patient additionally was given some pain medication. I consulted Dr. Blair orthopedics to evaluate the patient this week for follow-up. He also recommended Ancef and IV which was provided. Patient was placed in splint to help the lacerations to heal without disruption. Patient remained stable through his visit here. He remained neurovascularly intact during his visit. He was evaluated on several occasions for his neurovascular status. He never had any decrease in this. Patient will follow-up as discussed and will be discharged in stable condition Differential Diagnosis Differential diagnosis: Likely laceration Medical Records Attestation: I reviewed the patient's medical records. Discharge Plan Discharge Chief Complaint: Wound/Laceration Clinical Impression: Anticoagulated Laceration of forearm, left, complicated Qualifiers: Encounter type: initial encounter Qualified Code(s): S51.812A - Laceration without foreign body of left forearm, initial encounter Laceration of left wrist with complication Qualifiers: Encounter type: initial encounter Qualified Code(s): S61.512A - Laceration without foreign body of left wrist, initial encounter Patient Disposition: Home, Self-Care Time of Disposition Decision: 17:00 Condition: Good Mode of Transportation: Private Vehicle Prescriptions / Home Meds: New cephalexin 500 mg capsule 500 mg PO Q8H 7 Days Qty: 21 0RF hydrocodone-acetaminophen 5-325 mg tablet 1 tab PO Q6H Qty: 10 0RF ondansetron 4 mg tablet,disintegrating 4 mg PO Q6H PRN (Reason: nausea and vomiting) Qty: 10 0RF No Action Eliquis 5 mg Tablet 10 mg PO BID Qty: 60 11RF Rx Instructions: 2 po BID for 1 week then 1 po BID for life Print Language: Nepali Instructions: Laceration (ED) Referrals: Rolando Cortes DO [Primary Care Provider] - 1 week Nicolas Blair MD [Physician, Orthopedics] - As soon as possible Referral Note: Office will call to schedule this week. Discharge Date/Time: 03/30/25 18:30 Procedures Laceration Laceration Laceration 1: Site: upper extremity Side (if applicable): left Size (cm): 5 Description: linear Depth: involves muscle layer Anesthetic used: lidocaine 1% Anesthesia technique: local infiltration Amount (ml): 8 Pre-repair: wound explored and irrigated extensively Skin layer closed with: other (prolene) Size (cm): 3-0 Number of sutures: 7 Technique: simple, interrupted Subcutaneous layer closed with: Vicryl Size: 4-0 Number of sutures: 2 Technique: simple, interrupted Laceration 2: Site: upper extremity Side (if applicable): left Size (cm): 6.5 Description: linear Depth: simple, single layer Anesthetic used: lidocaine 1% Anesthesia technique: local infiltration Amount (ml): 6 Pre-repair: wound explored and irrigated extensively Skin layer closed with: other Size (cm): 3-0 Number of sutures: 8
[2025-03-30] MEDS: DIPHTH,PERTUSS(ACELL),TET VAC 0.5 ML SYRINGE IM (17:25)
[2025-03-30] MEDS: CEFAZOLIN SODIUM/DEXTROSE,ISO 1 GM/50 ML PREMIX IV (17:32)
[2025-03-30 17:49] VITALS: BP 132/89; PULSE 72; O2SAT 97
[2025-03-30 18:30] VITALS: BP 100/77; PULSE 86; O2SAT 97
== END 2025-03-30 18:30 | disposition home or self-care (01) ==
PROVIDERS: Emergency Provider Emergency Medicine; PCP Family Medicine
DX: Z79.01 Long term (current) use of anticoagulants (principal); M79.632 Pain in left forearm; S51.812A Laceration without foreign body of left forearm, initial encounter; S61.512A Laceration without foreign body of left wrist, initial encounter; W26.0XXA Contact with knife, initial encounter; Z23 Encounter for immunization
CPT/HCPCS: 73120; 90471; 96365; 96372; 99284; J0690; J2270; Q0162